=== PATIENT | male | born 1940 | race Caucasian/White ===

== ENCOUNTER 2020-06-28 07:42 | Outpatient (REF) | payer MEDICARE, SELFPAY ==
[2020-06-28 09:22] LABS: MANUAL DIFF FLAG NO
[2020-06-28 09:35] LABS: Basophils Absolute Auto 0.1 X10*3/uL (0.0-0.2); Basophils Percent Auto 0.9 % (0-2); Eosinophils Absolute Auto 0.2 X10*3/uL (0.0-0.4); Eosinophils Percent Auto 4.2 % (0-4); Hematocrit 45.5 % (42-52); Hemoglobin 15.1 g/dl (14.0-18.0); Imm Gran Abs Auto 0.02 X10*3/uL (0.00-0.03); Imm Gran Pct Auto 0.3 % (0.0-0.4); Lymphocytes Absolute Auto 1.6 X10*3/uL (1.2-4.9); Lymphocytes Percent Auto 27.3 % (20-40); Mean Corpuscular HGB Conc 33.2 g/dl (31.0-36.0); Mean Corpuscular Volume 90.5 fL (80-98); Mean Platelet Volume 9.6 fL (9.4-12.4); Monocytes Absolute Auto 0.6 X10*3/uL (0.1-1.2); Monocytes Percent Auto 9.9 % (2-11); Neutrophils Absolute Auto 3.3 X10*3/uL (2.0-8.3); Neutrophils Percent Auto 57.4 % (45-73); Platelet Count 157 X10*3/uL (160-400); Red Blood Count 5.03 X10*6/uL (4.60-5.80); Red Cell Distribution Width 13.5 % (11.0-16.0); White Blood Count 5.8 X10*3/uL (4.8-10.8)
[2020-06-28 10:24] LABS: Alanine Aminotransferase 21 U/L (0-40); Albumin Level 4.2 g/dL (3.5-5.0); Alkaline Phosphatase 61 U/L (39-117); Anion Gap 10 (12-20); Aspartate Amino Transferase 17 U/L (5-37); Bilirubin Direct 0.4 mg/dL (0.0-0.5); Blood Urea Nitrogen 17 mg/dL (9-16); Calcium 9.1 mg/dL (8.4-10.2); Carbon Dioxide 30 mmol/L (22-29); Chloride 104 mmol/L (96-108); Cholesterol 164 mg/dL; Estimated Glomerular Filt Rate 59; Glucose Fasting 91 mg/dL (60-99); HDL Cholesterol 44 mg/dL; LDL Cholesterol Calculated 95 mg/dl; Sodium 140 mmol/L (135-145); Triglycerides 128 mg/dL
== END 2020-06-28 07:43 | disposition home or self-care (01) ==
LOC: HO.LAB 07:42
DX: I10 Essential (primary) hypertension (principal); E78.5 Hyperlipidemia, unspecified
CPT/HCPCS: 36415; 80053; 80061; 80076; 85025

== ENCOUNTER 2021-05-04 08:50 | Outpatient (REF) | payer MEDICARE, SELFPAY ==
[2021-05-04 10:25] LABS: MANUAL DIFF FLAG NO
[2021-05-04 10:28] LABS: Basophils Percent Auto 0.7 % (0-2); Eosinophils Absolute Auto 0.2 X10*3/uL (0.0-0.4); Eosinophils Percent Auto 2.7 % (0-4); Hemoglobin 15.5 g/dl (14.0-18.0); Imm Gran Abs Auto 0.02 X10*3/uL (0.00-0.03); Imm Gran Pct Auto 0.4 % (0.0-0.4); Lymphocytes Absolute Auto 1.4 X10*3/uL (1.2-4.9); Lymphocytes Percent Auto 25.9 % (20-40); Mean Corpuscular HGB Conc 35.2 g/dl (31.0-36.0); Mean Corpuscular Hemoglobin 30.6 pg (27.0-33.0); Mean Corpuscular Volume 86.8 fL (80-98); Mean Platelet Volume 9.9 fL (9.4-12.4); Monocytes Absolute Auto 0.5 X10*3/uL (0.1-1.2); Monocytes Percent Auto 9.8 % (2-11); Neutrophils Absolute Auto 3.4 X10*3/uL (2.0-8.3); Neutrophils Percent Auto 60.5 % (45-73); Platelet Count 165 X10*3/uL (160-400); Red Blood Count 5.07 X10*6/uL (4.60-5.80); Red Cell Distribution Width 13.4 % (11.0-16.0); White Blood Count 5.5 X10*3/uL (4.8-10.8)
[2021-05-04 11:33] LABS: Alanine Aminotransferase 22 U/L (0-40); Albumin Level 4.3 g/dL (3.5-5.0); Alkaline Phosphatase 66 U/L (39-117); Anion Gap 13 (12-20); Aspartate Amino Transferase 22 U/L (5-37); Bilirubin Total 1.6 mg/dL (0.0-1.0); Blood Urea Nitrogen 23 mg/dL (9-16); Calcium 9.8 mg/dL (8.4-10.2); Carbon Dioxide 24 mmol/L (22-29); Chloride 105 mmol/L (96-108); Cholesterol 192 mg/dL; Estimated Glomerular Filt Rate 50; Glucose Fasting 105 mg/dL (60-99); HDL Cholesterol 44 mg/dL; LDL Cholesterol Calculated 122 mg/dl; Potassium 4.2 mmol/L (3.3-5.1); Sodium 138 mmol/L (135-145); Total Protein 7.4 g/dL (6.5-8.0); Triglycerides 130 mg/dL
[2021-05-04 11:54] LABS: Thyroid Stimulating Hormone 1.55 uIU/mL (0.32-4.0)
== END 2021-05-04 08:51 | disposition home or self-care (01) ==
LOC: HO.WFDLDS 08:50
PROVIDERS: PCP Internal Medicine; Visit Provider Internal Medicine
DX: Z00.00 Encounter for general adult medical examination without abnormal findings (principal); E03.9 Hypothyroidism, unspecified; E11.9 Type 2 diabetes mellitus without complications
CPT/HCPCS: 36415; 80053; 80061; 84443; 85025

== ENCOUNTER 2021-09-20 10:23 | Outpatient (REF) | payer MEDICARE, SELFPAY ==
[2021-09-20 13:38] LABS: Binax Internal Control QC Valid; Binax Now Covid-19 Ag Negative (Negative)
== END 2021-09-20 10:24 | disposition home or self-care (01) ==
LOC: HO.LAB 10:23
PROVIDERS: Visit Provider Internal Medicine
DX: Z20.822 Contact with and (suspected) exposure to COVID-19 (principal)
CPT/HCPCS: C9803

== ENCOUNTER 2021-12-14 07:39 | Outpatient (REF) | payer MEDICARE, SELFPAY ==
--- NOTE | ~2021-12-14 | US_ITS ---
EXAMINATION: US ABDOMEN COMPLETE CLINICAL INFORMATION: Unspecified abdominal pain. COMPARISON: CT abdomen and pelvis 10/23/2014. TECHNIQUE: Real-time imaging of the abdominal viscera. FINDINGS: PANCREAS: The visualized portion of the pancreas head and body are normal, portion of the pancreatic body and tail, not visualized are obscured by bowel gas. ABDOMINAL AORTA: The proximal, mid, and distal segments are normal in caliber. INFERIOR VENA CAVA: Visualized portions are normal. LIVER: The liver is normal in size. The liver contour is normal. Increased echogenicity of the liver parenchyma, this can be seen in the setting of hepatic steatosis or liver parenchymal disease. No focal hepatic lesion. There is no intrahepatic biliary duct dilatation seen. GALLBLADDER: Surgically absent. COMMON BILE DUCT: Normal in caliber measuring 0.5 cm in diameter. RIGHT KIDNEY: Simple cyst middle pole right kidney 2.9 x 2.4 x 2.8 cm. No hydronephrosis or renal calculi. The kidney measures 10.2 cm in maximum dimension. LEFT KIDNEY: Normal. No hydronephrosis. No renal calculi or focal parenchymal lesions. The kidney measures 10.4 cm in maximum dimension. SPLEEN: Normal. The spleen measures 11.8 cm in maximum dimension. FREE FLUID: None. US/US abdomen complete IMPRESSION: *No ultrasound explanation for patient's pain symptoms, gallbladder has been removed. *Simple cyst right kidney 2.9 cm *Increased echogenicity of the liver parenchyma, this can be seen in the setting of hepatic steatosis or liver parenchymal disease.
== END 2021-12-14 07:40 | disposition home or self-care (01) ==
LOC: HO.US 07:39
PROVIDERS: Visit Provider Internal Medicine
DX: R10.9 Unspecified abdominal pain (principal)
CPT/HCPCS: 76700

== ENCOUNTER 2022-01-12 12:18 | Outpatient (REF) | payer MEDICARE, SELFPAY ==
[2022-01-12 13:28] LABS: MANUAL DIFF FLAG NO
[2022-01-12 14:11] LABS: Basophils Absolute Auto 0.1 X10*3/uL (0.0-0.2); Basophils Percent Auto 0.8 % (0-2); Eosinophils Absolute Auto 0.2 X10*3/uL (0.0-0.4); Eosinophils Percent Auto 2.8 % (0-4); Hematocrit 43.8 % (42.0-52.0); Hemoglobin 15.2 g/dl (14.0-18.0); Imm Gran Abs Auto 0.02 X10*3/uL (0.00-0.03); Imm Gran Pct Auto 0.3 % (0.0-0.4); Lymphocytes Absolute Auto 1.3 X10*3/uL (1.2-4.9); Lymphocytes Percent Auto 21.6 % (20-40); Mean Corpuscular HGB Conc 34.7 g/dl (31.0-36.0); Mean Corpuscular Hemoglobin 30.6 pg (27.0-33.0); Mean Corpuscular Volume 88.3 fL (80.0-98.0); Mean Platelet Volume 9.6 fL (9.4-12.4); Monocytes Absolute Auto 0.7 X10*3/uL (0.1-1.2); Monocytes Percent Auto 11.9 % (2-11); Neutrophils Absolute Auto 3.9 x10*3/uL (2.0-8.3); Neutrophils Percent Auto 62.6 % (45-73); Platelet Count 167 X10*3/uL (160-400); Red Blood Count 4.96 X10*6/uL (4.60-5.80); Red Cell Distribution Width 13.7 % (11.0-16.0); White Blood Count 6.2 X10*3/uL (4.8-10.8)
[2022-01-12 14:34] LABS: Alanine Aminotransferase 19 U/L (0-40); Albumin Level 4.2 g/dL (3.5-5.0); Alkaline Phosphatase 58 U/L (39-117); Anion Gap 13 (12-20); Aspartate Amino Transferase 18 U/L (5-37); Blood Urea Nitrogen 19 mg/dL (9-16); Calcium 9.9 mg/dL (8.4-10.2); Carbon Dioxide 26 mmol/L (22-29); Chloride 105 mmol/L (96-108); Estimated Glomerular Filt Rate 48; Glucose Random 95 mg/dL (60-115); Potassium 4.5 mmol/L (3.3-5.1); Sodium 139 mmol/L (135-145); Total Protein 7.6 g/dL (6.5-8.0)
[2022-01-12 14:54] LABS: TSH reflex Free T4 1.48 uIU/mL (0.32-4.0)
== END 2022-01-12 12:19 | disposition home or self-care (01) ==
LOC: HO.LAB 12:18
PROVIDERS: PCP Internal Medicine; Referring Provider Internal Medicine; Visit Provider Nurse Practitioner
DX: R10.9 Unspecified abdominal pain (principal); K59.04 Chronic idiopathic constipation; Z80.0 Family history of malignant neoplasm of digestive organs
CPT/HCPCS: 36415; 80053; 84443; 85025; 99202

== ENCOUNTER → 2022-02-16 07:12 | Outpatient (BNVA) | payer MEDICARE, SELFPAY | PROVIDERS: PCP Internal Medicine; Visit Provider Nurse Practitioner | DX: K59.04 Chronic idiopathic constipation (principal); Z80.0 Family history of malignant neoplasm of digestive organs | CPT/HCPCS: 99212 ==

== ENCOUNTER 2022-02-28 08:42 | Day surgery (SDC) | payer MEDICARE, SELFPAY ==
[2022-02-27 08:18] VITALS: BMI 25.0
--- NOTE | 2022-02-27 10:44 | P.CONAN_ITS ---
HPI - Anesthesia Eval Consult details Narrative: 81yo M for Colonoscopy [facility] Active Problems Active Problems: All Active Problems (Updated 02/27/22 @ 08:23 by Allegra Diaz RN) Coronary artery disease (Acute) Hyperlipidemia (Acute) Cough (Acute) Physical exam (Acute) Hypertension (Acute) Contact dermatitis (Acute) Abdominal pain (Acute) Chronic idiopathic constipation (Acute) Family history of colon cancer (Acute) Past Medical History Medical History (Updated 02/27/22 @ 08:23 by Allegra Diaz RN) Renal cyst, right Family History Family History Father No problems noted. Mother No problems noted. Surgical History Surgical History (Updated 01/12/22 @ 12:26 by URMILA Vernon) History of cholecystectomy History of colonoscopy History of left inguinal hernia History of left knee replacement History of rectal fissure History of right inguinal hernia History of shoulder surgery Social History Social History Housing: House Are you a primary caregiver assisted living to a significant other at home: No Do you presently have visiting nurse or other home services: No Alcohol intake: current Alcohol intake frequency: holidays/special occasions only Patient Tobacco Use Status: Former Tobacco user Quit Date: Tobacco use type: Cigarette e-Cigarette/Vaping Use: Never Used Second Hand Smoke Exposure: No Use of substances other than those prescribed or required for medical reasons: No Are you DNR?: No Advance Directives: No (will bring DOS) Advance Directives Information Provided: No Advance Directives on File: No Recently lost weight without trying: Yes How much weight loss: 14-23 pounds Eating poorly because of decreased appetite: No Nutrition screen score: 4 Nutrition Risks: Surgical patient >75years Poor oral hygiene: No (full dentures) service: No Current occupational status: retired Current occupational exposures/hazards: No Cognitive needs: No Hearing needs: No Vision needs: Yes Meds Allergies Allergy/AdvReac Type Severity Reaction Status Date / Time No Known Allergies Allergy Verified 02/16/22 07:28 [No Known Allergies*] Home Medications Medication Instructions Recorded Confirmed Last Taken Type atorvastatin 40 mg tablet 40 mg PO BEDTIME 02/27/22 02/27/22 Unknown History Exam Exam Date and Time: February 27, 2022 1044 Height,Weight and Vital Signs: Height 5 ft 8 in Weight 74.843 kg Pertinent Lab Results Pertinent Lab Results: Laboratory Tests 01/12/22 01/12/22 13:25 13:25 WBC 6.2 Hgb 15.2 Hct 43.8 Plt Count 167 Sodium 139 Potassium 4.5 Chloride 105 Carbon Dioxide 26 BUN 19 H Creatinine 1.41 H Assessment and Plan Assessment Anesthesia Assessment: Chart Reviewed
--- NOTE | 2022-02-28 09:08 | P.BOP_ITS ---
Brief Operative Note Date of Service: 02/28/22 Pre-op diagnosis: Colon cancer screening, chronic constipation, left lower quadrant pain Pt reports he had a colonoscopy several yrs ago which revealed a polyp and polyp was not removed Post-op diagnosis: other (Colon polyps, diverticulosis, hemorrhoids) Procedure: COLONOSCOPY TILL CECUM WITH BIOPSIES, SNARE POLYPECTOMY AND SUBMUCOSAL INJECTION Consent: Indications for the procedure and potential complications of bleeding, perforation, reaction to medications and missed diagnosis were discussed with the patient and informed consent was obtained. Instrument: Olympus PCF H 190 L variable stiffness pediatric colonoscope Monitoring: Vital signs and clinical assessment, intermittent blood pressure monitoring, continuous EKG monitoring, Pulse oximetry and Carbon Dioxide monitoring were done throughout the procedure. Colon withdrawl time was 18 minutes. Procedure: The patient was placed in the left lateral decubitis position and pre-procedure medications were administered. After a digital rectal examination of the ano-rectum, the video colonoscope was inserted into the rectum and advanced through the colon to the cecum. The colonoscope was slowly withdrawn in a retrograde panoramic fashion and the colon mucosa was carefully examined including a retroflexed view of the rectum. Findings and interventions are described below. Procedure Difficulty: Without difficulty - colon was long and tortuous and there was some loop formation Findings: Terminal Ileum: Not evaluated Cecum: Normal Ascending Colon: Two 5-7 mm sessile polyps removed with a cold snare Transverse Colon: A 2 x 2.5 cms flat polyp at 70 cms. Polyp was raised with 5 cc of Orise solution (submucosal injection) and removed with a hot snare. Descending Colon: A 6-7 mm flat polyp removed with a cold bx Sigmoid Colon: A 9-10 mm sessile polyp removed with a hot snare. Moderate diverticulosis Rectum: Multiple 2-4 mm diminutive appearing polyps - two removed with a cold bx. Ano-rectum: Moderate internal hemorrhoids Colon preparation: Good Impression and Post Procedure Diagnosis: Colonoscopy Findings: Seven small to medium sized polyps removed Moderate diverticulosis seen in the sigmoid colon Moderate hemorrhoids on retroflexed exam. Plan: Await pathology results Patient has an appointment on 03/29/22 in the GI Clinic with Connie Guevara NP. Repeat Colonoscopy interval based on path results - in 3 years if polyps are adenomatous and 10 years if polyps are hyperplastic. Above findings were reviewed with the patient and colon polyps and diverticulosis handouts were given in the discharge area Surgeon: Tessa Mejia MD Anesthesia: MAC (Dr Vickers) Was an Insurance Processing Clerk used for this Procedure?: Yes Insurance Processing Clerk: Kelsie Owusu Estimated blood loss (mL): 0 Pathology: other ( A. transverse colon polyp with Orise B. ascending colon polyps (2) C. descending colon polyp d- sigmoid polyp e- rectal po lyp) Condition: stable Disposition: PACU
--- NOTE | 2022-02-28 09:08 | MHC.SHP ---
Pre-Procedural Eval Section A Date of Service: 02/28/22 The patient is an INPATIENT: No Changes since office visit: Yes Patient answered all questions; No Cold of Flu in the past 2 weeks, No New Medical Problems and No Changes in Medication The History & Physical has been completed within 30 days and I have reviewed it.: Yes Section B Chief Complaint: Chronic idiopathic constipation,hx malignant neopl Allergies: Allergies Allergy/AdvReac Type Severity Reaction Status Date / Time No Known Allergies Allergy Verified 02/16/22 07:28 [No Known Allergies*] Plan I have reviewed the history and physical and performed a pertinent physical examination on my patient. No changes have occurred unless specified.
[2022-02-28 09:19] VITALS: BP 181/95; PULSE 71; RESP 17; TEMP 37.3; O2SAT 97
[2022-02-28] MEDS: Lactated Ringers 1,000 ML 100 ML IVCONT (09:27)
--- NOTE | 2022-02-28 10:22 | P.CONAN_ITS ---
[facility] Active Problems Active Problems: All Active Problems (Updated 02/28/22 @ 09:11 by Denise Alas RN) Coronary artery disease (Acute) Hyperlipidemia (Acute) Cough (Acute) Physical exam (Acute) Hypertension (Acute) Contact dermatitis (Acute) Abdominal pain (Acute) Chronic idiopathic constipation (Acute) Family history of colon cancer (Acute) Past Medical History Medical History HTN (hypertension) Renal cyst, right Family History Family History Father No problems noted. Mother No problems noted. Family history of problems with anesthesia: No Surgical History Surgical History History of cholecystectomy History of colonoscopy History of left inguinal hernia History of left knee replacement History of rectal fissure History of right inguinal hernia History of shoulder surgery History of Problems with Anesthesia: No Social History Social History Housing: House Are you a primary hemodialysis patient care specialist to a significant other at home: No Do you presently have visiting nurse or other home services: No Alcohol intake: current Alcohol intake frequency: holidays/special occasions only Patient Tobacco Use Status: Former Tobacco user Quit Date: Tobacco use type: Cigarette e-Cigarette/Vaping Use: Never Used Second Hand Smoke Exposure: No Use of substances other than those prescribed or required for medical reasons: No Are you DNR?: No Advance Directives: Yes Advance Directives Information Provided: Yes Advance Directives on File: No Recently lost weight without trying: Yes How much weight loss: 14-23 pounds Eating poorly because of decreased appetite: No Nutrition screen score: 4 Nutrition Risks: Surgical patient >75years Poor oral hygiene: No (full dentures) service: No Current occupational status: retired Current occupational exposures/hazards: No Cognitive needs: No Hearing needs: No Vision needs: Yes Meds Allergies Allergy/AdvReac Type Severity Reaction Status Date / Time No Known Allergies Allergy Verified 02/16/22 07:28 [No Known Allergies*] Active Medications: Current Medications Lactated Ringer's (Lr) 1,000 mls @ 100 mls/hr IVCONT .Q10H CHRISTINA Last Admin: 02/28/22 09:27 Dose: 100 mls/hr Ondansetron HCl (Ondansetron Hcl 4 Mg/2 Ml Vial) 4 mg IVPUSH ONCE PRN PRN Reason: Nausea and Vomiting Home Medications Medication Instructions Recorded Confirmed Last Taken Type atorvastatin 40 mg tablet 40 mg PO BEDTIME 02/27/22 02/27/22 Unknown History Exam Exam Date and Time: February 28, 2022 1022 Height,Weight and Vital Signs: Height 5 ft 8 in Weight 74.843 kg Last Vital Signs Temp 99.1 F 02/28/22 09:19 Pulse 71 02/28/22 09:19 Resp 17 02/28/22 09:19 BP 181/95 H 02/28/22 09:19 Pulse Ox 97 02/28/22 09:19 O2 Del Method 02/28/22 09:19 Airway Mallampati Class: II TM Dist: >3cm Denture: Upper and Lower Heart: rrr Lungs: clear Assessment and Plan Final Anesthetic Review Family History of Problems with Anesthesia: No History of Problems with Anesthesia: No NPO: Yes ASA Class: III Final Preanesthetic Review: No Changes in Pt Med Stat, Meds/Allgs Chart Reviewed, Consent Obtained/Reviewed and Anes Risks/Benef Reviewed Patient Risk: Intermediate Procedure Risk: Low Anesthetic Plan Anesthetic Plan: MAC:
--- NOTE | 2022-02-28 11:15 | W.PM.OPN ---
Operative Note Operative Note Date of Service: 02/28/22 Narrative: Pre-op diagnosis: Colon cancer screening, chronic constipation, left lower quadrant pain Pt reports he had a colonoscopy several yrs ago which revealed a polyp and polyp was not removed Post-op diagnosis:?other (Colon polyps, diverticulosis, hemorrhoids) Procedure: COLONOSCOPY TILL CECUM WITH BIOPSIES, SNARE POLYPECTOMY AND SUBMUCOSAL INJECTION Consent: Indications for the procedure and potential complications of bleeding, perforation, reaction to medications and missed diagnosis were discussed with the patient and informed consent was obtained. Instrument: Olympus PCF H 190 L variable stiffness pediatric colonoscope Monitoring: Vital signs and clinical assessment, intermittent blood pressure monitoring, continuous EKG monitoring, Pulse oximetry and Carbon Dioxide monitoring were done throughout the procedure. Colon withdrawl time was 18 minutes. Procedure: The patient was placed in the left lateral decubitis position and pre-procedure medications were administered. After a digital rectal examination of the ano-rectum, the video colonoscope was inserted into the rectum and advanced through the colon to the cecum. The colonoscope was slowly withdrawn in a retrograde panoramic fashion and the colon mucosa was carefully examined including a retroflexed view of the rectum. Findings and interventions are described below. Procedure Difficulty: Without difficulty - colon was long and tortuous and there was some loop formation Findings: Terminal Ileum: Not evaluated Cecum:? Normal Ascending Colon:? Two 5-7 mm sessile polyps removed with a cold snare Transverse Colon:? A 2 x 2.5 cms flat polyp at 70 cms. Polyp was raised with 5 cc of Orise solution (submucosal injection) and removed with a hot snare.? Descending Colon:? A 6-7 mm flat polyp removed with a cold bx Sigmoid Colon:? A 9-10 mm sessile polyp removed with a hot snare. Moderate diverticulosis Rectum:? Multiple 2-4 mm diminutive appearing polyps - two removed with a cold bx. Ano-rectum:? Moderate internal hemorrhoids Colon preparation:? Good? Impression and Post Procedure Diagnosis: Colonoscopy Findings: ?Seven small to medium sized polyps removed Moderate diverticulosis seen in the sigmoid colon Moderate hemorrhoids on retroflexed exam. Plan: Await pathology results Patient has an appointment on 03/29/22 in the GI Clinic with? Connie Guevara NP. Pt notes significant improvement in abdominal pain and bloating since he started taking medications for constipation. Repeat Colonoscopy interval based on path results - in 3 years if polyps are adenomatous and 10 years if polyps are hyperplastic (adult colonoscope for future colonoscopies). Above findings were reviewed with the patient and colon polyps and diverticulosis handouts were given in the discharge area Surgeon: Tessa Mejia MD Anesthesia:?MAC (Dr Vickers) Was an [employer] Missile Crewmember used for this Procedure?:?Yes [employer] Crewmember:?Kelsie Owusu Estimated blood loss (mL):?0 Pathology:?other ( A. transverse colon polyp with Orise? B. ascending colon polyps (2)? C. descending colon polyp? d- sigmoid polyp? e- rectal polyp) Condition:?stable Disposition:?PACU
[2022-02-28 11:17] VITALS: BP 106/71; PULSE 58; RESP 17; TEMP 36.4; O2SAT 94
[2022-02-28 11:32] VITALS: BP 140/84; PULSE 60; RESP 18; TEMP 36.4; O2SAT 96
== END 2022-02-28 12:00 | disposition home or self-care (01) ==
PROVIDERS: PCP Internal Medicine; Visit Provider Internal Medicine Gastroenterology
PROC: 0DJD8ZZ Inspection of Lower Intestinal Tract, Via Natural or Artificial Opening Endoscopic (ICD-10-PCS; CPT 45378; principal; 2022-02-28 10:50)
DX: Z12.11 Encounter for screening for malignant neoplasm of colon (principal); Z80.0 Family history of malignant neoplasm of digestive organs; D12.2 Benign neoplasm of ascending colon; D12.3 Benign neoplasm of transverse colon; K63.5 Polyp of colon; K62.1 Rectal polyp; K57.30 Diverticulosis of large intestine without perforation or abscess without bleeding; K64.8 Other hemorrhoids; K59.04 Chronic idiopathic constipation; I25.10 Atherosclerotic heart disease of native coronary artery without angina pectoris; I10 Essential (primary) hypertension; E78.5 Hyperlipidemia, unspecified; Z79.82 Long term (current) use of aspirin; Z79.899 Other long term (current) drug therapy; Z87.891 Personal history of nicotine dependence
CPT/HCPCS: 45385; 45380; 45381; 88305

== ENCOUNTER → 2022-03-29 09:46 | Outpatient (BNVA) | payer MEDICARE, SELFPAY | PROVIDERS: PCP Internal Medicine; Visit Provider Nurse Practitioner | DX: K63.5 Polyp of colon (principal); D12.2 Benign neoplasm of ascending colon; D12.3 Benign neoplasm of transverse colon; K62.1 Rectal polyp; K57.30 Diverticulosis of large intestine without perforation or abscess without bleeding; K64.8 Other hemorrhoids; K59.04 Chronic idiopathic constipation; R01.1 Cardiac murmur, unspecified; I25.10 Atherosclerotic heart disease of native coronary artery without angina pectoris; Z98.890 Other specified postprocedural states | CPT/HCPCS: 99212 ==

== ENCOUNTER → 2022-04-07 09:20 | Outpatient (REF) | payer MEDICARE, SELFPAY ==
--- NOTE | 2022-04-07 09:31 | ECG_ITS ---
Test Reason : screening Blood Pressure : / mmHG Vent. Rate : 054 BPM Atrial Rate : 054 BPM P-R Int : 176 ms QRS Dur : 102 ms QT Int : 426 ms P-R-T Axes : 064 -17 076 degrees QTc Int : 403 ms Sinus bradycardia Otherwise normal ECG When compared with ECG of 15-MAR-2015 13:48, No significant change was found Referred By: Cade Perez Electronically Signed By:RANDA BRANCH
== END ==
LOC: HO.CARD 09:20
PROVIDERS: PCP Internal Medicine; Visit Provider Internal Medicine
DX: R00.1 Bradycardia, unspecified (principal)
CPT/HCPCS: 93005

== ENCOUNTER 2022-05-19 09:32 | Outpatient (REF) | payer MEDICARE, SELFPAY ==
[2022-05-19 11:32] LABS: MANUAL DIFF FLAG NO
[2022-05-19 11:42] LABS: Basophils Absolute Auto 0.1 X10*3/uL (0.0-0.2); Basophils Percent Auto 0.9 % (0-2); Eosinophils Absolute Auto 0.2 X10*3/uL (0.0-0.4); Eosinophils Percent Auto 3.5 % (0-4); Hematocrit 47.2 % (42.0-52.0); Imm Gran Abs Auto 0.01 X10*3/uL (0.00-0.03); Imm Gran Pct Auto 0.2 % (0.0-0.4); Lymphocytes Absolute Auto 1.7 X10*3/uL (1.2-4.9); Lymphocytes Percent Auto 29.2 % (20-40); Mean Corpuscular HGB Conc 33.9 g/dl (31.0-36.0); Mean Corpuscular Hemoglobin 29.7 pg (27.0-33.0); Mean Corpuscular Volume 87.6 fL (80.0-98.0); Mean Platelet Volume 10.1 fL (9.4-12.4); Monocytes Absolute Auto 0.5 X10*3/uL (0.1-1.2); Monocytes Percent Auto 9.2 % (2-11); Neutrophils Absolute Auto 3.2 x10*3/uL (2.0-8.3); Platelet Count 174 X10*3/uL (160-400); Red Blood Count 5.39 X10*6/uL (4.60-5.80); Red Cell Distribution Width 13.5 % (11.0-16.0); White Blood Count 5.7 X10*3/uL (4.8-10.8)
[2022-05-19 12:33] LABS: Alanine Aminotransferase 22 U/L (0-40); Albumin Level 4.3 g/dL (3.5-5.0); Alkaline Phosphatase 69 U/L (39-117); Anion Gap 16 (12-20); Aspartate Amino Transferase 19 U/L (5-37); Bilirubin Total 1.4 mg/dL (0.0-1.0); Blood Urea Nitrogen 18 mg/dL (9-16); Calcium 9.8 mg/dL (8.4-10.2); Carbon Dioxide 25 mmol/L (22-29); Chloride 103 mmol/L (96-108); Cholesterol 224 mg/dL; Estimated Glomerular Filt Rate 52; Glucose Fasting 102 mg/dL (60-99); HDL Cholesterol 52 mg/dL; LDL Cholesterol Calculated 146 mg/dl; Potassium 4.2 mmol/L (3.3-5.1); Sodium 140 mmol/L (135-145); Total Protein 7.7 g/dL (6.5-8.0); Triglycerides 134 mg/dL
[2022-05-19 12:35] LABS: Thyroid Stimulating Hormone 1.34 uIU/mL (0.32-4.0)
== END 2022-05-19 09:33 | disposition home or self-care (01) ==
LOC: HO.WFDLDS 09:32
PROVIDERS: Visit Provider Internal Medicine
DX: Z00.00 Encounter for general adult medical examination without abnormal findings (principal); Z13.0 Encounter for screening for diseases of the blood and blood-forming organs and certain disorders involving the immune mechanism
CPT/HCPCS: 36415; 80053; 80061; 84443; 85025

== ENCOUNTER → 2022-06-13 14:28 | Outpatient (REF) | payer MEDICARE, SELFPAY ==
--- NOTE | 2022-06-13 14:30 | CA_ITS ---
Transthoracic Echocardiogram Patient (Last, First, Middle): Devon Auguste E Gender: Male Date of : 1940 Age: 81 Procedure Date: 06/13/2022 Procedure Type: Transthoracic Echocardiogram Location: OP Height: 172.72 cm Weight: 74.84 kg BSA: 1.88 m2 Heart Rate: 68 bpm BP: 135 / 72 mmHg Jig Hand: SB Referring MD: Cade Perez MD Cotton Chopper: Wayne Romano MD Symptoms: R01.1 - Cardiac murmur, unspecified Study Quality: Adequate ECG Rhythm: Sinus Conclusions: - 1. Normal LV systolic function with impaired relaxation filling pattern 2. Mild aortic stenosis 3. Normal RV systolic pressure 4. No pericardial effusion 5. Mildly dilated ascending aorta at 4.1 cm Findings Left Ventricle Normal left ventricular size, thickness, and systolic function. The visually estimated ejection fraction is between 60-65%. Spectral Doppler is indicative of an impaired relaxation filling pattern. E/E prime ratio is between 8 and 15 consistent with indeterminate filling pressures. There is mild septal asymmetric hypertrophy. Right Ventricle Normal right ventricular cavity size and systolic function. Atria The left atrium is normal in size. Interatrial shunt cannot be excluded. The right atrium is normal in size. Aortic Valve There is mild calcification of the aortic valve. There is mild thickening of the aortic valve. There is mild aortic valve stenosis. The mean gradient is 11 mmHg. There is no aortic valve regurgitation. Mitral Valve There is mild anterior and posterior mitral leaflet thickening. There is trace mitral valve regurgitation. There is no mitral valve stenosis. Pulmonic Valve The pulmonic valve was not well visualized. Tricuspid Valve Likely normal tricuspid valve structure and function. There is mild tricuspid valve regurgitation. The right ventricular systolic pressure is normal. The right ventricular systolic pressure is 36 mmHg. Normal right atrial pressure. There is no evidence of pulmonary hypertension. Great Vessels The pulmonary artery was not well visualized. There is mild dilatation of the ascending aorta measuring 4.10 cm. Venous The inferior vena cava is normal in size and collapses greater than 50% with inspiration. Pericardium/Pleural There is no evidence of pericardial effusion. Prior Study Comparison no previous study in the last 5 years for comparison Measurements 2D Linear Measurements IVSd: 1.38 0.6-0.9/0.6-1.0 cm LVIDd: 4.05 3.9-5.3/4.2-5.9 cm LVIDd Index: 2.15 2.4-3.2/2.2-3.1 cm/m2 LVIDs: 2.86 2.0-3.6 cm LVPWd: 0.88 0.7-1.1 cm LA Diam: 3.50 2.7-3.8/3.0-4.0 cm LAIDs Index: 1.86 1.5-2.3 cm/m2 LV Mass: 192.08 67-162/88-224 g LV Mass Index: 102.17 43-95/49-115 g/m2 LVOT Diam: 2.30 3.0+(-)1.3 cm 2D Systolic Function EF 4C: 57.90 >55% EF 2C: 62.80 >55% EF BiP: 61.80 >55% Mitral Valve MV Pk E: 0.42 MV PK A: 0.77 MV Decel Time: 295.00 E/A: 0.50 E'Lateral: 8.05 E'Medial: 4.03 E/E' Med: 10.30 E/E' Lat: 5.20 PHT: 86.00 MVA PHT: 2.56 Decel [place]: 1.41 Aortic Valve AoV Pk Raphael: 2.34 AoV Mn Raphael: 1.54 AoV VTI: 0.45 AoV Pk Grad: 22.00 Aov Mn Grad: 11.00 REY Cont.VTI: 2.39 LVOT LVOT Pk Raphael: 1.32 LVOT Mn Raphael: 0.82 LVOT VTI: 0.26 LVOT Pk Grad: 7.00 LVOT Mn Grad: 3.00 LVOT Diam: 2.30 LVOT Area: 4.15 Diastolic Function MV Pk E: 0.42 MV Pk A: 0.77 E/A: 0.50 E'Medial: 4.03 E/E' Med: 10.30 E' Laterial: 8.05 E/E' Lat: 5.20 Right Ventricle TAPSE (mm): 21.70 TVS' Raphael: 8.27 Tricuspid Valve TR Pk Raphael: 2.31 TR Pk Grad: 21.00 RA Press: 15.00 RVSP: 36.00 Great Vessels Aorta Sinus of Valsalva: 4.20 2.0-3.5 cm Ao Asc: 4.10 2.1-3.4 cm Pulmonary Valve PV Pk Raphael: 1.51 Peak PV Grad: 9.00 Updated in Other Vendor System with Status of Final Wayne Romano MD electronically signed on 06/14/2022 5:12:11 PM with status of Final
== END ==
LOC: HO.CARD 14:28
PROVIDERS: Visit Provider Internal Medicine
DX: R01.1 Cardiac murmur, unspecified (principal)
CPT/HCPCS: 93306

== ENCOUNTER → 2022-08-10 08:41 | Outpatient (BNVA) | payer MEDICARE, SELFPAY | PROVIDERS: PCP Internal Medicine; Referring Provider Internal Medicine; Visit Provider Internal Medicine Cardiovascular Disease | DX: I25.10 Atherosclerotic heart disease of native coronary artery without angina pectoris (principal); I35.0 Nonrheumatic aortic (valve) stenosis; R06.02 Shortness of breath | CPT/HCPCS: 99202 ==

== ENCOUNTER 2022-11-16 09:31 | Outpatient (REF) | payer MEDICARE, SELFPAY ==
[2022-11-16 12:22] LABS: Cholesterol 206 mg/dL; HDL Cholesterol 48 mg/dL; LDL Cholesterol Calculated 133 mg/dl; Triglycerides 128 mg/dL
== END 2022-11-16 09:32 | disposition home or self-care (01) ==
LOC: HO.WFDLDS 09:31
PROVIDERS: Visit Provider Internal Medicine Cardiovascular Disease
DX: I25.10 Atherosclerotic heart disease of native coronary artery without angina pectoris (principal)
CPT/HCPCS: 36415; 80061

== ENCOUNTER 2023-04-09 10:34 | Inpatient (IN) | payer MEDICARE, SELFPAY ==
[2023-04-09] VITALS (8 sets, daily range): BP systolic 125–176; BP diastolic 71–98; PULSE 53–64; RESP 16–24; TEMP 36.1–36.9; O2SAT 94–98; BMI 29.0
--- NOTE | ~2023-04-09 | MR_ITS ---
EXAMINATION: MR BRAIN WITHOUT CONTRAST CLINICAL INFORMATION: TIA COMPARISON: Same day CTA head and neck TECHNIQUE: Multiplanar multisequence MR imaging of the brain was obtained without intravenous contrast. FINDINGS: Motion degraded examination Focus of reduced diffusion in the right parietal deep white matter and small region of cortical reduced diffusion at the right parieto-occipital junction, compatible with acute infarct. There is also questionable cortical reduced diffusion involving the right frontal lobe including the precentral gyrus near the vertex (series 4 image 24 and 26). Focus of susceptibility artifact in the right parietal periventricular white matter likely reflect sequela prior microhemorrhage. No other abnormal parenchymal susceptibility artifact. No extra-axial collection or mass effect/herniation. Scattered periventricular and deep white matter T2 FLAIR hyperintensities consistent with mild underlying microangiopathy. Chronic encephalomalacia in the left frontal lobe. Chronic right basal ganglia and right cerebellar lacunar infarcts. No hydrocephalus. Mild generalized cerebral volume loss with commensurate sulcal and ventricular prominence. The major flow voids at the skull base are preserved. The midline structures are normal. The cerebellar tonsils are normally positioned. The craniocervical junction is normal. Marrow signal is within normal limits. The visualized soft tissues are without significant abnormality. No signal abnormality within the paranasal sinuses or within the mastoid air cells. MR/MR head/brain wo con IMPRESSION: 1. Small acute infarcts involving the right parieto-occipital junction and right parietal white matter. Equivocal cortical reduced diffusion in the right frontal lobe including the precentral gyrus near the vertex which may represent additional acute infarct. 2. Mild generalized volume loss and chronic microangiopathy, chronic right basal ganglia and right cerebellar lacunar infarcts, and chronic left frontal lobe infarcts.
--- NOTE | ~2023-04-09 | XR_ITS ---
EXAMINATION: XR CHEST CLINICAL INFORMATION: Left-sided weakness COMPARISON: None available. TECHNIQUE: AP upright portable view of the chest was obtained. 11:06 AM. FINDINGS: No airspace consolidation or vascular congestion seen. The pleural surfaces appear to be clear. Minimal linear atelectasis noted near the left costophrenic angle. XR/XR chest 1V IMPRESSION: Minimal linear atelectasis near the left costophrenic angle. No dominant consolidations or vascular congestion.
--- NOTE | ~2023-04-09 | CT_ITS ---
EXAMINATION: CT HEAD WITHOUT CONTRAST (STROKE PROTOCOL) CLINICAL INFORMATION: Stroke protocol. Acute left arm weakness COMPARISON: January 2011. TECHNIQUE: Contiguous axial imaging was performed from the skull base to vertex without intravenous administration of contrast. This CT examination was performed using dose optimization techniques as appropriate, variously including the following: *Automated exposure control *Adjustment of mA and/or kV according to patient size (this includes techniques or standardized protocols for targeted exams where dose is matched to indication/reason for exam; i.e. extremities or head) *Use of iterative reconstruction technique DLP: 773 mGy-cm FINDINGS: No evidence for hemorrhage or mass effect. Cisterns unremarkable. Pillai/white matter differentiation is maintained. No appreciable extra-axial collections. Atrophy noted. There are hypodense changes of subcortical and periventricular white matter consistent with chronic small vessel ischemic disease. There are old small right basal ganglia infarcts. Mastoids well aerated. No calvarial disruption. The skull base is within normal limits. CT/CT head for stroke IMPRESSION: No new hemorrhage or mass effect. Atrophy with change of chronic small vessel ischemic disease. 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
--- NOTE | ~2023-04-09 | CT_ITS ---
EXAMINATION: CT ANGIOGRAM NECK CT ANGIOGRAM HEAD CLINICAL INFORMATION: Left upper slightly weakness. COMPARISON: CT head 04/09/2023. TECHNIQUE: Handbag Stitcher images were obtained. A CT angiogram of the head and neck was performed in the arterial phase after the intravenous administration of 70 mL Omnipaque 350. Delayed postcontrast images of the head were also obtained. 3D images were processed on an independent workstation under concurrent supervision. Arterial stenoses are measured in accordance with NASCET criteria or similar method if applicable. This CT examination was performed using dose optimization techniques as appropriate, including one or more of the following: Automated exposure control, iterative reconstruction, and adjustment of technique factors (mA and/or kVp) according to patient size (this includes techniques or standardized protocols for targeted exams where dose is matched to indication/reason for exam). Fleischner Society criteria for the followup of incidental pulmonary nodules was implemented if appropriate. Total exam dose-length product 1542 mGy-cm FINDINGS: Head: Delayed postcontrast images reveal no abnormal intracranial mass or enhancement. No intracranial mass effect or midline shift. Lateral and third ventricles are normal. No hydrocephalus. There are a few small chronic cortical infarcts over the left cerebral convexity. Scattered chronic small vessel ischemic changes are also visualized within the periventricular white matter, basal ganglia, and carmelo. Grossly no evidence of acute territorial infarct. The calvarium and skull base are intact. There are bilateral mastoid effusions. Mild paranasal sinus disease primarily affecting the left maxillary sinus and ethmoid air cells. There chronic changes of an old healed left orbital blowout fracture. CT angiogram neck: Scattered atheromatous calcification involves the aortic arch apex. Origins of the major aortic branches are widely patent. Common carotid arteries are normal. Partially calcified predominantly lipid-laden atheromatous plaque causes 50% stenosis at the origins of the right and left internal carotid arteries. Cervical vertebral arteries are widely patent. CT angiogram head: Intracranial internal carotid arteries are normal. The intradural vertebral artery segments and basilar artery are normal. Anterior, middle, and posterior cerebral artery complexes are normal. No intracranial large vessel occlusion. No identifiable aneurysm or high flow vascular lesion. Other: Soft tissues of the neck including the thyroid gland are normal. Grossly no pathologically enlarged cervical lymph nodes. There is pleural-parenchymal scarring at the apices of both lungs. No acute osseous finding. Specifically no worrisome lytic or blastic osseous lesion. 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 CT/CT angio head neck stroke IMPRESSION: Partially calcified predominantly lipid-laden atheromatous plaque causes 50% stenosis at the origins of the right and left internal carotid arteries. Otherwise no stenosis of the cervical carotid or vertebral arteries. No intracranial large vessel occlusion. There are a few small chronic cortical infarcts over the left cerebral convexity and scattered chronic small vessel ischemic changes within the periventricular white matter, basal ganglia, and carmelo. Grossly no evidence of acute territorial infarct or hemorrhage. No abnormal intracranial mass or enhancement. 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 If there are clinical symptoms of compressive myelopathy then a dedicated cervical spine MRI can be obtained for better anatomic characterization of the cord and canal. This critical result was discussed with Dr. Ferrer at 11:13 AM on 04/09/2023 and it was ascertained that the content and urgency of the report was understood at the time of direct communication.
--- NOTE | 2023-04-09 07:00 | CA_ITS ---
Transthoracic Echocardiogram Patient (Last, First, Middle): Devon Auguste E Gender: Male Date of : 1940 Age: 82 Procedure Date: 04/09/2023 Procedure Type: Transthoracic Echocardiogram Location: ER Height: 172.72 cm Weight: 86.18 kg BSA: 2.00 m2 Heart Rate: 55 bpm BP: 163 / 85 mmHg Director Microbiology: SB Referring MD: Sravanthi ENGLISH Symptoms: tia Study Quality: Fair but adequate ECG Rhythm: Bradycardia Conclusions: - The left ventricular systolic function is normal. The calculated ejection fraction is 61% by biplane method. - Possible distal septal hypokinesis. - There is moderate calcification of the aortic valve. No significant aortic stenosis. - There is mild dilatation of the ascending aorta measuring 4.00 cm. Findings Left Ventricle Normal left ventricular cavity size. The left ventricular systolic function is normal. The calculated ejection fraction is 61% by biplane method. E/E prime ratio is <8, consistent with normal filling pressures. Evidence suggests grade I (mild) diastolic dysfunction. There is moderate septal asymmetric hypertrophy. Possible distal septal hypokinesis. Right Ventricle Normal right ventricular cavity size. There is mildly decreased right ventricular systolic function. Atria Both atria are normal in size. Aortic Valve There is moderate calcification of the aortic valve. There is trace (trivial) aortic valve regurgitation. No significant aortic stenosis. Mitral Valve The mitral valve appears normal. There is no mitral valve regurgitation. There is no mitral valve stenosis. Pulmonic Valve The pulmonic valve is likely normal. Tricuspid Valve Normal tricuspid valve structure. There is trace tricuspid valve regurgitation. There is no evidence of pulmonary hypertension. Great Vessels There is mild dilatation of the ascending aorta measuring 4.00 cm. Venous The inferior vena cava is normal in size and collapses greater than 50% with inspiration. Pericardium/Pleural There is no evidence of pericardial effusion. Prior Study Comparison Changes noted compared to prior study dated: 06/13/2022. see comment on wall motion. Measurements 2D Linear Measurements IVSd: 1.47 0.6-0.9/0.6-1.0 cm LVIDd: 4.62 3.9-5.3/4.2-5.9 cm LVIDd Index: 2.31 2.4-3.2/2.2-3.1 cm/m2 LVIDs: 2.61 2.0-3.6 cm LVPWd: 0.91 0.7-1.1 cm LA Diam: 3.50 2.7-3.8/3.0-4.0 cm LAIDs Index: 1.75 1.5-2.3 cm/m2 LV Mass: 254.16 67-162/88-224 g LV Mass Index: 127.08 43-95/49-115 g/m2 LVOT Diam: 2.10 3.0+(-)1.3 cm 2D Systolic Function EF 4C: 61.10 >55% EF 2C: 59.70 >55% EF BiP: 61.40 >55% Mitral Valve MV Pk E: 0.39 MV PK A: 0.87 MV Decel Time: 298.00 E/A: 0.50 E'Lateral: 6.92 E'Medial: 3.45 E/E' Med: 11.40 E/E' Lat: 5.70 PHT: 87.00 MVA PHT: 2.53 Decel [place]: 1.32 Aortic Valve AoV Pk Raphael: 1.96 AoV Mn Raphael: 1.32 AoV VTI: 0.39 AoV Pk Grad: 15.00 Aov Mn Grad: 8.00 REY Cont.VTI: 1.98 LVOT LVOT Pk Raphael: 1.02 LVOT Mn Raphael: 0.77 LVOT VTI: 0.22 LVOT Pk Grad: 4.00 LVOT Mn Grad: 3.00 LVOT Diam: 2.10 LVOT Area: 3.46 Diastolic Function MV Pk E: 0.39 MV Pk A: 0.87 E/A: 0.50 E'Medial: 3.45 E/E' Med: 11.40 E' Laterial: 6.92 E/E' Lat: 5.70 Right Ventricle TAPSE (mm): 13.10 TVS' Raphael: 8.59 Tricuspid Valve TR Pk Raphael: 2.29 TR Pk Grad: 21.00 RA Press: 3.00 RVSP: 24.00 Great Vessels Aorta Sinus of Valsalva: 4.10 2.0-3.5 cm Ao Asc: 4.00 2.1-3.4 cm Pulmonary Valve PV Pk Raphael: 1.27 Peak PV Grad: 6.00 Updated in Other Vendor System with Status of Final Julian Jovel MD electronically signed on 04/09/2023 3:38:38 PM with status of Final
--- NOTE | 2023-04-09 10:42 | ECG_ITS ---
Test Reason : STROKE ALERT Blood Pressure : / mmHG Vent. Rate : 060 BPM Atrial Rate : 060 BPM P-R Int : 178 ms QRS Dur : 106 ms QT Int : 412 ms P-R-T Axes : 061 -20 071 degrees QTc Int : 412 ms Normal sinus rhythm Normal ECG When compared with ECG of 07-APR-2022 09:30, No significant change was found Referred By: Willian Ferrer Electronically Signed By:RANDA BRANCH
[2023-04-09 10:48] LABS: Prothrombin Time Whole Bld POC 11.8 sec (11.1-13.5)
[2023-04-09 10:49] LABS: Glucose, Whole Blood 111 mg/dL (60-115)
[2023-04-09] MEDS: iohexoL 350 MG/ML 100 ML INFUS..BTL IV (10:58)
[2023-04-09 10:59] LABS: MANUAL DIFF FLAG NO
[2023-04-09 11:01] LABS: Basophils Percent Auto 0.4 % (0-2); Eosinophils Absolute Auto 0.1 X10*3/uL (0.0-0.4); Eosinophils Percent Auto 1.6 % (0-4); Hematocrit 46.7 % (42.0-52.0); Hemoglobin 16.5 g/dl (14.0-18.0); Imm Gran Abs Auto 0.02 X10*3/uL (0.00-0.03); Imm Gran Pct Auto 0.3 % (0.0-0.4); Lymphocytes Absolute Auto 1.5 X10*3/uL (1.2-4.9); Lymphocytes Percent Auto 20.3 % (20-40); Mean Corpuscular HGB Conc 35.3 g/dl (31.0-36.0); Mean Corpuscular Hemoglobin 30.7 pg (27.0-33.0); Mean Corpuscular Volume 86.8 fL (80.0-98.0); Mean Platelet Volume 9.7 fL (9.4-12.4); Monocytes Absolute Auto 0.7 X10*3/uL (0.1-1.2); Monocytes Percent Auto 9.5 % (2-11); Neutrophils Percent Auto 67.9 % (45-73); Platelet Count 153 X10*3/uL (160-400); Red Blood Count 5.38 X10*6/uL (4.60-5.80); Red Cell Distribution Width 13.1 % (11.0-16.0); White Blood Count 7.4 X10*3/uL (4.8-10.8)
[2023-04-09 11:06] LABS: INTERNATIONAL NORM RATIO 0.9 (0.9-1.1); Prothrombin Time 10.8 SEC (11.1-13.3)
[2023-04-09 11:09] LABS: Partial Thromboplastin Time 29.1 SEC (26.0-36.4)
[2023-04-09 11:26] LABS: Anion Gap 15 (12-20); Blood Urea Nitrogen 14 mg/dL (9-16); Calcium 10.2 mg/dL (8.4-10.2); Carbon Dioxide 21 mmol/L (22-29); Chloride 106 mmol/L (96-108); Creatinine Clr Calc Pharmacy 47.4; Estimated Glomerular Filt Rate 56; Glucose Random 109 mg/dL (60-115); Potassium 4.3 mmol/L (3.3-5.1); Sodium 138 mmol/L (135-145)
--- NOTE | 2023-04-09 11:31 | ED_ITS ---
HPI - Neuro Symptoms/Deficit General Chief Complaint: Stroke Stated Complaint: not himself Time Seen by Provider: 04/09/23 10:41 Source: patient Limitations: no limitations History of Present Illness HPI Narrative: 82-year-old male with history of hypertension, hypercholesterolemia presents with left hand weakness and inability to use his hand. also suggested that he appeared to be confused, anxious having a panic attack. Upon arrival, patient's predominant complaint is that his left hand was nonfunctioning. He is right-handed typically. He noted that he could not hold anything. Symptoms are to be considered severe. There is no clear relieving or exacerbating features. They occurred 90 minutes prior to arrival. He denies any headache, nausea, vomiting, chest pain, shortness of breath. Patient denies a history of such symptoms before. He is on a low-dose aspirin every day and statin medications. Symptoms have been constant and not improving. Related Data Previous Rx's Medication Instructions Recorded aspirin 81 mg tablet,delayed 81 mg PO DAILY #90 tabs 11/21/21 release (Adult Low Dose Aspirin) atorvastatin 80 mg tablet 80 mg PO DAILY #90 tabs 08/10/22 lisinopril 20 mg tablet 20 mg PO BID #180 tabs 12/08/22 Allergies Allergy/AdvReac Type Severity Reaction Status Date / Time No Known Allergies Allergy Verified 11/28/22 10:51 [No Known Allergies*] Review of Systems Review of Systems: CONSTITUTIONAL: Denies weight loss, fever and chills. HEENT: Denies changes in vision and hearing. RESPIRATORY: Denies SOB and cough. CV: Denies palpitations no CP. GI: Denies abdominal pain, nausea, vomiting and diarrhea. : Denies dysuria and urinary frequency. MSK: Denies myalgia and joint pain. SKIN: Denies rash and pruritus. NEUROLOGICAL: Denies headache and syncope. PSYCHIATRIC: Denies recent changes in mood. Denies anxiety and depression. All other ROS are negative unless in HPI PMFSH Past Medical History Medical History Coronary artery disease HTN (hypertension) Hyperlipidemia Renal cyst, right Surgical History History of cholecystectomy History of colonoscopy History of left inguinal hernia History of left knee replacement History of rectal fissure History of right inguinal hernia History of shoulder surgery Family History Family History Father No problems noted. Mother No problems noted. Social History Social History Housing: House Are you a primary senior caregiver to a significant other at home: No Do you presently have visiting nurse or other home services: No Alcohol intake: current Alcohol intake frequency: holidays/special occasions only Patient Tobacco Use Status: Former Tobacco user Quit Date: Tobacco use type: Cigarette e-Cigarette/Vaping Use: Never Used Second Hand Smoke Exposure: No Advance Directives: No Advance Directives Information Provided: Yes service: No Current occupational status: retired Current occupational exposures/hazards: No Cognitive needs: No Hearing needs: No Vision needs: Yes Physical Exam Vital Signs: Vital Signs: Last Vital Signs Temp 98.5 F 04/09/23 10:42 Pulse 64 04/09/23 10:42 Resp 18 04/09/23 10:42 BP 165/74 H 04/09/23 10:42 Pulse Ox 98 04/09/23 10:42 O2 Del Method Room Air 04/09/23 10:42 BMI result Body Mass Index 29.0 GEN: Well developed, no acute distress, alert, oriented HEENT: Normocephalic, atraumatic, normal external ears, nose appears normal, no oropharyngeal edema or exudates Eyes: Normal to appearance Neck: Supple, no lymphadenopathy Respiratory: Talks in complete sentences, no respiratory distress, clear to auscultation bilaterally Cardiovascular: Regular rate and rhythm, no murmurs rubs or gallops Abdomen: Soft, nontender, nondistended, no guarding, no rebound Back: No CVA tenderness Extremities: No clubbing cyanosis or edema Neurologic: No focal neurologic deficits, cranial nerves 2-12 intact, strength is 5/5 bilaterally, left pronator drift, incoordination of left hand Skin: No rash Course Reevaluation(s) Reevaluation #1: Dry CT negative for acute intracranial process Time: 11:00 Reevaluation #2: CT angiogram, no evidence of large vessel occlusion. Time: 11:15 Reevaluation #3: Patient has a low NIH Stroke Scale, he has a non disabling deficits. At this point, he is not a candidate for tPA. This was discussed with patient and . Patient had a low-dose aspirin earlier today. Will give 3 additional doses. Patient has been instructed he will require hospitalization, cardiac monitoring and possibly an MRI Time: 11:35 Medications Administered Discontinued Medications Generic Name Dose Route Start Last Admin Trade Name Joseline PRN Reason Stop Dose Admin Iohexol 100 ml 04/09/23 10:58 04/09/23 10:58 Iohexol 350 Mg/Ml 100 Ml Infus..Btl IV 04/09/23 10:59 70 ml ONCE ONE Administration Medical Decision Making Medical Decision Making [facility] Narrative: 82-year-old male presents with acute left arm weakness. Differential diagnosis includes TIA, CVA, neuropathy, musculoskeletal injury. Plan will be to obtain a CTA, CT of the head and neck. This will be a stroke alert. Has been activated. Will obtain routine laboratory analysis. Patient will almost certainly need to be admitted for his symptoms. He has a low NIH stroke scale. Do not believe he would warrant tPA based on a non disabling condition and LEs potentially has a large vessel occlusion which I do not suspect at this time. Will perform additional lab testing, EKG to rule out cardiac dysrhythmia as a possible underlying condition. Differential Diagnosis Differential Diagnoses: The differential diagnosis associated with the presentation includes (See above) Admission/Observation Consideration of admission/observation: Escalation of care including admission/observation considered Consult Healthcare Provider Management of the patient was discussed with: Hospitalist Lab Data [facility] Lab Attestation statement: I reviewed the patient's lab results. 04/09/23 10:55 04/09/23 10:55 Labs: Lab Results 04/09/23 04/09/23 04/09/23 Range/Units 10:42 10:43 10:55 WBC (4.8-10.8) X10*3/uL RBC (4.60-5.80) X10*6/uL Hgb (14.0-18.0) g/dl Hct (42.0-52.0) % MCV (80.0-98.0) fL MCH (27.0-33.0) pg MCHC (31.0-36.0) g/dl RDW (11.0-16.0) % Plt Count (160-400) X10*3/uL MPV (9.4-12.4) fL Immature Gran % (Auto) (0.0-0.4) % Neut % (Auto) (45-73) % Lymph % (Auto) (20-40) % Calvert % (Auto) (2-11) % Eos % (Auto) (0-4) % Baso % (Auto) (0-2) % Lymph # (Auto) (1.2-4.9) X10*3/uL Calvert # (Auto) (0.1-1.2) X10*3/uL Eos # (Auto) (0.0-0.4) X10*3/uL Baso # (Auto) (0.0-0.2) X10*3/uL Abs Immat Gran (auto) (0.00-0.03) X10*3/uL Absolute Neuts (auto) (2.0-8.3) x10*3/uL Absolute Nucleated RBC (0.0-0.012) X10*3/uL Nucleated RBC % (auto) (0.0-0.2) /100WBC PT (11.1-13.3) SEC Whole Blood PT 11.8 (11.1-13.5) sec INR (0.9-1.1) Whole Blood INR 1.0 (0.9-1.1) APTT (26.0-36.4) SEC Sodium 138 (135-145) mmol/L Potassium 4.3 (3.3-5.1) mmol/L Chloride 106 (96-108) mmol/L Carbon Dioxide 21 L (22-29) mmol/L Anion Gap 15 (12-20) BUN 14 (9-16) mg/dL Creatinine 1.24 (0.5-1.4) mg/dL Estim Creat Clear Calc 47.4 Estimated GFR 56 POC Glucose 111 (60-115) mg/dL Random Glucose 109 (60-115) mg/dL Calcium 10.2 (8.4-10.2) mg/dL Total Creatine Kinase 91 (38-174) U/L 04/09/23 04/09/23 04/09/23 Range/Units 10:55 10:55 10:55 WBC 7.4 (4.8-10.8) X10*3/uL RBC 5.38 (4.60-5.80) X10*6/uL Hgb 16.5 (14.0-18.0) g/dl Hct 46.7 (42.0-52.0) % MCV 86.8 (80.0-98.0) fL MCH 30.7 (27.0-33.0) pg MCHC 35.3 (31.0-36.0) g/dl RDW 13.1 (11.0-16.0) % Plt Count 153 L (160-400) X10*3/uL MPV 9.7 (9.4-12.4) fL Immature Gran % (Auto) 0.3 (0.0-0.4) % Neut % (Auto) 67.9 (45-73) % Lymph % (Auto) 20.3 (20-40) % Calvert % (Auto) 9.5 (2-11) % Eos % (Auto) 1.6 (0-4) % Baso % (Auto) 0.4 (0-2) % Lymph # (Auto) 1.5 (1.2-4.9) X10*3/uL Calvert # (Auto) 0.7 (0.1-1.2) X10*3/uL Eos # (Auto) 0.1 (0.0-0.4) X10*3/uL Baso # (Auto) 0.0 (0.0-0.2) X10*3/uL Abs Immat Gran (auto) 0.02 (0.00-0.03) X10*3/uL Absolute Neuts (auto) 5.0 (2.0-8.3) x10*3/uL Absolute Nucleated RBC 0.000 (0.0-0.012) X10*3/uL Nucleated RBC % (auto) 0.0 (0.0-0.2) /100WBC PT 10.8 L (11.1-13.3) SEC Whole Blood PT (11.1-13.5) sec INR 0.9 (0.9-1.1) Whole Blood INR (0.9-1.1) APTT 29.1 (26.0-36.4) SEC Sodium (135-145) mmol/L Potassium (3.3-5.1) mmol/L Chloride (96-108) mmol/L Carbon Dioxide (22-29) mmol/L Anion Gap (12-20) BUN (9-16) mg/dL Creatinine (0.5-1.4) mg/dL Estim Creat Clear Calc Estimated GFR POC Glucose (60-115) mg/dL Random Glucose Cancelled (60-115) mg/dL Calcium (8.4-10.2) mg/dL Total Creatine Kinase (38-174) U/L Independent Interpretation I performed an independent interpretation of an: EKG (Normal sinus rhythm heart rate 60, no acute ST elevation depressions, nonspecific T-wave changes.), Plain X-Ray (Chest: NAD) and CT Scan (CT head, no acute mass effect or bleeding.) Radiology Impression Discussion of test interpretation with radiology: I have reviewed the radiologist's reading. Radiologist Impression: CT/CT angio head? neck stroke IMPRESSION: Partially calcified predominantly lipid-laden atheromatous plaque causes 50% stenosis at the origins of the right and left internal carotid arteries. Otherwise no stenosis of the cervical carotid or vertebral arteries. No intracranial large vessel occlusion. There are a few small chronic cortical infarcts over the left cerebral convexity and scattered chronic small vessel ischemic changes within the periventricular white matter, basal ganglia, and carmelo. Grossly no evidence of acute territorial infarct or hemorrhage. No abnormal intracranial mass or enhancement. 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 If there are clinical symptoms of compressive myelopathy then a dedicated cervical spine MRI can be obtained for better anatomic characterization of the cord and canal. ? This critical result was discussed with Dr. Ferrer at 11:13 AM on 04/09/2023 and it was ascertained that the content and urgency of the report was understood at the time of direct communication. ? Dictated By: Tristin Jacobs MD Signed By: <Electronically signed by Tristin Jacobs MD in [place]> 04/09/[address]/CT head for stroke IMPRESSION: No new hemorrhage or mass effect. ? Atrophy with change of chronic small vessel ischemic disease. ? 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 Dictated By: Gurdeep Bowers Signed By: <Electronically signed by Gurdeep? Elissa in [place]> 04/09/23 1056 Independent Historian Clinical information obtained from an independent historian. History obtained from or confirmed by: Spouse Tests considered The following testing was considered but not selected: MRI Prescription Management I considered prescription management with: Other (aspirin) Chronic Conditions Patient?s care impacted by: Hypertension NIH Stroke Scale Internal: Initial- Upon Arrival Time: 11:35 Level of Consciousness: Alert Level of Consciousness Questions: Answers both questions correctly Level of Consciousness Commands: Performs both tasks correctly Best Gaze: Normal Visual: No visual loss Facial Palsy: Normal Motor Arm (Right): No drift Motor Arm (Left): Drift Motor Leg (Right): No drift Motor Leg (Left): No drift Limb Ataxia: Present in one limb Sensory: Normal Best Language: No aphasia Dysarthia: Normal Extinction and Inattention: No abnormality Score: 2 Critical Care Time Critical Care Time Total Critical Care Time: 50 Attestation: 50 min of CC time - bed side care, discussion with family, consultation with stroke team, documentation, review and interpretation of medical data. Management all outside of medical procedures. Discharge Plan Discharge Clinical Impression: Acute focal neurological deficit Patient Disposition: Admitted As Inpatient Prescriptions: No Action aspirin [Adult Low Dose Aspirin] 81 mg tablet,delayed release (DR/EC) 81 mg PO DAILY Qty: 90 8RF lisinopril 20 mg tablet 20 mg PO BID Qty: 180 8RF atorvastatin 80 mg tablet 80 mg PO DAILY Qty: 90 3RF
[2023-04-09 11:36] LABS: Stroke Lab Use COMPLETE
[2023-04-09 11:38] LABS: Thyroid Stimulating Hormone 1.86 uIU/mL (0.32-4.0)
[2023-04-09] MEDS: Aspirin 81 MG TAB.CHEW 243 MG PO (12:00)
--- NOTE | 2023-04-09 12:09 | PHA.MEDREC ---
Pharmacy Consult ? Medication Reconciliation Pharmacy has completed the medication reconciliation. spoke with patient and confirmed medications
--- NOTE | 2023-04-09 12:11 | MHC.STROKE ---
Addendum entered by Laura Sarah RN 04/10/23 11:10: I MET WITH THE PATIENT AND HIS AND REINFORCED THE STROKE EDUCATION. WE REVIEWED HIS LABS AND MRI RESULTS WELL MEDICATIONS. THEY UNDERSTAND THE DIAGNOSIS, THE PLAN OF CARE AFTER THE HOSPITAL, WHY THE NEW MEDICATIONS ARE PRESCRIBED, THEY WILL FOLLOW UP WITH DR. MONTANO PCP, AND HAVE BEEN ADVISED TO CALL 911 IF ANY STROKE SYMPTOMS REOCCUR. REVIEWED THE SIGNS AND SYMPTOMS OF STROKE/TIA. I ANSWERED ALL OF THEIR QUESTIONS. HE WAS SEEN BY REHAB AND CASE MANAGEMENT. SEE THEIR NOTES. Original Note: 04/09/23 1034 WALK-IN C/O LEFT ARM HEAVINESS THAT STARTED AT 08:00, HE WAS FINE YESTERDAY, HE DID EAT BREAKFAST. NIHSS = 2 STROKE PROTOCOL ACTIVATED, CTH NEGATIVE FOR BLEED, CTA H/N NO LVO, EXCLUDED FROM TPA BASED ON LOW NIHSS = 2 AND NON-DISABLING SYMPTOMS, PATIENT IS RIGHT HANDED. HE PASSED SWALLOW SCREEN PRIOR TO PO, ASPIRIN GIVEN. I REVIEWED THE CASE WITH DR. REEVES. STROKE EDUCATION INITIATED WITH HE AND HIS PRIYANK AND ANSWERED ALL THEIR QUESTIONS. I REVIEWED HIS INDIVIDUAL RISK FACTORS, HLD, HTN, CAD, OBESITY, PRIOR OLD RIGHT BASAL GANGLIA STROKE NOTED ON CT. HIS PCP WAS DR SMITH AND IS NOW DR MONTANO. I EXPLAINED THE PLAN OF CARE TO THE PATIENT. I WILL CONTINUE TO FOLLOW.
--- NOTE | 2023-04-09 12:33 | PC.NURSE ---
amb to BR with steady gait no assist
--- NOTE | 2023-04-09 12:48 | PM.NEUROCN ---
History of Present Illness Data of Consult Service Date: 04/09/23 Primary Care Provider: Cade Perez MD [facility] Reason for consult: Stroke 82 years old man with hypertension woke up this morning without any problem but at about 08:00 suddenly noticed that his left hand and arm were ? weight?. When he tried to bring his arm to his face he had difficulty doing that. There was no pain numbness or tingling. There was no associated headache or confusion. There was no neck pain. When I saw him in emergency room his hand was almost back to normal. He was initially evaluated for possible stroke but not treated with tPA because of minor nature of symptoms. Review of Systems Review of Systems: No cardiac symptoms chest pain or palpitation. No trauma or neck pain PMFSH Past Medical History Medical History Coronary artery disease HTN (hypertension) Hyperlipidemia Renal cyst, right Family History Family History Father No problems noted. Mother No problems noted. Surgical History Surgical History History of cholecystectomy History of colonoscopy History of left inguinal hernia History of left knee replacement History of rectal fissure History of right inguinal hernia History of shoulder surgery Social History Social History Housing: House Are you a primary primary care physician to a significant other at home: No Do you presently have visiting nurse or other home services: No Alcohol intake: current Alcohol intake frequency: holidays/special occasions only Patient Tobacco Use Status: Former Tobacco user Quit Date: Tobacco use type: Cigarette Smoked in Last 30 Days: No e-Cigarette/Vaping Use: Never Used Second Hand Smoke Exposure: No Advance Directives: No Advance Directives Information Provided: Yes service: No Current occupational status: retired Current occupational exposures/hazards: No Cognitive needs: No Hearing needs: No Vision needs: Yes Meds Allergies Allergy/AdvReac Type Severity Reaction Status Date / Time No Known Allergies Allergy Verified 11/28/22 10:51 [No Known Allergies*] Active Medications: Current Medications Pharmacy Consult (Consult Rx Perform Med Rec) 1 each MISCELLANE ONCE PRN PRN Reason: Consult order Home Medications Medication Instructions Recorded Confirmed Last Taken Type coenzyme Q10 100 mg capsule (Co 100 mg PO DAILY 04/09/23 04/09/23 Unknown History Q-10) Physical Exam Vital Signs: Vital Signs: Last Vital Signs Temp 98.5 F 04/09/23 10:42 Pulse 56 04/09/23 12:30 Resp 20 04/09/23 12:30 BP 169/88 H 04/09/23 12:30 Pulse Ox 95 04/09/23 12:30 O2 Del Method Room Air 04/09/23 12:30 BMI result Body Mass Index 29.0 Neuro: Other: He is alert and awake with normal spontaneity of speech fluency comprehension and anxious affect. Face is symmetrical. Visual aggarwal are full. There is no pronator drift. Hand strength is normal. Deep tendon reflexes are trace to absent with flexor plantars. There is no visual or sensory extinction. Results Labs 04/09/23 10:55 04/09/23 10:55 Labs: Short CBC 04/09/23 Range/Units 10:55 WBC 7.4 (4.8-10.8) X10*3/uL Hgb 16.5 (14.0-18.0) g/dl Hct 46.7 (42.0-52.0) % Plt Count 153 L (160-400) X10*3/uL BMP 04/09/23 10:55 Sodium 138 Potassium 4.3 Chloride 106 Carbon Dioxide 21 L BUN 14 Creatinine 1.24 Calcium 10.2 Cardiac Enzymes 04/09/23 Range/Units 10:55 Total Creatine Kinase 91 (38-174) U/L Noncontrast head CT did not reveal any significant abnormality. CTA of brain and neck revealed moderately severe bilateral internal carotid artery atherosclerotic changes but no severe stenosis. Assessment and Plan (1) Acute focal neurological deficit: Status: Acute 82 years old man with hypertension who probably had a small right hemispheric infarct resulting in left hand and arm weakness. He was already better. Carotid disease noted on CTA was moderate. At this time my recommendation is aspirin 81 mg daily and adding clopidogrel 75 mg with statin and blood pressure control. And noncontrast MRI of brain is recommended. Time Spent With Patient Time: Total time managing care of this patient today ____ minutes. Procedures Date of Service Date of Service: 04/09/23
--- NOTE | 2023-04-09 12:52 | P.HPHOSP_ITS ---
History of Present Illness Date of Service: 04/09/23 Attending physician on admission: Sophia Hammond Chief Complaint: LUE weakness 82-year-old male with history of coronary artery disease, hyperlipidemia, hypertension, aortic stenosis who is a former smoker presented to the ED earlier today for evaluation of left upper extremity weakness that started around 08:00 this morning. He reports sudden onset lightheadedness and significant weakness in the left arm. He was unable to lift the arm independently and could not grasp. He denies any associated paresthesias. No other weakness noted in the extremities. No slurred speech, dysphagia, aphasia. No known history of stroke/TIA. On arrival, patient mildly hypertensive to 165/74 vitals otherwise WNL. No leukocytosis, anemia. Renal function baseline, electrolytes normal. TSH normal. Chest x-ray showing minimal linear atelectasis near the left costophrenic angle. Head CT negative for any acute hemorrhage or mass effect which shows atrophy with changes of chronic small vessel disease and old small right basal ganglia infarcts. CTA head/neck showing predominantly lipid-laden atheromatous plaque causing 50% stenosis at the origins of the right and left internal carotid artery but no other significant stenosis or LV 0. Again noted are small chronic cortical infarcts including in the left cerebral convexity and scattered small vessel disease. Multi lateral degenerative spondylosis of the cervical spine with at least moderate canal stenosis also noted at multiple levels. In the ED, given 243 mg aspirin and also took 81 mg at home. Review of Systems Review of Systems: General: No fevers, malaise, unintentional weight loss HEENT: No blurred vision, diplopia. No sore throat, nasal congestion, rhinorrhea, sinus pain, ear pain Cardiovascular: No chest pain, palpitations, or leg edema Respiratory: No shortness of breath, wheezing, cough GI: No abdominal pain, nausea, vomiting, diarrhea, constipation, melena, hematochezia : No dysuria, hematuria, increased urinary frequency, decreased urinary output MSK: No myalgia, back pain Neuro: No headaches, paresthesias. +LUE weakness Skin: No rashes or lesions [facility] Medical History Aortic stenosis Coronary artery disease HTN (hypertension) Hyperlipidemia Renal cyst, right Family History Father No problems noted. Mother No problems noted. Surgical History History of cholecystectomy History of colonoscopy History of left inguinal hernia History of left knee replacement History of rectal fissure History of right inguinal hernia History of shoulder surgery Social History Housing: House Are you a primary plant health care technician to a significant other at home: No Do you presently have visiting nurse or other home services: No Alcohol intake: current Alcohol intake frequency: holidays/special occasions only Patient Tobacco Use Status: Former Tobacco user Quit Date: Tobacco use type: Cigarette Smoked in Last 30 Days: No e-Cigarette/Vaping Use: Never Used Second Hand Smoke Exposure: No Advance Directives: No Advance Directives Information Provided: Yes service: No Current occupational status: retired Current occupational exposures/hazards: No Cognitive needs: No Hearing needs: No Vision needs: Yes Meds Allergies Allergy/AdvReac Type Severity Reaction Status Date / Time No Known Allergies Allergy Verified 11/28/22 10:51 [No Known Allergies*] Active Medications: Current Medications Acetaminophen (Acetaminophen 325 Mg Tablet) 650 mg PO Q6H PRN PRN Reason: Pain, Mild (Pain Scale 1-3) Aspirin (Aspirin Enteric Coated 81 Mg Tablet.Dr) 81 mg PO DAILY CHRISTINA Docusate Sodium (Docusate Sodium 100 Mg Capsule) 100 mg PO DAILY PRN PRN Reason: Constipation Enoxaparin Sodium (Enoxaparin Sodium 40 Mg/0.4 Ml Syringe) 40 mg SUBCUT Q24H CHRISTINA Ondansetron HCl (Ondansetron Hcl 4 Mg/2 Ml Vial) 4 mg IVPUSH Q8H PRN PRN Reason: Nausea and Vomiting Pharmacy Consult (Consult Rx Perform Med Rec) 1 each MISCELLANE ONCE PRN PRN Reason: Consult order Sodium Chloride (0.9 % Sodium Chloride Flush 3 Ml Syringe) 3 ml IVFLUSH QSHIFT [facility] Home Medications Medication Instructions Recorded Confirmed Last Taken Type coenzyme Q10 100 mg capsule (Co 100 mg PO DAILY 04/09/23 04/09/23 Unknown History Q-10) Physical Exam Vital Signs and Narrative: Vital Signs: Last Vital Signs Temp 98.5 F 04/09/23 10:42 Pulse 56 04/09/23 12:30 Resp 20 04/09/23 12:30 BP 169/88 H 04/09/23 12:30 Pulse Ox 95 04/09/23 12:30 O2 Del Method Room Air 04/09/23 12:30 BMI result Body Mass Index 29.0 Constitutional - Awake and Alert, No apparent distress Eyes - PERRLA, EOMI Cardiovascular - S1S2, RRR, No edema Respiratory - Normal lung expansion, Normal respiratory effort, No respiratory distress, CTA bilaterally Gastrointestinal - NT / ND; +BS; No rebound or guarding Extremities - no calf tenderness bilaterally, no swelling Skin - Warm/Dry Neurological - Alert & oriented x3, CN II-XII in tact, 5/5 strength BUE and BLE. Minimal left sided pronator drift Psychological - Appropriate affect Results Labs 04/09/23 10:55 04/09/23 10:55 Labs: Laboratory Results - last 24 hr 04/09/23 04/09/23 04/09/23 10:42 10:43 10:55 MCV MCH MCHC RDW Plt Count MPV Immature Gran % (Auto) Neut % (Auto) Lymph % (Auto) [place] % (Auto) Eos % (Auto) Baso % (Auto) Lymph # (Auto) [place] # (Auto) Eos # (Auto) Baso # (Auto) Abs Immat Gran (auto) Absolute Neuts (auto) Absolute Nucleated RBC Nucleated RBC % (auto) PT Whole Blood PT 11.8 INR Whole Blood INR 1.0 APTT Anion Gap 15 Estim Creat Clear Calc 47.4 Estimated GFR 56 POC Glucose 111 Random Glucose 109 Calcium 10.2 Total Creatine Kinase 91 TSH 1.86 04/09/23 04/09/23 04/09/23 10:55 10:55 10:55 MCV 86.8 MCH 30.7 MCHC 35.3 RDW 13.1 Plt Count 153 L MPV 9.7 Immature Gran % (Auto) 0.3 Neut % (Auto) 67.9 Lymph % (Auto) 20.3 [place] % (Auto) 9.5 Eos % (Auto) 1.6 Baso % (Auto) 0.4 Lymph # (Auto) 1.5 [place] # (Auto) 0.7 Eos # (Auto) 0.1 Baso # (Auto) 0.0 Abs Immat Gran (auto) 0.02 Absolute Neuts (auto) 5.0 Absolute Nucleated RBC 0.000 Nucleated RBC % (auto) 0.0 PT 10.8 L Whole Blood PT INR 0.9 Whole Blood INR APTT 29.1 Anion Gap Estim Creat Clear Calc Estimated GFR POC Glucose Random Glucose Cancelled Calcium Total Creatine Kinase TSH Imaging Radiologist's Impressions: Impressions Head CT 04/09/23 10:50 IMPRESSION: No new hemorrhage or mass effect. Atrophy with change of chronic small vessel ischemic disease. 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 Head/Neck CTA 04/09/23 10:56 IMPRESSION: Partially calcified predominantly lipid-laden atheromatous plaque causes 50% stenosis at the origins of the right and left internal carotid arteries. Otherwise no stenosis of the cervical carotid or vertebral arteries. No intracranial large vessel occlusion. There are a few small chronic cortical infarcts over the left cerebral convexity and scattered chronic small vessel ischemic changes within the periventricular white matter, basal ganglia, and carmelo. Grossly no evidence of acute territorial infarct or hemorrhage. No abnormal intracranial mass or enhancement. 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 If there are clinical symptoms of compressive myelopathy then a dedicated cervical spine MRI can be obtained for better anatomic characterization of the cord and canal. This critical result was discussed with Dr. Ferrer at 11:13 AM on 04/09/2023 and it was ascertained that the content and urgency of the report was understood at the time of direct communication. Chest X-Ray 04/09/23 11:08 IMPRESSION: Minimal linear atelectasis near the left costophrenic angle. No dominant consolidations or vascular congestion. Assessment and Plan (1) Transient ischemic attack, acute: Status: Acute Plan 82-year-old male with history of coronary artery disease, hyperlipidemia, hypertension, aortic stenosis who is a former smoker to be observed for TIA. #Acute TIA -CT/CTA head negative for acute intracranial abnormality or significant jamari nosis/LVO -GIven total 324mg asa today. Continue 81mg asa daily. Add plavix per neurology -MRI brain ordered -Lipid panel added. Continue atorvastatin 80mg daily, consider crestor if needed -Echo ordered - Passed bedside swallow evaluation - PT/OT evaluation - monitor on telemetry # hypertension - hold antihypertensives in the setting of acute TIA, resume as appropriate # hyperlipidemia - lipid panel pending. Continue statin DVT prophylaxis-Lovenox full code Time Spent With Patient Time: Total time managing care of this patient today ____ minutes. Quality Stroke Does the patient have a stroke diagnosis?: Yes Reason for No Anti-thrombotic by Day Two: Drug treatment not indicated VTE Prior VTE?: No VTE Risk Level:: Medical - moderate - high VTE Device Contraindication: Treatment Not Indicated VTE Drug Contraindication: N/A - Med Ordered
[2023-04-09 14:52] LABS: Cholesterol 225 mg/dL; HDL Cholesterol 47 mg/dL; LDL Cholesterol Calculated 148 mg/dl; Triglycerides 154 mg/dL
[2023-04-09] MEDS: Enoxaparin Sodium 40 MG/0.4 ML SYRINGE SUBCUT (14:57)
--- NOTE | 2023-04-09 15:10 | PC.NURSE ---
MRI SCREENING FORM FAXED
--- NOTE | 2023-04-09 15:22 | PC.NURSE ---
Spoke with Sravanthi Cochran PT doesn't need to be monitored for MRI
[2023-04-09] MEDS: 0.9 % Sodium Chloride Flush 3 ML SYRINGE IVFLUSH (16:03)
[2023-04-09] MEDS: Atorvastatin Calcium 80 MG TABLET PO (22:04)
[2023-04-10 03:33] VITALS: BP 122/67; PULSE 58; RESP 16; TEMP 36.1; O2SAT 94
[2023-04-10 06:57] LABS: MANUAL DIFF FLAG NO
[2023-04-10 07:05] LABS: Basophils Percent Auto 0.6 % (0-2); Eosinophils Absolute Auto 0.2 X10*3/uL (0.0-0.4); Eosinophils Percent Auto 2.4 % (0-4); Hematocrit 44.7 % (42.0-52.0); Hemoglobin 15.2 g/dl (14.0-18.0); Imm Gran Abs Auto 0.02 X10*3/uL (0.00-0.03); Imm Gran Pct Auto 0.3 % (0.0-0.4); Lymphocytes Absolute Auto 1.3 X10*3/uL (1.2-4.9); Lymphocytes Percent Auto 20.3 % (20-40); Mean Corpuscular Hemoglobin 30.3 pg (27.0-33.0); Mean Platelet Volume 9.6 fL (9.4-12.4); Monocytes Absolute Auto 0.7 X10*3/uL (0.1-1.2); Monocytes Percent Auto 10.5 % (2-11); Neutrophils Absolute Auto 4.1 x10*3/uL (2.0-8.3); Neutrophils Percent Auto 65.9 % (45-73); Platelet Count 146 X10*3/uL (160-400); Red Blood Count 5.02 X10*6/uL (4.60-5.80); Red Cell Distribution Width 13.4 % (11.0-16.0); White Blood Count 6.2 X10*3/uL (4.8-10.8)
[2023-04-10 07:17] VITALS: BP 135/70; PULSE 51; RESP 18; TEMP 36.2; O2SAT 92
[2023-04-10 07:24] LABS: Anion Gap 17 (12-20); Blood Urea Nitrogen 16 mg/dL (9-16); Calcium 9.8 mg/dL (8.4-10.2); Carbon Dioxide 19 mmol/L (22-29); Chloride 105 mmol/L (96-108); Estimated Glomerular Filt Rate > 60; Glucose Random 94 mg/dL (60-115); Potassium 4.1 mmol/L (3.3-5.1); Sodium 137 mmol/L (135-145)
[2023-04-10] MEDS: ondansetron HCL 4 MG/2 ML VIAL IVPUSH (07:40)
[2023-04-10] MEDS: 0.9 % Sodium Chloride Flush 3 ML SYRINGE IVFLUSH (07:40)
[2023-04-10 08:25] VITALS: PULSE 74
[2023-04-10] MEDS: Clopidogrel Bisulfate 75 MG TABLET PO (08:25)
[2023-04-10] MEDS: Aspirin Enteric Coated 81 MG TABLET.DR PO (08:25)
--- NOTE | 2023-04-10 08:30 | MHC.CM.PN ---
CM met with Patient at bedside and addressed both SEGURA & IMM with Patient(INPATIENT NOW), providing Patient with the original and placing copies on the chart. Patient lives in a house with his /HCP and he required no services nor DME [employer]. Home/self care is the goal and CM has initiated and will follow for dc planning. Patient is Kasia rolle'arminda and his PCP is Dr. Cade Perez.
[2023-04-10 11:22] VITALS: BP 160/80; PULSE 59; RESP 18; TEMP 36.2; O2SAT 94
--- NOTE | 2023-04-10 11:44 | P.DS_ITS ---
DS: Providers Provider Date of Service: 04/10/23 Date of admission: 04/09/23 14:30 Date of discharge: 04/10/23 Primary care physician: Cade Perez MD Admitting clinician: Sravanthi Cochran Attending physician on admission: Sophia Hammond Consults: 04/09/23 12:47 Consult to Neurology Routine Consulting Provider: Lupillo Vargas Reason for consultation: tia Attending physician on discharge: [place] Discharging clinician: Sravanthi Cochran DS: Diagnosis Discharge Diagnosis (1) Transient ischemic attack, acute: Status: Inactive DS: Summary Hospital Course Hospital Course: HPI on admission on 04/09 by this author: 82-year-old male with history of coronary artery disease, hyperlipidemia, hypertension, aortic stenosis who is a former smoker presented to the ED earlier today for evaluation of left upper extremity weakness that started around 08:00 this morning.? He reports sudden onset lightheadedness and significant weakness in the left arm.? He was unable to lift the arm independently and could not grasp.? He denies any associated paresthesias.? No other weakness noted in the extremities.? No slurred speech, dysphagia, aphasia.? No known history of stroke/TIA. On arrival, patient mildly hypertensive to 165/74 vitals otherwise WNL. No leukocytosis, anemia. Renal function baseline, electrolytes normal. TSH normal. ? Chest x-ray showing minimal linear atelectasis near the left costophrenic angle.? Head CT negative for any acute hemorrhage or mass effect which shows atrophy with changes of chronic small vessel disease and old small right basal ganglia infarcts.? CTA head/neck showing predominantly lipid-laden atheromatous plaque causing 50% stenosis at the origins of the right and left internal carotid artery but no other significant stenosis or LV 0.? Again noted are small chronic cortical infarcts including in the left cerebral convexity and scattered small vessel disease.? 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 In the ED, given 243 mg aspirin and also took 81 mg at home. Hospital course: Pt admitted for further evaluation and management of acute CVA. Swallow evaluation was passed. On arrival, pt has marked weakness in the LUE which has nearly fully resolved on admission with basely noticable left sided pronator drift, strength otherwise 5/5 BUE, BLE. He was evaluated by neurology recommending MRI brain. MRI showed small acute infarcts in the right parieto- occipital area of the brain in addition to old infarcts as above and chronic white matter disease. He was given asa as above and lipid panel was checked showing LDL 146, total cholesterol 225 despite 80mg atoravastatin. There was also 50% carotid stenosis noted on CTA head/neck but no LVO requiring surgical intervention. Neurology recommended plavix in addition to the asa he had been taking. Was evaluated by PT and OT who did not recommend further skilled rehab given full resolution of deficits and functionality of patient. Echo shows normal LV systolic function with EF 61%, no thrombus, arrhythmia, or other significant structural abnormality. The patient will be discharged home without services on asa 81mg, plavix 75mg, and atorvastatin will be dc'd in favor of crestor 40mg daily. Follow up with pcp soon. Status at Discharge Functional status at discharge: independent ambulation Overall status at discharge: patient is back to baseline Time Spent with Patient Time attestation: Total time managing care of this patient today ____ minutes. Discharge coordination time: Greater than 30 minutes Quality: Safe Use of Opioids Does Pt have an Active Cancer Diagnosis on the Problem List?: No Quality: Stroke Does the patient have a stroke diagnosis?: No Physical Exam Vital Signs: Vital Signs: Last Vital Signs Temp 97.2 F 04/10/23 11:22 Pulse 59 04/10/23 11:22 Resp 18 04/10/23 11:22 BP 160/80 H 04/10/23 11:22 Pulse Ox 94 04/10/23 11:22 O2 Del Method Room Air 04/10/23 11:22 BMI result Body Mass Index 29.0 Constitutional - Awake and Alert, No apparent distress Eyes - PERRLA, EOMI Cardiovascular - S1S2, RRR, No edema Respiratory - Normal lung expansion, Normal respiratory effort, No respiratory distress, CTA bilaterally Extremities - no calf tenderness bilaterally, no swelling Musculoskeletal - Normal inspection, normal ROM Skin - Warm/Dry Neurological - Alert & oriented x3, CN II-XII in tact, 5/5 strength BUE and BLE Psychological - Appropriate affect DS: Data Data Completed and Pending Labs on day of discharge: Laboratory Results - last 24 hr 04/09/23 04/10/23 04/10/23 10:55 06:37 06:37 WBC 6.2 RBC 5.02 Hgb 15.2 Hct 44.7 MCV 89.0 MCH 30.3 MCHC 34.0 RDW 13.4 Plt Count 146 L MPV 9.6 Immature Gran % (Auto) 0.3 Neut % (Auto) 65.9 Lymph % (Auto) 20.3 [place] % (Auto) 10.5 Eos % (Auto) 2.4 Baso % (Auto) 0.6 Lymph # (Auto) 1.3 [place] # (Auto) 0.7 Eos # (Auto) 0.2 Baso # (Auto) 0.0 Abs Immat Gran (auto) 0.02 Absolute Neuts (auto) 4.1 Absolute Nucleated RBC 0.000 Nucleated RBC % (auto) 0.0 Sodium 137 Potassium 4.1 Chloride 105 Carbon Dioxide 19 L Anion Gap 17 BUN 16 Creatinine 1.09 Estim Creat Clear Calc 54.0 Estimated GFR > 60 Random Glucose 94 Calcium 9.8 Triglycerides 154 Cholesterol 225 LDL Cholesterol, Calc 148 HDL Cholesterol 47 Discharge Plan Discharge Anticipated Discharge Date/Time: 04/10/23 11:36 Patient Disposition: Home, Self-Care Discharge Diagnosis: CVA Referrals: Cade Perez MD [Primary Care Provider] - 1 Week Discharge Medications: New rosuvastatin [Crestor] 40 mg tablet 40 mg PO DAILY Qty: 90 0RF clopidogrel [Plavix] 75 mg tablet 75 mg PO DAILY Qty: 90 0RF Continued aspirin [Adult Low Dose Aspirin] 81 mg tablet,delayed release (DR/EC) 81 mg PO DAILY Qty: 90 8RF lisinopril 20 mg tablet 20 mg PO BID Qty: 180 8RF coenzyme Q10 [Co Q-10] 100 mg Capsule 100 mg PO DAILY Discontinued atorvastatin 80 mg tablet 80 mg PO DAILY 90 Days Qty: 90 2RF Discharge Orders: Discharge Order (Routine); Ordered 04/10/23 Ordered By: Sravanthi Cochran Diet: Advance to usual diet Activity on Discharge: As tolerated Stand Alone Forms: Patient Portal Discharge page Care Plan Goals: prevent recurrence of cva Manage cholesterol levels and peripheral arterial disease Health Concerns: Acute CVA High cholesterol Carotid stenossi Plan of Treatment: You were admitted for further management of an acute stroke affecting your non dominant left upper extremity. Symptoms were full resolved by the time of admission. You were treated wt aspirin and atorvastatin and evaluated by PT and OT and were not recommended for any further need for skilled services. You had brain MRI which showed a small stroke in the right side of the brain. Despite taking maximum dose atorvastatin 80mg, your cholesterol levels remained elevated with LDL 146, goal <70. I am changing your cholesterol medication to rosuvastatin 40mg daily. You were also seen by neurology recommending continuing your aspirin daily but also adding plavix to help with the carotid artery disease. No surgical intervention is indicated at this time. Please follow up with your pcp soon. Assessment: as above
--- NOTE | 2023-04-10 11:57 | MHC.CM.PN ---
Patient has been medically cleared for dc to home today, self care.
== END 2023-04-10 13:08 | disposition home or self-care (01) | DRG 66 ==
LOC: HO.ED 11:41 → HO.EDOVER 13:04 → HO.IMC 13:42
PROVIDERS: Admitting Provider Physician Assistant; Emergency Provider Emergency Medicine; PCP Internal Medicine; Visit Provider Physician Assistant
DX: I63.9 Cerebral infarction, unspecified (principal); I25.10 Atherosclerotic heart disease of native coronary artery without angina pectoris; E78.5 Hyperlipidemia, unspecified; R29.702 NIHSS score 2; G83.24 Monoplegia of upper limb affecting left nondominant side; Z87.891 Personal history of nicotine dependence; Z79.82 Long term (current) use of aspirin; Z79.899 Other long term (current) drug therapy
CPT/HCPCS: 36415; 70450; 70496; 70498; 70551; 71045; 80048; 80061; 82550; 82947; 84443; 85025; 85610; 85730; 93005; 93306; 97161; 97165; 99222; 99285; J1650; J2405; Q9967

== ENCOUNTER → 2023-04-09 10:42 | Outpatient (BNV) | payer MEDICARE, SELFPAY | PROVIDERS: Admitting Provider Physician Assistant; Emergency Provider Emergency Medicine; PCP Internal Medicine; Visit Provider Internal Medicine | DX: I35.8 Other nonrheumatic aortic valve disorders (principal); I63.9 Cerebral infarction, unspecified | CPT/HCPCS: 93010; 93306 ==

== ENCOUNTER → 2023-04-09 14:30 | Outpatient (BNV) | payer MEDICARE, SELFPAY | PROVIDERS: Admitting Provider Physician Assistant; Emergency Provider Emergency Medicine; PCP Internal Medicine; Visit Provider Physician Assistant | DX: G45.9 Transient cerebral ischemic attack, unspecified (principal) | CPT/HCPCS: 99223; 99239 ==

== ENCOUNTER 2023-04-17 10:32 | Outpatient (AMB) | payer MEDICARE, SELFPAY ==
[2023-04-17 10:38] VITALS: BP 142/70; PULSE 67; O2SAT 96; BMI 28.3
--- NOTE | 2023-04-17 10:38 | MHC.PC.OV ---
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: No Allergies No Known Allergies [No Known Allergies*] Allergy (Verified 04/17/23 10:38) Medication List - Last Reconciled 04/17/23 by Cade Perez MD aspirin (Adult Low Dose Aspirin) 81 mg PO DAILY clopidogrel (Plavix) 75 mg PO DAILY coenzyme Q10 (Co Q-10) 100 mg PO DAILY lisinopril 20 mg PO BID rosuvastatin (Crestor) 40 mg PO DAILY Tobacco use date assessed: 04/17/23 Fall risk assessment: No Falls in past year Last assessed Fall Risk: 04/17/23 Dental Screening Dental Screen Date: 04/17/23 Did you have a dental visit in the last 12 months?: Yes Did you have a dental problem in the last 6 months where you did not have access to dental care?: No [place] [facility] [place] H[place] Details had a right parietal cva with left robina weakness [facility] Medical History (Updated 04/10/23 @ 11:36 by TAMEKA Hernandez) Aortic stenosis Coronary artery disease HTN (hypertension) Hyperlipidemia Renal cyst, right Surgical History History of cholecystectomy History of colonoscopy History of left inguinal hernia History of left knee replacement History of rectal fissure History of right inguinal hernia History of shoulder surgery Family History Father No problems noted. Mother No problems noted. Social History Household Members: Spouse Housing: House Are you a primary career development specialist to a significant other at home: No Do you presently have visiting nurse or other home services: No Alcohol intake: current Alcohol intake frequency: holidays/special occasions only Patient Tobacco Use Status: Former Tobacco user Quit Date: Tobacco use type: Cigarette e-Cigarette/Vaping Use: Never Used Second Hand Smoke Exposure: No service: No Current occupational status: retired Current occupational exposures/hazards: No Cognitive needs: No Hearing needs: No Vision needs: Yes Questionnaire PHQ-9 Over the last 2 weeks, how often have you been bothered by any of the following problems? Depression Screening Interpretation: Negative Source: Developed by Drs. Tristin Osborne, Ina Dorsey, Tito José and colleagues, with an educational gordon from [employer] Thrive Questionnaire Date Thrive assessed: 04/10/23 Currently or been in a relationship where the following occur: no concerns reported AUDIT C Alcohol Use Questionnaire (AUDIT-C) 1. How often do you have a drink containing alcohol?: Monthly or less 2. How many drinks containing alcohol do you have on a typical day when you are drinking?: 1 or 2 3. How often do you have six or more drinks on one occasion?: Never Total Score: 1 Score Reviewed/Action Taken: Yes CRISELDA-7 AMB Questionnaire CRISELDA-7 Date CRISELDA - 7 assessed: 11/28/22 Source: Developed by Drs. Tristin Osborne, Ina Dorsey, Tito José and colleagues, with an educational gordon from [employer] Review of Systems Const Denies chills, Denies headache(s) and Denies weight loss ENT Denies headache(s) Card Denies chest pain, Denies syncope, Denies irregular heart rhythm and Denies dyspnea Resp Denies chest congestion, Denies cough and Denies dyspnea GI Denies abdominal pain, Denies change in stool character, Denies nausea and Denies vomiting Musc Denies deformity and Denies joint swelling Neuro Denies syncope and Denies headache(s) Physical exam (Primary Care) Vital Signs: Last Vital Signs Pulse 67 04/17/23 10:38 BP 142/70 H 04/17/23 10:38 Pulse Ox 96 04/17/23 10:38 Oxygen Delivery Method Room Air 04/17/23 10:38 BMI result Body Mass Index 28.3 Tobacco/Smoking Status: Tobacco use Status Tobacco use date assessed 04/17/23 04/17/23 10:39 Patient Tobacco Use Status Former Tobacco user 04/17/23 10:39 Tobacco use type Cigarette 04/17/23 10:39 e-Cigarette/Vaping Use Never Used 04/17/23 10:39 Depression Screening Interpretation: Negative Thrive Assessment: Date of Thrive Assessment Date Thrive assessed 04/10/23 04/17/23 10:39 Currently or been in a relationship where the following occur: no concerns reported Const General: cooperative, comfortable and no acute distress Resp Effort & Inspection: normal respiratory effort Auscultation: clear to auscultation bilaterally Percussion: percussion normal Cardio Jugular venous distension: no JVD Rate: regular rate Rhythm: regular rhythm GI Inspection: Yes normal to inspection Assessment and Plan Assessment & Plan (1) CVA (cerebral vascular accident): Code(s): I63.9 - Cerebral infarction, unspecified Plan: has difficulty with left hand; ref neuro and ot Orders: Orders OT Evaluation and Treatment Today I63.9 - Cerebral infarction, unspecified Referrals Neurology Referral I63.9 - Cerebral infarction, unspecified Coding Level of Care Code Est Pt Level 3 (90040) Diagnoses CVA (cerebral vascular accident) I63.9
== END 2023-04-17 11:01 | disposition home or self-care (01) ==
PROVIDERS: PCP Internal Medicine; Visit Provider Internal Medicine
DX: I63.9 Cerebral infarction, unspecified (principal)
CPT/HCPCS: 99213

== ENCOUNTER 2023-04-24 13:09 | Outpatient (RCR) | payer MEDICARE, SELFPAY ==
--- NOTE | 2023-04-24 16:30 | MHC.OT.EP ---
[address] [phone] Occupational Therapy Plan of Care Patient Name: Devon Auguste Sr Date of Evaluation: 04/24/23 Diagnosis: Cerebral infarct w/ left hand weakness Pain Location: None reported Pain Score: Pain Scale Used: Aggravating Factors: None reported Alleviating Factors: Assessment: Mr. Auguste was seen for OT eval this date. Pt. presented to ER last week with right parietal CVA resulting in L UE weakness. Head CT (-) for acute bleed or mass. Pt did remarkably well and was discharged home without services. He was initially experiencing L hand weakness and decreased fine motor control. He and his report that symptoms have been improving this past week. Bilateral UE range and strength are WNL's, coordination is equal bilaterally, and gross grasp strength is 75# on the R and 70# on the left. Educated pt. on general safety and home exercises. At this time, it is believed that Mr. Auguste has returned to baseline and is in agreement with not needing OT services. Frequency and Duration: The patient will be seen OT eval only Short Term Goals: NA Social Science Analyst Goals: NA Treatment Plan: Home Exercise Program Pt seen for OT eval only. Does not require skilled OT services at this time. Electronically Signed By: Cassie Abad MS OTR/L Please Sign and return to therapist. Thank you once again for your referral.
== END 2023-05-17 09:12 | disposition home or self-care (01) ==
LOC: HO.OT 13:09
PROVIDERS: PCP Internal Medicine; Visit Provider Internal Medicine
DX: I63.9 Cerebral infarction, unspecified (principal)
CPT/HCPCS: 97110; 97165

== ENCOUNTER 2023-05-01 10:08 | Outpatient (AMB) | payer MEDICARE, SELFPAY ==
[2023-05-01 10:27] VITALS: BP 140/68; PULSE 47; TEMP 36.2; O2SAT 96; BMI 28.5
--- NOTE | 2023-05-01 10:27 | MHC.OFFWIV ---
Intake Vital Signs 05/01/23 10:27 Height 5 ft 8 in Weight 187 lb 6 oz BMI 28.5 BP 140/68 H Blood Pressure Location Lt brachial Position Sitting Pulse 47 L Pulse Source Pulse Oximeter Temp 97.2 F Temp Source Temporal Artery Scan Pulse Oximetry (%) 96 Oxygen Delivery Method Room Air Intake Visit Reasons: EP LT Big Toe Black/blue Intake Note: Pt is here c/o left big toe discomfort. Pt states his left big toes is blue and black for the last four weeks. Patient Tobacco Use Status: Former Tobacco user Quit Date: Allergies No Known Allergies [No Known Allergies*] Allergy (Verified 05/01/23 11:05) Medication List - Last Reconciled 05/01/23 by Dimas Landa MD aspirin (Adult Low Dose Aspirin) 81 mg PO DAILY clopidogrel (Plavix) 75 mg PO DAILY coenzyme Q10 (Co Q-10) 100 mg PO DAILY lisinopril 20 mg PO BID rosuvastatin (Crestor) 40 mg PO DAILY Do you need a note to return to daycare/school/sports/work: No HPI EP LT Big Toe Black/blue HPI Details 82-year-old male presents to the office for a sick visit. Patient is complaining of minimal discomfort on the left great toe. He was wearing ill-fitting shoes and developed a bluish discoloration under the nail of the great toe. [facility] Medical History (Updated 05/01/23 @ 11:07 by Dimas Landa MD) Aortic stenosis Coronary artery disease HTN (hypertension) Hyperlipidemia Renal cyst, right Surgical History History of cholecystectomy History of colonoscopy History of left inguinal hernia History of left knee replacement History of rectal fissure History of right inguinal hernia History of shoulder surgery Family History Father No problems noted. Mother No problems noted. Social History Household Members: Spouse Housing: House Are you a primary primary health care nurse to a significant other at home: No Do you presently have visiting nurse or other home services: No Alcohol intake: current Alcohol intake frequency: holidays/special occasions only Patient Tobacco Use Status: Former Tobacco user Quit Date: Tobacco use type: Cigarette e-Cigarette/Vaping Use: Never Used Second Hand Smoke Exposure: No service: No Current occupational status: retired Current occupational exposures/hazards: No Cognitive needs: No Hearing needs: No Vision needs: Yes Physical Exam Vital Signs: Last Vital Signs Temp 97.2 F 05/01/23 10:27 Pulse 47 L 05/01/23 10:27 BP 140/68 H 05/01/23 10:27 Pulse Ox 96 05/01/23 10:27 Oxygen Delivery Method Room Air 05/01/23 10:27 BMI result Body Mass Index 28.5 Extrem Other: Left foot: Great toe: Bluish discoloration under the nail. Nontender. Assessment & Plan Assessment & Plan (1) Subungual hematoma of great toe of left foot: Code(s): S90.212A - Contusion of left great toe with damage to nail, initial encounter Plan: As the nail is not very painful, reassurance and no medication needed. Patient was informed that the hematoma will slowly resolved. Coding Level of Care Code Est Pt Level 3 (35176) Diagnoses Subungual hematoma of great toe of left foot S90.212A
== END 2023-05-01 11:36 | disposition home or self-care (01) ==
PROVIDERS: PCP Internal Medicine; Visit Provider Internal Medicine
DX: S90.212A Contusion of left great toe with damage to nail, initial encounter (principal)
CPT/HCPCS: 99213

== ENCOUNTER 2023-05-16 08:36 | Outpatient (REF) | payer SELFPAY ==
[2023-05-16 11:17] LABS: MANUAL DIFF FLAG NO
[2023-05-16 11:44] LABS: Basophils Absolute Auto 0.1 X10*3/uL (0.0-0.2); Basophils Percent Auto 1.2 % (0-2); Eosinophils Absolute Auto 0.2 X10*3/uL (0.0-0.4); Eosinophils Percent Auto 4.4 % (0-4); Hematocrit 42.4 % (42.0-52.0); Hemoglobin 14.8 g/dl (14.0-18.0); Imm Gran Abs Auto 0.01 X10*3/uL (0.00-0.03); Imm Gran Pct Auto 0.2 % (0.0-0.4); Lymphocytes Absolute Auto 1.3 X10*3/uL (1.2-4.9); Lymphocytes Percent Auto 24.3 % (20-40); Mean Corpuscular HGB Conc 34.9 g/dl (31.0-36.0); Mean Corpuscular Volume 88.7 fL (80.0-98.0); Mean Platelet Volume 10.2 fL (9.4-12.4); Monocytes Absolute Auto 0.5 X10*3/uL (0.1-1.2); Neutrophils Absolute Auto 3.1 x10*3/uL (2.0-8.3); Neutrophils Percent Auto 59.9 % (45-73); Platelet Count 146 X10*3/uL (160-400); Red Blood Count 4.78 X10*6/uL (4.60-5.80); Red Cell Distribution Width 14.2 % (11.0-16.0); White Blood Count 5.2 X10*3/uL (4.8-10.8)
[2023-05-16 13:00] LABS: Alanine Aminotransferase 23 U/L (0-40); Albumin Level 4.1 g/dL (3.5-5.0); Alkaline Phosphatase 53 U/L (39-117); Anion Gap 12 (12-20); Aspartate Amino Transferase 22 U/L (5-37); Bilirubin Total 1.1 mg/dL (0.0-1.0); Blood Urea Nitrogen 20 mg/dL (9-16); Carbon Dioxide 25 mmol/L (22-29); Chloride 107 mmol/L (96-108); Cholesterol 153 mg/dL (<200); Estimated Glomerular Filt Rate 50; Glucose Fasting 97 mg/dL (60-99); HDL Cholesterol 48 mg/dL (>40); LDL Cholesterol Calculated 80 mg/dL (<100); Potassium 4.1 mmol/L (3.3-5.1); Sodium 140 mmol/L (135-145); Thyroid Stimulating Hormone 1.46 uIU/mL (0.32-4.0); Total Protein 7.3 g/dL (6.5-8.0); Triglycerides 128 mg/dL (<150)
== END 2023-05-16 08:37 | disposition home or self-care (01) ==
LOC: HO.WFDLDS 08:36
PROVIDERS: Visit Provider Internal Medicine
DX: E78.5 Hyperlipidemia, unspecified (principal); D64.9 Anemia, unspecified; E03.9 Hypothyroidism, unspecified; N28.9 Disorder of kidney and ureter, unspecified
CPT/HCPCS: 36415; 80053; 80061; 84443; 85025

== ENCOUNTER 2023-05-21 09:11 | Outpatient (AMB) | payer MEDICARE, SELFPAY ==
[2023-05-21 09:18] VITALS: BP 128/60; PULSE 55; O2SAT 96; BMI 28.4
--- NOTE | 2023-05-21 09:18 | A.OFFPC_ITS ---
Vital Signs 05/21/23 09:18 Height 5 ft 8 in Weight 186 lb 8 oz BMI 28.4 BP 128/60 Blood Pressure Location Lt brachial Position Sitting Pulse 55 Pulse Source Pulse Oximeter Pulse Oximetry (%) 96 Oxygen Delivery Method Room Air Intake Visit Reasons: 6 month f/u Allergies No Known Allergies [No Known Allergies*] Allergy (Verified 05/21/23 09:18) Medication List - Last Reconciled 05/21/23 by Cade Perez MD aspirin (Adult Low Dose Aspirin) 81 mg PO DAILY clopidogrel (Plavix) 75 mg PO DAILY coenzyme Q10 (Co Q-10) 100 mg PO DAILY lisinopril 20 mg PO BID rosuvastatin (Crestor) 40 mg PO DAILY Tobacco use date assessed: 04/17/23 Fall risk assessment: No Falls in past year Last assessed Fall Risk: 05/21/23 Dental Screening Dental Screen Date: 05/21/23 Did you have a dental visit in the last 12 months?: No Did you have a dental problem in the last 6 months where you did not have access to dental care?: No Was dental information given to patient?: Patient has dentist HPI 6 month f/u HPI Details HTN hyperlip and cva; has some slight reidual balance issues but [facility] History Aortic stenosis HTN (hypertension) Renal cyst, right Hyperlipidemia Coronary artery disease Surgical History History of colonoscopy History of left knee replacement History of cholecystectomy History of rectal fissure History of right inguinal hernia History of left inguinal hernia History of shoulder surgery Family History Father No problems noted. Mother No problems noted. Social History Household Members: Spouse Housing: House Are you a primary disabilities caregiver to a significant other at home: No Do you presently have visiting nurse or other home services: No Alcohol intake: current Alcohol intake frequency: holidays/special occasions only Patient Tobacco Use Status: Former Tobacco user Quit Date: Tobacco use type: Cigarette e-Cigarette/Vaping Use: Never Used Second Hand Smoke Exposure: No service: No Current occupational status: retired Current occupational exposures/hazards: No Cognitive needs: No Hearing needs: No Vision needs: Yes Questionnaire PHQ-9 Over the last 2 weeks, how often have you been bothered by any of the following problems? 1. Little interest or pleasure in doing things: not at all 2. Feeling down, depressed, or hopeless: not at all 3. Trouble falling or staying asleep, or sleeping too much: not at all 4. Feeling tired or having little energy: not at all 5. Poor appetite or overeating: not at all 6. Feeling bad about yourself - or that you are a failure or have let yourself or your family down: not at all 7. Trouble concentrating on things, such as reading the newspaper or watching television: not at all 8. Moving or speaking so slowly that other people could have noticed. Or the opposite - being so fidgety or restless that you have been moving around a lot more than usual: not at all 9. Thoughts that you would be better off or of hurting yourself in some way: not at all Total score: 0 Depression Screening Interpretation: Negative Source: Developed by Drs. Tristin Osborne, Tito Brice and colleagues, with an educational gordon from [employer]. Thrive Questionnaire Date Thrive assessed: 04/10/23 AUDIT C Alcohol Use Questionnaire (AUDIT-C) 1. How often do you have a drink containing alcohol?: Monthly or less 2. How many drinks containing alcohol do you have on a typical day when you are drinking?: 1 or 2 3. How often do you have six or more drinks on one occasion?: Never Total Score: 1 Score Reviewed/Action Taken: Yes CRISELDA-7 AMB Questionnaire CRISELDA-7 Date CRISELDA - 7 assessed: 11/28/22 Source: Developed by Drs. Tristin Osborne, Tito Brice and colleagues, with an educational gordon from [employer]. Review of Systems Const Denies chills, Denies headache(s) and Denies weight loss ENT Denies headache(s) Card Denies chest pain, Denies syncope, Denies irregular heart rhythm and Denies dyspnea Resp Denies chest congestion, Denies cough and Denies dyspnea GI Denies abdominal pain, Denies change in stool character, Denies nausea and Denies vomiting Musc Denies deformity and Denies joint swelling Neuro Denies syncope and Denies headache(s) Physical exam (Primary Care) Vital Signs: Last Vital Signs Pulse 55 05/21/23 09:18 BP 128/60 05/21/23 09:18 Pulse Ox 96 05/21/23 09:18 Oxygen Delivery Method Room Air 05/21/23 09:18 BMI result Body Mass Index 28.4 Tobacco/Smoking Status: Tobacco use Status Tobacco use date assessed 04/17/23 05/21/23 09:19 Patient Tobacco Use Status Former Tobacco user 05/21/23 09:19 Tobacco use type Cigarette 05/21/23 09:19 e-Cigarette/Vaping Use Never Used 05/21/23 09:19 PHQ-9: PHQ-9 Score PHQ-9: Total score 0 05/21/23 09:21 Depression Screening Interpretation: Negative Thrive Assessment: Date of Thrive Assessment Date Thrive assessed 04/10/23 05/21/23 09:19 Const General: cooperative, comfortable, no acute distress and alert Neck Neck: Yes no lymphadenopathy Thyroid: Thyroid normal Resp Effort & Inspection: normal respiratory effort Auscultation: clear to auscultation bilaterally Percussion: percussion normal Cardio Jugular venous distension: no JVD Palpation: normal PMI Rate: regular rate Rhythm: regular rhythm Heart sounds: S1 normal heart sound present and S2 normal heart sound present GI Inspection: Yes normal to inspection Palpation (GI): No hepatosplenomegaly present Skin General skin exam: no rashes or lesions noted Extrem General: Yes no clubbing, cyanosis or edema Assessment and Plan Assessment & Plan (1) CVA (cerebral vascular accident): Code(s): I63.9 - Cerebral infarction, unspecified Plan: stable; f/u with neuro (2) Hyperlipidemia: Code(s): E78.5 - Hyperlipidemia, unspecified Plan: stable; same rx (3) Hypertension: Code(s): I10 - Essential (primary) hypertension Plan: stable; same rx Orders: Orders Lipid Panel Today E78.5 - Hyperlipidemia, unspecified [facility] [place]. Panel Fast Today N28.9 - Disorder of kidney and ureter, unspecified Complete Blood Count Auto Diff Today D64.9 - Anemia, unspecified Coding Level of Care Code Est Pt Level 4 (57742) Diagnoses CVA (cerebral vascular accident) I63.9 Hyperlipidemia E78.5 Hypertension I10
== END 2023-05-21 09:49 | disposition home or self-care (01) ==
PROVIDERS: Visit Provider Internal Medicine
DX: I69.354 Hemiplegia and hemiparesis following cerebral infarction affecting left non-dominant side (principal); E78.5 Hyperlipidemia, unspecified; I10 Essential (primary) hypertension
CPT/HCPCS: 99214

== ENCOUNTER → 2023-05-29 12:22 | Outpatient (REF) | payer MEDICARE, SELFPAY ==
--- NOTE | 2023-05-29 12:27 | HM_ITS ---
Conclusion: 1. Patient was monitored for total period of 1 day and 23 hours 2. Baseline was normal sinus rhythm with average heart of 46 beats per minute very frequent sinus bradycardia, 95% of time heart rate below 60 beats per minute 3. Multiple pauses noted with longest pause of 2.82 seconds happening during sleep hours with heart rate as low as 25 beats per minute with marked sinus bradycardia also happening during sleep hours 4. Occasional PACs and PVCs noted 5. Patient marked the counter 1 time without any associated symptoms reported in the diary correlating with sinus bradycardia MTDD
== END ==
LOC: HO.CARD 12:22
PROVIDERS: PCP Internal Medicine; Visit Provider Psychiatry & Neurology Neurology
DX: I48.91 Unspecified atrial fibrillation (principal); I63.9 Cerebral infarction, unspecified
CPT/HCPCS: 93225

== ENCOUNTER → 2023-05-29 12:27 | Outpatient (BNV) | payer MEDICARE, SELFPAY | PROVIDERS: PCP Internal Medicine; Visit Provider Internal Medicine Cardiovascular Disease | DX: R00.1 Bradycardia, unspecified (principal) | CPT/HCPCS: 93227 ==

== ENCOUNTER 2023-06-14 08:51 | Outpatient (AMB) | payer MEDICARE, SELFPAY ==
[2023-06-14 08:59] VITALS: BP 130/72; PULSE 46; BMI 28.1
--- NOTE | 2023-06-14 08:59 | MHC.OFFVIS ---
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 Today he reports that he has been doing only light activities since coming out of the hospital post CVA, April 2023. He has no significant residual affects from the CVA. He initially had left arm weakness which has resolved. He is reporting increasing weakness and fatigue. He has some shortness of breath with walking distances which he feels is new. He has no presyncope, syncope, falls. No PND, orthopnea or edema. No chest discomfort at rest or with activity. Taking meds as directed. is present. [facility] Medical History Aortic stenosis HTN (hypertension) Renal cyst, right Hyperlipidemia Coronary artery disease Surgical History History of colonoscopy History of left knee replacement History of cholecystectomy History of rectal fissure History of right inguinal hernia History of left inguinal hernia History of shoulder surgery Family History Father No problems noted. Mother No problems noted. Social History Household Members: Spouse Housing: House Are you a primary aged or disabled care worker to a significant other at home: No Do you presently have visiting nurse or other home services: No Alcohol intake: current Alcohol intake frequency: holidays/special occasions only Patient Tobacco Use Status: Former Tobacco user Quit Date: Tobacco use type: Cigarette e-Cigarette/Vaping Use: Never Used Second Hand Smoke Exposure: No service: No Current occupational status: retired Current occupational exposures/hazards: No Cognitive needs: No Hearing needs: No Vision needs: Yes Review of Systems Const All systems reviewed & are unremarkable except as noted in HPI and below Reports fatigue and Reports weakness ENT Reports dizziness Card Denies chest pain, Denies chest pain at rest, Denies chest pain with activity, Denies rapid heart rate, Denies pedal edema, Denies edema, Denies leg edema, Denies lightheadedness, Denies palpitations, Denies dyspnea, Reports dyspnea on exertion and Denies orthopnea Resp Denies cough, Denies dyspnea and Reports dyspnea on exertion GI Denies hematochezia and Denies change in stool character Musc Denies abnormal gait, Denies limited range of motion, Denies muscle cramps, Denies muscle weakness, Denies numbness, Denies radiating pain into limb, Denies stiffness and Denies tingling Neuro Denies abnormal gait, Reports dizziness, Denies numbness, Denies tingling and Reports weakness Endo Reports fatigue and Denies palpitations Physical Exam Vital Signs: Last Vital Signs Pulse 46 L 06/14/23 08:59 BP 130/72 06/14/23 08:59 BMI result Body Mass Index 28.1 Const General: cooperative, healthy appearing, comfortable and no acute distress Orientation/consciousness: patient oriented x3 Neck Neck: Yes normal visual inspection and Yes no JVD Resp Effort & Inspection: normal respiratory effort Auscultation: clear to auscultation bilaterally, no crackles, no rales, no rhonchi and no wheezes Cardio Jugular venous distension: no JVD Rate: bradycardic Rhythm: regular rhythm Heart sounds: S1 normal heart sound present, S2 normal heart sound present, no murmurs and no rubs Neuro General: patient oriented x3 Extrem General: Yes normal to inspection Psych Appearance: grossly normal Mental Status: mental status grossly normal Speech and movement: Normal speech and movement present Office Procedures EKG Details: Today, read by me, sinus bradycardia with PAC versus sinus arrhythmia, rate 46, QTC 383 milliseconds [id number], Complete Assessment & Plan Assessment & Plan (1) Symptomatic bradycardia: Code(s): R00.1 - Bradycardia, unspecified Plan: Recent reports of weakness, fatigue, shortness of breath with activity. 04/09/2023 showed normal sinus rhythm, no acute ST or T-wave abnormalities, rate 60. For his symptoms a Holter monitor was done 05/29/2023 for 2 days showing sinus bradycardia, average heart rate 46, 95% of the time heart rate less than 60, longest pause 2.82 seconds during sleep, pulse rate down to 25 during sleep acute occasional PACs and PVCs. EKG done in the office today showing sinus bradycardia, PACs versus sinus arrhythmia, rate 46. He is not able to do a treadmill test to assess chronotropic competence. He says he is afraid of treadmills and would not be able to do it. Will discuss plan of care, possible pacemaker with his integration lead. Reviewed this with patient and he states understanding. Plan to call him with plan of care. Avoid all rate slowing medications. (2) Aortic stenosis: Code(s): I35.0 - Nonrheumatic aortic (valve) stenosis Qualifiers: Cardiac valve disease etiology: nonrheumatic Qualified Code(s): I35.0 - Nonrheumatic aortic (valve) stenosis Plan: Systolic murmur noted on exam. Echocardiogram done 06/13/2022 showing EF 60-65%, mild aortic valve stenosis, mildly dilated ascending aorta 4.1 cm. Repeat echo done 04/09/2023 shows EF 61%, possible distal septal hypokinesis, moderate calcification of the aortic valve, no significant aortic stenosis, mild dilation of the ascending aorta 4 cm. Will continue to follow with periodically echoes. Nuclear stress test is pending due to the finding of wall motion abnormality. (3) SOB (shortness of breath) on exertion: Code(s): R06.02 - Shortness of breath Plan: As above. No clinical signs of heart failure on examination. No ischemia on his EKG. Nuclear stress test pending (4) Hypertension: Code(s): I10 - Essential (primary) hypertension Qualifiers: Hypertension type: primary hypertension Qualified Code(s): I10 - Essential (primary) hypertension Plan: Normal range at present. No med changes made (5) CVA (cerebral vascular accident): Code(s): I63.9 - Cerebral infarction, unspecified Qualifiers: CVA mechanism: unspecified Qualified Code(s): I63.9 - Cerebral infarction, unspecified Plan: Recent CVA with left-sided weakness, primarily left arm. A CTA of the brain and neck revealed moderate bilateral ICA stenosis. He was evaluated by Neurology. The recommendation was for aspirin and Plavix which he is on. No bleeding issues reported. Continue Crestor 40 mg daily with ideal LDL goal less than 70. Will refer to vascular to assist with monitoring and treatment of carotid stenosis. Orders: Referrals Vascular Surgery Referral I63.9 - Cerebral infarction, unspecified, I65.29 - Occlusion and stenosis of unspecified carotid artery Coding Level of Care Code Est Pt Level 4 (76359) Diagnoses Symptomatic bradycardia R00.1 Nonrheumatic aortic valve stenosis I35.0 Cardiac valve disease etiology: nonrheumatic SOB (shortness of breath) on exertion R06.02 Primary hypertension I10 Hypertension type: primary hypertension Cerebrovascular accident (CVA), unspecified mechanism I63.9 CVA mechanism: unspecified CPT Codes EKG - CPT: [id number], Complete ([id number]) Time Spent (min) 28
== END 2023-06-14 09:44 | disposition home or self-care (01) ==
PROVIDERS: PCP Internal Medicine; Visit Provider Nurse Practitioner Family
DX: R00.1 Bradycardia, unspecified (principal); I35.0 Nonrheumatic aortic (valve) stenosis; R06.02 Shortness of breath; I10 Essential (primary) hypertension; I63.9 Cerebral infarction, unspecified
CPT/HCPCS: 93010; 99214

== ENCOUNTER → 2023-06-14 08:51 | Outpatient (BNVA) | payer MEDICARE, SELFPAY | PROVIDERS: PCP Internal Medicine; Visit Provider Nurse Practitioner Family | DX: I49.1 Atrial premature depolarization (principal); I35.0 Nonrheumatic aortic (valve) stenosis; R06.02 Shortness of breath; I63.9 Cerebral infarction, unspecified; I49.5 Sick sinus syndrome; I25.10 Atherosclerotic heart disease of native coronary artery without angina pectoris; I10 Essential (primary) hypertension | CPT/HCPCS: 93005; 99212 ==

== ENCOUNTER 2023-07-03 09:28 | Outpatient (REF) | payer MEDICARE, SELFPAY ==
[2023-07-03 11:13] LABS: MANUAL DIFF FLAG NO
[2023-07-03 11:33] LABS: Basophils Absolute Auto 0.1 X10*3/uL (0.0-0.2); Basophils Percent Auto 0.9 % (0-2); Eosinophils Absolute Auto 0.2 X10*3/uL (0.0-0.4); Eosinophils Percent Auto 3.9 % (0-4); Hematocrit 44.5 % (42.0-52.0); Hemoglobin 15.2 g/dl (14.0-18.0); Imm Gran Abs Auto 0.02 X10*3/uL (0.00-0.03); Imm Gran Pct Auto 0.3 % (0.0-0.4); Lymphocytes Absolute Auto 1.5 X10*3/uL (1.2-4.9); Lymphocytes Percent Auto 25.1 % (20-40); Mean Corpuscular HGB Conc 34.2 g/dl (31.0-36.0); Mean Corpuscular Hemoglobin 30.5 pg (27.0-33.0); Mean Corpuscular Volume 89.4 fL (80.0-98.0); Mean Platelet Volume 10.3 fL (9.4-12.4); Monocytes Absolute Auto 0.5 X10*3/uL (0.1-1.2); Monocytes Percent Auto 9.2 % (2-11); Neutrophils Absolute Auto 3.6 x10*3/uL (2.0-8.3); Neutrophils Percent Auto 60.6 % (45-73); Platelet Count 142 X10*3/uL (160-400); Red Blood Count 4.98 X10*6/uL (4.60-5.80); White Blood Count 5.9 X10*3/uL (4.8-10.8)
[2023-07-03 11:48] LABS: Alanine Aminotransferase 25 U/L (0-40); Albumin Level 4.3 g/dL (3.5-5.0); Alkaline Phosphatase 52 U/L (39-117); Anion Gap 13 (12-20); Aspartate Amino Transferase 21 U/L (5-37); Blood Urea Nitrogen 21 mg/dL (9-16); Calcium 10.3 mg/dL (8.4-10.2); Carbon Dioxide 24 mmol/L (22-29); Chloride 107 mmol/L (96-108); Cholesterol 154 mg/dL (<200); Estimated Glomerular Filt Rate 51; Glucose Fasting 98 mg/dL (60-99); HDL Cholesterol 47 mg/dL (>40); LDL Cholesterol Calculated 84 mg/dL (<100); Potassium 4.2 mmol/L (3.3-5.1); Sodium 140 mmol/L (135-145); Total Protein 7.8 g/dL (6.5-8.0); Triglycerides 117 mg/dL (<150)
== END 2023-07-03 09:29 | disposition home or self-care (01) ==
LOC: HO.WFDLDS 09:28
PROVIDERS: Visit Provider Internal Medicine
DX: D64.9 Anemia, unspecified (principal); N28.9 Disorder of kidney and ureter, unspecified; E78.5 Hyperlipidemia, unspecified
CPT/HCPCS: 36415; 80053; 80061; 85025

== ENCOUNTER 2023-11-19 08:08 | Outpatient (AMB) | payer MEDICARE, SELFPAY ==
[2023-11-19 08:36] VITALS: BP 130/78; PULSE 76; O2SAT 98; BMI 29.2
--- NOTE | 2023-11-19 08:36 | A.OFFPC_ITS ---
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: Present Accompanied by: Spouse Allergies No Known Allergies [No Known Allergies*] Allergy (Verified 11/19/23 08:36) Medication List - Last Reconciled 11/19/23 by Cade Perez MD aspirin (Adult Low Dose Aspirin) 81 mg PO DAILY clopidogrel (Plavix) 75 mg PO DAILY coenzyme Q10 (Co Q-10) 100 mg PO DAILY lisinopril 20 mg PO BID rosuvastatin (Crestor) 40 mg PO DAILY Tobacco use date assessed: 11/19/23 Fall risk assessment: No Falls in past year Last assessed Fall Risk: 11/19/23 Dental Screening Dental Screen Date: 11/19/23 Did you have a dental visit in the last 12 months?: No Did you have a dental problem in the last 6 months where you did not have access to dental care?: No Was dental information given to patient?: Patient has dentist HPI 6mth f/u HPI Details HTN and hyperlip; sees cardiology for SSS and PFSH Medical History Aortic stenosis HTN (hypertension) Renal cyst, right Hyperlipidemia Coronary artery disease Surgical History History of colonoscopy History of left knee replacement History of cholecystectomy History of rectal fissure History of right inguinal hernia History of left inguinal hernia History of shoulder surgery Family History Father No problems noted. Mother No problems noted. Social History Household Members: Spouse Housing: House Are you a primary palliative care nurse to a significant other at home: No Do you presently have visiting nurse or other home services: No Alcohol intake: current Alcohol intake frequency: holidays/special occasions only Patient Tobacco Use Status: Former Tobacco user Quit Date: Tobacco use type: Cigarette e-Cigarette/Vaping Use: Never Used Second Hand Smoke Exposure: No service: No Current occupational status: retired Current occupational exposures/hazards: No Cognitive needs: No Hearing needs: No Vision needs: Yes Questionnaire PHQ-9 Over the last 2 weeks, how often have you been bothered by any of the following problems? 1. Little interest or pleasure in doing things: not at all 2. Feeling down, depressed, or hopeless: not at all 3. Trouble falling or staying asleep, or sleeping too much: not at all 4. Feeling tired or having little energy: not at all 5. Poor appetite or overeating: not at all 6. Feeling bad about yourself - or that you are a failure or have let yourself or your family down: not at all 7. Trouble concentrating on things, such as reading the newspaper or watching television: not at all 8. Moving or speaking so slowly that other people could have noticed. Or the opposite - being so fidgety or restless that you have been moving around a lot more than usual: not at all 9. Thoughts that you would be better off or of hurting yourself in some way: not at all Total score: 0 Depression Screening Interpretation: Negative Depression Screening Done: Yes Source: Developed by Drs. Tristin Osborne, Ina Dorsey, Tito José and colleagues, with an educational gordon from [employer]. Thrive Questionnaire Date Thrive assessed: 11/19/23 I am a: Patient What is your living situation today?: I have a steady place to live Within the past 12 months, did the food you bought not last and you didn't have the money to get more?: Never true Within the past 12 months, did you worry whether your food would run out before you got money to buy more?: Never true Do you have trouble paying for medicines?: No Do you have trouble getting transportation to medical appointments?: No Do you have trouble paying your heating and electricity bill?: No Do you have trouble taking care of your child, family member or friend?: No Do you have trouble with day-to-day activities such as bathing, preparing meals, shopping, managing finances, etc.?: No Are you currently unemployed and looking for a job?: No Are you interested in more education?: No Please select the resources that you would like help with: None THRIVE Score: 0 AUDIT C Alcohol Use Questionnaire (AUDIT-C) 1. How often do you have a drink containing alcohol?: Monthly or less 2. How many drinks containing alcohol do you have on a typical day when you are drinking?: 1 or 2 3. How often do you have six or more drinks on one occasion?: Never Total Score: 1 Score Reviewed/Action Taken: Yes CRISELDA-7 AMB Questionnaire CRISELDA-7 Date CRISELDA - 7 assessed: 11/19/23 Feeling nervous, anxious, or on edge: 0 = Not at all Not being able to stop or control worryin = Not at all Worrying too much about different things: 0 = Not at all Trouble relaxin = Not at all Being so restless that it is hard to sit still: 0 = Not at all Becoming easily annoyed or irritable: 0 = Not at all Feeling afraid as if something awful might happen: 0 = Not at all Total CRISELDA-7 score (0-4 normal; 5-9 mild; 10-14 moderate; 15-21 severe): 0 Source: Developed by Drs. Tristin Osborne, Ina Dorsey, Tito José and colleagues, with an educational gordon from [employer]. Review of Systems Const Denies chills, Denies headache(s) and Denies weight loss ENT Denies headache(s) Card Denies chest pain, Denies syncope, Denies irregular heart rhythm and Denies dyspnea Resp Denies chest congestion, Denies cough and Denies dyspnea GI Denies abdominal pain, Denies change in stool character, Denies nausea and Denies vomiting Musc Denies deformity and Denies joint swelling Neuro Denies syncope and Denies headache(s) Physical exam (Primary Care) Vital Signs: Last Vital Signs Pulse 76 11/19/23 08:36 BP 130/78 11/19/23 08:36 Pulse Ox 98 11/19/23 08:36 Oxygen Delivery Method Room Air 11/19/23 08:36 BMI result Body Mass Index 29.2 Tobacco/Smoking Status: Tobacco use Status Tobacco use date assessed 11/19/23 11/19/23 08:37 Patient Tobacco Use Status Former Tobacco user 11/19/23 08:37 Tobacco use type Cigarette 11/19/23 08:37 e-Cigarette/Vaping Use Never Used 11/19/23 08:37 PHQ-9: PHQ-9 Score PHQ-9: Total score 0 11/19/23 08:54 Depression Screening Interpretation: Negative Thrive Assessment: Date of Thrive Assessment Date Thrive assessed 11/19/23 11/19/23 08:38 Const General: cooperative, comfortable, no acute distress and alert Neck Neck: Yes no lymphadenopathy Thyroid: Thyroid normal Resp Effort & Inspection: normal respiratory effort Auscultation: clear to auscultation bilaterally Percussion: percussion normal Cardio Jugular venous distension: no JVD Palpation: normal PMI Rate: regular rate Rhythm: regular rhythm Heart sounds: S1 normal heart sound present and S2 normal heart sound present GI Inspection: Yes normal to inspection Palpation (GI): No hepatosplenomegaly present Skin General skin exam: no rashes or lesions noted Extrem General: Yes no clubbing, cyanosis or edema Assessment and Plan Assessment & Plan (1) Aortic stenosis: Code(s): I35.0 - Nonrheumatic aortic (valve) stenosis Qualifiers: Cardiac valve disease etiology: nonrheumatic Qualified Code(s): I35.0 - Nonrheumatic aortic (valve) stenosis Plan: per cardiology (2) Hyperlipidemia: Code(s): E78.5 - Hyperlipidemia, unspecified Plan: stable; same rx (3) Hypertension: Code(s): I10 - Essential (primary) hypertension Qualifiers: Hypertension type: primary hypertension Qualified Code(s): I10 - Essential (primary) hypertension Plan: stable; same rx (4) Sinus node dysfunction: Code(s): I49.5 - Sick sinus syndrome Plan: per cardiology Orders: Orders Comprehensive [place]. Panel Fast Today N28.9 - Disorder of kidney and ureter, unspecified Complete Blood Count Auto Diff Today D64.9 - Anemia, unspecified Lipid Panel Today E78.5 - Hyperlipidemia, unspecified Coding Level of Care Code Est Pt Level 4 (57396) Diagnoses Nonrheumatic aortic valve stenosis I35.0 Cardiac valve disease etiology: nonrheumatic Hyperlipidemia E78.5 Primary hypertension I10 Hypertension type: primary hypertension Sinus node dysfunction I49.5
== END 2023-11-19 09:06 | disposition home or self-care (01) ==
PROVIDERS: PCP Internal Medicine; Visit Provider Internal Medicine
DX: I35.0 Nonrheumatic aortic (valve) stenosis (principal); E78.5 Hyperlipidemia, unspecified; I10 Essential (primary) hypertension; I49.5 Sick sinus syndrome
CPT/HCPCS: 99214

== ENCOUNTER 2023-11-25 15:14 | Inpatient (IN) | payer MEDICARE, SELFPAY ==
--- NOTE | ~2023-11-25 | CT_ITS ---
EXAMINATION: CT CHEST, ABDOMEN AND PELVIS WITHOUT CONTRAST CLINICAL INFORMATION: Shortness of breath, question pericardial effusion, lower abdominal pain COMPARISON: CT abdomen/pelvis 10/23/2014 TECHNIQUE: Multidetector volumetric imaging was performed from the thoracic inlet through the pubic symphysis. Sagittal and coronal reformatted images were obtained on the technologist's workstation. Axial MIP volume rendering provided. This CT examination was performed using dose optimization techniques as appropriate, variously including the following: *Automated exposure control *Adjustment of mA and/or kV according to patient size (this includes techniques or standardized protocols for targeted exams where dose is matched to indication/reason for exam; i.e. extremities or head) *Use of iterative reconstruction technique DLP: 285 mGy-cm FINDINGS: CHEST: Lungs: Mild upper lobe predominant emphysema. No regions of consolidation bilaterally. There is a 3 mm right upper lobe nodule on image [id number]/572. A couple tiny juxtafissural nodules in the right lung are most suggestive of lymph nodes. Mediastinum: The visualized thyroid gland is unremarkable. Small hiatal hernia. There are subcentimeter mediastinal lymph nodes within the range of normal variation. Cardiac size is within normal limits. Small pericardial effusion is present. Prominent ascending aorta measures approximately 3.9 cm in diameter. Coronary Artery Calcification: Present Pleura: No pneumothorax or pleural effusion. Chest Wall/Axilla: No axillary lymphadenopathy is present. Left-sided pacemaker lead tips extend to the right atrium and right ventricle. ABDOMEN/PELVIS: Liver, Gallbladder, Biliary Tree: The liver is normal in size, shape, and attenuation. No focal hepatic lesion or biliary ductal dilatation is identified on this noncontrast exam. Patient is status post cholecystectomy. Pancreas: Moderate fatty atrophy. Spleen: Unremarkable. Adrenal Glands: Unremarkable. Kidneys and Ureters: No hydronephrosis or obstructing calculus bilaterally. There is a 3 mm calcification in the right lower pole. Bilateral renal collecting systems appear duplicated. Exophytic right renal cyst noted laterally; no follow-up recommended. Bladder: Partially distended, with a mildly thick-walled appearance. Gastrointestinal Tract: No evidence of bowel obstruction or significant wall thickening. There is mild colonic diverticulosis without diverticulitis. The appendix is fluid-filled and dilated to approximately 13 mm, and there is surrounding stranding which is most suspicious for sequelae of acute appendicitis. No pericolonic abscess or free air is seen. Abdominal Wall: Bilateral fat-containing inguinal hernias. Lymphovascular Structures: Lymph nodes: Normal. Vascular: There is atherosclerotic calcification along the aorta and iliac arteries. Pelvic Viscera: Prostate gland appears mildly prominent. OSSEOUS STRUCTURES: Degenerative changes are noted in the spine. CT/CT abdomen pelvis wo IV con IMPRESSION: 1. Dilated, fluid-filled appendix with surrounding stranding, most suspicious for acute appendicitis. 2. Small pericardial effusion. 3. Prominent ascending aorta measuring approximately 3.9 cm in diameter. 4. Right upper lobe 3 mm lung nodule, nonspecific. According to the UPDATED 2017 Fleischner Society recommendations, the advised follow-up imaging for solid nodules < 6 mm is: LOW RISK PATIENT: No routine follow-up. HIGH RISK PATIENT: Optional CT at 12 months.
--- NOTE | ~2023-11-25 | XR_ITS ---
EXAMINATION: XR ABDOMEN KUB CLINICAL INDICATION: No bowel movements x2-3 days. COMPARISON: None available. TECHNIQUE: AP view of the abdomen. FINDINGS: There is scattered stool and gas seen in colon without distention. The small bowel loops are normal caliber. There is no organomegaly. Appendix is not seen. The gallbladder has been surgically removed. There are scattered phleboliths in the pelvis. XR/XR KUB IMPRESSION: 1. Mild constipation. No acute process seen. 2. The gallbladder has been surgically removed.
[2023-11-25 15:50] VITALS: BP 126/65; PULSE 78; RESP 18; TEMP 37.2; O2SAT 95; BMI 26.1
--- NOTE | 2023-11-25 15:50 | ED.GENADULT ---
HPI - General Adult General Chief complaint: Abdominal Pain Stated complaint: unable to void, constipation cant sleep Time Seen by Provider: 11/25/23 19:34 Source: patient and family Mode of arrival: ambulatory Limitations: no limitations History of Present Illness HPI narrative: Patient 83 years old with history of nonrheumatic aortic valve mild stenosis, coronary artery disease on Plavix and aspirin, hypertension hyperlipidemia comes here for bloatedness lower abdominal pain for last 2 weeks got worse in last 2 days took Zithromax for sinus infection last week patient does not feel hungry in eat much in last 24 hours Related Data Previous Rx's Medication Instructions Recorded aspirin 81 mg tablet,delayed 81 mg PO DAILY #90 tabs 11/21/21 release (Adult Low Dose Aspirin) lisinopril 20 mg tablet 20 mg PO BID #180 tabs 12/08/22 clopidogrel 75 mg tablet (Plavix) 75 mg PO DAILY #90 tabs 11/19/23 coenzyme Q10 100 mg capsule (Co 100 mg PO DAILY #90 caps 11/19/23 Q-10) rosuvastatin 40 mg tablet (Crestor) 40 mg PO DAILY #90 tabs 11/19/23 azithromycin 250 mg tablet See Rx Instructions PO .COMPLEX #6 11/20/23 tabs Allergies Allergy/AdvReac Type Severity Reaction Status Date / Time No Known Allergies Allergy Verified 11/19/23 08:36 [No Known Allergies*] Review of Systems Review of Systems: Yes all other systems are reviewed and are negative [facility] Past Medical History Medical History Aortic stenosis HTN (hypertension) Renal cyst, right Hyperlipidemia Coronary artery disease Surgical History History of colonoscopy History of left knee replacement History of cholecystectomy History of rectal fissure History of right inguinal hernia History of left inguinal hernia History of shoulder surgery Family History Family History Father No problems noted. Mother No problems noted. Social History Social History Household Members: Spouse Housing: House Are you a primary aged or disabled carer to a significant other at home: No Do you presently have visiting nurse or other home services: No Alcohol intake: current Alcohol intake frequency: holidays/special occasions only Patient Tobacco Use Status: Former Tobacco user Quit Date: Tobacco use type: Cigarette e-Cigarette/Vaping Use: Never Used Second Hand Smoke Exposure: No Advance Directives: No Advance Directives Information Provided: No service: No Current occupational status: retired Current occupational exposures/hazards: No Cognitive needs: No Hearing needs: No Vision needs: Yes Physical Exam ED Vital Signs: Vital Signs - 24 hr 11/25/23 15:50 11/25/23 18:12 11/25/23 21:45 Temperature 98.9 F 98.1 F Pulse Rate 78 79 62 Respiratory Rate 18 14 16 Blood Pressure 126/65 109/69 117/59 L Pulse Oximetry 95 95 96 Oxygen Delivery Method Room Air Room Air Room Air BMI result Body Mass Index 26.1 Appearance: Alert. Oriented X3. No acute distress. Eyes: No pallor or icterus ENT: Pharynx normal. Oral Mucosa moist Neck: Normal inspection. Neck supple. CVS: Normal heart rate and rhythm. Pulses normal. Respiratory: No respiratory distress. Equal air entry bilateral, no wheezing/rales/rhonchi Abdomen: Soft , tenderness right lower abdomen with guarding Bowel sounds are present, no mass palpable, no CVA tenderness Skin: Skin warm and dry. Normal skin color. Normal skin turgor. Extremities: No lower extremity edema. No calf tenderness Neuro: Oriented X 3. No motor deficit. No sensory deficit.No cerebellar signs , cranial nerves II-XII intact Course Course Course Narrative: This is a rapid medical exam: Additional HPI, ROS, PE not included below will be deferred to primary provider. Patient is an 83-year-old male presenting to the emergency department with complaint of constipation. States he typically has 2-3 bowel movements per day, has not had any in 2 days. Not passing flatus. Recently finished azithromycin. Pain with sitting/bending forward. Plan: KUB Medications Administered Discontinued Medications Generic Name Dose Route Start Last Admin Trade Name Freq PRN Reason Stop Dose Admin Sodium Chloride 1,000 mls @ 999 mls/hr 11/25/23 19:58 11/25/23 21:19 Ns IV 11/25/23 20:58 Infused .Q1H1M ONE Infusion Piperacillin Sod/Tazobactam 50 mls @ 100 mls/hr 11/25/23 21:34 11/25/23 21:43 Sod 3.375 gm/ Sodium Chloride IV 11/25/23 22:03 100 mls/hr ONCE ONE Administration Morphine Sulfate 4 mg 11/25/23 19:58 11/25/23 20:15 Morphine Sulfate 4 Mg/Ml Cartridge IVPUSH 11/25/23 19:59 Not Given ONCE ONE Protocol Ondansetron HCl 4 mg 11/25/23 19:58 11/25/23 20:15 Ondansetron Hcl 4 Mg/2 Ml Vial IVPUSH 11/25/23 19:59 Not Given ONCE ONE Medical Decision Making Medical Decision Making [facility] Narrative: Patient with subacute lower abdominal discomfort with increased tenderness and guarding right lower abdomen CT scan showed acute appendicitis symptoms going on for last 2 weeks got worse in 2 days has leukocytosis. Started on Zosyn will call surgeon for admission [email or web address] for admission Differential Diagnosis Differential Diagnoses: The differential diagnosis associated with the presentation includes Acute appendicitis/diverticulitis/colon mass Admission/Observation Consideration of admission/observation: Escalation of care including admission/observation considered Lab Data [facility] Lab Attestation statement: I reviewed the patient's lab results. 11/25/23 20:14 11/25/23 20:14 Labs: Lab Results 11/25/23 Range/Units 20:14 WBC 15.2 H (4.8-10.8) X10*3/uL RBC 4.72 (4.60-5.80) X10*6/uL Hgb 14.3 (14.0-18.0) g/dl Hct 41.1 L (42.0-52.0) % MCV 87.1 (80.0-98.0) fL MCH 30.3 (27.0-33.0) pg MCHC 34.8 (31.0-36.0) g/dl RDW 14.1 (11.0-16.0) % Plt Count 137 L (160-400) X10*3/uL MPV 9.6 (9.4-12.4) fL Immature Gran % (Auto) 0.4 (0.0-0.4) % Neut % (Auto) 84.5 H (45-73) % Lymph % (Auto) 6.7 L (20-40) % [place] % (Auto) 8.2 (2-11) % Eos % (Auto) 0.0 (0-4) % Baso % (Auto) 0.2 (0-2) % Lymph # (Auto) 1.0 L (1.2-4.9) X10*3/uL [place] # (Auto) 1.2 (0.1-1.2) X10*3/uL Eos # (Auto) 0.0 (0.0-0.4) X10*3/uL Baso # (Auto) 0.0 (0.0-0.2) X10*3/uL Abs Immat Gran (auto) 0.06 H (0.00-0.03) X10*3/uL Absolute Neuts (auto) 12.8 H (2.0-8.3) x10*3/uL Absolute Nucleated RBC 0.000 (0.0-0.012) X10*3/uL Nucleated RBC % (auto) 0.0 (0.0-0.2) /100WBC Sodium 139 (135-145) mmol/L Potassium 4.5 (3.3-5.1) mmol/L Chloride 104 (96-108) mmol/L Carbon Dioxide 24 (22-29) mmol/L Anion Gap 16 (12-20) BUN 24 H (9-16) mg/dL Creatinine 1.96 H (0.5-1.4) mg/dL Estim Creat Clear Calc 26.6 Estimated GFR 33 Random Glucose 123 H (60-115) mg/dL Lactic Acid 1.1 (0.5-2.0) mmol/L Calcium 10.1 (8.4-10.2) mg/dL Total Bilirubin 1.3 H (0.0-1.0) mg/dL AST 23 (5-37) U/L ALT 18 (0-40) U/L Alkaline Phosphatase 53 (39-117) U/L Total Protein 7.9 (6.5-8.0) g/dL Albumin 4.0 (3.5-5.0) g/dL Lipase 95 H (8-78) U/L Independent Interpretation I performed an independent interpretation of an: EKG and CT Scan Interpretation: Normal sinus rhythm heart rate 76 beats per minute no acute ST T wave changes no acute ischemia Radiology Impression Discussion of test interpretation with radiology: I have reviewed the radiologist's reading. Radiologist Impression: CT/CT abdomen pelvis wo IV con IMPRESSION: 1. Dilated, fluid-filled appendix with surrounding stranding, most suspicious for acute appendicitis. 2. Small pericardial effusion. 3. Prominent ascending aorta measuring approximately 3.9 cm in diameter. 4. Right upper lobe 3 mm lung nodule, nonspecific. According to the Discharge Plan Discharge Clinical Impression: Acute appendicitis Patient Disposition: Admitted As Inpatient
[2023-11-25 18:12] VITALS: BP 109/69; PULSE 79; RESP 14; O2SAT 95
[2023-11-25] MEDS: 0.9 % Sodium Chloride 1,000 ML 999 ML IV (20:15)
[2023-11-25 20:21] LABS: MANUAL DIFF FLAG NO
[2023-11-25 20:24] LABS: Basophils Percent Auto 0.2 % (0-2); Hematocrit 41.1 % (42.0-52.0); Hemoglobin 14.3 g/dl (14.0-18.0); Imm Gran Abs Auto 0.06 X10*3/uL (0.00-0.03); Imm Gran Pct Auto 0.4 % (0.0-0.4); Lymphocytes Percent Auto 6.7 % (20-40); Mean Corpuscular HGB Conc 34.8 g/dl (31.0-36.0); Mean Corpuscular Hemoglobin 30.3 pg (27.0-33.0); Mean Corpuscular Volume 87.1 fL (80.0-98.0); Mean Platelet Volume 9.6 fL (9.4-12.4); Monocytes Absolute Auto 1.2 X10*3/uL (0.1-1.2); Monocytes Percent Auto 8.2 % (2-11); Neutrophils Absolute Auto 12.8 x10*3/uL (2.0-8.3); Neutrophils Percent Auto 84.5 % (45-73); Platelet Count 137 X10*3/uL (160-400); Red Blood Count 4.72 X10*6/uL (4.60-5.80); Red Cell Distribution Width 14.1 % (11.0-16.0); White Blood Count 15.2 X10*3/uL (4.8-10.8)
[2023-11-25 20:40] LABS: Lactic Acid 1.1 mmol/L (0.5-2.0)
[2023-11-25 20:47] LABS: Alanine Aminotransferase 18 U/L (0-40); Alkaline Phosphatase 53 U/L (39-117); Anion Gap 16 (12-20); Aspartate Amino Transferase 23 U/L (5-37); Bilirubin Total 1.3 mg/dL (0.0-1.0); Blood Urea Nitrogen 24 mg/dL (9-16); Calcium 10.1 mg/dL (8.4-10.2); Carbon Dioxide 24 mmol/L (22-29); Chloride 104 mmol/L (96-108); Creatinine Clr Calc Pharmacy 26.6; Estimated Glomerular Filt Rate 33; Glucose Random 123 mg/dL (60-115); Lipase 95 U/L (8-78); Potassium 4.5 mmol/L (3.3-5.1); Sodium 139 mmol/L (135-145); Total Protein 7.9 g/dL (6.5-8.0)
[2023-11-25] MEDS: Piperacillin Sodium/Tazobactam 3.375 GM in 0.9 % Sodium Chloride 50 ML IV (21:43)
[2023-11-25 21:45] VITALS: BP 117/59; PULSE 62; RESP 16; TEMP 36.7; O2SAT 96
--- NOTE | 2023-11-25 22:22 | ECG_ITS ---
Test Reason : ABD PAIN Blood Pressure : / mmHG Vent. Rate : 076 BPM Atrial Rate : 076 BPM P-R Int : 176 ms QRS Dur : 096 ms QT Int : 394 ms P-R-T Axes : 057 -22 074 degrees QTc Int : 443 ms Normal sinus rhythm Normal ECG When compared with ECG of 09-APR-2023 11:09, No significant change was found Referred By: Will Gonzalez Electronically Signed By:RANDA BRANCH
[2023-11-25 23:12] LABS: COVID-19 Test Negative (Negative); IDNOW Serial# 6674DD1D
[2023-11-25] MEDS: Dextrose 5 % and 0.9 % NaCl 1,000 ML 100 ML IVCONT (23:58)
[2023-11-26] VITALS (16 sets, daily range): BP systolic 110–173; BP diastolic 55–89; PULSE 56–81; RESP 16–20; TEMP 36.2–37.7; O2SAT 91–98; BMI 28.9
[2023-11-26] LABS: Appearance Urine Clear; Color Urine Yellow; Glucose Urine UA Negative (Negative); Leukocyte Esterase Urine Negative (Negative); Nitrite Urine Negative (Negative); PH 5.5 (5.0-9.0); UMIC TRIGGER UACC YES; Urine Blood Negative (Negative); Urine Ketones Trace mg/dL (Negative); Urine Protein 100 (2+) mg/dL (Neg-Trace)
[2023-11-26 00:16] LABS: Bacteria Urine None Seen (None Seen); Granular Casts Urine Present; RBC Urine 0-2 /HPF (0-2); Squamous Epithelial Cell Urine 0-2 /HPF (0-2); WBC Urine 0-5 /HPF (0-5)
[2023-11-26] MEDS: HYDROmorphone HCl 1 MG/ML SYRINGE 0.5 MG IVPUSH (04:36)
[2023-11-26] MEDS: 0.9 % Sodium Chloride Flush 3 ML SYRINGE IVFLUSH ×2 (04:36→16:27)
[2023-11-26] MEDS: Piperacillin Sodium/Tazobactam 2.25 GM in 0.9 % Sodium Chloride 50 ML IV (05:28)
--- NOTE | 2023-11-26 05:37 | PC.NURSE ---
Patient admitted to s3 at 03:50 from ED with acute appendicitis, waiting for lap appe later today with Dr. Otto. NPO as ordered. Arrived via wheelchair. Able to walk to the bed. Pt denies using assistive devices at home, is steady on his feet with a standby. Pt is A&Ox4, very pleasant and cooperative. LSTCA on RA. Breathing is even and unlabored without distress. Pt denies chest pain, sob, n/v. VSS. Pt c/o 7/10 pain in RLQ, improved to 4/10 with prn dilaudid with +effect reported by patient. Passing flatus. LBM reported by patient as 3/16; pt denies constipation or feeling bloated. On IV zosyn. SCDs in place. Bed alarm on and safety measures in place. Call stokes within reach and educated on use. Plan of care implemented.
--- NOTE | 2023-11-26 07:43 | P.HPGS_ITS ---
History of Present Illness History of Present Illness Date of Service: 11/26/23 <Kirsty Holguin PA-C - Last Filed: 11/26/23 09:10> 11/26/23 <Nathan Otto MD - Last Filed: 11/26/23 09:16> Chief complaint: Appendicitis <Kirsty Holguin PA-C - Last Filed: 11/26/23 09:10> Narrative: Devon Auguste Sr is a 83 year old male with PMH significant for hypertension, hyperlipidemia, CAD, pacemaker, mild aortic stenosis, CVA who presented with 2 weeks history of RLQ abd pain. He reports the pain became more severe 2 days ago. This was associated with anorexia. He denies nausea, vomiting, fevers, chills, diarrhea. He has been tolerating some PO but it has been decreased. Due to the severity and persistence of pain, he presented to the ED for evaluation. Work up included CBC, BMP, LFTs which were significant for leukocytosis of 15.8 and BUN/Cr 24/1.96. CT scan was performed which showed dilated, fluid-filled appendix with surrounding stranding. His last plavix dose was on Sunday. <Kirsty Holguin PA-C - Last Filed: 11/26/23 09:10> Review of Systems Constitutional: Constitutional: Denies chills and Denies fever(s) <LOLIS Sheikh Last Filed: 11/26/23 09:10> ENT: Denies dizziness <Kirsty Holguin PA-C - Last Filed: 11/26/23 09:10> Cardiovascular: Cardiovascular: Denies chest pain at rest and Denies dyspnea <Kirsty Holguin PA-C - Last Filed: 11/26/23 09:10> Respiratory: Respiratory: Denies dyspnea <LOLIS Sheikh Last Filed: 11/26/23 09:10> Gastrointestinal: Gastrointestinal: Reports as per HPI <LOLIS Sheikh Last Filed: 11/26/23 09:10> Integumentary/Breasts: Skin/Breast: Denies rash and Denies jaundice <Kirsty Holguin PA-C - Last Filed: 11/26/23 09:10> Neurologic: Denies dizziness <Kirsty Holguin PA-C - Last Filed: 11/26/23 09:10> [facility] Past Medical History Medical History: Medical History (Updated 11/25/23 @ 22:24 by Will Gonzalez MD) Aortic stenosis HTN (hypertension) Renal cyst, right Hyperlipidemia Coronary artery disease <Kirsty Holguin PA-C - Last Filed: 11/26/23 09:10> Family History Family History: Family History Father No problems noted. Mother No problems noted. <Kirsty Holguin PA-C - Last Filed: 11/26/23 09:10> Surgical History Surgical History: Surgical History (Updated 11/26/23 @ 08:56 by Kirsty Holguin PA-C) S/P cardiac pacemaker procedure History of colonoscopy History of left knee replacement History of cholecystectomy History of rectal fissure History of right inguinal hernia History of left inguinal hernia History of shoulder surgery <Kirsty Holguin PA-C - Last Filed: 11/26/23 09:10> Social History Social History: Social History Household Members: Spouse Housing: House Are you a primary client care representative to a significant other at home: No Do you presently have visiting nurse or other home services: No Alcohol intake: current Alcohol intake frequency: holidays/special occasions only Patient Tobacco Use Status: Former Tobacco user Quit Date: Tobacco use type: Cigarette Smoked in Last 30 Days: No e-Cigarette/Vaping Use: Never Used Second Hand Smoke Exposure: No Use of substances other than those prescribed or required for medical reasons: No Have you been hit, kicked, punched, or otherwise hurt by someone within the past year? If so, by whom?: No Do you feel safe in your current relationship?: Yes Is there a partner from a previous relationship who is making you feel unsafe now?: No Are you made to feel afraid or neglected: No Taoist Healthcare Practices: Episcopal Advance Directives: No Advance Directives Information Provided: No Do you have thoughts of harming others: None Do you have a plan to hurt others: No Plan Recently lost weight without trying: No Eating poorly because of decreased appetite: No Nutrition Risks: No Nutritional Risk Poor oral hygiene: No service: No Current occupational status: retired Current occupational exposures/hazards: No Cognitive needs: No Hearing needs: No Vision needs: Yes <Kirsty Holguin PA-C - Last Filed: 11/26/23 09:10> Meds Allergies/Adverse reactions: Allergies Allergy/AdvReac Type Severity Reaction Status Date / Time No Known Allergies Allergy Verified 11/19/23 08:36 [No Known Allergies*] <Kirsty Holguin PA-C - Last Filed: 11/26/23 09:10> Active Medications: Current Medications Acetaminophen (Acetaminophen 325 Mg Tablet) 650 mg PO Q6H PRN PRN Reason: Pain, Mild (Pain Scale 1-3) Al Hydroxide/Mg Hydroxide (Magnesium Hydrox/Alum Hydrox 30 Ml Oral.Susp) 30 ml PO Q4H PRN PRN Reason: Heartburn/Nausea Hydromorphone HCl (Hydromorphone Hcl 1 Mg/Ml Syringe) 0.5 mg IVPUSH Q4H PRN; Protocol PRN Reason: Pain, Severe (Pain Scale 7-10) Last Admin: 11/26/23 04:36 Dose: 0.5 mg Dextrose/Sodium Chloride (D5ns) 1,000 mls @ 100 mls/hr IVCONT .Q10H [facility] Last Admin: 11/25/23 23:58 Dose: 100 mls/hr Piperacillin Sod/Tazobactam (Sod 2.25 gm/ Sodium Chloride) 50 mls @ 100 mls/hr IV Q6H [facility] Last Infusion: 11/26/23 05:58 Dose: Infused Magnesium Hydroxide (Milk Of Magnesia 30 Ml Oral.Susp) 30 ml PO DAILY PRN PRN Reason: Constipation Ondansetron HCl (Ondansetron Hcl 4 Mg/2 Ml Vial) 4 mg IVPUSH Q8H PRN PRN Reason: Nausea and Vomiting Sodium Chloride (0.9 % Sodium Chloride Flush 3 Ml Syringe) 3 ml IVFLUSH QSHIFT [facility] Last Admin: 11/26/23 04:36 Dose: 3 ml <Kirsty Holguin PA-C - Last Filed: 11/26/23 09:10> Physical Exam Vital Signs: Vital Signs: Last Vital Signs Temp 98.2 F 11/26/23 07:10 Pulse 64 11/26/23 07:10 Resp 20 11/26/23 07:10 BP 110/55 L 11/26/23 07:10 Pulse Ox 94 11/26/23 07:10 O2 Del Method Room Air 11/26/23 07:10 BMI result Body Mass Index 28.9 <LOLIS Sheikh Last Filed: 11/26/23 09:10> Const: General: comfortable, no acute distress and alert <Kirsty Holguin PA-C - Last Filed: 11/26/23 09:10> Orientation/consciousness: patient oriented x3 <Kirsty Holguin PA-C Last Filed: 11/26/23 09:10> Resp: Effort & Inspection: normal respiratory effort <LOLIS Sheikh Last Filed: 11/26/23 09:10> GI: Other: protuberant abdomen <LOLIS Sheikh Last Filed: 11/26/23 09:10> Inspection: No distended and Yes scar (b/l inguinal hernia repair ) <Kirsty Holguin PA-C Last Filed: 11/26/23 09:10> Palpation (GI): Soft to palpation and Tenderness to palpation present (GI) (mild diffuse, marked RLQ with rebound and voluntary guarding ) Rovsing's sign positive <Kirsty Holguin PA-C Antonella Last Filed: 11/26/23 09:10> Skin: General skin exam: no rashes or lesions noted and no jaundice <Kirsty Holguin PA-C Last Filed: 11/26/23 09:10> Neuro: General: patient oriented x3 <LOLIS Sheikh Last Filed: 11/26/23 09:10> Results Results Labs: Short CBC 11/25/23 Range/Units 20:14 WBC 15.2 H (4.8-10.8) X10*3/uL Hgb 14.3 (14.0-18.0) g/dl Hct 41.1 L (42.0-52.0) % Plt Count 137 L (160-400) X10*3/uL BMP 11/25/23 20:14 Sodium 139 Potassium 4.5 Chloride 104 Carbon Dioxide 24 BUN 24 H Creatinine 1.96 H Calcium 10.1 Liver Function 11/25/23 Range/Units 20:14 Total Bilirubin 1.3 H (0.0-1.0) mg/dL AST 23 (5-37) U/L ALT 18 (0-40) U/L Alkaline Phosphatase 53 (39-117) U/L Albumin 4.0 (3.5-5.0) g/dL Urine 11/25/23 Range/Units 23:53 Urine Color Yellow Urine Appearance Clear Urine pH 5.5 (5.0-9.0) Ur Specific Reeves 1.020 (1.005-1.025) Urine Protein 100 (2+) H (Neg-Trace) mg/dL Urine Glucose (UA) Negative (Negative) mg/dL <Kirsty Holguin PA-C - Last Filed: 11/26/23 09:10> Abdomen CT scan report/results: report reviewed and image reviewed <LOLIS Sheikh Last Filed: 11/26/23 09:10> Assessment and Plan (1) Acute appendicitis: Status: Acute <Kirsty Holguin PA-C - Last Filed: 11/26/23 09:10> Risks, benefits, alternatives of laparoscopic possible open cholecystectomy reviewed with the patient and his who was also present and included but not limited to bleeding, infection, numbness, pain, scarring, bowel or bladder injury or leak and the patient wishes to proceed. All questions answered. Arrangements were made for this for today. <Nathan Otto MD - Last Filed: 11/26/23 09:16> 83 year old male H significant for hypertension, hyperlipidemia, CAD, pacemaker, mild aortic stenosis, CVA who presented with increasing RLQ abd pain for 2 days associated with anorexia with a leukocytosis and CT scan consistent with acute appendicitis. Patient is markedly tender with rebound and guarding on exam. He however clinically is appearing well. It was recommended to proceed with laparoscopic appendectomy possible open. Risks, benefits, alternatives of laparoscopic possible open appendectomy were reviewed with the patient and included but not limited to bleeding, infection, numbness, pain, scarring, bowel or bladder injury or leak and the patient wishes to proceed. Plan discussed with who was at bedside as well. Hospitalist consult has been obtained for medical management. Patient with KENDRA likely due to dehydration, cont gentle IVF. Cont NPO status, IV zosyn. <Kirsty Holguin PA-C - Last Filed: 11/26/23 09:10> Quality Stroke Does the patient have a stroke diagnosis?: No <Nathan Otto MD - Last Filed: 11/26/23 09:16> VTE Prior VTE?: No <Nathan Otto MD - Last Filed: 11/26/23 09:16> VTE Risk Level:: Surgical - low <Kirsty Holguin PA-C - Last Filed: 11/26/23 09:10> VTE Device Contraindication: N/A - Device Ordered <Kirsty Holguin PA-C - Last Filed: 11/26/23 09:10> VTE Drug Contraindication: N/A - Med Ordered <Kirsty Holguin PA-C - Last Filed: 11/26/23 09:10> Procedures Date of Service Date of Service: 11/26/23 <Kirsty Holguin PA-C - Last Filed: 11/26/23 09:10> 11/26/23 <Nathan Otto MD - Last Filed: 11/26/23 09:16>
[2023-11-26 08:16] LABS: MANUAL DIFF FLAG NO
[2023-11-26 08:29] LABS: Basophils Percent Auto 0.3 % (0-2); Eosinophils Percent Auto 0.2 % (0-4); Hematocrit 38.2 % (42.0-52.0); Hemoglobin 12.9 g/dl (14.0-18.0); Imm Gran Abs Auto 0.05 X10*3/uL (0.00-0.03); Imm Gran Pct Auto 0.5 % (0.0-0.4); Lymphocytes Absolute Auto 1.1 X10*3/uL (1.2-4.9); Lymphocytes Percent Auto 10.4 % (20-40); Mean Corpuscular HGB Conc 33.8 g/dl (31.0-36.0); Mean Corpuscular Hemoglobin 30.1 pg (27.0-33.0); Mean Corpuscular Volume 89.3 fL (80.0-98.0); Monocytes Absolute Auto 0.9 X10*3/uL (0.1-1.2); Monocytes Percent Auto 7.9 % (2-11); Neutrophils Absolute Auto 8.7 x10*3/uL (2.0-8.3); Neutrophils Percent Auto 80.7 % (45-73); Platelet Count 128 X10*3/uL (160-400); Red Blood Count 4.28 X10*6/uL (4.60-5.80); Red Cell Distribution Width 14.3 % (11.0-16.0); White Blood Count 10.8 X10*3/uL (4.8-10.8)
--- NOTE | 2023-11-26 09:18 | HO.PM.IMCN ---
History of Present Illness Data of Consult Service Date: 11/26/23 Requesting physician: Nathan Otto Primary Care Provider: Cade Perez MD [facility] Reason for consult: medical management 83-year-old male with history of mild aortic stenosis, coronary artery disease (remote history [place] 1997 with STEFANIE x1), hx CVA on DAPT (last taken yesterday morning), hld, htn admitted to general surgery for management of acute appendicitis. Patient seen at bedside with , Annette. The patient had presented to the ED following 2 weeks of right lower quadrant abdominal pain that had become more severe about 2 days ago with associated anorexia. No associated nausea, vomiting, diarrhea. No fevers or chills. Only tolerating some p.o.. In the ED, CT abdomen/pelvis showed dilated, fluid-filled appendix with surrounding stranding suspicious for acute appendicitis with small pericardial effusion. He has been afebrile vital signs stable. He denies any chest pain and is able to ambulate distances without any significant dyspnea. He does report some dyspnea after climbing 2 flights of stairs however. Most recent echocardiogram was 03/2023 were LV systolic function was noted to be normal with EF 61% and moderate calcification of the aortic valve but no significant stenosis. There is mildly decreased right ventricular systolic function and grade 1 diastolic dysfunction. EKG shows NSR, rate [address]/T-wave abnormality. The patient is currently reporting moderate right lower quadrant pain but does not appear to be in any acute distress. Review of Systems Review of Systems: General: No fevers, malaise, unintentional weight loss HEENT: No blurred vision, diplopia. No sore throat, nasal congestion, rhinorrhea, sinus pain, ear pain Cardiovascular: No chest pain, palpitations, or leg edema Respiratory: No shortness of breath, wheezing, cough GI: +RLQ pain, +anorexia. No nausea, vomiting, diarrhea, constipation, melena, hematochezia : No dysuria, hematuria, increased urinary frequency, decreased urinary output MSK: No myalgia, back pain Neuro: No headaches, weakness, paresthesias Skin: No rashes or lesions [facility] Medical History Aortic stenosis HTN (hypertension) Renal cyst, right Hyperlipidemia Coronary artery disease Family History Father No problems noted. Mother No problems noted. Surgical History S/P cardiac pacemaker procedure History of colonoscopy History of left knee replacement History of cholecystectomy History of rectal fissure History of right inguinal hernia History of left inguinal hernia History of shoulder surgery Social History Household Members: Spouse Housing: House Are you a primary palliative care nurse to a significant other at home: No Do you presently have visiting nurse or other home services: No Alcohol intake: current Alcohol intake frequency: does not drink Patient Tobacco Use Status: Former Tobacco user Quit Date: 35 years ago Tobacco use type: Cigarette Smoked in Last 30 Days: No e-Cigarette/Vaping Use: Never Used Second Hand Smoke Exposure: No Use of substances other than those prescribed or required for medical reasons: No Currently Displaying Signs/Symptoms of Drug Intoxication Withdrawal: No Have you been hit, kicked, punched, or otherwise hurt by someone within the past year? If so, by whom?: No Do you feel safe in your current relationship?: Yes Is there a partner from a previous relationship who is making you feel unsafe now?: No Are you made to feel afraid or neglected: No Church Healthcare Practices: Christianity Are you DNR?: No Advance Directives: No Advance Directives Information Provided: No Advance Directives on File: No Do you have thoughts of harming others: None Do you have a plan to hurt others: No Plan Recently lost weight without trying: No Eating poorly because of decreased appetite: No Nutrition Risks: No Nutritional Risk Poor oral hygiene: No service: No Current occupational status: retired Current occupational exposures/hazards: No Cognitive needs: No Hearing needs: No Vision needs: Yes Meds Allergies Allergy/AdvReac Type Severity Reaction Status Date / Time No Known Allergies Allergy Verified 11/19/23 08:36 [No Known Allergies*] Active Medications: Current Medications Acetaminophen (Acetaminophen 325 Mg Tablet) 650 mg PO Q6H PRN PRN Reason: Pain, Mild (Pain Scale 1-3) Al Hydroxide/Mg Hydroxide (Magnesium Hydrox/Alum Hydrox 30 Ml Oral.Susp) 30 ml PO Q4H PRN PRN Reason: Heartburn/Nausea Hydromorphone HCl (Hydromorphone Hcl 1 Mg/Ml Syringe) 0.5 mg IVPUSH Q4H PRN; Protocol PRN Reason: Pain, Severe (Pain Scale 7-10) Last Admin: 11/26/23 04:36 Dose: 0.5 mg Dextrose/Sodium Chloride (D5ns) 1,000 mls @ 100 mls/hr IVCONT .Q10H [facility] Last Admin: 11/25/23 23:58 Dose: 100 mls/hr Piperacillin Sod/Tazobactam (Sod 2.25 gm/ Sodium Chloride) 50 mls @ 100 mls/hr IV Q6H [facility] Last Infusion: 11/26/23 05:58 Dose: Infused Sodium Chloride (Ns) 100 mls @ 100 mls/hr IV ONCE ONE Stop: 11/26/23 10:07 Sodium Chloride (Ns) 100 mls @ 100 mls/hr IV ONCE ONE Stop: 11/26/23 10:07 Magnesium Hydroxide (Milk Of Magnesia 30 Ml Oral.Susp) 30 ml PO DAILY PRN PRN Reason: Constipation Ondansetron HCl (Ondansetron Hcl 4 Mg/2 Ml Vial) 4 mg IVPUSH Q8H PRN PRN Reason: Nausea and Vomiting Sodium Chloride (0.9 % Sodium Chloride Flush 3 Ml Syringe) 3 ml IVFLUSH QSHIFT [facility] Last Admin: 11/26/23 08:52 Dose: Not Given Physical Exam Vital Signs and Narrative: Vital Signs: Last Vital Signs Temp 98.2 F 11/26/23 07:10 Pulse 64 11/26/23 07:10 Resp 20 11/26/23 07:10 BP 110/55 L 11/26/23 07:10 Pulse Ox 94 11/26/23 07:10 O2 Del Method Room Air 11/26/23 07:10 BMI result Body Mass Index 28.9 Constitutional - Awake and Alert, No apparent distress Eyes - PERRLA, EOMI Cardiovascular - S1S2, RRR, No edema Respiratory - Normal lung expansion, Normal respiratory effort, No respiratory distress, CTA bilaterally Gastrointestinal - mild soft distension, RLQ ttp with rebound and voluntary guarding. +BS Extremities - no calf tenderness bilaterally, no swelling Skin - Warm/Dry Neurological - Alert & oriented x3 Psychological - Appropriate affect Results Labs 11/26/23 07:40 11/25/23 20:14 Labs: Laboratory Results - last 24 hr 11/25/23 11/25/23 11/25/23 20:14 22:34 23:53 MCV 87.1 MCH 30.3 MCHC 34.8 RDW 14.1 Plt Count 137 L MPV 9.6 Immature Gran % (Auto) 0.4 Neut % (Auto) 84.5 H Lymph % (Auto) 6.7 L [place] % (Auto) 8.2 Eos % (Auto) 0.0 Baso % (Auto) 0.2 Lymph # (Auto) 1.0 L [place] # (Auto) 1.2 Eos # (Auto) 0.0 Baso # (Auto) 0.0 Abs Immat Gran (auto) 0.06 H Absolute Neuts (auto) 12.8 H Absolute Nucleated RBC 0.000 Nucleated RBC % (auto) 0.0 Anion Gap 16 Estim Creat Clear Calc 26.6 Estimated GFR 33 Random Glucose 123 H Lactic Acid 1.1 Calcium 10.1 Total Bilirubin 1.3 H AST 23 ALT 18 Alkaline Phosphatase 53 Total Protein 7.9 Albumin 4.0 Lipase 95 H Urine Color Yellow Urine Appearance Clear Urine pH 5.5 Ur Specific [place] 1.020 Urine Protein 100 (2+) H Urine Glucose (UA) Negative Urine Ketones Trace Urine Blood Negative Urine Nitrite Negative Ur Leukocyte Esterase Negative Urine RBC 0-2 Urine WBC 0-5 Ur Squamous Epith Cells 0-2 Urine Bacteria None Seen Hyaline Casts 6-10 Granular Casts Present COVID-19 ([facility]) Negative COVID-19 Clin Com See Note 11/26/23 07:40 MCV 89.3 MCH 30.1 MCHC 33.8 RDW 14.3 Plt Count 128 L MPV 10.0 Immature Gran % (Auto) 0.5 H Neut % (Auto) 80.7 H Lymph % (Auto) 10.4 L [place] % (Auto) 7.9 Eos % (Auto) 0.2 Baso % (Auto) 0.3 Lymph # (Auto) 1.1 L [place] # (Auto) 0.9 Eos # (Auto) 0.0 Baso # (Auto) 0.0 Abs Immat Gran (auto) 0.05 H Absolute Neuts (auto) 8.7 H Absolute Nucleated RBC 0.000 Nucleated RBC % (auto) 0.0 Anion Gap Estim Creat Clear Calc Estimated GFR Random Glucose Lactic Acid Calcium Total Bilirubin AST ALT Alkaline Phosphatase Total Protein Albumin Lipase Urine Color Urine Appearance Urine pH Ur Specific [place] Urine Protein Urine Glucose (UA) Urine Ketones Urine Blood Urine Nitrite Ur Leukocyte Esterase Urine RBC Urine WBC Ur Squamous Epith Cells Urine Bacteria Hyaline Casts Granular Casts COVID-19 ([facility]) COVID-19 Clin Com Imaging Radiologist's Impressions: Impressions KUB X-Ray 11/25/23 16:09 IMPRESSION: 1. Mild constipation. No acute process seen. 2. The gallbladder has been surgically removed. Abdomen/Pelvis CT 11/25/23 21:17 IMPRESSION: 1. Dilated, fluid-filled appendix with surrounding stranding, most suspicious for acute appendicitis. 2. Small pericardial effusion. 3. Prominent ascending aorta measuring approximately 3.9 cm in diameter. 4. Right upper lobe 3 mm lung nodule, nonspecific. According to the UPDATED 2017 Fleischner Society recommendations, the advised follow-up imaging for solid nodules < 6 mm is: LOW RISK PATIENT: No routine follow-up. HIGH RISK PATIENT: Optional CT at [address] 11/25/23 21:17 IMPRESSION: 1. Dilated, fluid-filled appendix with surrounding stranding, most suspicious for acute appendicitis. 2. Small pericardial effusion. 3. Prominent ascending aorta measuring approximately 3.9 cm in diameter. 4. Right upper lobe 3 mm lung nodule, nonspecific. According to the UPDATED 2017 Fleischner Society recommendations, the advised follow-up imaging for solid nodules < 6 mm is: LOW RISK PATIENT: No routine follow-up. HIGH RISK PATIENT: Optional CT at 12 months. Assessment and Plan (1) Acute appendicitis: Status: Acute Plan 83-year-old male with history of mild aortic stenosis, coronary artery disease (remote history [place] 1997 with STEFANIE x1), hx CVA on DAPT (last taken yesterday morning), hld, htn admitted to general surgery for management of acute appendicitis with consult placed hospitalist service for medical management. # acute appendicitis -plan per General surgery -Class III risk on revised cardiac risk index, 10.1% 30 day mortality risk -PLT 128,000. On DAPT, last taken yesterday. Hold DAPT. Discussed with Dr. Alexander, transfuse 1 unit platelets #History CVA -hold DAPT at this time. Resume preoperative per general surgery #HTN -hold lisinopril at this time to prevent post-operative hypotension #HLD -can continue statin Thank you for this consult, will continue following along with you
--- NOTE | 2023-11-26 09:35 | MHC.CM.PN ---
pt lives with parents is independnt will not need services when dcd
--- NOTE | 2023-11-26 09:42 | PC.NURSE ---
report called to OCTAVIO Avendano
--- NOTE | 2023-11-26 10:55 | MHC.CM.PN ---
pt lives with is indep[endent had no previous servies dc plan home no services has a ride
--- NOTE | 2023-11-26 13:15 | P.CONAN_ITS ---
[facility] Active Problems Active Problems: All Active Problems (Updated 11/25/23 @ 22:24 by Will Gonzalez MD) Acute appendicitis (Acute) Sinus node dysfunction (Acute) Carotid stenosis (Acute) Symptomatic bradycardia (Acute) Subungual hematoma of great toe of left foot (Acute) CVA (cerebral vascular accident) (Acute) Aortic stenosis (Acute) Acute focal neurological deficit (Acute) SOB (shortness of breath) on exertion (Acute) Pre-op exam (Acute) Tubular adenoma of colon (Acute) Murmur, cardiac (Acute) Coronary artery disease (Acute) Hyperlipidemia (Acute) Cough (Acute) Physical exam (Acute) Hypertension (Acute) Contact dermatitis (Acute) Abdominal pain (Acute) Chronic idiopathic constipation (Acute) Family history of colon cancer (Acute) Past Medical History Medical History Aortic stenosis HTN (hypertension) Renal cyst, right Hyperlipidemia Coronary artery disease Family History Family History Father No problems noted. Mother No problems noted. Family history of problems with anesthesia: No Surgical History Surgical History S/P cardiac pacemaker procedure History of colonoscopy History of left knee replacement History of cholecystectomy History of rectal fissure History of right inguinal hernia History of left inguinal hernia History of shoulder surgery History of Problems with Anesthesia: No Social History Social History Household Members: Spouse Housing: House Are you a primary client care consultant to a significant other at home: No Do you presently have visiting nurse or other home services: No Alcohol intake: current Alcohol intake frequency: does not drink Patient Tobacco Use Status: Former Tobacco user Quit Date: 35 years ago Tobacco use type: Cigarette Smoked in Last 30 Days: No e-Cigarette/Vaping Use: Never Used Second Hand Smoke Exposure: No Use of substances other than those prescribed or required for medical reasons: No Currently Displaying Signs/Symptoms of Drug Intoxication Withdrawal: No Have you been hit, kicked, punched, or otherwise hurt by someone within the past year? If so, by whom?: No Do you feel safe in your current relationship?: Yes Is there a partner from a previous relationship who is making you feel unsafe now?: No Are you made to feel afraid or neglected: No [employer] Healthcare Practices: L[employer] Are you DNR?: No Advance Directives: No Advance Directives Information Provided: No Advance Directives on File: No Do you have thoughts of harming others: None Do you have a plan to hurt others: No Plan Recently lost weight without trying: No Eating poorly because of decreased appetite: No Nutrition Risks: No Nutritional Risk Poor oral hygiene: No service: No Current occupational status: retired Current occupational exposures/hazards: No Cognitive needs: No Hearing needs: No Vision needs: Yes Meds Allergies Allergy/AdvReac Type Severity Reaction Status Date / Time No Known Allergies Allergy Verified 11/19/23 08:36 [No Known Allergies*] Active Medications: Current Medications Acetaminophen (Acetaminophen 325 Mg Tablet) 650 mg PO Q6H PRN PRN Reason: Pain, Mild (Pain Scale 1-3) Al Hydroxide/Mg Hydroxide (Magnesium Hydrox/Alum Hydrox 30 Ml Oral.Susp) 30 ml PO Q4H PRN PRN Reason: Heartburn/Nausea Hydromorphone HCl (Hydromorphone Hcl 1 Mg/Ml Syringe) 0.5 mg IVPUSH Q4H PRN; Protocol PRN Reason: Pain, Severe (Pain Scale 7-10) Last Admin: 11/26/23 04:36 Dose: 0.5 mg Dextrose/Sodium Chloride (D5ns) 1,000 mls @ 100 mls/hr IVCONT .Q10H [facility] Last Admin: 11/25/23 23:58 Dose: 100 mls/hr Piperacillin Sod/Tazobactam (Sod 2.25 gm/ Sodium Chloride) 50 mls @ 100 mls/hr IV Q6H [facility] Last Infusion: 11/26/23 05:58 Dose: Infused Magnesium Hydroxide (Milk Of Magnesia 30 Ml Oral.Susp) 30 ml PO DAILY PRN PRN Reason: Constipation Ondansetron HCl (Ondansetron Hcl 4 Mg/2 Ml Vial) 4 mg IVPUSH Q8H PRN PRN Reason: Nausea and Vomiting Sodium Chloride (0.9 % Sodium Chloride Flush 3 Ml Syringe) 3 ml IVFLUSH QSHIFT [facility] Last Admin: 11/26/23 08:52 Dose: Not Given Exam Height,Weight and Vital Signs: Height 5 ft 8 in Weight 86.2 kg Last Vital Signs Temp 98.9 F 11/26/23 12:56 Pulse 72 11/26/23 12:56 Resp 16 11/26/23 12:56 BP 137/67 11/26/23 12:56 Pulse Ox 96 11/26/23 10:03 O2 Del Method Room Air 11/26/23 10:03 Pertinent Lab Results Pertinent Lab Results: Laboratory Tests 11/25/23 11/25/23 11/25/23 20:14 22:34 23:53 WBC 15.2 H RBC 4.72 Hgb 14.3 Hct 41.1 L MCV 87.1 MCH 30.3 MCHC 34.8 RDW 14.1 Plt Count 137 L MPV 9.6 Immature Gran % (Auto) 0.4 Neut % (Auto) 84.5 H Lymph % (Auto) 6.7 L [place] % (Auto) 8.2 Eos % (Auto) 0.0 Baso % (Auto) 0.2 Lymph # (Auto) 1.0 L [place] # (Auto) 1.2 Eos # (Auto) 0.0 Baso # (Auto) 0.0 Abs Immat Gran (auto) 0.06 H Absolute Neuts (auto) 12.8 H Absolute Nucleated RBC 0.000 Nucleated RBC % (auto) 0.0 Sodium 139 Potassium 4.5 Chloride 104 Carbon Dioxide 24 Anion Gap 16 BUN 24 H Creatinine 1.96 H Estim Creat Clear Calc 26.6 Estimated GFR 33 Random Glucose 123 H Lactic Acid 1.1 Calcium 10.1 Total Bilirubin 1.3 H AST 23 ALT 18 Alkaline Phosphatase 53 Total Protein 7.9 Albumin 4.0 Lipase 95 H Urine Color Yellow Urine Appearance Clear Urine pH 5.5 Ur Specific [place] 1.020 Urine Protein 100 (2+) H Urine Glucose (UA) Negative Urine Ketones Trace Urine Blood Negative Urine Nitrite Negative Ur Leukocyte Esterase Negative Urine RBC 0-2 Urine WBC 0-5 Ur Squamous Epith Cells 0-2 Urine Bacteria None Seen Hyaline Casts 6-10 Granular Casts Present COVID-19 ([facility]) Negative COVID-19 Clin Com See Note Blood Type Antibody Screen 11/26/23 11/26/23 07:40 09:36 WBC 10.8 RBC 4.28 L Hgb 12.9 L Hct 38.2 L MCV 89.3 MCH 30.1 MCHC 33.8 RDW 14.3 Plt Count 128 L MPV 10.0 Immature Gran % (Auto) 0.5 H Neut % (Auto) 80.7 H Lymph % (Auto) 10.4 L [place] % (Auto) 7.9 Eos % (Auto) 0.2 Baso % (Auto) 0.3 Lymph # (Auto) 1.1 L [place] # (Auto) 0.9 Eos # (Auto) 0.0 Baso # (Auto) 0.0 Abs Immat Gran (auto) 0.05 H Absolute Neuts (auto) 8.7 H Absolute Nucleated RBC 0.000 Nucleated RBC % (auto) 0.0 Sodium Potassium Chloride Carbon Dioxide Anion Gap BUN Creatinine Estim Creat Clear Calc Estimated GFR Random Glucose Lactic Acid Calcium Total Bilirubin AST ALT Alkaline Phosphatase Total Protein Albumin Lipase Urine Color Urine Appearance Urine pH Ur Specific [place] Urine Protein Urine Glucose (UA) Urine Ketones Urine Blood Urine Nitrite Ur Leukocyte Esterase Urine RBC Urine WBC Ur Squamous Epith Cells Urine Bacteria Hyaline Casts Granular Casts COVID-19 ([facility]) COVID-19 Clin Com Blood Type AB Negative Antibody Screen NEGATIVE Airway Mallampati Class: II TM Dist: >3cm Neck ROM: Full Denture: Upper and Lower Loose/Missing/Broken Teeth: No Heart: rrr Lungs: cta b/l Assessment and Plan Final Anesthetic Review Family History of Problems with Anesthesia: No History of Problems with Anesthesia: No NPO: Yes ASA Class: III and Emergency Final Preanesthetic Review: No Changes in Pt Med Stat, Meds/Allgs Chart Reviewed, Consent Obtained/Reviewed and Anes Risks/Benef Reviewed Procedure Risk: Intermediate Anesthetic Plan Anesthetic Plan: GA Disposition: Standard PACU
--- NOTE | 2023-11-26 15:03 | P.OP_ITS ---
Operative Note Operative Note Date of Service: 11/26/23 Narrative: Preoperative diagnosis: [] Acute appendicitis Postop diagnosis: [] The same Procedure [] laparoscopic appendectomy Surgeon: [] Fam Electrical Assembler: [] Chelsie Type of Anesthesia: [] General Indication for surgery: [] Edematous inflamed appendix. No gross evidence of perforation. Findings: [] Patient brought to the operating room, placed on operative table in supine position, after an adequate level of general anesthesia was induced, the patient's abdomen which was very corpulent was prepped and draped in usual sterile fashion. Using a supraumbilical curvilinear incision, Carroll technique was used to insufflate the abdominal cavity to 15 mm of CO2. Upper midline and right subcostal ports were placed under direct laparoscopic view, and the patient placed in Trendelenburg position, and tilted to the left. Appendix was identified and brought onto the field with grasper. It is mesentery was sequentially taken down with double firing of ligature device. Appendix was then transected at the cecal base using endoscopic JEROMY stapler. Specimen was placed in an Endo-Catch bag, and retrieved through the umbilical port. The abdominal cavity was copiously irrigated, and secured hemostasis. All ports were removed under direct laparoscopic view. Wounds were closed in the following manner; umbilical wound is fascia reapproximated using interrupted 0 Vicryl sutures. Skin wounds were closed using subcuticular 4-0 Vicryl sutures followed by Steri-Strips and sterile dressings. Wounds were infiltrated 0.5% Marcaine at completion. Sponge, needle, and instrument counts were reported correct. Patient tolerated the procedure well and emerged from anesthesia stable condition. EBL minimal
[2023-11-26] MEDS: Dextrose 5 % and 0.9 % NaCl 1,000 ML 100 ML IVCONT (16:27)
--- NOTE | 2023-11-26 20:04 | PHA.MEDREC ---
Pharmacy Consult ? Medication Reconciliation Pharmacy has completed the medication reconciliation. Confirmed medications with patient and through claim history.
[2023-11-27] MEDS: Dextrose 5 % and 0.9 % NaCl 1,000 ML 100 ML IVCONT (02:34)
[2023-11-27 03:26] VITALS: BP 144/70; PULSE 72; RESP 16; TEMP 36.4; O2SAT 97
[2023-11-27 07:40] VITALS: BP 160/86; PULSE 94; RESP 17; TEMP 36.2; O2SAT 95
[2023-11-27 08:07] LABS: Anion Gap 11 (12-20); Blood Urea Nitrogen 24 mg/dL (9-16); Carbon Dioxide 22 mmol/L (22-29); Chloride 110 mmol/L (96-108); Creatinine Clr Calc Pharmacy 41.2; Estimated Glomerular Filt Rate 48; Glucose Fasting 102 mg/dL (60-99); Potassium 4.3 mmol/L (3.3-5.1); Sodium 139 mmol/L (135-145)
[2023-11-27 08:18] LABS: Calcium 9.3 mg/dL (8.4-10.2)
--- NOTE | 2023-11-27 08:27 | P.PNGS_ITS ---
Subjective Subjective Date of Service: 11/27/23 <Kirsty Holguin PA-C - Last Filed: 11/27/23 08:30> 11/27/23 <Nathan Otto MD - Last Filed: 11/27/23 10:39> Interval history: Feels better this morning, mild soreness at incision sites. Tolerating solid diet. OOB to bathroom. Using incentive spirometer. Feels ready for discharge. <Kirsty Holguin PA-C - Last Filed: 11/27/23 08:30> Physical Exam 2 Vital Signs: Vital Signs: Last Vital Signs Temp 97.1 F 11/27/23 07:40 Pulse 94 11/27/23 07:40 Resp 17 11/27/23 07:40 BP 160/86 H 11/27/23 07:40 Pulse Ox 95 11/27/23 07:40 O2 Del Method Room Air 11/27/23 07:40 O2 Flow Rate 1 11/27/23 03:26 BMI result Body Mass Index 28.9 <LOLIS Sheikh Last Filed: 11/27/23 08:30> Const: General: comfortable, no acute distress and alert <LOLIS Sheikh Last Filed: 11/27/23 08:30> Orientation/consciousness: patient oriented x3 <LOLIS Sheikh Last Filed: 11/27/23 08:30> Resp: Effort & Inspection: normal respiratory effort <LOLIS Sheikh Last Filed: 11/27/23 08:30> GI: Other: protuberant abdomen <LOLIS Sheikh Last Filed: 11/27/23 08:30> Inspection: No distended and Yes incision (dressings c/d/i) <LOLIS Sheikh Last Filed: 11/27/23 08:30> Palpation (GI): Soft to palpation, Tenderness to palpation present (GI) (mild incisional), no guarding and not rigid <LOLIS Sheikh Last Filed: 11/27/23 08:30> Percussion: Yes normal to percussion <LOLIS Sheikh Last Filed: 11/27/23 08:30> Skin: General skin exam: no rashes or lesions noted <Kirsty Holguin PA-C - Last Filed: 11/27/23 08:30> Neuro: General: patient oriented x3 and moves all extremities <Kirsty Holguin PA-C - Last Filed: 11/27/23 08:30> Objective Data Active Medications Acetaminophen (Acetaminophen 325 Mg Tablet) 650 mg PO Q6H PRN PRN Reason: Pain, Mild (Pain Scale 1-3) Al Hydroxide/Mg Hydroxide (Magnesium Hydrox/Alum Hydrox 30 Ml Oral.Susp) 30 ml PO Q4H PRN PRN Reason: Heartburn/Nausea Hydromorphone HCl (Hydromorphone Hcl 1 Mg/Ml Syringe) 0.5 mg IVPUSH Q4H PRN; Protocol PRN Reason: Pain, Severe (Pain Scale 7-10) Last Admin: 11/26/23 04:36 Dose: 0.5 mg Documented By: ALEXEI Magnesium Hydroxide (Milk Of Magnesia 30 Ml Oral.Susp) 30 ml PO DAILY PRN PRN Reason: Constipation Ondansetron HCl (Ondansetron Hcl 4 Mg/2 Ml Vial) 4 mg IVPUSH Q8H PRN PRN Reason: Nausea and Vomiting Oxycodone HCl (Oxycodone Hcl Immed Release 5 Mg Tablet) 5 mg PO Q4H PRN PRN Reason: Pain, Moderate(Pain Scale 4-6) Sodium Chloride (0.9 % Sodium Chloride Flush 3 Ml Syringe) 3 [facility] Last Admin: 11/27/23 07:12 Dose: Not Given Documented By: AVA Non-Admin Reason: IV Running <Kirsty Holguin PA-C - Last Filed: 11/27/23 08:30> Labs CBC & Chem 7: 11/26/23 07:40 11/26/23 07:40 <LOLIS Sheikh Last Filed: 11/27/23 08:30> Labs: Laboratory Results - last 24 hr 11/26/23 11/26/23 07:40 09:36 MCV 89.3 MCH 30.1 MCHC 33.8 RDW 14.3 Plt Count 128 L MPV 10.0 Immature Gran % (Auto) 0.5 H Neut % (Auto) 80.7 H Lymph % (Auto) 10.4 L [place] % (Auto) 7.9 Eos % (Auto) 0.2 Baso % (Auto) 0.3 Lymph # (Auto) 1.1 L [place] # (Auto) 0.9 Eos # (Auto) 0.0 Baso # (Auto) 0.0 Abs Immat Gran (auto) 0.05 H Absolute Neuts (auto) 8.7 H Absolute Nucleated RBC 0.000 Nucleated RBC % (auto) 0.0 Anion Gap 11 L Estim Creat Clear Calc 41.2 Estimated GFR 48 Fasting Glucose 102 H Calcium 9.3 D Blood Type AB Negative Antibody Screen NEGATIVE <Kirsty Holguin PA-C - Last Filed: 11/27/23 08:30> Procedures Date of Service Date of Service: 11/27/23 <Kirsty Holguin PA-C - Last Filed: 11/27/23 08:30> 11/27/23 <Nathan Otto MD - Last Filed: 11/27/23 10:39> Progress Note: A&P Assessment and plan (1) Acute appendicitis: Status: Acute <Kirsty Holguin PA-C - Last Filed: 11/27/23 08:30> Assessment and Plan: POD #1 s/p lap appy, uncomplicated. Patient doing well post op with adequate pain control, tolerating solid diet. VSS. Abd exam benign with appropriate post op tenderness and c/d/i dressings. AM labs reviewed- KENRDA resolved. Dc fluids. Encouraged OOB and ambulation of halls. Will reassess later this morning for dc to home if medically stable. Resume plavix in 2 days. Patient comfortable with plan. <Kirsty Holguin PA-C - Last Filed: 11/27/23 08:30> Time Spent With Patient Time: Total time managing care of this patient today ____ minutes. <Kirsty Holguin PA-C - Last Filed: 11/27/23 08:30> Quality Stroke Does the patient have a stroke diagnosis?: No <LOLIS Sheikh Last Filed: 11/27/23 08:30> VTE Prior VTE?: No <Kirsty Holguin PA-C - Last Filed: 11/27/23 08:30> VTE Risk Level:: Surgical - low <Kirsty Holguin PA-C - Last Filed: 11/27/23 08:30> VTE Device Contraindication: N/A - Device Ordered <Kirsty Holguin PA-C - Last Filed: 11/27/23 08:30> VTE Drug Contraindication: N/A - Med Ordered <Kirsty Holguin PA-C - Last Filed: 11/27/23 08:30>
[2023-11-27] MEDS: lisinopriL 20 MG TABLET PO (09:46)
--- NOTE | 2023-11-27 10:14 | MHC.CM.PN ---
pt dcd home no servies
--- NOTE | 2023-11-27 12:06 | HO.POSTANES ---
Post Anesthesia Evaluation Post Anesthesia Evaluation Date of Service: 11/27/23 Vital Signs: Vital Signs Temp Pulse Resp BP Pulse Ox O2 Del Method O2 Flow Rate 11/27/23 07:40 97.1 F 94 17 160/86 H 95 Room Air 11/27/23 03:26 97.6 F 72 16 144/70 H 97 Nasal Cannula 1 Anesthesia: General Endotracheal-GETA Mental Status: Awake Pain Control: Satisfactory Nausea/Vomiting: None Hydration: Adequate Anesthesia-Related Issues: No Anes. Related Issues
[2023-11-27 13:12] LABS: Hematocrit 38.2 % (42.0-52.0); Hemoglobin 13.1 g/dl (14.0-18.0)
--- NOTE | 2023-11-27 13:32 | P.PNIM_ITS ---
Subjective Subjective Date of Service: 11/27/23 Interval History: kendra ,thrombocytopenia Review of Systems abd pain improving,has soreness at incision sites. no new c/o Physical Exam 2 Vital Signs: Vital Signs: Last Vital Signs Temp 97.1 F 11/27/23 07:40 Pulse 94 11/27/23 07:40 Resp 17 11/27/23 07:40 BP 160/86 H 11/27/23 07:40 Pulse Ox 95 11/27/23 07:40 O2 Del Method Room Air 11/27/23 07:40 O2 Flow Rate 1 11/27/23 03:26 BMI result Body Mass Index 28.9 Appearance: Alert.? Oriented X3. cvs: rrr, [id number] . res: clear to auscultation ,no rhonchii or wheezing abd: no rebound or guarding, bs present. incision area -has soarness ,no discharge ext pulses present , no cyanosis . neuro: axo3 , nonfocal. Objective Data Active Medications Acetaminophen (Acetaminophen 325 Mg Tablet) 650 mg PO Q6H PRN PRN Reason: Pain, Mild (Pain Scale 1-3) Al Hydroxide/Mg Hydroxide (Magnesium Hydrox/Alum Hydrox 30 Ml Oral.Susp) 30 ml PO Q4H PRN PRN Reason: Heartburn/Nausea Amlodipine Besylate (Amlodipine Besylate 2.5 Mg Tablet) 2.5 mg PO DAILY [facility]; Protocol Hydromorphone HCl (Hydromorphone Hcl 1 Mg/Ml Syringe) 0.5 mg IVPUSH Q4H PRN; Protocol PRN Reason: Pain, Severe (Pain Scale 7-10) Last Admin: 11/26/23 04:36 Dose: 0.5 mg Documented By: ALEXEI Magnesium Hydroxide (Milk Of Magnesia 30 Ml Oral.Susp) 30 ml PO DAILY PRN PRN Reason: Constipation Ondansetron HCl (Ondansetron Hcl 4 Mg/2 Ml Vial) 4 mg IVPUSH Q8H PRN PRN Reason: Nausea and Vomiting Oxycodone HCl (Oxycodone Hcl Immed Release 5 Mg Tablet) 5 mg PO Q4H PRN PRN Reason: Pain, Moderate(Pain Scale 4-6) Sodium Chloride (0.9 % Sodium Chloride Flush 3 Ml Syringe) 3 ml IVFLUSH [facility] Last Admin: 11/27/23 07:12 Dose: Not Given Documented By: AVA Non-Admin Reason: IV Running Labs 11/27/23 13:00 11/26/23 07:40 Labs: Laboratory Results - last 24 hr 11/26/23 11/26/23 07:40 09:36 Anion Gap 11 L Estim Creat Clear Calc 41.2 Estimated GFR 48 Fasting Glucose 102 H Calcium 9.3 D Blood Type AB Negative Antibody Screen NEGATIVE Assessment and Plan (1) Acute appendicitis: Status: Acute Assessment and Plan: 83-year-old male with history of mild aortic stenosis, coronary artery disease (remote history [place] 1997 with STEFANIE x1), hx CVA on DAPT (last taken yesterday morning), hld, htn admitted to general surgery for management of acute appendicitis with consult placed hospitalist service for medical management. acute appendicitis s/p lap appen day 1(11/25/23) PLT [id number] 2 platletes .h/h stable also 13.1/38.2. History CVA-hold DAPT at this time. Resume preoperative per general surgery kendra : Possible secondary to dehydration and also was NPO for surgery. KENDRA improving with hydration, hold lisinopril. Added amlodipine 2.5 mg daily. HTN-hold lisinoprilin setting kendra . HLD: continue statin. dvt porphylax:scd ,ambulation. Above management discussed with the patient and the primary team aware . (2) CVA (cerebral vascular accident): Status: Acute Quality Stroke Does the patient have a stroke diagnosis?: No VTE Prior VTE?: No VTE Risk Level:: Surgical - low VTE Device Contraindication: N/A - Device Ordered VTE Drug Contraindication: N/A - Med Ordered
[2023-11-27 13:52] LABS: Platelet Count 155 X10*3/uL (160-400)
[2023-11-27] MEDS: ondansetron HCL 4 MG/2 ML VIAL IVPUSH (15:41)
--- NOTE | 2023-11-29 13:19 | P.DS_ITS ---
DS: Providers Provider Date of Service: 11/27/23 Date of admission: 11/25/23 23:00 Date of discharge: 11/27/23 Primary care physician: Cade Perez MD Attending physician on admission: Nathan Otto Attending physician on discharge: Nathan Otto DS: Diagnosis Discharge Diagnosis (1) Acute appendicitis: Status: Acute (2) CVA (cerebral vascular accident): Status: Acute DS: Summary Hospital Course Hospital Course: HPI AT ADMISSION: Devon Auguste Sr is a 83 year old male with PMH significant for hypertension, hyperlipidemia, CAD, pacemaker, mild aortic stenosis, CVA who presented with 2 weeks history of RLQ abd pain. He reports the pain became more severe 2 days ago. This was associated with anorexia. He denies nausea, vomiting, fevers, chills, diarrhea. He has been tolerating some PO but it has been decreased. Due to the severity and persistence of pain, he presented to the ED for evaluation. Work up included CBC, BMP, LFTs which were significant for leukocytosis of 15.8 and BUN/Cr 24/1.96. CT scan was performed which showed dilated, fluid-filled appendix with surrounding stranding. His last plavix dose was on Sunday. HOSPITALIST CONSULT: He was admitted to the surgical service for further treatment of the acute appendicitis. It was recommended to proceed with laparoscopic appendectomy possible open. He agreed. He was added onto the OR schedule for that day. Hospitalist consult has been obtained for medical management. Patient with KENDRA likely due to dehydration, cont gentle IVF. Cont NPO status, IV zosyn. He was given 1U platelets prior to surgery. On 11/26/23, a laparoscopic appendectomy was performed by Dr. Otto without complication. The patient tolerated the procedure well. He had an uncomplicated recovery course. On POD#1, he felt well with good pain control. He was tolerating a solid diet. Vitals were stable. His abdomen was benign with clean incisions. He was ambulated in the halls. His KENDRA had improved and platelets were stable post op. He felt well upon reassessment later in the day and felt ready for discharge. He was discharged to home on 11/27/23 in stable condition. He is to follow up with Dr. Otto in 1 week. He was instructed to resume his plavix on 11/28/23. Due to his KENDRA, his lisinopril was held for 1 week and he was started on Norvasc 2.5mg PO daily until he can f/u with his PCP regarding further hypertension management. He is to have a repeat CBC/BMP in 1 week. Status at Discharge Functional status at discharge: independent ambulation Overall status at discharge: patient is progressing back to baseline Time Attestation Discharge Coordination Time (in mins): 35 Quality: Safe Use of Opioids Does Pt have an Active Cancer Diagnosis on the Problem List?: No Quality: Stroke Does the patient have a stroke diagnosis?: No Physical Exam Vital Signs: Vital Signs: Last Vital Signs Temp 97.1 F 11/27/23 07:40 Pulse 94 11/27/23 07:40 Resp 17 11/27/23 07:40 BP 160/86 H 11/27/23 07:40 Pulse Ox 95 11/27/23 07:40 O2 Del Method Room Air 11/27/23 07:40 O2 Flow Rate 1 11/27/23 03:26 BMI result Body Mass Index 28.9 Const: General: comfortable, no acute distress and alert Orientation/consciousness: patient oriented x3 Resp: Effort & Inspection: normal respiratory effort GI: Inspection: No distended and Yes incision (clean) Palpation (GI): Soft to palpation, Tenderness to palpation present (GI) (mild incisional), no guarding and not rigid Percussion: Yes normal to percussion Skin: General skin exam: no rashes or lesions noted and no jaundice Neuro: General: patient oriented x3 and moves all extremities DS: Data Data Completed and Pending Completed studies during hospitalization [Text1]: 11/26/23 14:33 Surgical [PTH] Routine Vermiform appendix, appendectomy: Acute appendicitis and periappendicitis Discharge Plan Discharge Anticipated Discharge Date/Time: 11/27/23 15:16 Patient Disposition: Home, Self-Care Discharge Diagnosis: s/p laparoscopic appendectomy Referrals: Cade Perez MD [Primary Care Provider] - 1 Week Nathan Otto MD [Physician] - 1 Week Discharge Medications: New docusate sodium [Colace] 100 mg capsule 100 mg PO BID PRN (Reason: constipation) Qty: 30 0RF oxycodone 5 mg tablet 5 mg PO Q4H PRN (Reason: pain (scale score 7-10)) Qty: 20 0RF Rx Instructions: Partial Fill upon patient request. amlodipine 2.5 mg tablet 2.5 mg PO DAILY Qty: 30 0RF ondansetron HCl 8 mg tablet 8 mg PO BEDTIME 3 Days Qty: 3 0RF Continued aspirin [Adult Low Dose Aspirin] 81 mg tablet,delayed release (DR/EC) 81 mg PO DAILY Qty: 90 8RF coenzyme Q10 [Co Q-10] 100 mg capsule 100 mg PO DAILY Qty: 90 3RF rosuvastatin [Crestor] 40 mg tablet 40 mg PO DAILY Qty: 90 0RF No Action lisinopril 20 mg tablet 20 mg PO BID Qty: 180 8RF clopidogrel [Plavix] 75 mg tablet 75 mg PO DAILY Qty: 90 0RF Discharge Orders: Discharge Order (Routine); Ordered 11/27/23 Ordered By: Kirsty Holguin Diet: Advance to usual diet Activity on Discharge: No heavy lifting Stand Alone Forms: Patient Portal Discharge page Other Ambulatory Orders: Basic Metabolic Panel Fasting (Routine) Timeframe: 1 Week Facility: [facility] - Location: Laboratory Ordered By: Kirsty Holguin Complete Blood Count Auto Diff (Routine) Timeframe: 1 Week Facility: [facility] - Location: Laboratory Ordered By: Kirsty Holguin Activity Restrictions/Additional Instructions: Apply an ice pack for short intervals (20 minutes on, followed by at least 20 minutes off) for the first 2 days. Do not apply heat. Do not use creams, lotions, or topical antibiotics. These can cause infection or allergic reaction. Ok to shower 48 hours after your surgery. Remove dressings in 2 days and replace as needed. You have steri strips (small white cloth strips) covering your incision- these will fall off ~1 week. Follow up in office with Dr. Otto in 1 week. ([phone]) No heavy lifting (>10lbs) or strenuous activity! Resume your plavix on 11/28/23. Please stop taking your lisinopril for now. Amlodipine 2.5mg PO daily has been prescribed instead. Please see your PCP regarding further hypertension management and resumption of lisinopril. Call Your Doctor If: -Your temperature exceeds 101.5? F -You experience excessive pain or swelling -You have an unexpected reaction to medication -You have excessive bleeding -You experience continued vomiting/nausea -Your incision begins to separate -Your incision shows signs of infection such as increased redness, swelling, excessive pain, drainage (light blood or clear fluid is normal) or heat Care Plan Goals: Return to baseline health and resume normal activities following recovery period. Health Concerns: hx of CVA on plavix, CAD, pacemaker in place, HTN acute appendicitis Plan of Treatment: s/p laparoscopic appendectomy f/u in office with Dr. Otto in 1 week follow up bmp outpatient in 1 week and lisinopril can be started if renal function allows. F/u with PCP upon discharge Resume plavix 11/28/23. Assessment: Doing well post op. Discharge Date/Time: 11/27/23 16:42
== END 2023-11-27 16:42 | disposition home or self-care (01) | DRG 398 ==
LOC: HO.ED 22:24 → HO.EDOVER 23:12 → HO.S3 11-26 02:16
PROVIDERS: Internal Medicine; Physician Assistant Surgical; Registered Nurse Emergency; Admitting Provider Surgery; Emergency Provider Internal Medicine; PCP Internal Medicine; Visit Provider Surgery
PROC: 0DTJ4ZZ Resection of Appendix, Percutaneous Endoscopic Approach (ICD-10-PCS; CPT 44970; principal; 2023-11-26 13:00)
DX: K35.80 Unspecified acute appendicitis (principal); N17.9 Acute kidney failure, unspecified; I10 Essential (primary) hypertension; E78.5 Hyperlipidemia, unspecified; I25.10 Atherosclerotic heart disease of native coronary artery without angina pectoris; I35.0 Nonrheumatic aortic (valve) stenosis; E86.0 Dehydration; Z20.822 Contact with and (suspected) exposure to COVID-19; Z95.0 Presence of cardiac pacemaker; Z86.73 Personal history of transient ischemic attack (TIA), and cerebral infarction without residual deficits; Z87.891 Personal history of nicotine dependence; Z79.02 Long term (current) use of antithrombotics/antiplatelets; Z79.82 Long term (current) use of aspirin; Z79.899 Other long term (current) drug therapy
CPT/HCPCS: 36415; 71250; 74018; 74176; 80048; 80053; 81001; 81003; 83605; 83690; 85014; 85018; 85025; 85049; 86850; 86900; 86901; 87635; 88304; 93005; 99285; J0131; J1170; J2405; J2543; J2795; J3010; P9073

== ENCOUNTER → 2023-11-25 22:22 | Outpatient (BNV) | payer MEDICARE, SELFPAY | PROVIDERS: Admitting Provider Surgery; Emergency Provider Internal Medicine; PCP Internal Medicine; Visit Provider Internal Medicine | DX: R10.9 Unspecified abdominal pain (principal) | CPT/HCPCS: 93010 ==

== ENCOUNTER → 2023-11-25 23:00 | Outpatient (BNV) | payer MEDICARE, SELFPAY | PROVIDERS: Admitting Provider Surgery; Emergency Provider Internal Medicine; PCP Internal Medicine; Visit Provider Physician Assistant | DX: K35.80 Unspecified acute appendicitis (principal); Z86.73 Personal history of transient ischemic attack (TIA), and cerebral infarction without residual deficits | CPT/HCPCS: 99222; 99232 ==

== ENCOUNTER → 2023-11-25 23:00 | Outpatient (BNV) | payer MEDICARE, SELFPAY | PROVIDERS: Admitting Provider Surgery; Emergency Provider Internal Medicine; PCP Internal Medicine; Visit Provider Surgery | DX: K35.80 Unspecified acute appendicitis (principal) | CPT/HCPCS: 44970; 99024; 99222 ==

== ENCOUNTER 2023-11-30 10:11 | Inpatient (IN) | payer MEDICARE, SELFPAY ==
[2023-11-30] VITALS (8 sets, daily range): BP systolic 128–170; BP diastolic 72–96; PULSE 67–90; RESP 16–22; TEMP 36.1–37.2; O2SAT 93–96; BMI 28.1
--- NOTE | ~2023-11-30 | XR_ITS ---
EXAMINATION: XR CHEST CLINICAL INFORMATION: SOB. COMPARISON: CT chest, abdomen pelvis without contrast 11/25/2023. TECHNIQUE: 2 views of the chest were obtained. FINDINGS: The lungs are hyperinflated but clear of acute process. Heart size and pulmonary vascularity is normal. There are dual pacer electrodes in right atrium and right ventricle. No gross bony abnormality seen. XR/XR chest 2V IMPRESSION: Hyperinflated lungs without acute process.
--- NOTE | ~2023-11-30 | XR_ITS ---
EXAMINATION: XR ABDOMEN KUB CLINICAL INDICATION: PSV of COMPARISON: None available. TECHNIQUE: AP view of the abdomen. FINDINGS: There is residual oral contrast seen throughout the colon. There is gaseous distention of small bowel loops up to 4.5 cm in the left midabdomen slightly more prominent than 11/02/2023 exam. There is no organomegaly. No radiopaque calculi. Mild degenerative disc changes L2-L3 and L1-L2 disc levels. XR/XR KUB IMPRESSION: There is gaseous distention of small bowel loops are slightly more prominent than 12/01/2023. Oral contrast in the colon is stable and unchanged.
--- NOTE | ~2023-11-30 | XR_ITS ---
EXAMINATION: XR ABDOMEN KUB CLINICAL INDICATION: Ileus versus partial small bowel obstruction COMPARISON: KUB 12/02/2023 and 12/01/2023, CT abdomen pelvis 11/30/2023 and 11/25/2023 TECHNIQUE: AP view of the abdomen. FINDINGS: Again seen are some air-filled loops of small bowel in the left abdomen fairly similar to minimally increased compared with the studies from the past 2 days. When comparison is made to the 11/29/2021 CT scan, there has definitely been improvement in appearances of small bowel loops at that time measured a maximum of 4.3 cm whereas on the current study maximum diameter is about 3.0 cm. The volume of oral contrast media that had been in the colon has also decreased. There is no pneumatosis. XR/XR KUB IMPRESSION: Improving small bowel distention since 11/30/2023.
--- NOTE | ~2023-11-30 | XR_ITS ---
EXAMINATION: XR ABDOMEN KUB CLINICAL INDICATION: Follow-up partial small bowel obstruction/ileus COMPARISON: CT abdomen from 11/30/2023 TECHNIQUE: AP view of the abdomen. FINDINGS: Contrast identified throughout the visualized colon. Multiple loops of dilated small bowel redemonstrated measuring up to 4.1 cm. Osseous structures are intact. Soft tissues are unremarkable. XR/XR KUB IMPRESSION: 1. Contrast identified throughout the visualized colon. 2. Multiple loops of dilated small bowel redemonstrated measuring up to 4.1 cm.
--- NOTE | ~2023-11-30 | CT_ITS ---
EXAMINATION: CT ABDOMEN AND PELVIS WITHOUT CONTRAST CLINICAL INFORMATION: Abdominal distention, pain, status post appendectomy COMPARISON: 11/25/2023 TECHNIQUE: Multidetector volumetric imaging was performed from the superior aspect of the liver through the pubic symphysis. Sagittal and coronal reformatted images were obtained on the technologist's workstation. This CT examination was performed using dose optimization techniques as appropriate, variously including the following: *Automated exposure control *Adjustment of mA and/or kV according to patient size (this includes techniques or standardized protocols for targeted exams where dose is matched to indication/reason for exam; i.e. extremities or head) *Use of iterative reconstruction technique DLP: 604 mGy-cm FINDINGS: LUNG BASES: There is small pericardial effusion. LIVER, GALLBLADDER, AND BILIARY TREE: Liver is of low attenuation surrounded by ascites, new since previous study gland is surgically absent. PANCREAS: Unremarkable. SPLEEN: Unremarkable. ADRENAL GLANDS: Unremarkable. KIDNEYS AND URETERS: There is an exophytic simple 3.2 cm cyst in the right kidney. BLADDER: Urinary bladder well distended without masses or stones. GASTROINTESTINAL TRACT: Small bowel nondilated with contrast retained and there is fecalization of small bowel loop most likely ileum. Appendix is surgically absent. There is small amount of ascites. Terminal ileum is decompressed. Zone of transition is in the right lower quadrant. There is mild ascites, no lymphadenopathy. Findings consistent with partial There is moderate size hiatal hernia. ABDOMINAL WALL: No significant hernia is appreciated. LYMPH NODES: Normal. VASCULAR: Abdominal aorta is calcified but not dilated PELVIC VISCERA: Unremarkable. OSSEOUS STRUCTURES: Unremarkable. CT/CT abdomen pelvis wo IV con IMPRESSION: 1. Partial small bowel obstruction with transition in the right lower quadrant. 2. Small amount of ascites. 3. Small pericardial effusion. 4. Hiatal hernia. Fleischner guidelines were followed.
--- NOTE | 2023-11-30 10:40 | ED_ITS ---
HPI - General Adult General Chief complaint: Dyspnea Stated complaint: ABD PAIN SOB SURGERY 3 DAYS AGO Time Seen by Provider: 11/30/23 10:20 Source: patient, family, EMS, RN notes reviewed and old records reviewed Mode of arrival: EMS Limitations: no limitations History of Present Illness HPI narrative: 83-year-old male with history of HTN, HLD, CVA, symptomatic bradycardia s/p cardiac pacemaker, CAD, mild aortic stenosis who presents to the ER from home via EMS for evaluation of abdominal pain and distention along with shortness of breath that has been worsening for the last couple of days. Patient was seen here on 11/24, found to have acute appendicitis and had an appendectomy with Dr. Otto. He was discharged from the hospital yesterday. He has been passing gas and having bowel movements. He still feels very distended and is having abdominal pain in the right lower quadrant. It is very sharp pain when he touches the area and coughs. He denies any fevers, vomiting, diarrhea. He is passing gas more now and having bowel movements. He reports shortness of breath with exertion and when bending down. He feels like his abdomen gets in the way. His reports new onset wheezing when he lays down. He is coughing when he lays down. Patient also reports improving hematuria since he had the catheter while admitted. No dysuria. MD complaint: Abdominal pain and distention, shortness of breath Onset (ago): day(s) Location: chest and abdomen Radiation: non-radiation Severity: moderate Quality: stabbing and aching Pain Consistency: intermittent Relieving factors: none Exacerbating factors: movement Associated symptoms: cough, loss of appetite, malaise and shortness of breath Treatments prior to arrival: none Related Data Previous Rx's Medication Instructions Recorded aspirin 81 mg tablet,delayed 81 mg PO DAILY #90 tabs 11/21/21 release (Adult Low Dose Aspirin) lisinopril 20 mg tablet 20 mg PO BID #180 tabs 12/08/22 clopidogrel 75 mg tablet (Plavix) 75 mg PO DAILY #90 tabs 11/19/23 coenzyme Q10 100 mg capsule (Co 100 mg PO DAILY #90 caps 11/19/23 Q-10) rosuvastatin 40 mg tablet (Crestor) 40 mg PO DAILY #90 tabs 11/19/23 amlodipine 2.5 mg tablet 2.5 mg PO DAILY #30 tabs 11/27/23 docusate sodium 100 mg capsule 100 mg PO BID PRN constipation #30 11/27/23 (Colace) caps ondansetron HCl 8 mg tablet 8 mg PO BEDTIME 3 days #3 tabs 11/27/23 oxycodone 5 mg tablet 5 mg PO Q4H PRN pain (scale score 11/27/23 7-10) #20 tabs Allergies Allergy/AdvReac Type Severity Reaction Status Date / Time No Known Allergies Allergy Verified 11/19/23 08:36 [No Known Allergies*] Review of Systems 2 Review of Systems: Yes all other systems are reviewed and are negative [facility] Past Medical History Medical History Aortic stenosis HTN (hypertension) Renal cyst, right Hyperlipidemia Coronary artery disease Surgical History S/P cardiac pacemaker procedure History of colonoscopy History of left knee replacement History of cholecystectomy History of rectal fissure History of right inguinal hernia History of left inguinal hernia History of shoulder surgery Family History Family History Father No problems noted. Mother No problems noted. Social History Social History Household Members: Spouse Housing: House Are you a primary care navigator to a significant other at home: No Do you presently have visiting nurse or other home services: No Alcohol intake: current Alcohol intake frequency: does not drink Patient Tobacco Use Status: Former Tobacco user Quit Date: 35 years ago Tobacco use type: Cigarette e-Cigarette/Vaping Use: Never Used Second Hand Smoke Exposure: No Advance Directives: No Advance Directives Information Provided: No service: No Current occupational status: retired Current occupational exposures/hazards: No Cognitive needs: No Hearing needs: No Vision needs: Yes Physical Exam ED Vital Signs: Vital Signs - 24 hr 11/30/23 10:20 11/30/23 13:07 11/30/23 14:32 Temperature 98.4 F 99.0 F Pulse Rate 89 67 73 Respiratory Rate 22 H 16 16 Blood Pressure 128/78 133/80 170/96 H Pulse Oximetry 95 95 96 Oxygen Delivery Method Room Air Room Air Room Air BMI result Body Mass Index 28.1 Appearance: Alert. Oriented X3. No acute distress. Head: normocephalic, atraumatic. Eyes: Pupils equal, round and reactive to light. ENT: Pharynx normal. No tonsillar swelling or exudate. Neck: Normal inspection. Neck supple. CVS: Normal heart rate and rhythm. Pulses normal. Respiratory: No respiratory distress. Breath sounds with mild expiratory wheeze and left upper lobe. Abdomen: Rotund, softly distended with periumbilical ecchymosis and right lower quadrant tenderness and guarding. Steri-Strips in place in the periumbilical surgical incision. normoactive +BS x4 but diminished Skin: Skin warm and dry. Normal skin color. Normal skin turgor. No rashes. Extremities: No lower extremity edema. No joint swelling. Neuro/psych: Oriented X 3. No motor deficit. No sensory deficit. CN II-XII intact. Normal speech and cognition. Course Consultations Consultation #1: Fam General Surgery Medications Administered Discontinued Medications Generic Name Dose Route Start Last Admin Trade Name Freq PRN Reason Stop Dose Admin Barium Sulfate 900 ml 11/30/23 13:40 11/30/23 13:41 Barium Sulfate Oral (Vanilla) 450 Ml Oral.Susp PO 11/30/23 13:41 900 ml ONCE ONE Administration Ondansetron HCl 4 mg 11/30/23 11:46 11/30/23 11:57 Ondansetron Hcl 4 Mg/2 Ml Vial IVPUSH 11/30/23 11:47 4 mg ONCE ONE Administration Medical Decision Making Medical Decision Making MDM Narrative: 83-year-old male with history of HTN, HLD, CVA, symptomatic bradycardia s/p cardiac pacemaker, CAD, mild aortic stenosis who presents to the ER from home via EMS for evaluation of abdominal pain and distention along with shortness of breath that has been worsening for the last couple of days. VSS on arrival. Slight wheeze in MOJGAN on exam. CXR is normal. Lab showing mild anemia consistent with recent surgery, doubt acute blood loss. BNP is normal. Doubt PE without tachycardia or hypoxia. Patient found to have influenza a which explains his shortness of breath. Dr. Otto was at the bedside to evaluate the patient's abdomen. CT scan with oral contrast was performed. Dr. Otto reviewed - most likely ileus. plan for clears and KUB in the morning. recommend admission to medicine. Differential Diagnosis Differential Diagnoses: The differential diagnosis associated with the presentation includes post-op pain, gaseous distention, perforation, SBO, ileus, intra-abdominal fluid collection, PNA, atelectasis, CHF, viral syndrome Admission/Observation Consideration of admission/observation: Escalation of care including admission/observation considered Consult Healthcare Provider Management of the patient was discussed with: Hospitalist and Embosser Apprentice Fam recommending CT scan with PO contrast - he came to evaluate the patient in the ER. CT reviewed by Dr. Otto - thinks ileus post-op, ok for clears and repeat KUB in AM Lab Data MDM Lab Attestation statement: I reviewed the patient's lab results. no leukocytosis H/H down slightly from a few days ago 11/30/23 11:12 11/30/23 11:12 Labs: Lab Results 11/30/23 11/30/23 Range/Units 11:12 12:30 WBC 5.1 (4.8-10.8) X10*3/uL RBC 4.20 L (4.60-5.80) X10*6/uL Hgb 12.5 L (14.0-18.0) g/dl Hct 36.3 L (42.0-52.0) % MCV 86.4 (80.0-98.0) fL MCH 29.8 (27.0-33.0) pg MCHC 34.4 (31.0-36.0) g/dl RDW 13.7 (11.0-16.0) % Plt Count 152 L (160-400) X10*3/uL MPV 9.6 (9.4-12.4) fL Immature Gran % (Auto) 0.6 H (0.0-0.4) % Neut % (Auto) 74.8 H (45-73) % Lymph % (Auto) 9.2 L (20-40) % [place] % (Auto) 13.2 H (2-11) % Eos % (Auto) 1.8 (0-4) % Baso % (Auto) 0.4 (0-2) % Lymph # (Auto) 0.5 L (1.2-4.9) X10*3/uL [place] # (Auto) 0.7 (0.1-1.2) X10*3/uL Eos # (Auto) 0.1 (0.0-0.4) X10*3/uL Baso # (Auto) 0.0 (0.0-0.2) X10*3/uL Abs Immat Gran (auto) 0.03 (0.00-0.03) X10*3/uL Absolute Neuts (auto) 3.8 (2.0-8.3) x10*3/uL Absolute Nucleated RBC 0.000 (0.0-0.012) X10*3/uL Nucleated RBC % (auto) 0.0 (0.0-0.2) /100WBC Sodium 136 (135-145) mmol/L Potassium 3.8 (3.3-5.1) mmol/L Chloride 102 (96-108) mmol/L Carbon Dioxide 25 (22-29) mmol/L Anion Gap 13 (12-20) BUN 15 (9-16) mg/dL Creatinine 1.19 (0.5-1.4) mg/dL Estim Creat Clear Calc 44.8 Estimated GFR 58 Random Glucose 99 (60-115) mg/dL Calcium 9.8 (8.4-10.2) mg/dL Magnesium 1.7 (1.6-2.6) mg/dL Total Bilirubin 0.6 (0.0-1.0) mg/dL Direct Bilirubin 0.2 (0.0-0.5) mg/dL AST 23 (5-37) U/L ALT 21 (0-40) U/L Alkaline Phosphatase 44 (39-117) U/L B-Natriuretic Peptide 77 (<100) pg/mL Total Protein 6.9 (6.5-8.0) g/dL Albumin 3.5 (3.5-5.0) g/dL Urine Color Dark Yellow Urine Appearance Clear Urine pH 5.5 (5.0-9.0) Ur Specific [place] 1.020 (1.005-1.025) Urine Protein 30 (1+) H (Neg-Trace) mg/dL Urine Glucose (UA) Negative (Negative) mg/dL Urine Ketones Trace (Negative) mg/dL Urine Blood Large (3+) H (Negative) Urine Nitrite Negative (Negative) Ur Leukocyte Esterase Trace H (Negative) Urine RBC 11-20 H (0-2) /HPF Urine WBC 0-5 (0-5) /HPF Ur Squamous Epith Cells 0-2 (0-2) /HPF Urine Bacteria None Seen (None Seen) Hyaline Casts 3-5 (0-2) /LPF Influenza Type A (PCR) POSITIVE A (Negative) Influenza Type B (PCR) NEGATIVE (Negative) RSV RNA Qual (PCR) NEGATIVE (Negative) SARS-CoV-2 RNA (RT-PCR) NEGATIVE (Negative) Independent Interpretation I performed an independent interpretation of an: EKG and CT Scan Interpretation: ekg w/ normal sinus rhythm, ventricular rate 78 beats per minute, normal MD interval, normal QRS, no ST segment elevation or depression. CT scan reviewed, no evidence of perforation or free air. air fluid levels in the small bowel Radiology Impression Discussion of test interpretation with radiology: I have reviewed the radiologist's reading. Radiologist Impression: CT/CT abdomen pelvis wo IV con IMPRESSION: 1. Partial small bowel obstruction with transition in the right lower quadrant. 2. Small amount of ascites. 3. Small pericardial effusion. 4. Hiatal hernia. Independent Historian Clinical information obtained from an independent historian. History obtained from or confirmed by: Spouse and EMS External Record Review External record reviewed: Outpatient record, Prior outpatient labs and Prior outpatient radiology Prescription Management I considered prescription management with: Pain Medication and Antibiotic Chronic Conditions Patient?s care impacted by: Hypertension and Other (CAD) Critical Care Time Critical Care Time Critical Care Time: Yes Total Critical Care Time: 38 Attestation: I have personally provided critical care time exclusive of time spent on separately billable procedures. Time includes review of lab data, radiology results, discussion with consultants, and monitoring for potential decompensation. Intervention performed as documented. Discharge Plan Discharge Clinical Impression: Influenza A, Ileus Hematuria Qualifiers: Hematuria type: unspecified type Qualified Code(s): R31.9 - Hematuria, unspecified Patient Disposition: Admitted As Inpatient
--- NOTE | 2023-11-30 10:48 | ECG_ITS ---
Test Reason : SOB Blood Pressure : / mmHG Vent. Rate : 078 BPM Atrial Rate : 078 BPM P-R Int : 164 ms QRS Dur : 098 ms QT Int : 382 ms P-R-T Axes : 059 -20 062 degrees QTc Int : 435 ms Normal sinus rhythm Cannot rule out Anterior infarct , age undetermined Abnormal ECG When compared with ECG of 25-NOV-2023 22:26, Minimal criteria for Anterior infarct are now Present - could be from lead placement Referred By: Kelsie Ramirez Electronically Signed By:RANDA BRANCH
--- NOTE | 2023-11-30 10:57 | PC.NURSE ---
Pt to Xray.
[2023-11-30 11:32] LABS: MANUAL DIFF FLAG NO
[2023-11-30 11:42] LABS: Basophils Percent Auto 0.4 % (0-2); Eosinophils Absolute Auto 0.1 X10*3/uL (0.0-0.4); Eosinophils Percent Auto 1.8 % (0-4); Hematocrit 36.3 % (42.0-52.0); Hemoglobin 12.5 g/dl (14.0-18.0); Imm Gran Abs Auto 0.03 X10*3/uL (0.00-0.03); Imm Gran Pct Auto 0.6 % (0.0-0.4); Lymphocytes Absolute Auto 0.5 X10*3/uL (1.2-4.9); Lymphocytes Percent Auto 9.2 % (20-40); Mean Corpuscular HGB Conc 34.4 g/dl (31.0-36.0); Mean Corpuscular Hemoglobin 29.8 pg (27.0-33.0); Mean Corpuscular Volume 86.4 fL (80.0-98.0); Mean Platelet Volume 9.6 fL (9.4-12.4); Monocytes Absolute Auto 0.7 X10*3/uL (0.1-1.2); Monocytes Percent Auto 13.2 % (2-11); Neutrophils Absolute Auto 3.8 x10*3/uL (2.0-8.3); Neutrophils Percent Auto 74.8 % (45-73); Platelet Count 152 X10*3/uL (160-400); Red Cell Distribution Width 13.7 % (11.0-16.0); White Blood Count 5.1 X10*3/uL (4.8-10.8)
[2023-11-30 11:54] LABS: Alanine Aminotransferase 21 U/L (0-40); Albumin Level 3.5 g/dL (3.5-5.0); Alkaline Phosphatase 44 U/L (39-117); Anion Gap 13 (12-20); Aspartate Amino Transferase 23 U/L (5-37); Bilirubin Direct 0.2 mg/dL (0.0-0.5); Bilirubin Total 0.6 mg/dL (0.0-1.0); Blood Urea Nitrogen 15 mg/dL (9-16); Calcium 9.8 mg/dL (8.4-10.2); Carbon Dioxide 25 mmol/L (22-29); Chloride 102 mmol/L (96-108); Creatinine Clr Calc Pharmacy 44.8; Estimated Glomerular Filt Rate 58; Glucose Random 99 mg/dL (60-115); Magnesium 1.7 mg/dL (1.6-2.6); Potassium 3.8 mmol/L (3.3-5.1); Sodium 136 mmol/L (135-145); Total Protein 6.9 g/dL (6.5-8.0)
[2023-11-30] MEDS: ondansetron HCL 4 MG/2 ML VIAL IVPUSH (11:57)
[2023-11-30 12:17] LABS: B Type Natriuretic Peptide 77 pg/mL (<100)
--- NOTE | 2023-11-30 12:25 | PC.NURSE ---
Pt ambulatory to the BR with a steady gait.
[2023-11-30 12:44] LABS: Appearance Urine Clear; Color Urine Dark Yellow; Glucose Urine UA Negative (Negative); Leukocyte Esterase Urine Trace (Negative); Nitrite Urine Negative (Negative); PH 5.5 (5.0-9.0); UMIC TRIGGER UACC YES; Urine Blood Large (3+) (Negative); Urine Ketones Trace mg/dL (Negative); Urine Protein 30 (1+) mg/dL (Neg-Trace)
[2023-11-30 12:49] LABS: Bacteria Urine None Seen (None Seen); Squamous Epithelial Cell Urine 0-2 /HPF (0-2); WBC Urine 0-5 /HPF (0-5)
[2023-11-30 12:52] LABS: Influenza A PCR POSITIVE (Negative); Influenza B PCR NEGATIVE (Negative); Resp Syncy Virus RNA Qual PCR NEGATIVE (Negative); SARS COV2 PCR INHOUSE NEGATIVE (Negative)
[2023-11-30] MEDS: Barium Sulfate Oral (Vanilla) 450 ML ORAL.SUSP 900 ML PO (13:41)
--- NOTE | 2023-11-30 15:14 | P.CONGS_ITS ---
History of Present Illness Consult details Consult date: 11/30/23 Narrative: 83-year-old male with history of HTN, HLD, CVA, symptomatic bradycardia s/p cardiac pacemaker, CAD, mild aortic stenosis who presents to the ED with complaints of shortness of breath. He is s/p laparoscopic appendectomy on 11/26/[address] Otto. Procedure and his recovery course were uncomplicated. He went home the following day tolerating a solid diet and passing flatus. He reports that he developed some mild shortness of breath at home that has progressively worsened. He also had some abdominal distention and has been tolerating solid food but has not had much of an appetite. He has been passing flatus and had a BM. He has mild incisional pain. He denies any fevers, chills, vomiting, diarrhea. His reports new onset wheezing and coughing. Work up in the ED included CBC, BMP, LFTs which were WNL with the exception of a mildly drifted H/H. He tested positive for influenza A. CXR showed no acute process. CT abd/pelvis shows dilated small bowel with question of transition point. Review of Systems 2 Constitutional: Constitutional: Denies chills and Denies fever(s) ENT: Denies dizziness Cardiovascular: Cardiovascular: Denies chest pain Respiratory: Respiratory: Reports as per HPI Gastrointestinal: Gastrointestinal: Reports as per HPI Genitourinary: Genitourinary: Denies hematuria and Denies dysuria Integumentary/Breasts: Skin/Breast: Denies rash and Denies jaundice Neurologic: Denies dizziness [facility] Past Medical History Medical History Aortic stenosis HTN (hypertension) Renal cyst, right Hyperlipidemia Coronary artery disease Family History Family History Father No problems noted. Mother No problems noted. Surgical History Surgical History S/P cardiac pacemaker procedure History of colonoscopy History of left knee replacement History of cholecystectomy History of rectal fissure History of right inguinal hernia History of left inguinal hernia History of shoulder surgery Social History Social History Household Members: Spouse Housing: House Are you a primary emergency care attendant to a significant other at home: No Do you presently have visiting nurse or other home services: No Alcohol intake: current Alcohol intake frequency: does not drink Patient Tobacco Use Status: Former Tobacco user Quit Date: 35 years ago Tobacco use type: Cigarette e-Cigarette/Vaping Use: Never Used Second Hand Smoke Exposure: No Advance Directives: No Advance Directives Information Provided: No service: No Current occupational status: retired Current occupational exposures/hazards: No Cognitive needs: No Hearing needs: No Vision needs: Yes Meds Allergies Allergy/AdvReac Type Severity Reaction Status Date / Time No Known Allergies Allergy Verified 11/19/23 08:36 [No Known Allergies*] Physical Exam 2 Vital Signs: Vital Signs: Last Vital Signs Temp 99.0 F 11/30/23 14:32 Pulse 73 11/30/23 14:32 Resp 16 11/30/23 14:32 BP 170/96 H 11/30/23 14:32 Pulse Ox 96 11/30/23 14:32 O2 Del Method Room Air 11/30/23 14:32 BMI result Body Mass Index 28.1 Const: General: comfortable, no acute distress and alert O rientation/consciousness: patient oriented x3 Neck: Neck: Yes no JVD Resp: Effort & Inspection: normal respiratory effort and no respiratory distress Cardio: Rate: regular rate GI: Inspection: Yes distended Palpation (GI): Soft to palpation, Tenderness to palpation present (GI) (mild incisional), no guarding and not rigid P ercussion: Yes tympanic to percussion Skin: General skin exam: no rashes or lesions noted and no jaundice Neuro: General: patient oriented x3 and moves all extremities Results Labs 11/30/23 11:12 11/30/23 11:12 Labs: Abnormal lab results 11/30/23 11/30/23 Range/Units 11:12 12:30 RBC 4.20 L (4.60-5.80) X10*6/uL Hgb 12.5 L (14.0-18.0) g/dl Hct 36.3 L (42.0-52.0) % Plt Count 152 L (160-400) X10*3/uL Immature Gran % (Auto) 0.6 H (0.0-0.4) % Neut % (Auto) 74.8 H (45-73) % Lymph % (Auto) 9.2 L (20-40) % [place] % (Auto) 13.2 H (2-11) % Lymph # (Auto) 0.5 L (1.2-4.9) X10*3/uL Urine Protein 30 (1+) H (Neg-Trace) mg/dL Urine Blood Large (3+) H (Negative) Ur Leukocyte Esterase Trace H (Negative) Urine RBC 11-20 H (0-2) /HPF Influenza Type A (PCR) POSITIVE A (Negative) Short CBC 11/30/23 Range/Units 11:12 WBC 5.1 (4.8-10.8) X10*3/uL Hgb 12.5 L (14.0-18.0) g/dl Hct 36.3 L (42.0-52.0) % Plt Count 152 L (160-400) X10*3/uL BMP 11/30/23 11:12 Sodium 136 Potassium 3.8 Chloride 102 Carbon Dioxide 25 BUN 15 Creatinine 1.19 Calcium 9.8 Liver Function 11/30/23 Range/Units 11:12 Total Bilirubin 0.6 (0.0-1.0) mg/dL Direct Bilirubin 0.2 (0.0-0.5) mg/dL AST 23 (5-37) U/L ALT 21 (0-40) U/L Alkaline Phosphatase 44 (39-117) U/L Albumin 3.5 (3.5-5.0) g/dL Urine 11/30/23 Range/Units 12:30 Urine Color Dark Yellow Urine Appearance Clear Urine pH 5.5 (5.0-9.0) Ur Specific [place] 1.020 (1.005-1.025) Urine Protein 30 (1+) H (Neg-Trace) mg/dL Urine Glucose (UA) Negative (Negative) mg/dL All other labs normal. Imaging Abdomen CT scan report/results: report reviewed and image reviewed Assessment and Plan (1) Influenza A: Status: Acute (2) S/P laparoscopic appendectomy: Status: Acute Plan 83-year-old male with history of HTN, HLD, CVA, symptomatic bradycardia s/p cardiac pacemaker, CAD, mild aortic stenosis who is 4 days s/p uncomplicated laparoscopic appendectomy presenting with shortness of breath and abdominal distention positive for influenza A and CT scan showing dilated small bowel loops. He does not appear in acute distress. His abdomen is distended and tympanitic. Likely with delayed return of GI function versus PSBO. He however has air in his rectum and is passing some flatus. Encouraged OOB/ambulation as tolerated to promote GI function. Can hold on NGT insertion as he is not vomiting. Can continue clear liquids for now and advance as GI function returns. Will continue to follow. Procedures Date of Service Date of Service: 11/30/23
--- NOTE | 2023-11-30 16:08 | PHA.MEDREC ---
Addendum entered by Akila Diego jaya 11/30/23 16:18: Per discharge summary, lisisnopril and plavix were under to be discuss with primary care. Patient report still taking Plavix but is no longer taking lisinopril 20 mg BID. Zofran was only a 3 day supply so he has no more. Original Note: Pharmacy Consult ? Medication Reconciliation Pharmacy has completed the medication reconciliation. Patient was discharged 11/26 from this hospital. Used discharge summary to confirm medications.
--- NOTE | 2023-11-30 16:30 | PC.NURSE ---
Per TAMEKA Ramirez pt okay for PO medications and clear liquids.
[2023-11-30] MEDS: Acetaminophen 325 MG TABLET 975 MG PO ×2 (16:33→21:38)
[2023-11-30] MEDS: Simethicone 80 MG TAB.CHEW 160 MG PO (16:33)
[2023-11-30] MEDS: Docusate Sodium 100 MG CAPSULE PO ×2 (16:33→21:33)
[2023-11-30] MEDS: Ondansetron ODT 4 MG TAB.RAPDIS TRANSLINGU (16:34)
--- NOTE | 2023-11-30 17:27 | PC.NURSE ---
Pt given janet vizcaino.
--- NOTE | 2023-11-30 18:16 | PM.IMHP ---
History of Present Illness Date of Service: 11/30/23 Attending physician on admission: Андрей Aden Chief Complaint: Psbo vs Ielus 83-year-old male with history of mild aortic stenosis, coronary artery disease (remote history [place] 1997 with STEFANIE x1), hx CVA on DAPT (last taken yesterday morning), hld, htn , had laparoscopic appendectomy (on 11/25/23) and subsequently went home-patient says that since then he has having abdominal pain and nauseated unable to tolerate diet. He has been passing gas and having bowel movements. He still feels distended and is having abdominal pain in the right lower quadrant. It is very sharp pain when he touches the area and coughs. He feels nauseated, passed bowel movement yesterday, in addition patient says that he is still passing flatus. In addition patient was feeling somewhat wheezy and has cough. Found to have flu positive. Patient also reports improving hematuria since he had the catheter while admitted(last admission). Lab imaging reviewed: CBC seems fine, BMP also fine except BUN is 15 and creatinine is 1.19(which seems to be improving since the last admission) CT/CT abdomen pelvis wo IV con:Partial small bowel obstruction with transition in the right lower quadrant. serology : influenza A. In ED: Patient received Zofran, simethicone, acetaminophen, barium sulfate oral: Patient says his abdominal pain somewhat improving. ED physician discussed the case with Dr. Otto: Impression is possible ileus versus partial small-bowel obstruction-recommended to use clear liquid diet and and recommended admission for medicine . Review of Systems Review of Systems: Yes all other systems are reviewed and are negative [facility] Medical History Aortic stenosis HTN (hypertension) Renal cyst, right Hyperlipidemia Coronary artery disease Family History Father No problems noted. Mother No problems noted. Surgical History S/P cardiac pacemaker procedure History of colonoscopy History of left knee replacement History of cholecystectomy History of rectal fissure History of right inguinal hernia History of left inguinal hernia History of shoulder surgery Social History Household Members: Spouse Housing: House Are you a primary health care legal assistant to a significant other at home: No Do you presently have visiting nurse or other home services: No Alcohol intake: current Alcohol intake frequency: does not drink Patient Tobacco Use Status: Former Tobacco user Quit Date: 35 years ago Tobacco use type: Cigarette e-Cigarette/Vaping Use: Never Used Second Hand Smoke Exposure: No Advance Directives: No Advance Directives Information Provided: No service: No Current occupational status: retired Current occupational exposures/hazards: No Cognitive needs: No Hearing needs: No Vision needs: Yes Meds Allergies Allergy/AdvReac Type Severity Reaction Status Date / Time No Known Allergies Allergy Verified 11/19/23 08:36 [No Known Allergies*] Active Medications: Current Medications Acetaminophen (Acetaminophen 325 Mg Tablet) 975 mg PO TID PRN PRN Reason: Pain, Mild (Pain Scale 1-3) Albuterol/Ipratropium (Albuterol/Iprat 2.5/0.5mg 3 Ml Ampul.Neb) 3 ml INHALE Q4H [facility] Amlodipine Besylate (Amlodipine Besylate 2.5 Mg Tablet) 2.5 mg PO DAILY [facility]; Protocol Aspirin (Aspirin Enteric Coated 81 Mg Tablet.Dr) 81 mg PO DAILY [facility] Clopidogrel Bisulfate (Clopidogrel Bisulfate 75 Mg Tablet) 75 mg PO DAILY [facility] Docusate Sodium (Docusate Sodium 100 Mg Capsule) 100 mg PO BID [facility] Non-Formulary Medication (Coenzyme Q10 [Co Q-10]) 100 mg PO DAILY [facility] Non-Formulary Medication (Rosuvastatin [Crestor]) 40 mg PO DAILY [facility] Oseltamivir Phosphate (Oseltamivir Phosphate 75 Mg Capsule) 75 mg PO BID [facility] Sodium Chloride (0.9 % Sodium Chloride Flush 3 Ml Syringe) 3 ml IVFLUSH QSHIFT [facility] Physical Exam Vital Signs and Narrative: Vital Signs: Last Vital Signs Temp 99.0 F 11/30/23 14:32 Pulse 73 11/30/23 14:32 Resp 16 11/30/23 14:32 BP 170/96 H 11/30/23 14:32 Pulse Ox 96 11/30/23 14:32 O2 Del Method Room Air 11/30/23 14:32 BMI result Body Mass Index 28.1 Appearance: Alert.? Oriented X3. cvs: rrr, [id number] , no murmur res:air entry fair ,has mild wheezing ,cough abd: no rebound or guarding ,somewhat distended , bs present but slightly diminshed . had mild brusing near below navel (lap [place] area) and soarness and some pain . ext pulses present , no cyanosis . neuro: axo3 , nonfocal. Results Labs 11/30/23 11:12 11/30/23 11:12 Labs: Laboratory Results - last 24 hr 11/30/23 11/30/23 11:12 12:30 MCV 86.4 MCH 29.8 MCHC 34.4 RDW 13.7 Plt Count 152 L MPV 9.6 Immature Gran % (Auto) 0.6 H Neut % (Auto) 74.8 H Lymph % (Auto) 9.2 L [place] % (Auto) 13.2 H Eos % (Auto) 1.8 Baso % (Auto) 0.4 Lymph # (Auto) 0.5 L [place] # (Auto) 0.7 Eos # (Auto) 0.1 Baso # (Auto) 0.0 Abs Immat Gran (auto) 0.03 Absolute Neuts (auto) 3.8 Absolute Nucleated RBC 0.000 Nucleated RBC % (auto) 0.0 Anion Gap 13 Estim Creat Clear Calc 44.8 Estimated GFR 58 Random Glucose 99 Calcium 9.8 Magnesium 1.7 Total Bilirubin 0.6 Direct Bilirubin 0.2 AST 23 ALT 21 Alkaline Phosphatase 44 B-Natriuretic Peptide 77 Total Protein 6.9 Albumin 3.5 Urine Color Dark Yellow Urine Appearance Clear Urine pH 5.5 Ur Specific [place] 1.020 Urine Protein 30 (1+) H Urine Glucose (UA) Negative Urine Ketones Trace Urine Blood Large (3+) H Urine Nitrite Negative Ur Leukocyte Esterase Trace H Urine RBC 11-20 H Urine WBC 0-5 Ur Squamous Epith Cells 0-2 Urine Bacteria None Seen Hyaline Casts 3-5 Influenza Type A (PCR) POSITIVE A Influenza Type B (PCR) NEGATIVE RSV RNA Qual (PCR) NEGATIVE SARS-CoV-2 RNA (RT-PCR) NEGATIVE Imaging Radiologist's Impressions: Impressions Chest X-Ray 11/30/23 11:00 IMPRESSION: Hyperinflated lungs without acute process. Abdomen/Pelvis CT 11/30/23 13:47 IMPRESSION: 1. Partial small bowel obstruction with transition in the right lower quadrant. 2. Small amount of ascites. 3. Small pericardial effusion. 4. Hiatal hernia. Fleischner guidelines were followed. Assessment and Plan (1) Ileus: Status: Acute (2) Influenza A: Status: Acute (3) Hematuria: Qualifiers: Hematuria type: unspecified type Qualified Code(s): R31.9 - Hematuria, unspecified Status: Acute Plan 83-year-old male with history of mild aortic stenosis, coronary artery disease (remote history [place] 1997 with STEFANIE x1), hx CVA on DAPT (last taken yesterday morning), hld, htn , had laparoscopic appendectomy (on 11/25/23)-came with possible Ielus vs Psbo. Ielus vs Psbo: Passing gases, also had bowel movement yesterday Supportive care clear liquid diet, Tylenol, Zofran Surgery evaluation Influenza a with some wheezing: Check x-ray-seems fine Will add Tamiflu, also added nebs probably wheezing secondary to viral URI. History CVA-continue DAPT . KENDRA improved significantly since last admission : clearliquid diet Mild microscopic hematuria: Patient had it since a urinary catheter placed last admission. Hematuria improving significantly as per patient. UA shows RBCs, no pyuria or bacteriuria Patient denies any urinary complaints Further management for hematuria outpatient HTN:on amlodipine. HLD: continue statin. dvt porphylax:scd ,ambulation. Patient will benefit from 48 hour stay considering patient has ileus versus partial bowel obstruction-unable to tolerate diet yet, also need to wait for return of bowel function, as well as need renal function electrolyte monitoring and possible IV hydration if needed, and surgical expert evaluation. Above management discussed with the patient and his at bedside in detail length they both understand and in agreement with the above plan, time spent 70 minute. Patient is full code. Quality Stroke Does the patient have a stroke diagnosis?: No VTE Prior VTE?: No VTE Risk Level:: Medical - moderate - high VTE Device Contraindication: N/A - Device Ordered VTE Drug Contraindication: N/A - Med Ordered
--- NOTE | 2023-11-30 18:30 | PC.NURSE ---
Pt tolerated 2 cups of jello without any N/V.
[2023-11-30] MEDS: Oseltamivir Phosphate 75 MG CAPSULE PO (18:32)
[2023-11-30] MEDS: Albuterol/Iprat 2.5/0.5MG 3 ML AMPUL.NEB INHALE (20:49)
[2023-12-01] VITALS (14 sets, daily range): BP systolic 118–148; BP diastolic 60–78; PULSE 64–101; RESP 16–18; TEMP 36.2–36.6; O2SAT 92–96
[2023-12-01] MEDS: Albuterol/Iprat 2.5/0.5MG 3 ML AMPUL.NEB INHALE ×5 (00:08→20:08)
[2023-12-01] MEDS: 0.9 % Sodium Chloride Flush 3 ML SYRINGE IVFLUSH ×3 (00:43→16:05)
[2023-12-01] MEDS: Clopidogrel Bisulfate 75 MG TABLET PO (08:48)
[2023-12-01] MEDS: Atorvastatin Calcium 80 MG TABLET PO (08:48)
[2023-12-01] MEDS: Oseltamivir Phosphate 30 MG CAPSULE PO ×2 (08:48→20:22)
[2023-12-01] MEDS: Aspirin Enteric Coated 81 MG TABLET.DR PO (08:49)
[2023-12-01] MEDS: amLODIPine Besylate 2.5 MG TABLET PO (08:49)
[2023-12-01] MEDS: Docusate Sodium 100 MG CAPSULE PO ×2 (08:49→20:22)
[2023-12-01] MEDS: guaiFENesin 200 MG/10 ML 10 ML LIQUID PO ×3 (10:29→20:22)
--- NOTE | 2023-12-01 11:38 | HO.PM.IMPN ---
Subjective Subjective Date of Service: 12/01/23 Interval History: Psbo,influenza A Review of Systems ABD Pain improving passing gases , last bm's yesterday has cough Physical Exam Vital Signs: Vital Signs: Last Vital Signs Temp 97.5 F 12/01/23 07:51 Pulse 64 12/01/23 08:37 Resp 18 12/01/23 08:37 BP 120/63 12/01/23 07:51 Pulse Ox 93 12/01/23 07:51 O2 Del Method Room Air 12/01/23 07:51 BMI result Body Mass Index 28.1 Appearance: Alert.? Oriented X3. cvs: rrr, [id number] , no murmur res:air entry fair ,has mild wheezing ,cough abd: no rebound or guarding,mild distended , bs present but slightly diminshed . had mild brusing near below navel (lap [place] area) and soarness and some pain . ext pulses present , no cyanosis . neuro: axo3 , nonfocal. Objective Data Active Medications Acetaminophen (Acetaminophen 325 Mg Tablet) 975 mg PO TID PRN PRN Reason: Pain, Mild (Pain Scale 1-3) Last Admin: 11/30/23 21:38 Dose: 975 mg Documented By: ANTOINE Albuterol/Ipratropium (Albuterol/Iprat 2.5/0.5mg 3 Ml Ampul.Neb) 3 ml INHALE RQ4H [facility] Last Admin: 12/01/23 08:37 Dose: 3 ml Documented By: JAXSON Amlodipine Besylate (Amlodipine Besylate 2.5 Mg Tablet) 2.5 mg PO DAILY [facility]; Protocol Last Admin: 12/01/23 08:49 Dose: 2.5 mg Documented By: MARCO ANTONIO Aspirin (Aspirin Enteric Coated 81 Mg Tablet.) 81 mg PO DAILY [facility] Last Admin: 12/01/23 08:49 Dose: 81 mg Documented By: MARCO ANTONIO Atorvastatin Calcium (Atorvastatin Calcium 80 Mg Tablet) 80 mg PO DAILY [facility] Last Admin: 12/01/23 08:48 Dose: 80 mg Documented By: MARCO ANTONIO Clopidogrel Bisulfate (Clopidogrel Bisulfate 75 Mg Tablet) 75 mg PO DAILY [facility] Last Admin: 12/01/23 08:48 Dose: 75 mg Documented By: MARCO ANTONIO Docusate Sodium (Docusate Sodium 100 Mg Capsule) 100 mg PO BID [facility] Last Admin: 12/01/23 08:49 Dose: 100 mg Documented By: MARCO ANTONIO Guaifenesin (Guaifenesin 200 Mg/10 Ml 10 Ml Liquid) 10 ml PO Q4H [facility] Last Admin: 12/01/23 10:29 Dose: 10 ml Documented By: MARCO ANTONIO Oseltamivir Phosphate (Oseltamivir Phosphate 30 Mg Capsule) 30 mg PO BID [facility] Stop: 12/05/23 09:01 Last Admin: 12/01/23 08:48 Dose: 30 mg Documented By: MARCO ANTONIO Sodium Chloride (0.9 % Sodium Chloride Flush 3 Ml Syringe) 3 ml IVFLUSH QSHIFT [facility] Last Admin: 12/01/23 08:49 Dose: 3 ml Documented By: MARCO ANTONIO Labs 11/30/23 11:12 11/30/23 11:12 Labs: Laboratory Results - last 24 hr 11/30/23 11/30/23 11:12 12:30 MCV 86.4 MCH 29.8 MCHC 34.4 RDW 13.7 Plt Count 152 L MPV 9.6 Immature Gran % (Auto) 0.6 H Neut % (Auto) 74.8 H Lymph % (Auto) 9.2 L [place] % (Auto) 13.2 H Eos % (Auto) 1.8 Baso % (Auto) 0.4 Lymph # (Auto) 0.5 L [place] # (Auto) 0.7 Eos # (Auto) 0.1 Baso # (Auto) 0.0 Abs Immat Gran (auto) 0.03 Absolute Neuts (auto) 3.8 Absolute Nucleated RBC 0.000 Nucleated RBC % (auto) 0.0 Anion Gap 13 Estim Creat Clear Calc 44.8 Estimated GFR 58 Random Glucose 99 Calcium 9.8 Magnesium 1.7 Total Bilirubin 0.6 Direct Bilirubin 0.2 AST 23 ALT 21 Alkaline Phosphatase 44 B-Natriuretic Peptide 77 Total Protein 6.9 Albumin 3.5 Urine Color Dark Yellow Urine Appearance Clear Urine pH 5.5 Ur Specific [place] 1.020 Urine Protein 30 (1+) H Urine Glucose (UA) Negative Urine Ketones Trace Urine Blood Large (3+) H Urine Nitrite Negative Ur Leukocyte Esterase Trace H Urine RBC 11-20 H Urine WBC 0-5 Ur Squamous Epith Cells 0-2 Urine Bacteria None Seen Hyaline Casts 3-5 Influenza Type A (PCR) POSITIVE A Influenza Type B (PCR) NEGATIVE RSV RNA Qual (PCR) NEGATIVE SARS-CoV-2 RNA (RT-PCR) NEGATIVE Assessment and Plan (1) Hematuria: Status: Acute (2) Ileus: Status: Acute (3) Influenza A: Status: Acute Assessment and Plan: 83-year-old male with history of mild aortic stenosis, coronary artery disease (remote history [place] 1997 with STEFANIE x1), hx CVA on DAPT (last taken yesterday morning), hld, htn , had laparoscopic appendectomy (on 11/25/23)-came with possible Ielus vs Psbo. Ielus vs Psbo: kub pending Passing gases, also had bowel movement yesterday Supportive care clear liquid diet, Tylenol, Zofran Surgery evaluation Influenza a with some wheezing: Check x-ray-seems fine continue Tamiflu, also added nebs probably wheezing secondary to viral URI. History CVA-continue DAPT . KENDRA improved significantly since last admission : clearliquid diet Mild microscopic hematuria: Patient had it since a urinary catheter placed last admission. Hematuria improving significantly as per patient. UA shows RBCs, no pyuria or bacteriuria Patient denies any urinary complaints Further management for hematuria outpatient HTN:on amlodipine. HLD: continue statin. dvt porphylax:scd ,ambulation. Patient will benefit from 48 hour stay considering patient has ileus versus partial bowel obstruction-unable to tolerate diet yet, also need to wait for return of bowel function, as well as need renal function electrolyte monitoring and possible IV hydration if needed, and surgical expert evaluation. Quality Stroke Does the patient have a stroke diagnosis?: No VTE Prior VTE?: No VTE Risk Level:: Medical - moderate - high VTE Device Contraindication: N/A - Device Ordered VTE Drug Contraindication: N/A - Med Ordered
--- NOTE | 2023-12-01 11:39 | PM.PNGS ---
Subjective Subjective Date of Service: 12/01/23 Interval history: feeling well had a bowel movement and passed some gas Physical Exam Vital Signs: Vital Signs: Last Vital Signs Temp 97.5 F 12/01/23 07:51 Pulse 64 12/01/23 08:37 Resp 18 12/01/23 08:37 BP 120/63 12/01/23 07:51 Pulse Ox 93 12/01/23 07:51 O2 Del Method Room Air 12/01/23 07:51 BMI result Body Mass Index 28.1 Const: General: cooperative, healthy appearing, comfortable and no acute distress GI: Other: abdomen is distended but soft and nontender active bowel sounds and incisions look great Objective Data Active Medications Acetaminophen (Acetaminophen 325 Mg Tablet) 975 mg PO TID PRN PRN Reason: Pain, Mild (Pain Scale 1-3) Last Admin: 11/30/23 21:38 Dose: 975 mg Documented By: ANTOINE Albuterol/Ipratropium (Albuterol/Iprat 2.5/0.5mg 3 Ml Ampul.Neb) 3 ml INHALE RQ4H [facility] Last Admin: 12/01/23 08:37 Dose: 3 ml Documented By: JAXSON Amlodipine Besylate (Amlodipine Besylate 2.5 Mg Tablet) 2.5 mg PO DAILY [facility]; Protocol Last Admin: 12/01/23 08:49 Dose: 2.5 mg Documented By: MARCO ANTONIO Aspirin (Aspirin Enteric Coated 81 Mg Tablet.) 81 mg PO DAILY [facility] Last Admin: 12/01/23 08:49 Dose: 81 mg Documented By: MARCO ANTONIO Atorvastatin Calcium (Atorvastatin Calcium 80 Mg Tablet) 80 mg PO DAILY [facility] Last Admin: 12/01/23 08:48 Dose: 80 mg Documented By: MARCO ANTONIO Clopidogrel Bisulfate (Clopidogrel Bisulfate 75 Mg Tablet) 75 mg PO DAILY [facility] Last Admin: 12/01/23 08:48 Dose: 75 mg Documented By: MARCO ANTONIO Docusate Sodium (Docusate Sodium 100 Mg Capsule) 100 mg PO BID [facility] Last Admin: 12/01/23 08:49 Dose: 100 mg Documented By: MARCO ANTONIO Guaifenesin (Guaifenesin 200 Mg/10 Ml 10 Ml Liquid) 10 ml PO Q4H [facility] Last Admin: 12/01/23 10:29 Dose: 10 ml Documented By: MARCO ANTONIO Oseltamivir Phosphate (Oseltamivir Phosphate 30 Mg Capsule) 30 mg PO BID [facility] Stop: 12/05/23 09:01 Last Admin: 12/01/23 08:48 Dose: 30 mg Documented By: MARCO ANTONIO Sodium Chloride (0.9 % Sodium Chloride Flush 3 Ml Syringe) 3 ml IVFLUSH QSHIFT [facility] Last Admin: 12/01/23 08:49 Dose: 3 ml Documented By: MARCO ANTONIO Labs 11/30/23 11:12 11/30/23 11:12 Labs: Laboratory Results - last 24 hr 11/30/23 11/30/23 11:12 12:30 MCV 86.4 MCH 29.8 MCHC 34.4 RDW 13.7 Plt Count 152 L MPV 9.6 Immature Gran % (Auto) 0.6 H Neut % (Auto) 74.8 H Lymph % (Auto) 9.2 L [place] % (Auto) 13.2 H Eos % (Auto) 1.8 Baso % (Auto) 0.4 Lymph # (Auto) 0.5 L [place] # (Auto) 0.7 Eos # (Auto) 0.1 Baso # (Auto) 0.0 Abs Immat Gran (auto) 0.03 Absolute Neuts (auto) 3.8 Absolute Nucleated RBC 0.000 Nucleated RBC % (auto) 0.0 Anion Gap 13 Estim Creat Clear Calc 44.8 Estimated GFR 58 Random Glucose 99 Calcium 9.8 Magnesium 1.7 Total Bilirubin 0.6 Direct Bilirubin 0.2 AST 23 ALT 21 Alkaline Phosphatase 44 B-Natriuretic Peptide 77 Total Protein 6.9 Albumin 3.5 Urine Color Dark Yellow Urine Appearance Clear Urine pH 5.5 Ur Specific [place] 1.020 Urine Protein 30 (1+) H Urine Glucose (UA) Negative Urine Ketones Trace Urine Blood Large (3+) H Urine Nitrite Negative Ur Leukocyte Esterase Trace H Urine RBC 11-20 H Urine WBC 0-5 Ur Squamous Epith Cells 0-2 Urine Bacteria None Seen Hyaline Casts 3-5 Influenza Type A (PCR) POSITIVE A Influenza Type B (PCR) NEGATIVE RSV RNA Qual (PCR) NEGATIVE SARS-CoV-2 RNA (RT-PCR) NEGATIVE ABG Interpretation: kub showing contrast all in the colon Procedures Date of Service Date of Service: 12/01/23 Progress Note: A&P Assessment and plan (1) Ileus: Status: Acute Assessment and Plan: pt is about POD#5 s/p lap appy and return to hospital with ileus -improving - would keep on liquid diet until better flatus and bowel movements but with no obstruction would be agressive with po laxative eg mag citrate. pt to ambulate. He understands and agrees with the plan Time Spent With Patient Time: Total time managing care of this patient today ____ minutes. Quality Stroke Does the patient have a stroke diagnosis?: No VTE Prior VTE?: No VTE Risk Level:: Medical - moderate - high VTE Device Contraindication: N/A - Device Ordered VTE Drug Contraindication: N/A - Med Ordered
--- NOTE | 2023-12-01 13:32 | MHC.CM.PN ---
IMM 12/01/23 Male 83 DX PBO FLU A He lives with his . He is independent with ADLs and no AD. Patient dc 11/26 s/p APPY. He returns with the FLU and PSBO. He states that he does not have a HCP. Education re HCP was provided. He declined the offer to document a HCP today. DP home self care. He will arrange for a family member to provide transportation home.
[2023-12-01] MEDS: Acetaminophen 325 MG TABLET 975 MG PO (16:31)
[2023-12-01] MEDS: ondansetron HCL 4 MG/2 ML VIAL IVPUSH (16:32)
--- NOTE | 2023-12-01 21:17 | PC.NURSE ---
Addendum entered by Reba Pruitt RN 12/01/23 22:22: Patient had 4 beat PVC run,asymptomatic,Dr. Jorge notified Addendum entered by Reba Pruitt RN 12/01/23 21:19: Dr. Jorge notified of the 3beat PVC run occurence Original Note: patient had a 3 PVC run,patient has no complaints at present,BP 128/60 pulse 96 at present
[2023-12-02] VITALS (12 sets, daily range): BP systolic 112–162; BP diastolic 72–87; PULSE 72–88; RESP 16–20; TEMP 36–36.2; O2SAT 91–98
[2023-12-02] MEDS: 0.9 % Sodium Chloride Flush 3 ML SYRINGE IVFLUSH ×3 (00:32→16:14)
[2023-12-02] MEDS: Albuterol/Iprat 2.5/0.5MG 3 ML AMPUL.NEB INHALE ×4 (04:29→19:34)
[2023-12-02] MEDS: guaiFENesin 200 MG/10 ML 10 ML LIQUID PO ×5 (06:02→20:44)
--- NOTE | 2023-12-02 06:08 | PC.NURSE ---
Addendum entered by Sandy Chaudhry RN 12/02/23 06:16: patient rhythm at 0000, and [address] was reported by [facility] monitor reader as NSR with occasional PVC's. pt a/oX3, lung aggarwal diminished, abdomen round and tender all as previous. Original Note: 0545- Alerted by [facility] clinical research monitor that patient showed a 5 beat run V Tach. Patient resting in bed, at bedside, awakened and denied any chest pain or heaviness, no dizziness, pain, nausea, or changes. No jaw pain, or arm pain. Color good, skin warm and dry, vitals 146/81-83-18, 93% room air. Patient does have a pacemaker, inserted in July 2023 for low HR per patient. He stated it is monitored 02/04 and has 2 leads to adjust rate. Hospitalist on duty was alerted and forwarded a rhythm strip photo. nursing wireline supervisor also made aware. Will continue to monitor pt closely.
--- NOTE | 2023-12-02 06:44 | PC.NURSE ---
noted that hospitalist read cardiac event note, responded, no new orders posted and will continue to watch if any cross over. no status changes to patient thru 0645.
--- NOTE | 2023-12-02 07:07 | PC.NURSE ---
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
[2023-12-02] MEDS: Docusate Sodium 100 MG CAPSULE PO ×2 (07:56→20:44)
[2023-12-02] MEDS: Aspirin Enteric Coated 81 MG TABLET.DR PO (07:56)
[2023-12-02] MEDS: Oseltamivir Phosphate 30 MG CAPSULE PO ×2 (07:56→20:44)
[2023-12-02] MEDS: Clopidogrel Bisulfate 75 MG TABLET PO (07:56)
[2023-12-02] MEDS: amLODIPine Besylate 2.5 MG TABLET PO (07:56)
[2023-12-02] MEDS: Atorvastatin Calcium 80 MG TABLET PO (07:57)
--- NOTE | 2023-12-02 10:35 | HO.PM.IMPN ---
Subjective Subjective Date of Service: 12/02/23 Interval History: Psbo,influenza A Review of Systems says abd pain imrpoving passed 1bm yesterday sob also improving Physical Exam Vital Signs: Vital Signs: Last Vital Signs Temp 96.8 F 12/02/23 07:40 Pulse 74 12/02/23 07:40 Resp 16 12/02/23 07:40 BP 140/75 H 12/02/23 07:40 Pulse Ox 91 L 12/02/23 07:40 O2 Del Method Room Air 12/02/23 07:40 BMI result Body Mass Index 28.1 Appearance: Alert.? Oriented X3. cvs: rrr, [id number] , no murmur res:air entry fair ,few rhonchii abd: no rebound or guarding,mild distended , bs present but slightly diminshed ,abd pain improving ext pulses present , no cyanosis . neuro: axo3 , nonfocal. Objective Data Active Medications Acetaminophen (Acetaminophen 325 Mg Tablet) 975 mg PO TID PRN PRN Reason: Pain, Mild (Pain Scale 1-3) Last Admin: 12/01/23 16:31 Dose: 975 mg Documented By: KRISTIE Albuterol/Ipratropium (Albuterol/Iprat 2.5/0.5mg 3 Ml Ampul.Neb) 3 ml INHALE RQ4H [facility] Last Admin: 12/02/23 07:28 Dose: Not Given Documented By: JAXOSN Non-Admin Reason: Patient Asleep Amlodipine Besylate (Amlodipine Besylate 2.5 Mg Tablet) 2.5 mg PO DAILY [facility]; Protocol Last Admin: 12/02/23 07:56 Dose: 2.5 mg Documented By: MARCO ANTONIO Aspirin (Aspirin Enteric Coated 81 Mg Tablet.) 81 mg PO DAILY [facility] Last Admin: 12/02/23 07:56 Dose: 81 mg Documented By: MARCO ANTONIO Atorvastatin Calcium (Atorvastatin Calcium 80 Mg Tablet) 80 mg PO DAILY [facility] Last Admin: 12/02/23 07:57 Dose: 80 mg Documented By: MARCO ANTONIO Clopidogrel Bisulfate (Clopidogrel Bisulfate 75 Mg Tablet) 75 mg PO DAILY [facility] Last Admin: 12/02/23 07:56 Dose: 75 mg Documented By: MARCO ANTONIO Docusate Sodium (Docusate Sodium 100 Mg Capsule) 100 mg PO BID [facility] Last Admin: 12/02/23 07:56 Dose: 100 mg Documented By: MARCO ANTONIO Guaifenesin (Guaifenesin 200 Mg/10 Ml 10 Ml Liquid) 10 ml PO Q4H [facility] Last Admin: 12/02/23 10:17 Dose: 10 ml Documented By: MARCO ANTONIO Ondansetron HCl (Ondansetron Hcl 4 Mg/2 Ml Vial) 4 mg IVPUSH Q8H PRN PRN Reason: Nausea and Vomiting Last Admin: 12/01/23 16:32 Dose: 4 mg Documented By: KRISTIE Oseltamivir Phosphate (Oseltamivir Phosphate 30 Mg Capsule) 30 mg PO BID [facility] Stop: 12/05/23 09:01 Last Admin: 12/02/23 07:56 Dose: 30 mg Documented By: MARCO ANTONIO Sodium Chloride (0.9 % Sodium Chloride Flush 3 Ml Syringe) 3 ml IVFLUSH QSHIFT [facility] Last Admin: 12/02/23 07:57 Dose: 3 ml Documented By: MARCO ANTONIO Labs 11/30/23 11:12 11/30/23 11:12 Assessment and Plan (1) Ileus: Status: Acute (2) Influenza A: Status: Acute Plan 83-year-old male with history of mild aortic stenosis, coronary artery disease (remote history [place] 1997 with STEFANIE x1), hx CVA on DAPT (last taken yesterday morning), hld, htn , had laparoscopic appendectomy (on 11/25/23)-came with possible Ielus vs Psbo. Ielus vs Psbo: kub pending Passing gases, also had bowel movement yesterday Supportive care clear liquid diet, Tylenol, Zofran Surgery evaluation noted -kub pending ,on clear liquids Influenza a with some wheezing: Check x-ray-seems fine continue Tamiflu, also added nebs probably wheezing secondary to viral URI. History CVA-continue DAPT . KENDRA improved significantly since last admission : clearliquid diet Mild microscopic hematuria: Patient had it since a urinary catheter placed last admission. Hematuria improving significantly as per patient. UA shows RBCs, no pyuria or bacteriuria Patient denies any urinary complaints Further management for hematuria outpatient HTN:on amlodipine. HLD: continue statin. dvt porphylax:scd ,ambulation. Patient will benefit from 48-72hour stay considering patient has ileus versus partial bowel obstruction-unable to tolerate diet yet, also need to wait for return of bowel function, as well as need renal function electrolyte monitoring and possible IV hydration if needed, and surgical expert evaluation. Quality Stroke Does the patient have a stroke diagnosis?: No VTE Prior VTE?: No VTE Risk Level:: Medical - moderate - high VTE Device Contraindication: N/A - Device Ordered VTE Drug Contraindication: N/A - Med Ordered
--- NOTE | 2023-12-02 13:41 | PM.PNGS ---
Subjective Subjective Date of Service: 12/02/23 Interval history: Patient is feeling well he says he is feeling better still some chest congestion but passing some more gas and has had some stool. KUB was done this morning which unfortunately does not show much improvement. There is still contrast in the colon and small bowel distention. Physical Exam Vital Signs: Vital Signs: Last Vital Signs Temp 96.8 F 12/02/23 07:40 Pulse 75 12/02/23 11:58 Resp 16 12/02/23 11:58 BP 140/75 H 12/02/23 07:40 Pulse Ox 91 L 12/02/23 07:40 O2 Del Method Room Air 12/02/23 07:40 BMI result Body Mass Index 28.1 Const: General: cooperative, healthy appearing, comfortable and no acute distress GI: Other: Abdomen is softer less distended less firm and has better bowel sounds. Nontender but still distended Objective Data Active Medications Acetaminophen (Acetaminophen 325 Mg Tablet) 975 mg PO TID PRN PRN Reason: Pain, Mild (Pain Scale 1-3) Last Admin: 12/01/23 16:31 Dose: 975 mg Documented By: KRISTIE Albuterol/Ipratropium (Albuterol/Iprat 2.5/0.5mg 3 Ml Ampul.Neb) 3 ml INHALE RQ4H [facility] Last Admin: 12/02/23 11:57 Dose: 3 ml Documented By: JAXSON Amlodipine Besylate (Amlodipine Besylate 2.5 Mg Tablet) 2.5 mg PO DAILY [facility]; Protocol Last Admin: 12/02/23 07:56 Dose: 2.5 mg Documented By: MARCO ANTONIO Aspirin (Aspirin Enteric Coated 81 Mg Tablet.) 81 mg PO DAILY [facility] Last Admin: 12/02/23 07:56 Dose: 81 mg Documented By: MARCO ANTONIO Atorvastatin Calcium (Atorvastatin Calcium 80 Mg Tablet) 80 mg PO DAILY [facility] Last Admin: 12/02/23 07:57 Dose: 80 mg Documented By: MARCO ANTONIO Clopidogrel Bisulfate (Clopidogrel Bisulfate 75 Mg Tablet) 75 mg PO DAILY [facility] Last Admin: 12/02/23 07:56 Dose: 75 mg Documented By: MARCO ANTONIO Docusate Sodium (Docusate Sodium 100 Mg Capsule) 100 mg PO BID [facility] Last Admin: 12/02/23 07:56 Dose: 100 mg Documented By: MARCO ANTONIO Guaifenesin (Guaifenesin 200 Mg/10 Ml 10 Ml Liquid) 10 ml PO Q4H [facility] Last Admin: 12/02/23 10:17 Dose: 10 ml Documented By: MARCO ANTONIO Ondansetron HCl (Ondansetron Hcl 4 Mg/2 Ml Vial) 4 mg IVPUSH Q8H PRN PRN Reason: Nausea and Vomiting Last Admin: 12/01/23 16:32 Dose: 4 mg Documented By: KRISTIE Oseltamivir Phosphate (Oseltamivir Phosphate 30 Mg Capsule) 30 mg PO BID [facility] Stop: 12/05/23 09:01 Last Admin: 12/02/23 07:56 Dose: 30 mg Documented By: MARCO ANTONIO Sodium Chloride (0.9 % Sodium Chloride Flush 3 Ml Syringe) 3 ml IVFLUSH QSHIFT [facility] Last Admin: 12/02/23 07:57 Dose: 3 ml Documented By: MARCO ANTONIO Labs 11/30/23 11:12 11/30/23 11:12 Imaging Abdominal x-ray: Radiologist's impression: Impressions KUB X-Ray 12/02/23 08:15 IMPRESSION: There is gaseous distention of small bowel loops are slightly more prominent than 12/01/2023. Oral contrast in the colon is stable and unchanged. Procedures Date of Service Date of Service: 12/02/23 Progress Note: A&P Assessment and plan (1) Ileus: Status: Acute Assessment and Plan: The patient is status post laparoscopic appendectomy and has a bit of a postop ileus. He is passing gas there is still moving through however the contrast that was in his colon is still and his colon without much movements through the colon. I think at this point with his benign abdominal exam other than some distension but improving would continue with chest axillary diet and encourage enemas from below to get things moving and walking around and ambulation. He is also being treated for influenza a with Tamiflu. If he were to develop nausea etc. was then packed along his p.o. intake consider IV fluid as well as needed. Patient understands and agrees with the above plan met and the medical team notified Time Spent With Patient Time: Total time managing care of this patient today ____ minutes. Quality Stroke Does the patient have a stroke diagnosis?: No VTE Prior VTE?: No VTE Risk Level:: Medical - moderate - high VTE Device Contraindication: N/A - Device Ordered VTE Drug Contraindication: N/A - Med Ordered
[2023-12-02] MEDS: Acetaminophen 325 MG TABLET 975 MG PO (16:15)
[2023-12-02] MEDS: Sodium Phosphate,Mono-Dibasic 133 ML ENEMA PR (17:09)
--- NOTE | 2023-12-02 19:06 | PC.NURSE ---
Fleet enema administered,patient tolerated it well,pt reported small liquid stool stated it was like orange juice with pulp
[2023-12-03] MEDS: 0.9 % Sodium Chloride Flush 3 ML SYRINGE IVFLUSH ×2 (00:27→07:58)
[2023-12-03] MEDS: guaiFENesin 200 MG/10 ML 10 ML LIQUID PO (00:28)
[2023-12-03] MEDS: Calcium Carbonate 750 MG TAB.CHEW PO (01:10)
[2023-12-03] MEDS: ondansetron HCL 4 MG/2 ML VIAL IVPUSH (01:13)
[2023-12-03 03:31] VITALS: BP 166/76; PULSE 78; RESP 18; TEMP 36.4; O2SAT 94
[2023-12-03 07:10] VITALS: BP 139/83; PULSE 82; RESP 20; TEMP 36.2; O2SAT 94
[2023-12-03] MEDS: Albuterol/Iprat 2.5/0.5MG 3 ML AMPUL.NEB INHALE (07:28)
[2023-12-03 07:29] VITALS: PULSE 81; RESP 20; O2SAT 93
[2023-12-03] MEDS: Docusate Sodium 100 MG CAPSULE PO (07:58)
[2023-12-03] MEDS: Aspirin Enteric Coated 81 MG TABLET.DR PO (07:58)
[2023-12-03] MEDS: Oseltamivir Phosphate 30 MG CAPSULE PO (07:58)
[2023-12-03] MEDS: amLODIPine Besylate 2.5 MG TABLET PO (07:58)
[2023-12-03] MEDS: Clopidogrel Bisulfate 75 MG TABLET PO (07:58)
[2023-12-03] MEDS: Atorvastatin Calcium 80 MG TABLET PO (07:58)
--- NOTE | 2023-12-03 09:48 | P.DS_ITS ---
DS: Providers Provider Date of Service: 12/03/23 Date of admission: 11/30/23 18:04 Date of discharge: 12/03/23 Primary care physician: Cade Perez MD Consults: 11/30/23 15:43 Consult to General Surgery Stat Consulting Provider: [facility] [place] General Surgeons Reason for consultation: pSBO vs ileus s/p appy 11/24 Dr. Otto Has provider been notified: Yes 11/30/23 18:09 Consult to General Surgery Routine Consulting Provider: [facility] [place] General Surgeons Reason for consultation: P sbo Attending physician on discharge: Андрей Aden Discharging clinician: Андрей Aden DS: Diagnosis Discharge Diagnosis (1) Ileus: Status: Acute DS: Summary Hospital Course Hospital Course: 83-year-old male with history of mild aortic stenosis, coronary artery disease (remote history [place] 1997 with STEFANIE x1), hx CVA on DAPT (last taken yesterday morning), hld, htn , had laparoscopic appendectomy (on 11/25/23) and subsequently went home-patient says that since then he has having abdominal pain and nauseated unable to tolerate diet. He has been passing gas and having bowel movements. He still feels distended and is having abdominal pain in the right lower quadrant. It is very sharp pain when he touches the area and coughs. He feels nauseated, passed bowel movement yesterday, in addition patient says that he is still passing flatus. In addition patient was feeling somewhat wheezy and has cough. Found to have flu positive. Patient also reports improving hematuria since he had the catheter while admitted(last admission). Lab imaging reviewed: CBC seems fine, BMP also fine except BUN is 15 and creatinine is 1.19(which seems to be improving since the last admission) CT/CT abdomen pelvis wo IV con:Partial small bowel obstruction with transition in the right lower quadrant. serology : influenza A. In ED: Patient received Zofran, simethicone, acetaminophen, barium sulfate oral: Patient says his abdominal pain somewhat improving. ED physician discussed the case with Dr. Otto: Impression is possible ileus versus partial small-bowel obstruction-recommended to use clear liquid diet and and recommended admission for medicine . Hospital course: Patient was admitted for abdominal pain and nausea, flu-like symptoms: Further workup-abdominal CT scan showed possible partial bowel obstruction versus ileus, also patient serology came back influenza A positive: Patient was started on bowel rest, IV hydration, nebs, Tamiflu: With above supportive treatment patient seems to be improved significantly, passing bowels, tolerating diet, repeated KUB seems to be improving: Patient was seen by surgery and since patient bowel function is coming back-passed 3 bm's last night and patient is improving significantly , tolerating diet. Patient will be going home. Patient will go home with Tamiflu 30mg p.o. b.i.d. 4 more doses. Follow-up with PCP outpatient. plan: home with Tamiflu 30mg p.o. b.i.d. 4 more doses. encouraged for hydration and po intake ,moniter bmp in 1 week outpatient. Above management discussed the patient detail length he understand in agreement with the above plan, time spent 40 minute. Time Attestation Total time managing care of this patient today: 40 mintues. Discharge Coordination Time (in mins): 40 min Quality: Safe Use of Opioids Does Pt have an Active Cancer Diagnosis on the Problem List?: No Quality: Stroke Does the patient have a stroke diagnosis?: No Physical Exam Vital Signs: Vital Signs: Last Vital Signs Temp 97.2 F 12/03/23 07:10 Pulse 81 12/03/23 07:29 Resp 20 12/03/23 07:29 BP 139/83 12/03/23 07:10 Pulse Ox 94 12/03/23 07:10 O2 Del Method Room Air 12/03/23 07:10 BMI result Body Mass Index 28.1 Appearance: Alert.? Oriented X3. cvs: rrr, [id number] , no murmur res:air entry fair ,few rhonchii abd: no rebound or guarding,nd,nt ,bs present. ext pulses present , no cyanosis . neuro: axo3 , nonfocal. DS: Data Data Completed and Pending Completed studies during hospitalization [Text1]: Procedures Resection of Appendix, Percutaneous Endoscopic Approach (11/25/23) Transfusion of Nonautologous Platelets into Peripheral Vein, Percutaneous Approach (11/25/23) Imaging Chest x-ray: Radiologist's impression: ITS Impressions Chest X-Ray 11/30/23 11:00 IMPRESSION: Hyperinflated lungs without acute process. Abdomen/Pelvis CT 11/30/23 13:47 IMPRESSION: 1. Partial small bowel obstruction with transition in the right lower quadrant. 2. Small amount of ascites. 3. Small pericardial effusion. 4. Hiatal hernia. Fleischner guidelines were followed. KUB X-Ray 12/01/23 07:02 IMPRESSION: 1. Contrast identified throughout the visualized colon. 2. Multiple loops of dilated small bowel redemonstrated measuring up to 4.1 cm. KUB X-Ray 12/02/23 08:15 IMPRESSION: There is gaseous distention of small bowel loops are slightly more prominent than 12/01/2023. Oral contrast in the colon is stable and unchanged. KUB X-Ray 12/03/23 08:18 IMPRESSION: Improving small bowel distention since 11/30/2023. Discharge Plan Discharge Anticipated Discharge Date/Time: 12/03/23 09:40 Patient Disposition: Home, Self-Care Discharge Diagnosis: possible Ielus vs psbo, influenz A Referrals: Cade Perez MD [Primary Care Provider] - 1 Week Discharge Medications: New oseltamivir 30 mg Capsule 30 mg PO BID Qty: 4 0RF albuterol sulfate 90 mcg/actuation aerosol powdr breath activated 2 inh inhalation Q4-6H PRN (Reason: shortness of breath or wheezing) Qty: 1 0RF benzonatate 100 mg capsule 100 mg PO BID PRN (Reason: cough) Qty: 14 0RF Continued aspirin [Adult Low Dose Aspirin] 81 mg tablet,delayed release (DR/EC) 81 mg PO DAILY Qty: 90 8RF clopidogrel [Plavix] 75 mg tablet 75 mg PO DAILY Qty: 90 0RF coenzyme Q10 [Co Q-10] 100 mg capsule 100 mg PO DAILY Qty: 90 3RF rosuvastatin [Crestor] 40 mg tablet 40 mg PO DAILY Qty: 90 0RF docusate sodium [Colace] 100 mg capsule 100 mg PO BID PRN (Reason: constipation) Qty: 30 0RF oxycodone 5 mg tablet 5 mg PO Q4H PRN (Reason: pain (scale score 7-10)) Qty: 20 0RF Rx Instructions: Partial Fill upon patient request. amlodipine 2.5 mg tablet 2.5 mg PO DAILY Qty: 30 0RF Discharge Orders: Discharge Order (Routine); Ordered 12/03/23 Ordered By: Андрей Aden Diet: Advance to usual diet Activity on Discharge: As tolerated Stand Alone Forms: Patient Portal Discharge page Care Plan Goals: Patient was admitted for abdominal pain and nausea, flu-like symptoms: Further workup-abdominal CT scan showed possible partial bowel obstruction versus ileus, also patient serology came back influenza A positive: Patient was started on bowel rest, IV hydration, nebs, Tamiflu: With above supportive treatment patient seems to be improved significantly, passing bowels, tolerating diet, repeated KUB seems to be improving: Patient was seen by surgery and since patient bowel function is coming back and patient is improving significantly , tolerating diet. Patient will be going home. Patient will go home with Tamiflu 30mg p.o. b.i.d. 4 more doses. Follow-up with PCP outpatient. Health Concerns: As above. Plan of Treatment: If any new symptom of abdominal pain or nausea vomiting go to nearest emergency room for evaluation. Complete Tamiflu Encouraged for hydration and p.o. intake, monitor BMP out patiently in 1 week with PCP. Also follow-up with surgery outpatient. Assessment: As above.
--- NOTE | 2023-12-03 10:58 | MHC.CM.PN ---
Per MD rounds patient is medically cleared for dc home self care. Family as at bedside to transport. RN aware.
--- NOTE | 2023-12-03 11:37 | PC.RT ---
at beside, PT stated he wanted to skip this breathing tx, MD Markie garcia.
[2023-12-03 11:44] VITALS: BP 164/85; PULSE 80; RESP 20; TEMP 36.3; O2SAT 95
--- NOTE | 2023-12-03 11:56 | P.PNGS_ITS ---
Subjective Subjective Date of Service: 12/03/23 Interval history: Feels well this morning. Denies abd pain. Tolerating clear liquids and is passing flatus and had multiple stools. Wants to eat and go home. Physical Exam 2 Vital Signs: Vital Signs: Last Vital Signs Temp 97.3 F 12/03/23 11:44 Pulse 80 12/03/23 11:44 Resp 20 12/03/23 11:44 BP 164/85 H 12/03/23 11:44 Pulse Ox 95 12/03/23 11:44 O2 Del Method Room Air 12/03/23 11:44 BMI result Body Mass Index 28.1 Const: General: comfortable, no acute distress and alert O rientation/consciousness: patient oriented x3 Resp: Effort & Inspection: normal respiratory effort and no respiratory distress GI: Other: protuberant abdomen, at baseline Inspection: No distended and Yes incision (clean) Palpation (GI): Soft to palpation, nontender and no guarding Percussion: Yes normal to percussion Skin: General skin exam: no rashes or lesions noted Neuro: General: patient oriented x3 and moves all extremities Objective Data Active Medications Acetaminophen (Acetaminophen 325 Mg Tablet) 975 mg PO TID PRN PRN Reason: Pain, Mild (Pain Scale 1-3) Last Admin: 12/02/23 16:15 Dose: 975 mg Documented By: KRISTIE Albuterol/Ipratropium (Albuterol/Iprat 2.5/0.5mg 3 Ml Ampul.Neb) 3 ml INHALE RQ4H [facility] Last Admin: 12/03/23 11:37 Dose: Not Given Documented By: MAULIK Non-Admin Reason: Patient Refused Amlodipine Besylate (Amlodipine Besylate 2.5 Mg Tablet) 2.5 mg PO DAILY [facility]; Protocol Last Admin: 12/03/23 07:58 Dose: 2.5 mg Documented By: MARCO ANTONIO Aspirin (Aspirin Enteric Coated 81 Mg Tablet.) 81 mg PO DAILY [facility] Last Admin: 12/03/23 07:58 Dose: 81 mg Documented By: MARCO ANTONIO Atorvastatin Calcium (Atorvastatin Calcium 80 Mg Tablet) 80 mg PO DAILY [facility] Last Admin: 12/03/23 07:58 Dose: 80 mg Documented By: MARCO ANTONIO Calcium Carbonate (Calcium Carbonate 750 Mg Tab.Chew) 750 mg PO Q6H PRN PRN Reason: Heartburn Last Admin: 12/03/23 01:10 Dose: 750 mg Documented By: DAYAN Clopidogrel Bisulfate (Clopidogrel Bisulfate 75 Mg Tablet) 75 mg PO DAILY [facility] Last Admin: 12/03/23 07:58 Dose: 75 mg Documented By: MARCO ANTONIO Docusate Sodium (Docusate Sodium 100 Mg Capsule) 100 mg PO BID [facility] Last Admin: 12/03/23 07:58 Dose: 100 mg Documented By: MARCO ANTONIO Ondansetron HCl (Ondansetron Hcl 4 Mg/2 Ml Vial) 4 mg IVPUSH Q8H PRN PRN Reason: Nausea and Vomiting Last Admin: 12/03/23 01:13 Dose: 4 mg Documented By: DAYAN Oseltamivir Phosphate (Oseltamivir Phosphate 30 Mg Capsule) 30 mg PO BID [facility] Stop: 12/05/23 09:01 Last Admin: 12/03/23 07:58 Dose: 30 mg Documented By: MARCO ANTONIO Sodium Chloride (0.9 % Sodium Chloride Flush 3 Ml Syringe) 3 ml IVFLUSH QSHIFT [facility] Last Admin: 12/03/23 07:58 Dose: 3 ml Documented By: MARCO ANTONIO Labs 11/30/23 11:12 11/30/23 11:12 Procedures Date of Service Date of Service: 12/03/23 Progress Note: A&P Assessment and plan (1) S/P laparoscopic appendectomy: Status: Acute Plan Doing well now with return of GI function. Abd is protuberant and this is his baseline. If tolerating solid diet, stable for dc to home. Patient has f/u appt on December [address] Otto. Time Spent With Patient Time: Total time managing care of this patient today ____ minutes. Quality Stroke Does the patient have a stroke diagnosis?: No VTE Prior VTE?: No VTE Risk Level:: Medical - moderate - high VTE Device Contraindication: N/A - Device Ordered VTE Drug Contraindication: N/A - Med Ordered
== END 2023-12-03 13:33 | disposition home or self-care (01) | DRG 394 ==
LOC: HO.ED 15:40 → HO.EDOVER 18:12 → HO.S3 20:03
PROVIDERS: Physician Assistant; Admitting Provider Internal Medicine; Emergency Provider Emergency Medicine; PCP Internal Medicine; Visit Provider Internal Medicine
DX: K91.89 Other postprocedural complications and disorders of digestive system (principal); K56.7 Ileus, unspecified; N17.9 Acute kidney failure, unspecified; I25.10 Atherosclerotic heart disease of native coronary artery without angina pectoris; R31.29 Other microscopic hematuria; J10.1 Influenza due to other identified influenza virus with other respiratory manifestations; Z95.0 Presence of cardiac pacemaker; I35.0 Nonrheumatic aortic (valve) stenosis; E78.5 Hyperlipidemia, unspecified; Z95.5 Presence of coronary angioplasty implant and graft; Z86.73 Personal history of transient ischemic attack (TIA), and cerebral infarction without residual deficits; Z79.02 Long term (current) use of antithrombotics/antiplatelets; Z79.82 Long term (current) use of aspirin; Z79.899 Other long term (current) drug therapy
CPT/HCPCS: 0241U; 36415; 71046; 74018; 74176; 80048; 80076; 81001; 83735; 83880; 85025; 93005; 94640; 99285; J2405

== ENCOUNTER → 2023-11-30 10:48 | Outpatient (BNV) | payer MEDICARE, SELFPAY | PROVIDERS: Admitting Provider Internal Medicine; Emergency Provider Emergency Medicine; PCP Internal Medicine; Visit Provider Internal Medicine | DX: R06.02 Shortness of breath (principal); R94.31 Abnormal electrocardiogram [ECG] [EKG] | CPT/HCPCS: 93010 ==

== ENCOUNTER → 2023-11-30 18:04 | Outpatient (BNV) | payer MEDICARE, SELFPAY | PROVIDERS: Admitting Provider Internal Medicine; Emergency Provider Emergency Medicine; PCP Internal Medicine; Visit Provider Surgery | DX: J10.1 Influenza due to other identified influenza virus with other respiratory manifestations (principal); R14.0 Abdominal distension (gaseous) | CPT/HCPCS: 99222; 99232 ==

== ENCOUNTER → 2023-11-30 18:04 | Outpatient (BNV) | payer MEDICARE, SELFPAY | PROVIDERS: Admitting Provider Internal Medicine; Emergency Provider Emergency Medicine; PCP Internal Medicine; Visit Provider Internal Medicine | DX: K56.7 Ileus, unspecified (principal); R31.9 Hematuria, unspecified; J10.1 Influenza due to other identified influenza virus with other respiratory manifestations | CPT/HCPCS: 99222; 99231; 99232; 99239 ==

== ENCOUNTER 2023-12-11 09:32 | Outpatient (AMB) | payer MEDICARE, SELFPAY ==
[2023-12-11 10:01] VITALS: BP 148/76; PULSE 88
--- NOTE | 2023-12-11 10:01 | MHC.OFFVIS ---
Intake Vital Signs 12/11/23 10:01 BP 148/76 H Blood Pressure Location Lt brachial Position Sitting Pulse 88 Intake Visit Reasons: S/p appendectomy Intake Note: Patient here s/p appendectomy. Reports incisions healing well. Reports never took rx pain meds. SX: 11-26-23. Applications Sales Consultant Required: No Accompanied by: Self / Same As Patient Allergies No Known Allergies [No Known Allergies*] Allergy (Verified 12/11/23 10:02) HPI HPI Comments History of Present Illness Details Patient presents with his for follow-up. He is doing quite well. He tolerating diet. Having regular bowel habits. He has no incisional issues or complaints Pathology consistent with acute appendicitis [facility] Medical History Aortic stenosis HTN (hypertension) Renal cyst, right Hyperlipidemia Coronary artery disease Surgical History History of appendectomy (11/26/23) S/P cardiac pacemaker procedure History of colonoscopy History of left knee replacement History of cholecystectomy History of rectal fissure History of right inguinal hernia History of left inguinal hernia History of shoulder surgery Family History Father No problems noted. Mother No problems noted. Social History Household Members: Spouse Housing: House Are you a primary patient care representative to a significant other at home: No Do you presently have visiting nurse or other home services: No Alcohol intake: former Patient Tobacco Use Status: Former Tobacco user Quit Date: 35 years ago Tobacco use type: Cigarette e-Cigarette/Vaping Use: Former Use Second Hand Smoke Exposure: No service: No Current occupational status: retired Current occupational exposures/hazards: No Cognitive needs: No Hearing needs: No Vision needs: Yes Physical Exam Vital Signs: Last Vital Signs Pulse 88 12/11/23 10:01 BP 148/76 H 12/11/23 10:01 GI Other: Abdomen is soft. All wounds clean dry and intact healing well Assessment & Plan Assessment & Plan (1) S/P laparoscopic appendectomy: Code(s): Z90.49 - Acquired absence of other specified parts of digestive tract Plan Patient and have been given local instructions including avoiding strenuous activities for next few weeks time, and otherwise follow-up p.r.n.. All questions answered. Coding Level of Care Code Global (79209) Diagnoses S/P laparoscopic appendectomy Z90.49
== END 2023-12-11 10:03 | disposition home or self-care (01) ==
PROVIDERS: PCP Internal Medicine; Visit Provider Surgery
DX: Z90.49 Acquired absence of other specified parts of digestive tract (principal)
CPT/HCPCS: 99024

== ENCOUNTER → 2023-12-11 09:32 | Outpatient (BNVA) | payer MEDICARE, SELFPAY | PROVIDERS: PCP Internal Medicine; Visit Provider Surgery | DX: Z48.815 Encounter for surgical aftercare following surgery on the digestive system (principal); Z90.49 Acquired absence of other specified parts of digestive tract | CPT/HCPCS: 99212 ==

== ENCOUNTER 2023-12-11 10:55 | Outpatient (AMB) | payer MEDICARE, SELFPAY ==
[2023-12-11 10:58] VITALS: BP 130/82; PULSE 82; O2SAT 98; BMI 29.7
--- NOTE | 2023-12-11 10:58 | A.OFFPC_ITS ---
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 Long Term: Not Required per policy Accompanied by: Self / Same As Patient Allergies No Known Allergies [No Known Allergies*] Allergy (Verified 12/11/23 10:58) Medication List - Last Reconciled 12/11/23 by Cade Perez MD albuterol sulfate 90 mcg/actuation 2 inhalations inhalation Q4-6H PRN amlodipine 2.5 mg PO DAILY aspirin (Adult Low Dose Aspirin) 81 mg PO DAILY benzonatate 100 mg PO BID PRN clopidogrel (Plavix) 75 mg PO DAILY coenzyme Q10 (Co Q-10) 100 mg PO DAILY docusate sodium (Colace) 100 mg PO BID PRN rosuvastatin (Crestor) 40 mg PO DAILY Tobacco use date assessed: 11/19/23 Fall risk assessment: No Falls in past year Last assessed Fall Risk: 12/11/23 Dental Screening Dental Screen Date: 11/19/23 HPI appendectomy F/U HPI Details had an appendectomy; has recoved and back to normal [facility] Medical History Aortic stenosis HTN (hypertension) Renal cyst, right Hyperlipidemia Coronary artery disease Surgical History History of appendectomy (11/26/23) S/P cardiac pacemaker procedure History of colonoscopy History of left knee replacement History of cholecystectomy History of rectal fissure History of right inguinal hernia History of left inguinal hernia History of shoulder surgery Family History Father No problems noted. Mother No problems noted. Social History Household Members: Spouse Housing: House Are you a primary care technician to a significant other at home: No Do you presently have visiting nurse or other home services: No Alcohol intake: former Patient Tobacco Use Status: Former Tobacco user Quit Date: 35 years ago Tobacco use type: Cigarette e-Cigarette/Vaping Use: Former Use Second Hand Smoke Exposure: No service: No Current occupational status: retired Current occupational exposures/hazards: No Cognitive needs: No Hearing needs: No Vision needs: Yes Questionnaire Thrive Questionnaire Date Thrive assessed: 12/01/23 CRISELDA-7 AMB Questionnaire CRISELDA-7 Date CRISELDA - 7 assessed: 11/19/23 Source: Developed by Drs. Tristin Osborne, Ina Dorsey, Tito José and colleagues, with an educational gordon from [employer]. Review of Systems Const Denies chills, Denies headache(s) and Denies weight loss ENT Denies headache(s) Card Denies chest pain, Denies syncope, Denies irregular heart rhythm and Denies dyspnea Resp Denies chest congestion, Denies cough and Denies dyspnea GI Denies abdominal pain, Denies change in stool character, Denies nausea and Denies vomiting Musc Denies deformity and Denies joint swelling Neuro Denies syncope and Denies headache(s) Physical exam (Primary Care) Vital Signs: Last Vital Signs Pulse 82 12/11/23 10:58 BP 130/82 12/11/23 10:58 Pulse Ox 98 12/11/23 10:58 Oxygen Delivery Method Room Air 12/11/23 10:58 BMI result Body Mass Index 29.7 Tobacco/Smoking Status: Tobacco use Status Tobacco use date assessed 11/19/23 12/11/23 10:59 Patient Tobacco Use Status Former Tobacco user 12/11/23 10:59 Tobacco use type Cigarette 12/11/23 10:59 e-Cigarette/Vaping Use Former Use 12/11/23 10:59 Thrive Assessment: Date of Thrive Assessment Date Thrive assessed 12/01/23 12/11/23 10:59 Const General: cooperative, comfortable, no acute distress and alert Neck Neck: Yes no lymphadenopathy Thyroid: Thyroid normal Resp Effort & Inspection: normal respiratory effort Auscultation: clear to auscultation bilaterally Percussion: percussion normal Cardio Jugular venous distension: no JVD Palpation: normal PMI Rate: regular rate Rhythm: regular rhythm Heart sounds: S1 normal heart sound present and S2 normal heart sound present GI Inspection: Yes normal to inspection Palpation (GI): No hepatosplenomegaly present Skin General skin exam: no rashes or lesions noted Extrem General: Yes no clubbing, cyanosis or edema Assessment and Plan Assessment & Plan (1) S/P appendectomy: Code(s): Z90.49 - Acquired absence of other specified parts of digestive tract Plan: doing well Medications: Refilled amlodipine 2.5 mg PO DAILY 90 tabs 3RF Coding Level of Care Code Est Pt Level 3 (18764) Diagnoses S/P appendectomy Z90.49
== END 2023-12-11 11:56 | disposition home or self-care (01) ==
PROVIDERS: PCP Internal Medicine; Visit Provider Internal Medicine
DX: Z90.49 Acquired absence of other specified parts of digestive tract (principal)
CPT/HCPCS: 99213

== ENCOUNTER 2024-03-18 12:15 | Emergency (ER) | payer MEDICARE, SELFPAY ==
--- NOTE | ~2024-03-18 | XR_ITS ---
EXAMINATION: XR CHEST CLINICAL INFORMATION: Chest pain with pacemaker COMPARISON: Chest radiograph 11/30/2023, CT chest 11/25/2023 TECHNIQUE: 2 views of the chest were obtained. FINDINGS: Heart size is normal. The aorta is mildly ectatic. No infiltrates, effusions or lung masses are seen. Left chest wall dual-lead pacemaker is present with one lead in the right atria the other in the right ventricle, unchanged in position when compared to prior. XR/XR chest 2V IMPRESSION: No acute intrathoracic disease.
[2024-03-18 13:43] VITALS: BP 185/106; PULSE 76; RESP 16; TEMP 37; O2SAT 96; BMI 27.8
--- NOTE | 2024-03-18 13:47 | ECG_ITS ---
Test Reason : chest pain Blood Pressure : / mmHG Vent. Rate : 071 BPM Atrial Rate : 071 BPM P-R Int : 210 ms QRS Dur : 100 ms QT Int : 384 ms P-R-T Axes : -12 -26 045 degrees QTc Int : 417 ms Atrial-paced rhythm with prolonged AV conduction Minimal voltage criteria for LVH, may be normal variant ( R in aVL ) Cannot rule out Anterior infarct (cited on or before 30-NOV-2023) Abnormal ECG When compared with ECG of 30-NOV-2023 11:19, Electronic atrial pacemaker has replaced Sinus rhythm Referred By: Generic ED Physician Electronically Signed By:Caleb Cruz
--- NOTE | 2024-03-18 13:48 | ED.CHESTPAIN ---
HPI - Chest Pain General Chief Complaint: Chest Pain Stated Complaint: issues with pace maker Time Seen by Provider: 03/18/24 18:01 History of Present Illness ED Provider: Kerri FERREIRA narrative: The patient is an 83-year-old male who had a pacemaker placed in 07/30/2023. Over the last 2 weeks he has had intermittent episodes of very brief sharp chest pain on left chest near the pacemaker. He came to the emergency room today because he was concerned that possibly one of the wires might be out of place or causing these episodes of pain. There has been no fever, sweats, chills. No cough or sputum. His says that he has been vacuuming the pool during this summer. This is more upper body exertional activity than he has done recently. She wondered if this exertional activity might have provoked these pains. The patient currently is asymptomatic. The episodes of pain last only 3 or 4 seconds. He says he can have 10 episodes per day, possibly 15 at the most. He cannot reliably reproduce the pains with certain movements of his left arm. He has had no shortness of breath. No pain or swelling in his legs. Related Data Previous Rx's ?Medication ?Instructions ?Recorded aspirin 81 mg tablet,delayed 81 mg PO DAILY #90 tabs 11/21/21 release (Adult Low Dose Aspirin) coenzyme Q10 100 mg capsule (Co 100 mg PO DAILY #90 caps 11/19/23 Q-10) docusate sodium 100 mg capsule 100 mg PO BID PRN constipation #30 11/27/23 (Colace) caps albuterol sulfate 90 mcg/actuation 2 inh inhalation Q4-6H PRN 12/03/23 breath activated powder inhaler shortness of breath or wheezing #1 ea benzonatate 100 mg capsule 100 mg PO BID PRN cough #14 caps 12/03/23 amlodipine 2.5 mg tablet 2.5 mg PO DAILY #90 tabs 12/11/23 clopidogrel 75 mg tablet (Plavix) 75 mg PO DAILY #90 tabs 01/28/24 rosuvastatin 40 mg tablet (Crestor) 40 mg PO DAILY #90 tabs 01/28/24 Allergies Allergy/AdvReac Type Severity Reaction Status Date / Time No Known Allergies Allergy Verified 03/18/24 13:47 [No Known Allergies*] Review of Systems Review of Systems: Yes all other systems are reviewed and are negative PMFSH Past Medical History Medical History Aortic stenosis HTN (hypertension) Renal cyst, right Hyperlipidemia Coronary artery disease Surgical History History of appendectomy (11/26/23) S/P cardiac pacemaker procedure History of colonoscopy History of left knee replacement History of cholecystectomy History of rectal fissure History of right inguinal hernia History of left inguinal hernia History of shoulder surgery Family History Family History Father No problems noted. Mother No problems noted. Social History Social History Household Members: Spouse Housing: House Are you a primary rn patient care to a significant other at home: No Do you presently have visiting nurse or other home services: No Alcohol intake: former Patient Tobacco Use Status: Former Tobacco user Tobacco use type: Cigarette Smoked in Last 30 Days: No e-Cigarette/Vaping Use: Former Use Second Hand Smoke Exposure: No Use of substances other than those prescribed or required for medical reasons: No Advance Directives: No Advance Directives Information Provided: No service: No Current occupational status: retired Current occupational exposures/hazards: No Cognitive needs: No Hearing needs: No Vision needs: Yes Physical Exam Vital Signs: Vital Signs: Last Vital Signs Temp 97.7 F 03/18/24 18:25 Pulse 71 03/18/24 18:25 Resp 16 03/18/24 18:25 BP 171/98 H 03/18/24 18:25 Pulse Ox 96 03/18/24 18:25 O2 Del Method Room Air 03/18/24 18:25 BMI result Body Mass Index 27.8 Const: Other: The patient is a pleasant 83-year-old man who was awake and alert and does not seem in any distress. HEENT: Other: Face is symmetrical. Mucous membranes moist. Eyes: Other: Pupils are round equal, conjunctivae are clear Neck: Neck: Yes no JVD Chest: Other: There is a pacemaker present in the left upper chest. No significant tenderness. No bruising. Resp: Effort & Inspection: normal respiratory effort Auscultation: clear to auscultation bilaterally Cardio: Rate: regular rate Rhythm: regular rhythm Heart sounds: S1 normal heart sound present and S2 normal heart sound present GI: Other: Abdomen is soft and nontender Skin: Other: Skin is dry and unremarkable Neuro: Other: The patient is awake and alert with a normal mental status. Cranial nerves are grossly intact. He moves his extremities normally and seems grossly neurologically intact. Extrem: Other: No calf swelling or tenderness, no peripheral edema Course Course Course Narrative: RME, this is a rapid medical exam performed by Darryl Lorenzana please refer to primary provider for complete H&P- 83-year-old male presents for evaluation of left-sided chest pain that has been going approximately 15 times per day intermittently. He had a pacemaker placed 8 months ago at [facility]. His pain seems to be positional in nature. Plan for labs chest x-ray, EKG Medical Decision Making Medical Decision Making MDM Narrative: The patient is a very pleasant 83-year-old male who has had frequent episodes of very brief pains in his left chest near his pacemaker over the last couple of weeks. The episodes last only 3 or 4 seconds. The episodes are not associated with any shortness of breath or diaphoresis or other concerning symptoms. The patient looks entirely well. He was concerned that perhaps there was something wrong with his pacemaker placement or the pacemaker wires and so he came to the emergency room for evaluation. His chest x-ray shows no change in the position of his pacemaker or the pacemaker wires. Other labs are unremarkable. The patient was reassured that this pain is unlikely to represent anything dangerous because of the episodes are so brief and there are no associated symptoms. He has an appointment with his associate professor of medicine in 3 weeks. He should keep this appointment for follow up. Lab Data 03/18/24 14:00 03/18/24 14:00 Labs: Lab Results 03/18/24 Range/Units 14:00 WBC 5.6 (4.8-10.8) X10*3/uL RBC 4.99 (4.60-5.80) X10*6/uL Hgb 15.1 D (14.0-18.0) g/dl Hct 43.5 (42.0-52.0) % MCV 87.2 (80.0-98.0) fL MCH 30.3 (27.0-33.0) pg MCHC 34.7 (31.0-36.0) g/dl RDW 14.0 (11.0-16.0) % Plt Count 133 L (160-400) X10*3/uL MPV 9.1 L (9.4-12.4) fL Immature Gran % (Auto) 0.4 (0.0-0.4) % Neut % (Auto) 67.5 (45-73) % Lymph % (Auto) 21.4 (20-40) % [place] % (Auto) 8.4 (2-11) % Eos % (Auto) 1.6 (0-4) % Baso % (Auto) 0.7 (0-2) % Lymph # (Auto) 1.2 (1.2-4.9) X10*3/uL [place] # (Auto) 0.5 (0.1-1.2) X10*3/uL Eos # (Auto) 0.1 (0.0-0.4) X10*3/uL Baso # (Auto) 0.0 (0.0-0.2) X10*3/uL Abs Immat Gran (auto) 0.02 (0.00-0.03) X10*3/uL Absolute Neuts (auto) 3.8 (2.0-8.3) x10*3/uL Absolute Nucleated RBC 0.000 (0.0-0.012) X10*3/uL Nucleated RBC % (auto) 0.0 (0.0-0.2) /100WBC PT 11.4 (11.1-13.3) SEC INR 0.9 (0.9-1.1) Sodium 141 (135-145) mmol/L Potassium 4.1 (3.3-5.1) mmol/L Chloride 106 (96-108) mmol/L Carbon Dioxide 27 (22-29) mmol/L Anion Gap 12 (12-20) BUN 14 (9-16) mg/dL Creatinine 1.12 (0.5-1.4) mg/dL Estim Creat Clear Calc 50.5 Estimated GFR > 60 Random Glucose 100 (60-115) mg/dL Calcium 9.5 (8.4-10.2) mg/dL Troponin I High Sens 7.9 (<3.5-35.0) ng/L B-Natriuretic Peptide 63 (<100) pg/mL Discharge Plan Discharge Clinical Impression: Left-sided chest pain Patient Disposition: Home, Self-Care Additional Instructions: Your x-ray today does not show any change in the wires or physician of your pacemaker. Additionally all of your blood tests are unremarkable as is your EKG. Your pacemaker seems to be functioning appropriately. Please plan on keeping your appointment with your associate professor of medicine in 3 weeks. I think it would be reasonable to avoid activities that require a lot of upper body movements until you see your associate professor of medicine. Return to the emergency room at any time if significantly worse. Prescriptions: No Action aspirin [Adult Low Dose Aspirin] 81 mg tablet,delayed release (DR/EC) 81 mg PO DAILY Qty: 90 8RF coenzyme Q10 [Co Q-10] 100 mg capsule 100 mg PO DAILY Qty: 90 3RF clopidogrel [Plavix] 75 mg tablet 75 mg PO DAILY Qty: 90 3RF rosuvastatin [Crestor] 40 mg tablet 40 mg PO DAILY Qty: 90 3RF albuterol sulfate 90 mcg/actuation aerosol powdr breath activated 2 inh inhalation Q4-6H PRN (Reason: shortness of breath or wheezing) Qty: 1 0RF benzonatate 100 mg capsule 100 mg PO BID PRN (Reason: cough) Qty: 14 0RF docusate sodium [Colace] 100 mg capsule 100 mg PO BID PRN (Reason: constipation) Qty: 30 0RF amlodipine 2.5 mg tablet 2.5 mg PO DAILY Qty: 90 3RF Interventions: ED Discharge Assessment Last Done: 03/18/24 18:25 Discharge Date/Time: 03/18/24 18:28 Print Language: [place] Verdean
[2024-03-18 14:06] LABS: MANUAL DIFF FLAG NO
[2024-03-18 14:09] LABS: Basophils Percent Auto 0.7 % (0-2); Eosinophils Absolute Auto 0.1 X10*3/uL (0.0-0.4); Eosinophils Percent Auto 1.6 % (0-4); Hematocrit 43.5 % (42.0-52.0); Hemoglobin 15.1 g/dl (14.0-18.0); Imm Gran Abs Auto 0.02 X10*3/uL (0.00-0.03); Imm Gran Pct Auto 0.4 % (0.0-0.4); Lymphocytes Absolute Auto 1.2 X10*3/uL (1.2-4.9); Lymphocytes Percent Auto 21.4 % (20-40); Mean Corpuscular HGB Conc 34.7 g/dl (31.0-36.0); Mean Corpuscular Hemoglobin 30.3 pg (27.0-33.0); Mean Corpuscular Volume 87.2 fL (80.0-98.0); Mean Platelet Volume 9.1 fL (9.4-12.4); Monocytes Absolute Auto 0.5 X10*3/uL (0.1-1.2); Monocytes Percent Auto 8.4 % (2-11); Neutrophils Absolute Auto 3.8 x10*3/uL (2.0-8.3); Neutrophils Percent Auto 67.5 % (45-73); Platelet Count 133 X10*3/uL (160-400); Red Blood Count 4.99 X10*6/uL (4.60-5.80); White Blood Count 5.6 X10*3/uL (4.8-10.8)
[2024-03-18 14:15] LABS: INTERNATIONAL NORM RATIO 0.9 (0.9-1.1); Prothrombin Time 11.4 SEC (11.1-13.3)
[2024-03-18 14:22] LABS: Anion Gap 12 (12-20); Blood Urea Nitrogen 14 mg/dL (9-16); Calcium 9.5 mg/dL (8.4-10.2); Carbon Dioxide 27 mmol/L (22-29); Chloride 106 mmol/L (96-108); Creatinine Clr Calc Pharmacy 50.5; Estimated Glomerular Filt Rate > 60; Glucose Random 100 mg/dL (60-115); Potassium 4.1 mmol/L (3.3-5.1); Sodium 141 mmol/L (135-145)
[2024-03-18 14:29] LABS: B Type Natriuretic Peptide 63 pg/mL (<100)
[2024-03-18 14:30] LABS: Troponin-I High Sensitivity 7.9 ng/L (<3.5-35.0)
[2024-03-18 17:45] VITALS: BP 193/97; PULSE 60; RESP 16; TEMP 36.7; O2SAT 97
[2024-03-18 18:25] VITALS: BP 171/98; PULSE 71; RESP 16; TEMP 36.5; O2SAT 96
== END 2024-03-18 18:28 | disposition home or self-care (01) ==
PROVIDERS: Physician Assistant; Emergency Provider Emergency Medicine; PCP Internal Medicine
DX: R07.9 Chest pain, unspecified (principal); Z95.0 Presence of cardiac pacemaker; I10 Essential (primary) hypertension; E78.5 Hyperlipidemia, unspecified; I25.10 Atherosclerotic heart disease of native coronary artery without angina pectoris
CPT/HCPCS: 36415; 71046; 80048; 83880; 84484; 85025; 85610; 93005; 99283; 99285

== ENCOUNTER → 2024-03-18 13:47 | Outpatient (BNV) | payer MEDICARE, SELFPAY | PROVIDERS: PCP Internal Medicine; Visit Provider Internal Medicine Cardiovascular Disease | DX: I45.9 Conduction disorder, unspecified (principal) | CPT/HCPCS: 93010 ==

== ENCOUNTER 2024-06-03 10:52 | Outpatient (REF) | payer MEDICARE, SELFPAY | END 2024-06-03 10:53 | disposition home or self-care (01) | LOC: HO.WFDLDS 10:52 | PROVIDERS: Visit Provider Physician Assistant Surgical | DX: Z13.89 Encounter for screening for other disorder (principal) ==

== ENCOUNTER 2024-06-04 09:14 | Outpatient (REF) | payer MEDICARE, SELFPAY ==
[2024-06-04 11:10] LABS: MANUAL DIFF FLAG NO
[2024-06-04 11:22] LABS: Basophils Percent Auto 0.8 % (0-2); Eosinophils Absolute Auto 0.2 X10*3/uL (0.0-0.4); Eosinophils Percent Auto 4.2 % (0-4); Imm Gran Abs Auto 0.01 X10*3/uL (0.00-0.03); Imm Gran Pct Auto 0.2 % (0.0-0.4); Lymphocytes Absolute Auto 1.4 X10*3/uL (1.2-4.9); Lymphocytes Percent Auto 26.3 % (20-40); Mean Corpuscular HGB Conc 34.9 g/dl (31.0-36.0); Mean Corpuscular Hemoglobin 30.7 pg (27.0-33.0); Mean Corpuscular Volume 88.1 fL (80.0-98.0); Mean Platelet Volume 9.4 fL (9.4-12.4); Monocytes Absolute Auto 0.5 X10*3/uL (0.1-1.2); Monocytes Percent Auto 9.8 % (2-11); Neutrophils Absolute Auto 3.1 x10*3/uL (2.0-8.3); Neutrophils Percent Auto 58.7 % (45-73); Platelet Count 133 X10*3/uL (160-400); Red Blood Count 4.88 X10*6/uL (4.60-5.80); White Blood Count 5.2 X10*3/uL (4.8-10.8)
[2024-06-04 11:23] LABS: INTERNATIONAL NORM RATIO 0.9 (0.9-1.1)
[2024-06-04 11:31] LABS: Anion Gap 10 (12-20); Blood Urea Nitrogen 15 mg/dL (9-16); Calcium 10.1 mg/dL (8.4-10.2); Carbon Dioxide 27 mmol/L (22-29); Chloride 107 mmol/L (96-108); Estimated Glomerular Filt Rate > 60; Glucose Random 100 mg/dL (60-115); Sodium 140 mmol/L (135-145)
[2024-06-04 11:32] LABS: Cholesterol 145 mg/dL (<200); HDL Cholesterol 48 mg/dL (>40); LDL Cholesterol Calculated 72 mg/dL (<100); Triglycerides 126 mg/dL (<150)
== END 2024-06-04 09:15 | disposition home or self-care (01) ==
LOC: HO.WFDLDS 09:14
PROVIDERS: Internal Medicine Cardiovascular Disease; Visit Provider Internal Medicine
DX: I20.9 Angina pectoris, unspecified (principal); Z01.818 Encounter for other preprocedural examination; Z13.220 Encounter for screening for lipoid disorders
CPT/HCPCS: 36415; 80048; 80061; 85025; 85610

== ENCOUNTER 2024-06-10 09:38 | Outpatient (AMB) | payer MEDICARE, SELFPAY ==
[2024-06-10 09:41] VITALS: BP 140/76; PULSE 65; O2SAT 92; BMI 28.0
--- NOTE | 2024-06-10 09:41 | A.OFFPC_ITS ---
Vital Signs 06/10/24 09:41 Height 5 ft 8 in Weight 184 lb BMI 28.0 BP 140/76 H Blood Pressure Location Lt brachial Position Sitting Pulse 65 Pulse Source Pulse Oximeter Pulse Oximetry (%) 92 Oxygen Delivery Method Room Air Intake Visit Reasons: Annual Physical Intake Note: Pt reports his BP in the 120s when he takes it at home. 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 Accompanied by: Spouse Allergies No Known Allergies [No Known Allergies*] Allergy (Verified 06/10/24 09:48) Medication List - Last Reconciled 06/10/24 by Cade Perez MD albuterol sulfate 90 mcg/actuation 2 inhalations inhalation Q4-6H PRN amlodipine 5 mg PO DAILY amlodipine 5 mg PO DAILY aspirin (Adult Low Dose Aspirin) 81 mg PO DAILY benzonatate 100 mg PO BID PRN clopidogrel (Plavix) 75 mg PO DAILY coenzyme Q10 (Co Q-10) 100 mg PO DAILY docusate sodium (Colace) 100 mg PO BID PRN rosuvastatin (Crestor) 40 mg PO DAILY Tobacco use date assessed: 11/19/23 Fall risk assessment: No Falls in past year Last assessed Fall Risk: 06/10/24 Dental Screening Dental Screen Date: 11/19/23 HPI Annual Physical HPI Details hypertension hyperlipidemia and CAD s/p PA; sees cardiology and having an angiogram because of [facility] Medical History Aortic stenosis HTN (hypertension) Renal cyst, right Hyperlipidemia Coronary artery disease Surgical History History of appendectomy (11/26/23) S/P cardiac pacemaker procedure History of colonoscopy History of left knee replacement History of cholecystectomy History of rectal fissure History of right inguinal hernia History of left inguinal hernia History of shoulder surgery Family History Father No problems noted. Mother No problems noted. Social History Household Members: Spouse Housing: House Are you a primary rehab care assistant to a significant other at home: No Do you presently have visiting nurse or other home services: No Alcohol intake: former Patient Tobacco Use Status: Former Tobacco user Tobacco use type: Cigarette e-Cigarette/Vaping Use: Former Use Second Hand Smoke Exposure: No service: No Current occupational status: retired Current occupational exposures/hazards: No Cognitive needs: No Hearing needs: No Vision needs: Yes Questionnaire PHQ-9 Over the last 2 weeks, how often have you been bothered by any of the following problems? 1. Little interest or pleasure in doing things: several days 2. Feeling down, depressed, or hopeless: not at all 3. Trouble falling or staying asleep, or sleeping too much: more than half the days 4. Feeling tired or having little energy: several days 5. Poor appetite or overeating: not at all 6. Feeling bad about yourself - or that you are a failure or have let yourself or your family down: not at all 7. Trouble concentrating on things, such as reading the newspaper or watching television: not at all 8. Moving or speaking so slowly that other people could have noticed. Or the opposite - being so fidgety or restless that you have been moving around a lot more than usual: several days 9. Thoughts that you would be better off or of hurting yourself in some way: not at all Total score: 5 Depression Screening Interpretation: Negative Depression Screening Done: Yes 81602 - PHQ-9 Billing: Yes Source: Developed by Drs. Tristin Osborne, Ina Dorsey, Tito José and colleagues, with an educational gordon from [employer]. Thrive Questionnaire Date Thrive assessed: 12/01/23 I am a: Patient What is your living situation today?: I have a steady place to live Within the past 12 months, did the food you bought not last and you didn't have the money to get more?: Never true Within the past 12 months, did you worry whether your food would run out before you got money to buy more?: Never true Do you have trouble paying for medicines?: No Do you have trouble getting transportation to medical appointments?: No Do you have trouble paying your heating and electricity bill?: No Do you have trouble taking care of your child, family member or friend?: No Do you have trouble with day-to-day activities such as bathing, preparing meals, shopping, managing finances, etc.?: No Are you currently unemployed and looking for a job?: Yes Are you interested in more education?: No Please select the resources that you would like help with: None Currently or been in a relationship where the following occur: No concerns reported THRIVE Score: 0 AUDIT C Alcohol Use Questionnaire (AUDIT-C) 1. How often do you have a drink containing alcohol?: Never 2. How many drinks containing alcohol do you have on a typical day when you are drinking?: 1 or 2 3. How often do you have six or more drinks on one occasion?: Never Total Score: 0 CRISELDA-7 AMB Questionnaire CRISELDA-7 Date CRISELDA - 7 assessed: 11/19/23 Feeling nervous, anxious, or on edge: 1 = Several days Not being able to stop or control worryin = Several days Worrying too much about different things: 1 = Several days Trouble relaxin = Several days Being so restless that it is hard to sit still: 0 = Not at all Becoming easily annoyed or irritable: 2 = More than half the days Feeling afraid as if something awful might happen: 2 = More than half the days Total CRISELDA-7 score (0-4 normal; 5-9 mild; 10-14 moderate; 15-21 severe): 8 Source: Developed by Drs. Tristin Osborne, Ina Dorsey, Tito José and colleagues, with an educational gordon from [employer]. CRISELDA-7 Assessment Billing CRISELDA-7 Assessment Tool: CRISELDA-7 Assessment 70502 Review of Systems Const Denies chills, Denies fatigue, Denies headache(s) and Denies weight loss Eyes Denies change in vision, Denies diplopia and Denies eye pain ENT Denies vertigo, Denies dizziness, Denies headache(s) and Denies nasal discharge Card Denies chest pain, Denies rapid heart rate and Denies dyspnea on exertion Resp Denies chest congestion, Denies cough, Denies pain with cough and Denies dyspnea on exertion GI Denies abdominal pain, Denies hematochezia and Denies change in bowel habits Musc Denies myalgias, Denies arthralgias and Denies joint swelling Skin/Breast Denies lesions and Denies unusual bruising Neuro Denies vertigo, Denies dizziness, Denies headache(s) and Denies focal weakness Endo Denies fatigue Physical exam (Primary Care) Vital Signs: Last Vital Signs Pulse 65 06/10/24 09:41 BP 140/76 H 06/10/24 09:41 Pulse Ox 92 06/10/24 09:41 Oxygen Delivery Method Room Air 06/10/24 09:41 BMI result Body Mass Index 28.0 Tobacco/Smoking Status: Tobacco use Status Tobacco use date assessed 11/19/23 06/10/24 09:41 Patient Tobacco Use Status Former Tobacco user 06/10/24 09:41 Tobacco use type Cigarette 06/10/24 09:41 e-Cigarette/Vaping Use Former Use 06/10/24 09:41 PHQ-9: PHQ-9 Score PHQ-9: Total score 5 06/10/24 09:41 Depression Screening Interpretation: Negative Thrive Assessment: Date of Thrive Assessment Date Thrive assessed 12/01/23 06/10/24 09:41 Currently or been in a relationship where the following occur: No concerns reported Const General: cooperative, healthy appearing and no acute distress Orientation/consciousness: oriented to person, oriented to place and oriented to time HENMT Head: Yes normal to inspection, Yes normocephalic and Yes atraumatic Mouth: Normal oral and palatal mucosa present and tongue normal Throat: Yes posterior oropharynx normal and Yes uvula midline Eyes General: appearance normal, both eyes and all related structures Neck Neck: Yes normal visual inspection, Yes full ROM and Yes no lymphadenopathy Thyroid: Thyroid normal Carotids: normal carotid upstroke Chest Chest palpation & inspection: normal inspection of the chest Resp Effort & Inspection: normal respiratory effort and able to speak in complete sentences Auscultation: clear to auscultation bilaterally Cardio Jugular venous distension: no JVD Palpation: normal PMI Rate: regular rate Rhythm: regular rhythm Heart sounds: S1 normal heart sound present and S2 normal heart sound present GI Inspection: Yes normal to inspection Palpation (GI): Soft to palpation and No hepatosplenomegaly present Auscultation: normal bowel sounds General: Yes no CVA tenderness Back/Spine/Pelvis Back: no CVA tenderness Skin General skin exam: no rashes or lesions noted Neuro General: oriented to person, oriented to place and oriented to time Extrem General: Yes normal to inspection and Yes full ROM Coding Level of Care Code Est Pt Prev Care >65y(69702) Diagnoses Physical exam Z00.00 Primary hypertension I10 Hypertension type: primary hypertension Hyperlipidemia E78.5 Murmur, cardiac R01.1 Additional Codes CRISELDA-7 Assessment Billing - CRISELDA-7 Assessment Tool: CRISELDA-7 Assessment 80390 ([id number]) Assessment & Plan Assessment & Plan (1) Physical exam: Code(s): Z00.00 - Encounter for general adult medical examination without abnormal findings Category: Medical Plan: stable; do labs (2) Hypertension: Code(s): I10 - Essential (primary) hypertension Category: Medical Qualifiers: Hypertension type: primary hypertension Qualified Code(s): I10 - Essential (primary) hypertension Plan: stable; same rx (3) Hyperlipidemia: Code(s): E78.5 - Hyperlipidemia, unspecified Category: Medical Plan: stable; same rx (4) Murmur, cardiac: Code(s): R01.1 - Cardiac murmur, unspecified Category: Medical Plan: as per cardiology Medications: New amlodipine 5 mg PO DAILY 90 tabs 1RF Changed From amlodipine 2.5 mg PO DAILY 90 tabs 3RF To amlodipine 5 mg PO DAILY
== END 2024-06-10 10:07 | disposition home or self-care (01) ==
PROVIDERS: PCP Internal Medicine; Visit Provider Internal Medicine
DX: Z00.00 Encounter for general adult medical examination without abnormal findings (principal); I10 Essential (primary) hypertension; E78.5 Hyperlipidemia, unspecified; R01.1 Cardiac murmur, unspecified

== ENCOUNTER → 2024-06-10 09:38 | Outpatient (BNVA) | payer MEDICARE, SELFPAY | PROVIDERS: PCP Internal Medicine; Visit Provider Internal Medicine | DX: Z00.00 Encounter for general adult medical examination without abnormal findings (principal); I10 Essential (primary) hypertension; E78.5 Hyperlipidemia, unspecified; R01.1 Cardiac murmur, unspecified | CPT/HCPCS: 96127; 99397 ==

== ENCOUNTER 2024-08-06 07:59 | Outpatient (REF) | payer MEDICARE, SELFPAY ==
[2024-08-06 11:56] LABS: Cholesterol 149 mg/dL (<200); HDL Cholesterol 48 mg/dL (>40); LDL Cholesterol Calculated 80 mg/dL (<100); Triglycerides 109 mg/dL (<150)
== END 2024-08-06 08:00 | disposition home or self-care (01) ==
LOC: HO.WFDLDS 07:59
PROVIDERS: Visit Provider Internal Medicine Cardiovascular Disease
DX: E78.00 Pure hypercholesterolemia, unspecified (principal)
CPT/HCPCS: 36415; 80061

== ENCOUNTER 2024-11-20 11:05 | Observation (INO) | payer MEDICARE, SELFPAY ==
[2024-11-20] VITALS (9 sets, daily range): BP systolic 132–178; BP diastolic 72–101; PULSE 63–87; RESP 16–24; TEMP 36.4–37.1; O2SAT 93–98; BMI 27.7; BMI 26.5
--- NOTE | ~2024-11-20 | XR_ITS ---
EXAMINATION: XR CHEST 2 VIEWS HISTORY: SOB COMPARISON: Comparison is made with the prior examination dated 03/18/2024. FINDINGS: PA and lateral views of the chest are submitted. A left subclavian dual-chamber pacemaker is unchanged in position. The lungs are expanded and clear. There is no pleural effusion, pneumothorax, or pulmonary vascular congestion. The heart is normal in size. The bones are intact. XR/XR chest 2V IMPRESSION: No acute cardiopulmonary abnormality. Electronically signed by: Tristin Baker MD 11/20/2024 11:30 AM EDT
--- NOTE | 2024-11-20 11:08 | ED_ITS ---
HPI - URI/Sore Throat General Chief Complaint: Dyspnea Stated Complaint: Congestion, wheezing Time Seen by Provider: 11/20/24 14:21 Source: patient Mode of arrival: ambulatory Limitations: no limitations History of Present Illness ED Provider: DR. Otero HPI Narrative: 84-year-old male with history of mild , CAD, [place] 1997, CVA, HLD, HTN sent from his cardiothoracic surgeon's office for evaluation of shortness of breath for the past few days, with dry cough unable to bring up sputum despite using Mucinex, no recent sickness, no sick contacts, nonsmoker for over 30 years. No fever, no chills. Related Data Home Medications ?Medication ?Instructions ?Recorded ?Confirmed amlodipine 2.5 mg tablet 5 mg PO DAILY 06/10/24 06/10/24 Previous Rx's ?Medication ?Instructions ?Recorded aspirin 81 mg tablet,delayed 81 mg PO DAILY #90 tabs 11/21/21 release (Adult Low Dose Aspirin) coenzyme Q10 100 mg capsule (Co 100 mg PO DAILY #90 caps 11/19/23 Q-10) docusate sodium 100 mg capsule 100 mg PO BID PRN constipation #30 11/27/23 (Colace) caps albuterol sulfate 90 mcg/actuation 2 inh inhalation Q4-6H PRN 12/03/23 breath activated powder inhaler shortness of breath or wheezing #1 ea clopidogrel 75 mg tablet (Plavix) 75 mg PO DAILY #90 tabs 01/28/24 rosuvastatin 40 mg tablet (Crestor) 40 mg PO DAILY #90 tabs 01/28/24 lorazepam 1 mg tablet 1 mg PO TID PRN anxiety #30 tabs 07/23/24 amlodipine 5 mg tablet 5 mg PO DAILY #90 tabs 08/15/24 benzonatate 100 mg capsule 100 mg PO BID PRN cough #14 caps 10/29/24 Allergies Allergy/AdvReac Type Severity Reaction Status Date / Time No Known Allergies Allergy Verified 11/20/24 11:09 [No Known Allergies*] Review of Systems 2 Review of Systems: all other systems are reviewed and are negative Constitutional: Reports as per HPI and Reports no additional constitutional complaints Eyes: Reports as per HPI and Reports no additional eye complaints Reports system reviewed and no additional complaints, except as documented Cardiovascular: Reports as per HPI and Reports no additional cardiovascular complaints Respiratory: Reports as per HPI and Reports no additional respiratory complaints Gastrointestinal: Reports as per HPI and Reports no additional gastrointestinal complaints Genitourinary: Reports no additional female genitourinary complaints Musculoskeletal: Reports no additional musculoskeletal complaints Skin/Breast: Reports system reviewed and no additional complaints, except as docu Psychiatric: Reports no additional psychiatric complaints Endocrine: Reports no additional endocrine complaints Hematologic/Lymphatic: Reports no additional hematologic/lymphatic complaints Allergic/Immunologic: Reports no additional allergic/immunologic complaints Reports system reviewed and no additional complaints, except as documented and Reports Abnormal speech present [facility] Past Medical History Medical History Aortic stenosis HTN (hypertension) Renal cyst, right Hyperlipidemia Coronary artery disease Surgical History History of appendectomy (11/26/23) S/P cardiac pacemaker procedure History of colonoscopy History of left knee replacement History of cholecystectomy History of rectal fissure History of right inguinal hernia History of left inguinal hernia History of shoulder surgery Family History Family History Father No problems noted. Mother No problems noted. Social History Social History Household Members: Spouse Housing: House Are you a primary insurance healthcare representative to a significant other at home: No Do you presently have visiting nurse or other home services: No Alcohol intake: former Patient Tobacco Use Status: Former Tobacco user Tobacco use type: Cigarette Smoked in Last 30 Days: No e-Cigarette/Vaping Use: Former Use Second Hand Smoke Exposure: No Use of substances other than those prescribed or required for medical reasons: No Advance Directives: No Advance Directives Information Provided: Yes service: No Current occupational status: retired Current occupational exposures/hazards: No Cognitive needs: No Hearing needs: No Vision needs: Yes Physical Exam 2 Vital Signs: Vital Signs: Last Vital Signs Temp 97.7 F 11/20/24 11:30 Pulse 66 11/20/24 14:50 Resp 22 H 11/20/24 14:50 BP 153/77 H 11/20/24 11:30 Pulse Ox 98 11/20/24 14:05 O2 Del Method Room Air 11/20/24 14:05 BMI result Body Mass Index 27.7 Vital signs have been reviewed and appear to be correct. Blood pressure elevated. Heart rate normal. Respiratory rate normal. Temperature normal. Oxygen saturation normal. Appearance: Alert. Oriented X3. No acute distress. Head: Normal external exam. Normocephalic. Atraumatic. No Noel signs noted. No raccoon eyes noted Eyes: PERRLA. EOMI. Conjunctiva and sclera normal. Eyelids normal. ENT: TM's Normal. Pharynx normal. Uvula midline. Moist mucous membranes. No trismus noted. No drooling noted. No muffled voice noted. Neck: Normal inspection. Neck supple. FROM. No adenopathy. Thyroid Normal. No meningeal signs. No neck mass noted. CVS: Normal heart rate and rhythm. Heart sound normal. No murmurs noted. Pulses normal throughout. Respiratory: Mild respiratory distress. Painless inspiration. Breath sounds normal. prolonged expiration with diffuse expiratory wheezing. Chest nontender. No accessory muscle usage noted or decreased air movement noted. Abdomen: Soft and nontender. Bowel sounds normal in all 4 quadrants. No distention noted. No organomegaly noted. No visible injury noted. Back: No CVA tenderness. Full range of motion noted. Skin: Skin warm and dry. Normal skin color. Normal skin turgor. No rashes/lesions/lacerations noted. Extremities: No lower extremity edema. Extremities exhibit normal range of motion. Extremities nontender. Neuro: Oriented X 3. Cranial nerve exam: II-XII are grossly intact No motor deficit. No sensory deficit. Reflexes normal. Course Course Course Narrative: This is an RME: Additional HPI, ROS, PE not included below will be deferred to primary provider. RME assessment and note performed by: Thelma Charles PA-C 83-year-old male with history of mild aortic stenosis, coronary artery disease (remote history [place] 1997 with STEFANIE x1), hx CVA, hld, htn, on plavix who presents to the ER with complaints of chronic wheeze for several weeks. Pt with auditory wheeze noted. Lungs with inspiratory and expiratory wheezes. No known hx of CHF. nonsmoker > former smoker many years ago. No known hx of asthma or COPD. 4-5 word sentences. No LE swelling. Advised charge nurse to bring pt back soon. Oxygen saturation 93%. Plan: Labs, EKG, CXR, viral swabs, further ER eval needed Reevaluation(s) Reevaluation #1: 84-year-old male with no history of COPD/ asthma presented with 4 days of wheezing and difficulty breathing initially was seen patient was unable to talk in full sentence due to respiratory distress. Patient feel partial improvement with IV steroid, IV magnesium, and bronchodilator in the emergency department. Chest x-ray so showing no acute pulmonary inflammatory or infectious process no indication for antibiotic at this point. Will admit the patient for further bronchodilator therapy. Time: 16:38 Medications Administered Generic Name Dose Route Start Last Admin Trade Name Freq PRN Reason Stop Dose Admin Magnesium Sulfate 2 gm in 50 mls @ 25 mls/hr 11/20/24 14:42 11/20/24 15:15 Magnesium Sulfate/H2o IV 11/20/24 16:41 Infused ONCE ONE Infusion Discontinued Medications Generic Name Dose Route Start Last Admin Trade Name Freq PRN Reason Stop Dose Admin Albuterol Sulfate 2.5 mg/ 0 mg 11/20/24 14:42 11/20/24 14:49 Albuterol/Ipratropium 3 ml INHALE 11/20/24 14:43 1 dose ONCE ONE Administration Methylprednisolone Sodium Succinate 125 mg 11/20/24 14:32 11/20/24 14:52 Methylprednisolone Sod Succ 125 Mg/2 Ml Vial IVPUSH 11/20/24 14:33 125 mg ONCE ONE Administration Medical Decision Making Differential Diagnosis Differential Diagnoses: The differential diagnosis associated with the presentation includes ( Pneumonia, pneumothorax, pleural effusion, CHF, ACS, pulmonary embolism, severe anemia, electrolyte derangement.) Admission/Observation Consideration of admission/observation: Escalation of care including admission/observation considered Consult Healthcare Provider Management of the patient was discussed with: Hospitalist ( Dr. Day) Lab Data MDM Lab Attestation statement: I reviewed the patient's lab results. 11/20/24 11:42 11/20/24 11:42 Labs: Lab Results 11/20/24 Range/Units 11:42 WBC 6.4 (4.8-10.8) X10*3/uL RBC 4.95 (4.60-5.80) X10*6/uL Hgb 15.5 (14.0-18.0) g/dl Hct 42.7 (42.0-52.0) % MCV 86.3 (80.0-98.0) fL MCH 31.3 (27.0-33.0) pg MCHC 36.3 H (31.0-36.0) g/dl RDW 14.2 (11.0-16.0) % Plt Count 143 L (160-400) X10*3/uL MPV 9.3 L (9.4-12.4) fL Immature Gran % (Auto) 0.2 (0.0-0.4) % Neut % (Auto) 59.4 (45-73) % Lymph % (Auto) 20.8 (20-40) % [place] % (Auto) 7.5 (2-11) % Eos % (Auto) 11.3 H (0-4) % Baso % (Auto) 0.8 (0-2) % Lymph # (Auto) 1.3 (1.2-4.9) X10*3/uL [place] # (Auto) 0.5 (0.1-1.2) X10*3/uL Eos # (Auto) 0.7 H (0.0-0.4) X10*3/uL Baso # (Auto) 0.1 (0.0-0.2) X10*3/uL Abs Immat Gran (auto) 0.01 (0.00-0.03) X10*3/uL Absolute Neuts (auto) 3.8 (2.0-8.3) x10*3/uL Absolute Nucleated RBC 0.000 (0.0-0.012) X10*3/uL Nucleated RBC % (auto) 0.0 (0.0-0.2) /100WBC Sodium 140 (135-145) mmol/L Potassium 4.2 (3.3-5.1) mmol/L Chloride 107 (96-108) mmol/L Carbon Dioxide 26 (22-29) mmol/L Anion Gap 11 L (12-20) BUN 15 (9-16) mg/dL Creatinine 1.05 (0.5-1.4) mg/dL Estim Creat Clear Calc 52.9 Estimated GFR > 60 Random Glucose 103 (60-115) mg/dL Calcium 9.7 (8.4-10.2) mg/dL Magnesium 2.0 (1.6-2.6) mg/dL Total Bilirubin 0.9 (0.0-1.0) mg/dL Direct Bilirubin 0.3 (0.0-0.5) mg/dL AST 24 (5-37) U/L ALT 23 (0-40) U/L Alkaline Phosphatase 67 (39-117) U/L Troponin I High Sens 8.0 (<3.5-35.0) ng/L B-Natriuretic Peptide 50 (<100) pg/mL Total Protein 8.5 H (6.5-8.0) g/dL Albumin 4.2 (3.5-5.0) g/dL Influenza Type A (PCR) NEGATIVE (Negative) Influenza Type B (PCR) NEGATIVE (Negative) RSV RNA Qual (PCR) NEGATIVE (Negative) SARS-CoV-2 RNA (RT-PCR) NEGATIVE (Negative) Independent Interpretation I performed an independent interpretation of an: Plain X-Ray ( chest: No acute cardiopulmonary abnormality.) Radiology Impression Discussion of test interpretation with radiology: I have reviewed the radiologist's reading. Discharge Plan Discharge Clinical Impression: Acute respiratory distress, Acute bronchitis Patient Disposition: Admitted As Inpatient Print Language: Bulgarian
--- NOTE | 2024-11-20 11:11 | ECG_ITS ---
Test Reason : DYSPNEA Blood Pressure : */* mmHG Vent. Rate : 69 BPM Atrial Rate : 69 BPM P-R Int : 202 ms QRS Dur : 98 ms QT Int : 392 ms P-R-T Axes : 54 -25 58 degrees QTcB Int : 420 ms Atrial-paced rhythm Cannot rule out Anterior infarct (cited on or before 30-Nov-2023) Abnormal ECG When compared with ECG of 18-Mar-2024 13:50, No significant change was found Referred By: Thelma Charles Electronically Signed By: RANDA BRANCH
--- NOTE | 2024-11-20 11:40 | PC.NURSE ---
pt is alert and oriented, skin pwd, respirations slightly labored ranging from 22-26, auditory wheezing, pt reports feeling sob for about a month but really bad for the last 2-3 days, having a cough, pt reports sob gets worse with exertion and laying flat, very minim edema to the lower extremities like +1, vs stable and sating well
[2024-11-20 11:52] LABS: MANUAL DIFF FLAG NO
[2024-11-20 11:56] LABS: Basophils Absolute Auto 0.1 X10*3/uL (0.0-0.2); Basophils Percent Auto 0.8 % (0-2); Eosinophils Absolute Auto 0.7 X10*3/uL (0.0-0.4); Eosinophils Percent Auto 11.3 % (0-4); Hematocrit 42.7 % (42.0-52.0); Hemoglobin 15.5 g/dl (14.0-18.0); Imm Gran Abs Auto 0.01 X10*3/uL (0.00-0.03); Imm Gran Pct Auto 0.2 % (0.0-0.4); Lymphocytes Absolute Auto 1.3 X10*3/uL (1.2-4.9); Lymphocytes Percent Auto 20.8 % (20-40); Mean Corpuscular HGB Conc 36.3 g/dl (31.0-36.0); Mean Corpuscular Hemoglobin 31.3 pg (27.0-33.0); Mean Corpuscular Volume 86.3 fL (80.0-98.0); Mean Platelet Volume 9.3 fL (9.4-12.4); Monocytes Absolute Auto 0.5 X10*3/uL (0.1-1.2); Monocytes Percent Auto 7.5 % (2-11); Neutrophils Absolute Auto 3.8 x10*3/uL (2.0-8.3); Neutrophils Percent Auto 59.4 % (45-73); Platelet Count 143 X10*3/uL (160-400); Red Blood Count 4.95 X10*6/uL (4.60-5.80); Red Cell Distribution Width 14.2 % (11.0-16.0); White Blood Count 6.4 X10*3/uL (4.8-10.8)
[2024-11-20 12:14] LABS: Alanine Aminotransferase 23 U/L (0-40); Albumin Level 4.2 g/dL (3.5-5.0); Alkaline Phosphatase 67 U/L (39-117); Anion Gap 11 (12-20); Aspartate Amino Transferase 24 U/L (5-37); Bilirubin Direct 0.3 mg/dL (0.0-0.5); Bilirubin Total 0.9 mg/dL (0.0-1.0); Blood Urea Nitrogen 15 mg/dL (9-16); Calcium 9.7 mg/dL (8.4-10.2); Carbon Dioxide 26 mmol/L (22-29); Chloride 107 mmol/L (96-108); Creatinine Clr Calc Pharmacy 52.9; Estimated Glomerular Filt Rate > 60; Glucose Random 103 mg/dL (60-115); Potassium 4.2 mmol/L (3.3-5.1); Sodium 140 mmol/L (135-145); Total Protein 8.5 g/dL (6.5-8.0)
[2024-11-20 12:18] LABS: B Type Natriuretic Peptide 50 pg/mL (<100)
[2024-11-20 12:33] LABS: Influenza A PCR NEGATIVE (Negative); Influenza B PCR NEGATIVE (Negative); Resp Syncy Virus RNA Qual PCR NEGATIVE (Negative); SARS COV2 PCR INHOUSE NEGATIVE (Negative)
[2024-11-20] MEDS: Albuterol Sulfate 2.5 MG, Albuterol/Iprat 2.5/0.5MG 3 ML 3 ML INHALE (14:49)
[2024-11-20] MEDS: Magnesium Sulfate/H2O 2 GM/50 ML PIGGYBACK IV (14:52)
[2024-11-20] MEDS: methylPREDNISolone Sod Succ 125 MG/2 ML VIAL IVPUSH (14:52)
--- NOTE | 2024-11-20 15:20 | PC.NURSE ---
pt reports feeling better, no more audible wheezing heard
--- NOTE | 2024-11-20 16:56 | P.HPHOSP_ITS ---
History of Present Illness Date of Service: 11/20/24 Chief Complaint: shortness of breath The patient is an 84-year-old male with a history of coronary artery disease, hyperlipidemia, hypertension, aortic stenosis, and bradycardia with a pacemaker, who presented to the ED with worsening shortness of breath and wheezing. He has a baseline history of chronic wheezing, but symptoms were more pronounced today. Workup & ED Course: * Chest X-ray: Negative * RSV/Flu/COVID: Negative * BNP: 50 (low likelihood of acute heart failure) * ECG: No acute ischemic findings * Oxygen saturation: Initially 93% on room air, now 98% * Treatment: * Albuterol nebulizer * IV magnesium * IV Solu-Medrol Clinical status now: Significant improvement and patient feels much better. Will observe overnight Review of Systems 2 Review of Systems: Gen: no fever Resp: + sob, no cough CV: no chest, no ZARAGOZA, = leg edema GI: No n/v, no abd pain Neuro: No confusion Yes all other systems are reviewed and are negative [facility] Medical History Aortic stenosis HTN (hypertension) Renal cyst, right Hyperlipidemia Coronary artery disease Family History Father No problems noted. Mother No problems noted. Surgical History History of appendectomy (11/26/23) S/P cardiac pacemaker procedure History of colonoscopy History of left knee replacement History of cholecystectomy History of rectal fissure History of right inguinal hernia History of left inguinal hernia History of shoulder surgery Social History Household Members: Spouse Housing: House Are you a primary palliative care nurse practitioner to a significant other at home: No Do you presently have visiting nurse or other home services: No Alcohol intake: former Patient Tobacco Use Status: Former Tobacco user Tobacco use type: Cigarette Smoked in Last 30 Days: No e-Cigarette/Vaping Use: Former Use Second Hand Smoke Exposure: No Use of substances other than those prescribed or required for medical reasons: No Advance Directives: No Advance Directives Information Provided: Yes service: No Current occupational status: retired Current occupational exposures/hazards: No Cognitive needs: No Hearing needs: No Vision needs: Yes Meds Allergies Allergy/AdvReac Type Severity Reaction Status Date / Time No Known Allergies Allergy Verified 11/20/24 11:09 [No Known Allergies*] Home Medications ?Medication ?Instructions ?Recorded ?Confirmed ?Last Taken ?Type amlodipine 10 mg tablet 10 mg PO DAILY 11/20/24 Unknown History carvedilol 3.125 mg tablet 6.25 mg PO BID 11/20/24 Unknown History Physical Exam 2 Vital Signs and Narrative: Vital Signs: Last Vital Signs Temp 97.7 F 11/20/24 11:30 Pulse 66 11/20/24 14:50 Resp 22 H 11/20/24 14:50 BP 153/77 H 11/20/24 11:30 Pulse Ox 98 11/20/24 14:05 O2 Del Method Room Air 11/20/24 14:05 BMI result Body Mass Index 27.7 Const: Other: General: AO X 3, no acute distress, speaks in full sentences Resp: exp wheezes, no accessory muscle use, CVS: S1,S2,RRR GI: +BS, NT, no distention Skin: No rash Neuro: motor grossly intact Psych: appropriate affect Results Labs 11/20/24 11:42 11/20/24 11:42 Labs: Laboratory Results - last 24 hr 11/20/24 11:42 MCV 86.3 MCH 31.3 MCHC 36.3 H RDW 14.2 Plt Count 143 L MPV 9.3 L Immature Gran % (Auto) 0.2 Neut % (Auto) 59.4 Lymph % (Auto) 20.8 [place] % (Auto) 7.5 Eos % (Auto) 11.3 H Baso % (Auto) 0.8 Lymph # (Auto) 1.3 [place] # (Auto) 0.5 Eos # (Auto) 0.7 H Baso # (Auto) 0.1 Abs Immat Gran (auto) 0.01 Absolute Neuts (auto) 3.8 Absolute Nucleated RBC 0.000 Nucleated RBC % (auto) 0.0 Anion Gap 11 L Estim Creat Clear Calc 52.9 Estimated GFR > 60 Random Glucose 103 Calcium 9.7 Magnesium 2.0 Total Bilirubin 0.9 Direct Bilirubin 0.3 AST 24 ALT 23 Alkaline Phosphatase 67 B-Natriuretic Peptide 50 Total Protein 8.5 H Albumin 4.2 Influenza Type A (PCR) NEGATIVE Influenza Type B (PCR) NEGATIVE RSV RNA Qual (PCR) NEGATIVE SARS-CoV-2 RNA (RT-PCR) NEGATIVE Imaging Radiologist's Impressions: Impressions Chest X-Ray 11/20/24 11:11 IMPRESSION: No acute cardiopulmonary abnormality. Electronically signed by: Tristin Baker MD 11/20/2024 11:30 AM EDT RP Assessment and Plan (1) Reactive airway disease: Status: Acute Plan 84-year-old male with history of coronary artery disease, hyperlipidemia, hypertension, aortic stenosis w, h/o bradycardia, has pace maker here with sob, wheezing Sob/wheezing, Given his improvement with bronchodilator and steroid therapy, his symptoms are likely related to reactive airway disease or COPD/asthma exacerbation rather than acute cardiac etiology. Observe, treat with bronchodilators, steroid (Prednisone 40 daily) and PRN cough medication. No indication for Abx at this time. HTN continue Coreg and amlodipine HLD statin h/o CVA ASA + Plavix Anxiety Ativan PRN DVT prophylaxis--heparin Full code, plan discussed with and patient likely dc in the morning. Quality Stroke Does the patient have a stroke diagnosis?: No VTE Prior VTE?: No VTE Risk Level:: Medical - moderate - high VTE Device Contraindication: Treatment Not Indicated VTE Drug Contraindication: N/A - Med Ordered
--- NOTE | 2024-11-20 17:43 | PHA.MEDREC ---
Addendum entered by Tanya Samayoa RPh 11/20/24 17:54: reviewed by [facility]. Original Note: Pharmacy Consult ? Medication Reconciliation Pharmacy has completed the medication reconciliation. Spoke with patient and patient at bedside and they were able to confirm the patients medications. Patient confirmed he took his medications this morning.
[2024-11-20] MEDS: Albuterol/Iprat 2.5/0.5MG 3 ML AMPUL.NEB INHALE (20:00)
[2024-11-20] MEDS: carvediloL 6.25 MG TABLET PO (20:58)
[2024-11-20] MEDS: Heparin Sodium,Porcine 5,000 UNIT/ML VIAL 5000 UNIT SUBCUT (20:59)
[2024-11-20] MEDS: Atorvastatin Calcium 80 MG TABLET PO (20:59)
[2024-11-20] MEDS: 0.9 % Sodium Chloride Flush 3 ML SYRINGE IVFLUSH (23:41)
[2024-11-21 03:45] VITALS: BP 132/82; PULSE 78; RESP 18; TEMP 36; O2SAT 92
[2024-11-21] MEDS: Albuterol/Iprat 2.5/0.5MG 3 ML AMPUL.NEB INHALE (07:33)
[2024-11-21 07:37] VITALS: PULSE 72; RESP 15; O2SAT 96
[2024-11-21 08:13] VITALS: BP 160/84; PULSE 58; RESP 18; TEMP 36.4; O2SAT 97
--- NOTE | 2024-11-21 09:13 | P.DS_ITS ---
DS: Providers Provider Date of Service: 11/21/24 Date of admission: 11/20/24 17:13 Date of discharge: 11/21/24 Primary care physician: Cade Perez MD DS: Diagnosis Discharge Diagnosis (1) Reactive airway disease: Status: Acute DS: Summary Hospital Course Hospital Course: admission hpi Chief Complaint: shortness of breath The patient is an 84-year-old male with a history of coronary artery disease, hyperlipidemia, hypertension, aortic stenosis, and bradycardia with a pacemaker, who presented to the ED with worsening shortness of breath and wheezing. He has a baseline history of chronic wheezing, but symptoms were more pronounced today. Workup & ED Course: * Chest X-ray: Negative * RSV/Flu/COVID: Negative * BNP: 50 (low likelihood of acute heart failure) * ECG: No acute ischemic findings * Oxygen saturation: Initially 93% on room air, now 98% * Treatment: * Albuterol nebulizer * IV magnesium * IV Solu-MedrolClinical status now: Significant improvement and patient feels much better. Will observe overnight Hospital course: Patient was observed overnight and treated with bronchodilators by Nebs scheduled and PRN, Prendnisone and cough medication and by the next morning was feeling much better with clear lungs. He is being discharged with oral Prednisone 40 mg daily for a total of 5 days of steroid, albuterol inhalers as needed and follow up with PCP Final diagnosis: Acute reactive airway disease likely from a viral bronchitis. Time Attestation Discharge Coordination Time (in mins): 35 Quality: Safe Use of Opioids Does Pt have an Active Cancer Diagnosis on the Problem List?: No Quality: Stroke Does the patient have a stroke diagnosis?: No Physical Exam Vital Signs: Vital Signs: Last Vital Signs Temp 97.6 F 11/21/24 08:13 Pulse 58 11/21/24 08:13 Resp 18 11/21/24 08:13 BP 160/84 H 11/21/24 08:13 Pulse Ox 97 11/21/24 08:13 O2 Del Method Room Air 11/21/24 08:13 BMI result Body Mass Index 26.5 DS: Data Data Completed and Pending Completed studies during hospitalization [Text1]: Procedures Resection of Appendix, Percutaneous Endoscopic Approach (11/25/23) Transfusion of Nonautologous Platelets into Peripheral Vein, Percutaneous Approach (11/25/23) Labs on day of discharge: Laboratory Results - last 24 hr 11/20/24 11:42 WBC 6.4 RBC 4.95 Hgb 15.5 Hct 42.7 MCV 86.3 MCH 31.3 MCHC 36.3 H RDW 14.2 Plt Count 143 L MPV 9.3 L Immature Gran % (Auto) 0.2 Neut % (Auto) 59.4 Lymph % (Auto) 20.8 [place] % (Auto) 7.5 Eos % (Auto) 11.3 H Baso % (Auto) 0.8 Lymph # (Auto) 1.3 [place] # (Auto) 0.5 Eos # (Auto) 0.7 H Baso # (Auto) 0.1 Abs Immat Gran (auto) 0.01 Absolute Neuts (auto) 3.8 Absolute Nucleated RBC 0.000 Nucleated RBC % (auto) 0.0 Sodium 140 Potassium 4.2 Chloride 107 Carbon Dioxide 26 Anion Gap 11 L BUN 15 Creatinine 1.05 Estim Creat Clear Calc 52.9 Estimated GFR > 60 Random Glucose 103 Calcium 9.7 Magnesium 2.0 Total Bilirubin 0.9 Direct Bilirubin 0.3 AST 24 ALT 23 Alkaline Phosphatase 67 Troponin I High Sens 8.0 B-Natriuretic Peptide 50 Total Protein 8.5 H Albumin 4.2 Influenza Type A (PCR) NEGATIVE Influenza Type B (PCR) NEGATIVE RSV RNA Qual (PCR) NEGATIVE SARS-CoV-2 RNA (RT-PCR) NEGATIVE Discharge Plan Discharge Anticipated Discharge Date/Time: 11/21/24 09:19 Patient Disposition: Home, Self-Care Discharge Diagnosis: acute bronchitis and reactive airway disease, Referrals: Cade Perez MD [Primary Care Provider] - 1 Week Discharge Medications: New albuterol sulfate [Ventolin HFA] 90 mcg/actuation Hfa Aerosol Inhaler 2 puff inhalation RQ4H PRN (Reason: shortness of breath and wheezing) Qty: 1 0RF prednisone 20 mg tablet 40 mg PO DAILY Qty: 6 0RF Continued aspirin [Adult Low Dose Aspirin] 81 mg tablet,delayed release (DR/EC) 81 mg PO DAILY Qty: 90 8RF coenzyme Q10 [Co Q-10] 100 mg capsule 100 mg PO DAILY Qty: 90 3RF clopidogrel [Plavix] 75 mg tablet 75 mg PO DAILY Qty: 90 3RF docusate sodium [Colace] 100 mg capsule 100 mg PO BID PRN (Reason: constipation) Qty: 30 0RF carvedilol 3.125 mg tablet 6.25 mg PO BID amlodipine 10 mg tablet 10 mg PO DAILY Systane (PF) 0.4-0.3 % Dropperette 1 drp OPHTHALMIC (EYE) QID rosuvastatin [Crestor] 40 mg tablet 40 mg PO BEDTIME Discharge Orders: Discharge Order (Routine); Ordered 11/21/24 Ordered By: Mason Day Diet: Advance to usual diet Activity on Discharge: As tolerated Stand Alone Forms: Patient Portal Discharge page Print Language: Ukrainian Care Plan Goals: recovery from viral bronchitis and reactive airway disease Health Concerns: viral bronchitis, reactive airway disease Plan of Treatment: Use albuterol inhalers as needed for shortness of breath and wheezing take Prednisone for 3 more days, next dose tomorrow Assessment: see above
--- NOTE | 2024-11-21 09:38 | MHC.CM.PN ---
IMELDA 11/21/24 DX Viral Bronchitis Patient lives with his . He is independent with all functional mobility. No DME No services. A new HCP has been documented and scanned into his EMR. DP home self care transport. DIscharge order received, home today.
[2024-11-21 10:12] VITALS: BP 160/84; PULSE 58
[2024-11-21] MEDS: Clopidogrel Bisulfate 75 MG TABLET PO (10:12)
[2024-11-21] MEDS: amLODIPine Besylate 10 MG TABLET PO (10:12)
[2024-11-21] MEDS: carvediloL 6.25 MG TABLET PO (10:12)
[2024-11-21] MEDS: Aspirin Enteric Coated 81 MG TABLET.DR PO (10:12)
[2024-11-21] MEDS: predniSONE 20 MG TABLET 40 MG PO (10:12)
== END 2024-11-21 12:07 | disposition home or self-care (01) ==
LOC: HO.ED 16:37 → HO.EDOVER 17:25 → HO.S3 19:23
PROVIDERS: Physician Assistant Medical; Admitting Provider Internal Medicine; Emergency Provider Emergency Medicine; PCP Internal Medicine; Visit Provider Internal Medicine
DX: J40 Bronchitis, not specified as acute or chronic (principal); R06.03 Acute respiratory distress; R05.9 Cough, unspecified; I25.10 Atherosclerotic heart disease of native coronary artery without angina pectoris; I25.2 Old myocardial infarction; I10 Essential (primary) hypertension; E78.5 Hyperlipidemia, unspecified; I35.0 Nonrheumatic aortic (valve) stenosis; R00.1 Bradycardia, unspecified; Z95.0 Presence of cardiac pacemaker; Z79.899 Other long term (current) drug therapy; Z86.73 Personal history of transient ischemic attack (TIA), and cerebral infarction without residual deficits; Z03.818 Encounter for observation for suspected exposure to other biological agents ruled out
CPT/HCPCS: 0241U; 36415; 71046; 80048; 80076; 83735; 83880; 84484; 85025; 93005; 94640; 96365; 96372; 96375; 99221; 99285; J1644; J2919; J3475

== ENCOUNTER → 2024-11-20 11:11 | Outpatient (BNV) | payer MEDICARE, SELFPAY | PROVIDERS: Admitting Provider Internal Medicine; Emergency Provider Emergency Medicine; PCP Internal Medicine; Visit Provider Internal Medicine | DX: R94.31 Abnormal electrocardiogram [ECG] [EKG] (principal); Z95.0 Presence of cardiac pacemaker | CPT/HCPCS: 93010 ==

== ENCOUNTER → 2024-11-20 11:11 | Outpatient (BNV) | payer MEDICARE, SELFPAY | PROVIDERS: PCP Internal Medicine; Visit Provider Radiology Diagnostic Radiology | DX: R06.02 Shortness of breath (principal); R06.2 Wheezing | CPT/HCPCS: 71046 ==

== ENCOUNTER → 2024-11-20 11:14 | Outpatient (BNV) | payer MEDICARE, SELFPAY | PROVIDERS: Emergency Provider Emergency Medicine; PCP Internal Medicine; Visit Provider Internal Medicine | DX: J45.909 Unspecified asthma, uncomplicated (principal) | CPT/HCPCS: 99222 ==

== ENCOUNTER 2024-11-28 08:36 | Outpatient (AMB) | payer MEDICARE, SELFPAY ==
[2024-11-28 08:51] VITALS: BP 126/70; PULSE 64; TEMP 36.6; O2SAT 95; BMI 28.2
--- NOTE | 2024-11-28 08:51 | A.OFFPC_ITS ---
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 Pmhx significant for coronary artery disease, hyperlipidemia, hypertension, aortic stenosis, and bradycardia with a pacemaker. Pt was admitted at [facility] on 11/20-11/21 due to Acute Bronchitis. Patient was observed overnight at the hospital and treated with bronchodilators by Nebs scheduled, Prendnisone and cough medication. Was discharged home on oral Prednisone 40 mg daily for a total of 5 days and, albuterol inhalers as needed. [facility] Medical History Aortic stenosis HTN (hypertension) Renal cyst, right Hyperlipidemia Coronary artery disease Surgical History History of appendectomy (11/26/23) S/P cardiac pacemaker procedure History of colonoscopy History of left knee replacement History of cholecystectomy History of rectal fissure History of right inguinal hernia History of left inguinal hernia History of shoulder surgery Family History Father No problems noted. Mother No problems noted. Social History Household Members: Spouse Housing: House Are you a primary critical care paramedic to a significant other at home: No Do you presently have visiting nurse or other home services: No Alcohol intake: former Patient Tobacco Use Status: Former Tobacco user Tobacco use type: Cigarette e-Cigarette/Vaping Use: Former Use Second Hand Smoke Exposure: No service: No Current occupational status: retired Current occupational exposures/hazards: No Cognitive needs: No Hearing needs: No Vision needs: Yes Questionnaire PHQ-9 Over the last 2 weeks, how often have you been bothered by any of the following problems? 1. Little interest or pleasure in doing things: not at all 2. Feeling down, depressed, or hopeless: not at all 3. Trouble falling or staying asleep, or sleeping too much: not at all 4. Feeling tired or having little energy: not at all 5. Poor appetite or overeating: not at all 6. Feeling bad about yourself - or that you are a failure or have let yourself or your family down: not at all 7. Trouble concentrating on things, such as reading the newspaper or watching television: not at all 8. Moving or speaking so slowly that other people could have noticed. Or the opposite - being so fidgety or restless that you have been moving around a lot more than usual: not at all 9. Thoughts that you would be better off or of hurting yourself in some way: not at all Total score: 0 Depression Screening Interpretation: Negative Depression Screening Done: Yes 86074 - PHQ-9 Billing: Yes Source: Developed by Drs. Tristin Osborne, Ina Dorsey, Tito José and colleagues, with an educational gordon from [employer]. Thrive Questionnaire Date Thrive assessed: 11/28/24 I am a: Patient What is your living situation today?: I have a steady place to live Within the past 12 months, did the food you bought not last and you didn't have the money to get more?: Never true Within the past 12 months, did you worry whether your food would run out before you got money to buy more?: Never true Do you have trouble paying for medicines?: No Do you have trouble getting transportation to medical appointments?: No Do you have trouble paying your heating and electricity bill?: No Do you have trouble taking care of your child, family member or friend?: No Do you have trouble with day-to-day activities such as bathing, preparing meals, shopping, managing finances, etc.?: No Are you currently unemployed and looking for a job?: Yes Are you interested in more education?: No Please select the resources that you would like help with: None Currently or been in a relationship where the following occur: No concerns reported THRIVE Score: 0 AUDIT C Alcohol Use Questionnaire (AUDIT-C) 2. How many drinks containing alcohol do you have on a typical day when you are drinking?: 1 or 2 3. How often do you have six or more drinks on one occasion?: Never Total Score: 0 CRISELDA-7 AMB Questionnaire CRISELDA-7 Date CRISELDA - 7 assessed: 11/28/24 Feeling nervous, anxious, or on edge: 0 = Not at all Not being able to stop or control worryin = Not at all Worrying too much about different things: 0 = Not at all Trouble relaxin = Not at all Being so restless that it is hard to sit still: 0 = Not at all Becoming easily annoyed or irritable: 0 = Not at all Feeling afraid as if something awful might happen: 0 = Not at all Total CRISELDA-7 score (0-4 normal; 5-9 mild; 10-14 moderate; 15-21 severe): 0 Source: Developed by Drs. Tristin Osborne, Ina Dorsey, Tito José and colleagues, with an educational gordon from [employer]. CRISELDA-7 Assessment Billing CRISELDA-7 Assessment Tool: CRISELDA-7 Assessment 76306 Review of Systems Const All systems reviewed & are unremarkable except as noted in HPI and below Physical exam (Primary Care) Vital Signs: Last Vital Signs Temp 97.8 F 11/28/24 08:51 Pulse 64 11/28/24 08:51 BP 126/70 11/28/24 08:51 Pulse Ox 95 11/28/24 08:51 Oxygen Delivery Method Room Air 11/28/24 08:51 BMI result Body Mass Index 28.2 Tobacco/Smoking Status: Tobacco use Status Tobacco use date assessed 11/28/24 11/28/24 08:59 Patient Tobacco Use Status Former Tobacco user 11/28/24 08:59 Tobacco use type Cigarette 11/28/24 08:59 e-Cigarette/Vaping Use Former Use 11/28/24 08:59 PHQ-9: PHQ-9 Score PHQ-9: Total score 0 11/28/24 08:59 Depression Screening Interpretation: Negative Thrive Assessment: Date of Thrive Assessment Date Thrive assessed 11/28/24 11/28/24 08:59 Currently or been in a relationship where the following occur: No concerns reported Const General: cooperative Nutritional Appearance: well nourished Orientation/consciousness: patient oriented x3 Resp Effort & Inspection: normal respiratory effort and able to speak in complete sentences Auscultation: clear to auscultation bilaterally, no crackles, no rales, no rhonchi and no wheezes Cardio Heart sounds: S1 normal heart sound present and S2 normal heart sound present Neuro General: patient oriented x3, gait normal and moves all extremities Psych Speech and movement: Normal speech and movement present Coding Level of Care Code TCM Mod MDM <= 7 Days Diagnoses Moderate persistent reactive airway disease with acute exacerbation J45.41 Asthma severity: moderate Asthma persistence: persistent Asthma complication type: with acute exacerbation Acute bronchitis, unspecified organism J20.9 Bronchitis organism: unspecified organism Additional Codes CRISELDA-7 Assessment Billing - CRISELDA-7 Assessment Tool: CRISELDA-7 Assessment 67252 ([id number]) PHQ-9 - 17924 - PHQ-9 Billing: Yes ([id number]) Time Spent (min) 20 Assessment & Plan Assessment & Plan (1) Reactive airway disease: Code(s): J45.909 - Unspecified asthma, uncomplicated Category: Medical Qualifiers: Asthma severity: moderate Asthma persistence: persistent Asthma complication type: with acute exacerbation Qualified Code(s): J45.41 - Moderate persistent asthma with (acute) exacerbation Plan: Resolved. Will continue to monitor. (2) Acute bronchitis: Code(s): J20.9 - Acute bronchitis, unspecified Category: Medical Qualifiers: Bronchitis organism: unspecified organism Qualified Code(s): J20.9 - Acute bronchitis, unspecified Plan: Resolved. Will continue to monitor
== END 2024-11-28 09:44 | disposition home or self-care (01) ==
LOC: HO.HMCH 08:36
PROVIDERS: PCP Internal Medicine; Visit Provider Nurse Practitioner Family
DX: J45.41 Moderate persistent asthma with (acute) exacerbation (principal); J20.9 Acute bronchitis, unspecified

== ENCOUNTER → 2024-11-28 08:36 | Outpatient (BNVA) | payer MEDICARE, SELFPAY | PROVIDERS: PCP Internal Medicine; Visit Provider Nurse Practitioner Family | DX: J45.41 Moderate persistent asthma with (acute) exacerbation (principal); J20.9 Acute bronchitis, unspecified | CPT/HCPCS: 96127; 99212 ==

== ENCOUNTER 2024-12-10 13:33 | Outpatient (AMB) | payer MEDICARE, SELFPAY ==
--- NOTE | 2024-12-10 13:50 | A.OFFPC_ITS ---
Vital Signs 12/10/24 13:51 Height 5 ft 8 in Weight 185 lb BMI 28.1 BP 140/82 H Blood Pressure Location Lt brachial Position Sitting Pulse 89 Pulse Source Pulse Oximeter Temp 97.1 F Temp Source Temporal Artery Scan Pulse Oximetry (%) 95 Oxygen Delivery Method Room Air Intake Visit Reasons: shortness of breath Electrical Accessories Assembler Required: No Accompanied by: Spouse Allergies No Known Allergies [No Known Allergies*] Allergy (Verified 12/10/24 14:09) Medication List - Last Reconciled 12/10/24 by Jaycob Rader PA-C albuterol sulfate 90 mcg/actuation (Ventolin HFA) 2 puffs inhalation RQ4H PRN amlodipine 10 mg PO DAILY aspirin (Adult Low Dose Aspirin) 81 mg PO DAILY carvedilol 6.25 mg PO BID clopidogrel (Plavix) 75 mg PO DAILY coenzyme Q10 (Co Q-10) 100 mg PO DAILY docusate sodium (Colace) 100 mg PO BID PRN peg 400-propylene glycol (PF) 0.4-0.3 % (Systane (PF)) 1 drp ophthalmic (eye) QID rosuvastatin (Crestor) 40 mg PO BEDTIME Tobacco use date assessed: 11/28/24 Fall risk assessment: No Falls in past year Last assessed Fall Risk: 12/10/24 Dental Screening Dental Screen Date: 11/28/24 HPI shortness of breath HPI Details Patient is an 84-year-old male here today for problem visit. This is my 1st time meeting this 84-year-old male with a past medical history significant for CVA, aortic stenosis, PACEMAKER, hypertension, reactive airway disease. Patient was seen at [facility] for acute shortness of breath wheeze. Chest x- ray was normal, EKGs stable atrial paced. Despite an initial improvement with prednisone, he reports ongoing wheezing, particularly during exertion and in the mornings. A recent chest x-ray showed no concerning lung findings. The patient uses an albuterol inhaler, which recently ran out, and initially responded well to prednisone. No swelling in the legs or new medication changes have been noted. [facility] Medical History Aortic stenosis HTN (hypertension) Renal cyst, right Hyperlipidemia Coronary artery disease Surgical History History of appendectomy (11/26/23) S/P cardiac pacemaker procedure History of colonoscopy History of left knee replacement History of cholecystectomy History of rectal fissure History of right inguinal hernia History of left inguinal hernia History of shoulder surgery Family History Father No problems noted. Mother No problems noted. Social History Household Members: Spouse Housing: House Are you a primary child care nurse to a significant other at home: No Do you presently have visiting nurse or other home services: No Alcohol intake: former Patient Tobacco Use Status: Former Tobacco user Tobacco use type: Cigarette e-Cigarette/Vaping Use: Former Use Second Hand Smoke Exposure: No service: No Current occupational status: retired Current occupational exposures/hazards: No Cognitive needs: No Hearing needs: No Vision needs: Yes Questionnaire Thrive Questionnaire Date Thrive assessed: 11/28/24 CRISELDA-7 AMB Questionnaire CRISELDA-7 Date CRISELDA - 7 assessed: 11/28/24 Source: Developed by Drs. Tristin Osborne, Ina Dorsey, Tito José and colleagues, with an educational gordon from [employer]. Review of Systems Const Denies headache(s) Eyes Denies loss of vision ENT Denies vertigo, Denies dizziness, Denies headache(s) and Denies sore throat Card Denies chest pain, Denies leg edema and Denies lightheadedness Resp Denies cough, Denies hemoptysis and Denies wheezing GI Denies abdominal pain, Denies melena, Denies constipation, Denies diarrhea and Denies vomiting Denies dysuria, Denies urinary frequency and Denies urinary urgency Musc Denies arthralgias, Denies joint swelling, Denies numbness and Denies tingling Neuro Denies Abnormal speech present, Denies behavioral changes, Denies vertigo, Denies dizziness, Denies headache(s), Denies loss of vision, Denies memory loss, Denies numbness and Denies tingling Psych Denies anxiety, Denies behavioral changes, Denies depression, Denies memory loss and Denies panic attacks Manoj/Lymph Denies easy bleeding and Denies easy bruising Aller/Immun Denies wheezing Physical exam (Primary Care) Vital Signs: Last Vital Signs Temp 97.1 F 12/10/24 13:51 Pulse 89 12/10/24 13:51 BP 140/82 H 12/10/24 13:51 Pulse Ox 95 12/10/24 13:51 Oxygen Delivery Method Room Air 12/10/24 13:51 BMI result Body Mass Index 28.1 Tobacco/Smoking Status: Tobacco use Status Tobacco use date assessed 11/28/24 12/10/24 13:54 Patient Tobacco Use Status Former Tobacco user 12/10/24 13:54 Tobacco use type Cigarette 12/10/24 13:54 e-Cigarette/Vaping Use Former Use 12/10/24 13:54 Thrive Assessment: Date of Thrive Assessment Date Thrive assessed 11/28/24 12/10/24 13:54 Const General: healthy appearing, no acute distress, alert and awake Nutritional Appearance: well nourished Orientation/consciousness: oriented to person, oriented to place and oriented to time HENMT Ears: TM's normal bilaterally General nose exam: Normal nasal mucous membranes and turbinates present Eyes Conjunctivae: conjunctivae normal Sclerae: sclerae normal Pupils: Equal, round and reactive pupils present Neck Neck: Yes no lymphadenopathy and Yes no JVD Thyroid: Thyroid normal Carotids: no bruits Resp Other: NOTABLE WHEEZE OVER THE UPPER AIRWAYS Effort & Inspection: normal respiratory effort and not tachypneic Auscultation: no crackles, no rales, no rhonchi and wheezes Cardio Rate: regular rate Rhythm: regular rhythm Heart sounds: no murmurs and normal S1 and S2 GI Palpation (GI): Soft to palpation, nontender, no hepatomegaly and no splenomegaly Auscultation: normal bowel sounds Skin General skin exam: no rashes or lesions noted and dry skin Neuro General: oriented to person, oriented to place and oriented to time Cranial nerves: Yes Equal, round and reactive pupils present Speech: No Abnormal speech present Gait exam (Neuro): Normal gait present Motor exam (neuro): no tremor noted Extrem Right upper extremity: full ROM Left upper extremity: full ROM Right lower extremity: full ROM; no edema Left lower extremity: full ROM; no edema Psych Mental Status: mental status grossly normal Speech and movement: Normal speech and movement present Affect: normal affect Attitude: cooperative Thought process: Normal thought process present Coding Level of Care Code Est Pt Level 3 (33748) Diagnoses Acute bronchitis, unspecified organism J20.9 Bronchitis organism: unspecified organism Assessment & Plan Assessment & Plan (1) Acute bronchitis: Code(s): J20.9 - Acute bronchitis, unspecified Category: Medical Qualifiers: Bronchitis organism: unspecified organism Qualified Code(s): J20.9 - Acute bronchitis, unspecified Plan: I have prescribed a tapering course of prednisone to address inflammation and ease breathing difficulties. This approach follows a previous favorable response to steroid treatment. Benefits include reduced inflammation, while risks such as potential side effects were discussed. Continuation of the albuterol inhaler was advised, with a new prescription sent to his pharmacy. Albuterol offers quick relief and aids in lung expansion, crucial for symptomatic wheezing control. Medications: New prednisone Take 3 tablets x4 days, 2 tablets x4 days, 1 tablet x4 days 10 mg PO DIRECTED 12 days 24 tabs 0RF J20.9 - Acute bronchitis, unspecified Changed From albuterol sulfate 90 mcg/actuation (Ventolin HFA) 2 puffs inhalation RQ4H PRN 1 g 0RF shortness of breath and wheezing J20.9 - Acute bronchitis, unspecified To albuterol sulfate 90 mcg/actuation (Ventolin HFA) 2 puffs inhalation RQ4H 30 days PRN 8.5 grams 0RF shortness of breath and wheezing J20.9 - Acute bronchitis, unspecified
[2024-12-10 13:51] VITALS: BP 140/82; PULSE 89; TEMP 36.2; O2SAT 95; BMI 28.1
== END 2024-12-10 14:22 | disposition home or self-care (01) ==
LOC: HO.HMCH 13:34
PROVIDERS: PCP Internal Medicine; Visit Provider Physician Assistant
DX: J20.9 Acute bronchitis, unspecified (principal)

== ENCOUNTER → 2024-12-10 13:33 | Outpatient (BNVA) | payer MEDICARE, SELFPAY | PROVIDERS: PCP Internal Medicine; Visit Provider Physician Assistant | DX: J20.9 Acute bronchitis, unspecified (principal) | CPT/HCPCS: 99212 ==

== ENCOUNTER 2025-01-04 09:44 | Emergency (ER) | payer MEDICARE, SELFPAY ==
--- NOTE | ~2025-01-04 | XR_ITS ---
CLINICAL HISTORY: sob, wheezing 2 view chest Comparison: CR/SR - XR CHEST 2V - 11/20/24 11:19 EDT CR/DE/SR - XR CHEST 2V - 03/18/24 14:07 EDT Findings: No consolidation or pneumothorax/pleural effusion. Mild peribronchial wall thickening. Cardiomediastinal silhouette is normal. Dual-chamber pacemaker. No mediastinal shift or tracheal deviation. Osseous structures intact. Impression: 1. Mild central bronchial wall thickening. 2. No airspace disease. This document has been electronically signed by: Darien Vasquez MD on 01/04/2025 11:52:41
[2025-01-04 09:46] VITALS: BP 158/85; PULSE 99; RESP 18; TEMP 36.6; O2SAT 89; BMI 24.9
--- NOTE | 2025-01-04 09:55 | ECG_ITS ---
Test Reason : SOB Blood Pressure : */* mmHG Vent. Rate : 67 BPM Atrial Rate : 67 BPM P-R Int : 214 ms QRS Dur : 74 ms QT Int : 366 ms P-R-T Axes : -37 -28 -22 degrees QTcB Int : 386 ms Atrial-paced rhythm with prolonged AV conduction Inferior infarct , age undetermined Anterior infarct (cited on or before 30-Nov-2023) T wave abnormality, consider lateral ischemia Abnormal ECG When compared with ECG of 20-Nov-2024 11:29, Lateral leads with T inversion Referred By: Emilee Merida Electronically Signed By: RANDA BRANCH
--- NOTE | 2025-01-04 09:57 | ED_ITS ---
HPI - URI/Sore Throat General Chief Complaint: Upper Respiratory Symptoms Stated Complaint: bronchitis Time Seen by Provider: 01/04/25 09:50 Source: patient and family () Mode of arrival: ambulatory Limitations: no limitations History of Present Illness ED Provider: EMILEE MERIDA PA-C HPI Narrative: 84-year-old male with pmhx significant for CAD, DC s/p STEFANIE in 1997, hyperlipidemia, hypertension, aortic stenosis, bradycardia status post pacemaker presents to the ED today for evaluation of worsening shortness of breath and cough x2-3 days. Patient was evaluated at our facility on 11/20/2024, diagnosed with acute bronchitis and was admitted to the hospital for treatment with IV steroids with improvement. He was not treated with any antibiotics at that time. He was then re-evaluated by his PCP on 12/10/2024, diagnosed with a viral bronchitis again and discharged home on a 10 day course of steroids which he has completed. He was not treated with any antibiotics at that time. Over the last few days reports worsening shortness of breath. Admits to dry cough with chest congestion. States that he feels like he needs to cough something up. Denies any chest pain, palpitations. Denies fever, chills. No recent travel or long car rides. He has been using his inhaler at home with some relief. No known sick contacts. No history of asthma/COPD. He does not require supplemental oxygen at baseline. He has an appointment with pulmonology (Dr. Nichols) on January 14 to establish care. Related Data Home Medications ?Medication ?Instructions ?Recorded ?Confirmed amlodipine 10 mg tablet 10 mg PO DAILY 11/20/24 12/10/24 carvedilol 3.125 mg tablet 6.25 mg PO BID 11/20/24 12/10/24 peg 400-propylene glycol (PF) 0.4 1 drp ophthalmic (eye) QID 11/20/24 12/10/24 %-0.3 % eye drops in a dropperette (Systane (PF)) Previous Rx's ?Medication ?Instructions ?Recorded aspirin 81 mg tablet,delayed 81 mg PO DAILY #90 tabs 11/21/21 release (Adult Low Dose Aspirin) coenzyme Q10 100 mg capsule (Co 100 mg PO DAILY #90 caps 11/19/23 Q-10) docusate sodium 100 mg capsule 100 mg PO BID PRN constipation #30 11/27/23 (Colace) caps clopidogrel 75 mg tablet (Plavix) 75 mg PO DAILY #90 tabs 12/03/24 rosuvastatin 40 mg tablet (Crestor) 40 mg PO BEDTIME #90 tabs 12/03/24 albuterol sulfate 90 mcg/actuation 2 puff inhalation RQ4H PRN 12/10/24 aerosol inhaler (Ventolin HFA) shortness of breath and wheezing 30 days #8.5 grams prednisone 10 mg tablet 10 mg PO DIRECTED 12 days #24 12/10/24 tabs azithromycin 250 mg tablet See Rx Instructions PO .COMPLEX #6 01/04/25 tabs prednisone 20 mg tablet 40 mg (2 x 20 mg) PO DAILY 5 days 01/04/25 #10 tabs Allergies Allergy/AdvReac Type Severity Reaction Status Date / Time No Known Allergies Allergy Verified 01/04/25 09:48 [No Known Allergies*] Review of Systems 2 Review of Systems: Yes all other systems are reviewed and are negative PMFSH Past Medical History Attestation statement: The following information was validated with the patient. Source: old records reviewed and nursing notes reviewed Medical History Aortic stenosis HTN (hypertension) Renal cyst, right Hyperlipidemia Coronary artery disease Surgical History History of appendectomy (11/26/23) S/P cardiac pacemaker procedure History of colonoscopy History of left knee replacement History of cholecystectomy History of rectal fissure History of right inguinal hernia History of left inguinal hernia History of shoulder surgery Family History Family History Father No problems noted. Mother No problems noted. Social History Social History Household Members: Spouse Housing: House Are you a primary geriatric care manager to a significant other at home: No Do you presently have visiting nurse or other home services: No Alcohol intake: former Patient Tobacco Use Status: Former Tobacco user Tobacco use type: Cigarette e-Cigarette/Vaping Use: Former Use Second Hand Smoke Exposure: No Advance Directives: Yes Advance Directives on File: Yes Advance Directives Date on File: 11/24/24 Do you have a plan to hurt others: No Plan service: No Current occupational status: retired Current occupational exposures/hazards: No Cognitive needs: No Hearing needs: No Vision needs: Yes Physical Exam 2 Vital Signs: Vital Signs: Last Vital Signs Temp 97.7 F 01/04/25 11:22 Pulse 61 01/04/25 11:22 Resp 18 01/04/25 11:22 BP 138/82 01/04/25 11:22 Pulse Ox 92 01/04/25 12:29 O2 Del Method Room Air 01/04/25 11:22 BMI result Body Mass Index 24.9 hypertensive, hypoxic to 89% on RA General: Well appearing, in no acute distress. Skin: Warm, dry, intact. No rashes or lesions. Head: Normocephalic, atraumatic. EENT: Hearing is intact b/l. conjunctival injection and chemosis noted to right eye with ectropion. PERRLA. EOM intact. Moist mucous membranes.? Neck: Supple without LAD. FROM. Trachea midline.? Cardiac: Chest wall symmetric. RRR. Lungs: No increased effort of breathing. Speaking complete sentences. Lungs with faint scattered expiratory wheezes, noted expiratory and inspiratory rhonchi to left mid and lower lobe. Ext: No pitting edema. No calf tenderness. Neuro: AOx3. Normal speech. Ambulating with steady gait. Psych: Appropriate mood and affect. Responds appropriately to questions. Course Course Course Narrative: 1407 -- CBC without leukocytosis or left shift. No anemia. H&H stable. vbg shows metabolic alkalosis. chemistry without acute electrolyte abnormality requiring intervention. no paulino. normal liver function. bnp wnl. CHF unlikely. trop wnl. Given onset of symptoms to ED presentation, delta not warranted as ACS unlikely. Negative COVID, flu, RSV. Chest x-ray shows mild bronchial wall thickening. No evidence of pneumonia, no pleural effusion. > patient reports significant improvement in breathing after receiving bronch treatment, IV Solu-Medrol and IV Mag. He is up ambulating with ease. On ambulatory O2, patient sustained above 92%, did not endorse any difficulty breathing. He states he feels well. Faint expiratory wheezes to left lung, otherwise clear. Satting 95-98% on room air while seated in room. No noted respiratory distress. > chest x-ray shows bronchitis. Will treat with 5 day course of prednisone and azithromycin. He does have an appointment with electronic equipment set up operator, Dr. Nichols on January 14. advised him to keep this appointment. Patient has remained stable throughout ED visit today. Discussed worrisome signs and symptoms and when to return to the ED. All questions answered at this time. Patient is agreeable with disposition and stable for discharge. Medications Administered Discontinued Medications Generic Name Dose Route Start Last Admin Trade Name Joseline PRN Reason Stop Dose Admin Albuterol Sulfate 2.5 mg/ 0 mg 01/04/25 10:08 01/04/25 10:16 Albuterol/Ipratropium 3 ml INHALE 01/04/25 10:09 5 dose ONCE ONE Administration Magnesium Sulfate 2 gm in 50 mls @ 150 mls/hr 01/04/25 12:33 01/04/25 12:47 Magnesium Sulfate/H2o IV 01/04/25 12:52 150 mls/hr ONCE ONE Administration Methylprednisolone Sodium Succinate 125 mg 01/04/25 09:56 01/04/25 10:17 Methylprednisolone Sod Succ 125 Mg/2 Ml Vial IVPUSH 01/04/25 09:57 125 mg ONCE ONE Administration Medical Decision Making Medical Decision Making [facility] Narrative: 84-year-old male with pmhx significant for CAD, DC s/p STEFANIE in 1997, hyperlipidemia, hypertension, aortic stenosis, bradycardia status post pacemaker presents to the ED today for evaluation of worsening shortness of breath and cough x2-3 days. Patient initially 89% on room air. Vitals otherwise WNL. Not tachycardic. There is no noted respiratory distress, no increased effort of breathing, no tripoding. Lungs with faint scattered expiratory wheezes and inspiratory rhonchi to left lung. No pitting edema. No calf tenderness. Diagnosis includes viral syndrome, bronchitis, pneumonia, anemia, electrolyte abnormality, pleural effusion ACS, arrhythmia. unlikely PE. Plan for labs, viral swabs, ekg, cxr, breathing tx, IV steroids, re-eval. Differential Diagnosis Differential Diagnoses: The differential diagnosis associated with the presentation includes as above Admission/Observation Consideration of admission/observation: Escalation of care including admission/observation considered I considered observation/admission however patient's symptoms improved with treatment, stable to be discharged home. Lab Data [facility] Lab Attestation statement: I reviewed the patient's lab results. As above 01/04/25 10:10 01/04/25 10:10 Labs: Lab Results 01/04/25 01/04/25 Range/Units 10:10 10:19 WBC 5.8 (4.8-10.8) X10*3/uL RBC 4.61 (4.60-5.80) X10*6/uL Hgb 14.2 (14.0-18.0) g/dl Hct 41.4 L (42.0-52.0) % MCV 89.8 (80.0-98.0) fL MCH 30.8 (27.0-33.0) pg MCHC 34.3 (31.0-36.0) g/dl RDW 14.0 (11.0-16.0) % Plt Count 140 L (160-400) X10*3/uL MPV 8.9 L (9.4-12.4) fL Immature Gran % (Auto) 0.2 (0.0-0.4) % Neut % (Auto) 55.4 (45-73) % Lymph % (Auto) 15.6 L (20-40) % [place] % (Auto) 9.1 (2-11) % Eos % (Auto) 18.8 H (0-4) % Baso % (Auto) 0.9 (0-2) % Lymph # (Auto) 0.9 L (1.2-4.9) X10*3/uL [place] # (Auto) 0.5 (0.1-1.2) X10*3/uL Eos # (Auto) 1.1 H (0.0-0.4) X10*3/uL Baso # (Auto) 0.1 (0.0-0.2) X10*3/uL Abs Immat Gran (auto) 0.01 (0.00-0.03) X10*3/uL Absolute Neuts (auto) 3.2 (2.0-8.3) x10*3/uL Absolute Nucleated RBC 0.000 (0.0-0.012) X10*3/uL Nucleated RBC % (auto) 0.0 (0.0-0.2) /100WBC Hold Blue Top SEE NOTE VBG pH 7.41 (7.32-7.43) VBG pCO2 44 mmHg VBG pO2 81 mmHg VBG HCO3 28 H (22-26) mmol/L VBG O2 Saturation 96.0 % VBG Base Excess 3.7 mmol/L Sodium 141 (135-145) mmol/L Potassium 4.3 (3.3-5.1) mmol/L Chloride 107 (96-108) mmol/L Carbon Dioxide 23 (22-29) mmol/L Anion Gap 15 (12-20) BUN 13 (9-16) mg/dL Creatinine 1.02 (0.5-1.4) mg/dL Estim Creat Clear Calc 50.2 Estimated GFR > 60 Random Glucose 113 (60-115) mg/dL Calcium 9.5 (8.4-10.2) mg/dL Magnesium 2.1 (1.6-2.6) mg/dL Total Bilirubin 0.9 (0.0-1.0) mg/dL AST 26 (5-37) U/L ALT 19 (0-40) U/L Alkaline Phosphatase 62 (39-117) U/L Troponin I High Sens 7.6 (<3.5-35.0) ng/L B-Natriuretic Peptide 62 (<100) pg/mL Total Protein 7.5 (6.5-8.0) g/dL Albumin 3.8 (3.5-5.0) g/dL Influenza Type A (PCR) NEGATIVE (Negative) Influenza Type B (PCR) NEGATIVE (Negative) RSV RNA Qual (PCR) NEGATIVE (Negative) SARS-CoV-2 RNA (RT-PCR) NEGATIVE (Negative) Independent Interpretation I performed an independent interpretation of an: EKG and Plain X-Ray Interpretation: cxr without noted pleural effusion Radiology Impression Discussion of test interpretation with radiology: I have reviewed the radiologist's reading. Radiologist Impression: Procedure(s): XR chest 2V Accession Number(s): [id number] cc: Aaron Jerez MD; Emilee Merida~ CLINICAL HISTORY: sob, wheezing 2 view chest Comparison: CR/SR - XR CHEST 2V - 11/20/24 11:19 EDT CR/AR/SR - XR CHEST 2V - 03/18/24 14:07 EDT Findings: No consolidation or pneumothorax/pleural effusion. Mild peribronchial wall thickening. Cardiomediastinal silhouette is normal. Dual-chamber pacemaker. No mediastinal shift or tracheal deviation. Osseous structures intact. Impression: 1. Mild central bronchial wall thickening. 2. No airspace disease. Independent Historian Clinical information obtained from an independent historian. History obtained from or confirmed by: Spouse External Record Review External record reviewed: Inpatient record, Office record and Outpatient record Prescription Management I considered prescription management with: Antibiotic (azithromycin) and Other (prednisone) Social Determinants Patient?s care significantly limited by Social Determinants of Health including: Other Social Determinant of Health Critical Care Time Critical Care Time Critical Care Time: No Discharge Plan Discharge Clinical Impression: Bronchitis Patient Disposition: Home, Self-Care Instructions: Acute Bronchitis (ED) Additional Instructions: Your workup today is reassuring. You tested negative for COVID, flu, RSV. Your chest x-ray shows bronchial wall thickening, consistent with bronchitis. see home instructions. I am starting you in an antibiotic called azithromycin. Take this as prescribed. Take 2 tabs today (500 mg) and then 1 tab daily for the next 4 days. Prednisone is a steroid that has been sent to your pharmacy. Take this as prescribed for 5 days. Use your albuterol inhaler as needed for any shortness of breath. If you find yourself using this more often without any improvement in symptoms, please return to the ED as you may require further treatment. Please keep your appointment with your Immunologist on January 14. As discussed, return to the ED with any new or worsening symptoms. In the case of an emergency call 911. Prescriptions: New azithromycin 250 mg tablet See Rx Instructions PO .COMPLEX Qty: 6 0RF Rx Instructions: For 250 mg dose pack: take 500 mg today (day 1), then 250 mg for 4 days (days 2-5) prednisone 20 mg tablet 40 mg PO DAILY 5 Days Qty: 10 0RF No Action aspirin [Adult Low Dose Aspirin] 81 mg tablet,delayed release (DR/EC) 81 mg PO DAILY Qty: 90 8RF coenzyme Q10 [Co Q-10] 100 mg capsule 100 mg PO DAILY Qty: 90 3RF rosuvastatin [Crestor] 40 mg tablet 40 mg PO BEDTIME Qty: 90 2RF clopidogrel [Plavix] 75 mg tablet 75 mg PO DAILY Qty: 90 2RF docusate sodium [Colace] 100 mg capsule 100 mg PO BID PRN (Reason: constipation) Qty: 30 0RF carvedilol 3.125 mg tablet 6.25 mg PO BID amlodipine 10 mg tablet 10 mg PO DAILY Systane (PF) 0.4-0.3 % Dropperette 1 drp OPHTHALMIC (EYE) QID albuterol sulfate [Ventolin HFA] 90 mcg/actuation HFA aerosol inhaler 2 puff inhalation RQ4H PRN (Reason: shortness of breath and wheezing) 30 Days Qty: 8.5 0RF prednisone 10 mg tablet 10 mg PO DIRECTED 12 Days Qty: 24 0RF Rx Instructions: Take 3 tablets x4 days, 2 tablets x4 days, 1 tablet x4 days Referrals: [facility] – [place], [place] Pulmonology Services [Provider Group] Aaron Jerez MD [Primary Care Provider] - Interventions: ED Discharge Assessment Last Done: 01/04/25 14:06 Discharge Date/Time: 01/04/25 14:07 Print Language: Azerbaijani
[2025-01-04 10:09] VITALS: PULSE 67; RESP 24; O2SAT 95
[2025-01-04] MEDS: Albuterol Sulfate 2.5 MG, Albuterol/Iprat 2.5/0.5MG 3 ML 3 ML INHALE (10:16)
[2025-01-04] MEDS: methylPREDNISolone Sod Succ 125 MG/2 ML VIAL IVPUSH (10:17)
[2025-01-04 10:20] LABS: MANUAL DIFF FLAG NO
[2025-01-04 10:24] LABS: VBG Base Excess 3.7 mmol/L; VBG HCO3 28 mmol/L (22-26); VBG pCO2 44 mmHg; VBG pH 7.41 (7.32-7.43); VBG pO2 81 mmHg
[2025-01-04 10:26] LABS: Venous Blood Gas Refer to POC result
[2025-01-04 10:37] LABS: Basophils Absolute Auto 0.1 X10*3/uL (0.0-0.2); Basophils Percent Auto 0.9 % (0-2); Eosinophils Absolute Auto 1.1 X10*3/uL (0.0-0.4); Eosinophils Percent Auto 18.8 % (0-4); Hematocrit 41.4 % (42.0-52.0); Hemoglobin 14.2 g/dl (14.0-18.0); Imm Gran Abs Auto 0.01 X10*3/uL (0.00-0.03); Imm Gran Pct Auto 0.2 % (0.0-0.4); Lymphocytes Absolute Auto 0.9 X10*3/uL (1.2-4.9); Lymphocytes Percent Auto 15.6 % (20-40); Mean Corpuscular HGB Conc 34.3 g/dl (31.0-36.0); Mean Corpuscular Hemoglobin 30.8 pg (27.0-33.0); Mean Corpuscular Volume 89.8 fL (80.0-98.0); Mean Platelet Volume 8.9 fL (9.4-12.4); Monocytes Absolute Auto 0.5 X10*3/uL (0.1-1.2); Monocytes Percent Auto 9.1 % (2-11); Neutrophils Absolute Auto 3.2 x10*3/uL (2.0-8.3); Neutrophils Percent Auto 55.4 % (45-73); Platelet Count 140 X10*3/uL (160-400); Red Blood Count 4.61 X10*6/uL (4.60-5.80); White Blood Count 5.8 X10*3/uL (4.8-10.8)
[2025-01-04 10:42] LABS: Troponin-I High Sensitivity 7.6 ng/L (<3.5-35.0)
[2025-01-04 10:46] LABS: B Type Natriuretic Peptide 62 pg/mL (<100)
[2025-01-04 10:49] LABS: Alanine Aminotransferase 19 U/L (0-40); Albumin Level 3.8 g/dL (3.5-5.0); Alkaline Phosphatase 62 U/L (39-117); Anion Gap 15 (12-20); Aspartate Amino Transferase 26 U/L (5-37); Bilirubin Total 0.9 mg/dL (0.0-1.0); Blood Urea Nitrogen 13 mg/dL (9-16); Calcium 9.5 mg/dL (8.4-10.2); Carbon Dioxide 23 mmol/L (22-29); Chloride 107 mmol/L (96-108); Creatinine Clr Calc Pharmacy 50.2; Estimated Glomerular Filt Rate > 60; Glucose Random 113 mg/dL (60-115); Magnesium 2.1 mg/dL (1.6-2.6); Potassium 4.3 mmol/L (3.3-5.1); Sodium 141 mmol/L (135-145); Total Protein 7.5 g/dL (6.5-8.0)
[2025-01-04 11:19] LABS: Influenza A PCR NEGATIVE (Negative); Influenza B PCR NEGATIVE (Negative); Resp Syncy Virus RNA Qual PCR NEGATIVE (Negative); SARS COV2 PCR INHOUSE NEGATIVE (Negative)
[2025-01-04 11:22] VITALS: BP 138/82; PULSE 61; RESP 18; TEMP 36.5; O2SAT 92
[2025-01-04 12:29] VITALS: O2SAT 92
[2025-01-04] MEDS: Magnesium Sulfate/H2O 2 GM/50 ML PIGGYBACK IV (12:47)
[2025-01-04 14:06] VITALS: BP 138/82; PULSE 61; RESP 18; TEMP 36.5; O2SAT 92
== END 2025-01-04 14:07 | disposition home or self-care (01) ==
PROVIDERS: Physician Assistant Medical; Emergency Provider Emergency Medicine; PCP Emergency Medicine
DX: J40 Bronchitis, not specified as acute or chronic (principal); R06.2 Wheezing; R06.02 Shortness of breath; R05.9 Cough, unspecified; I25.2 Old myocardial infarction; I10 Essential (primary) hypertension; I35.0 Nonrheumatic aortic (valve) stenosis; I25.10 Atherosclerotic heart disease of native coronary artery without angina pectoris
CPT/HCPCS: 0241U; 36415; 71046; 80053; 82803; 83735; 83880; 84484; 85025; 93005; 94640; 96374; 96375; 99284; 99285; J2919; J3475

== ENCOUNTER → 2025-01-04 09:55 | Outpatient (BNV) | payer MEDICARE, SELFPAY | PROVIDERS: Emergency Provider Emergency Medicine; PCP Emergency Medicine; Visit Provider Internal Medicine | DX: I45.89 Other specified conduction disorders (principal); I25.2 Old myocardial infarction | CPT/HCPCS: 93010 ==

== ENCOUNTER → 2025-01-04 09:55 | Outpatient (BNV) | payer MEDICARE, SELFPAY | PROVIDERS: Emergency Provider Emergency Medicine; PCP Emergency Medicine; Visit Provider Radiology Diagnostic Radiology | DX: R06.02 Shortness of breath (principal); R06.2 Wheezing | CPT/HCPCS: 71046 ==

== ENCOUNTER 2025-01-14 13:03 | Outpatient (AMB) | payer MEDICARE, SELFPAY ==
--- NOTE | 2025-01-14 13:16 | MHC.OFFVIS ---
Vital Signs 01/14/25 13:17 Height 5 ft 8 in Weight 182 lb 15.739 oz BMI 27.8 BP 150/82 H Blood Pressure Location Lt brachial Position Sitting Pulse 84 Pulse Source Pulse Oximeter Pulse Oximetry (%) 97 Oxygen Delivery Method Room Air Intake Visit Reasons: Wheezing Intake Note: pt is here as a new patient and was told he has viral bronchitis. He is better since last visit 01/04/25 ER visit. Allergies No Known Allergies [No Known Allergies*] Allergy (Verified 01/14/25 13:44) Do you need a note to return to daycare/school/sports/work: No HPI HPI Wheezing: Details: THIS GENTLEMAN IS 84 YEARS OLD, WITH RECENT HISTORY OF COUGH AND SHORTNESS OF BREATH,. HE WAS ADMITTED TO [facility] IN NOVEMBER OF THIS YEAR WITH THE ACUTE BRONCHITIS LIKE SYMPTOMS. HE RESPONDED WELL TO TREATMENT WHICH INCLUDED IV SOLU-MEDROL AND A COURSE OF ANTIBIOTICS, 11/20 - 11/21 THEN HE WAS SEEN IN THE EMERGENCY ROOM ON 01/04, WITH RELATIVELY ACUTE ONSET OF COUGH AND SHORTNESS OF BREATH. AGAIN HE WAS TREATED WITH A SHORT COURSE OF PREDNISONE AND GOT MUCH BETTER. AFTERWARDS HE DENIES ANY WHEEZING OR SHORTNESS OF BREATH. ALSO PREVIOUSLY HE HAS HAD NO HISTORY OF BRONCHIAL ASTHMA OR COPD. HE QUIT SMOKING MORE THAN 25 YEARS AGO. HE HAS HAD MYOCARDIAL INFARCTION WITH CARDIAC BLOCK AND HAS BEEN TREATED WITH A PACEMAKER. A FEW YEARS AGO HE HAD CATARACT SURGERY ON THE RIGHT EYE AND SINCE THEN HE HAS BEEN LEFT WITH EXTROPION OF THE LOWER EYELID. WE CHECKED TO THE LAP TEST AND 1 INTERESTING FINDING IS THAT ON HIS VISIT TO THE EMERGENCY ROOM ON 11/20 CBC SHOWED EOSINOPHIL COUNT OF 11.3. ON 01/04 EOSINOPHIL COUNT WAS 18.8. PREVIOUSLY ON 06/04/2024 EOSINOPHIL COUNT 4.2. AND PRIOR TO THESE DATES HIS EOSINOPHIL COUNT HAS ALWAYS BEEN NORMAL. PATIENT WAS INTERROGATED AND HE DOES NOT KNOW OF ANY SPECIFIC ENVIRONMENTAL AGENT TO WHICH HE COULD BE ALLERGIC TO. [facility] Medical History (Updated 01/14/25 @ 14:38 by Erwin Nichols MD) Eosinophilia Asthma COPD (chronic obstructive pulmonary disease) Aortic stenosis HTN (hypertension) Renal cyst, right Hyperlipidemia Coronary artery disease Surgical History History of appendectomy (03/18/24) S/P cardiac pacemaker procedure History of colonoscopy History of left knee replacement History of cholecystectomy History of rectal fissure History of right inguinal hernia History of left inguinal hernia History of shoulder surgery Family History Father No problems noted. Mother No problems noted. Social History Household Members: Spouse Housing: House Are you a primary customer care coordinator to a significant other at home: No Do you presently have visiting nurse or other home services: No Alcohol intake: former Patient Tobacco Use Status: Former Tobacco user Tobacco use type: Cigarette e-Cigarette/Vaping Use: Former Use Second Hand Smoke Exposure: No Advance Directives Date on File: 11/24/24 service: No Current occupational status: retired Current occupational exposures/hazards: No Cognitive needs: No Hearing needs: No Vision needs: Yes Review of Systems Const All systems reviewed & are unremarkable except as noted in HPI and below Eyes Reports no additional complaints and Reports other (RIGHT EYE STATUS POST CATARACT SURGERY 2 YEARS AGO WITH RESIDUAL EXTROPIAN) ENT Reports no additional complaints Card Denies chest pain, Denies syncope, Denies irregular heart rhythm, Denies leg edema and Reports other ( 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) Resp Reports as per HPI GI Reports no additional complaints Reports no additional complaints Musc Reports no additional complaints Skin/Breast Reports system reviewed and no additional complaints, except as documented Neuro Details: HISTORY OF STROKE A FEW YEARS AGO WITH COMPLETE RESOLUTION Denies syncope Endo Reports no additional complaints Manoj/Lymph Reports no additional complaints Physical Exam Vital Signs: Last Vital Signs Pulse 84 01/14/25 13:17 BP 150/82 H 01/14/25 13:17 Pulse Ox 97 01/14/25 13:17 Oxygen Delivery Method Room Air 01/14/25 13:17 BMI result Body Mass Index 27.8 Const General: healthy appearing, comfortable, no acute distress, alert and awake Orientation/consciousness: patient oriented x3 HEENT Head: Yes normal to inspection General nose exam: No nasal polyps present and No nasal discharge present Face and sinus: Yes sinuses nontender Mouth: oropharynx normal Throat: Yes posterior oropharynx normal Eyes General: appearance normal, both eyes and all related structures Alignment and Position: other (RIGHT EYE STATUS POST CATARACT SURGERY AND PERMANENT EXTROPIAN OF THE LOWER) Neck Neck: Yes normal visual inspection, Yes no lymphadenopathy, Yes trachea midline and Yes no JVD Thyroid: Thyroid normal Chest Chest palpation & inspection: normal inspection of the chest, normal palpation of entire chest wall and no tenderness Resp Other: PERCUSSION NOTE RESONANT, BREATH SOUNDS ARE EQUAL ON BOTH SIDES NO WHEEZES OR RHONCHI ARE HEARD Cardio Palpation: normal PMI Rate: regular rate Rhythm: regular rhythm Heart sounds: no gallops, no murmurs and Other heart sounds present (PACEMAKER IN THE LEFT PECTORAL AREA) Peripheral pulses: Peripheral pulses 2+ throughout GI Palpation (GI): Soft to palpation, nontender, No hepatosplenomegaly present and no masses Auscultation: normal bowel sounds Back/Spine/Pelvis Thoracic/Lumbar Spine: thoracic and lumbar spine normal to inspection Skin General skin exam: no rashes or lesions noted Neuro General: patient oriented x3 and no focal motor deficits Cranial nerves: Yes CN's II-XII intact bilaterally Extrem General: Yes normal to inspection, Yes no clubbing, cyanosis or edema and Yes no calf tenderness Psych Speech and movement: Normal speech and movement present Results Reviewed Results Reviewed: SPIUROMETRY FVC=86 % FEV1=56 % FEV1/FVC= 48 FEF 25-75 = 32 % Assessment & Plan Assessment & Plan (1) COPD (chronic obstructive pulmonary disease): Comment: THIS GENTLEMAN BEING SEEN FOR THE 1ST TIME, WITH RECENT TO ENCOUNTERS TO THE EMERGENCY ROOM, PRESENTS WITH A PATTERN OF BRONCHIAL ASTHMA. HOWEVER SPIROMETRY IS CONSISTENT WITH CHRONIC OBSTRUCTIVE PULMONARY DISORDER, MODERATELY SEVERE. THIS MAY BE DUE TO HIS PAST HISTORY OF SMOKING. Code(s): J44.9 - Chronic obstructive pulmonary disease, unspecified Category: Medical Plan: I WILL SCHEDULE HIM FOR A COMPLETE PULMONARY FUNCTION TEST. IN THE MEANTIME USE ALBUTEROL 2 PUFFS Q 6 HOURS P.R.N.. I HAVE ALSO PRESCRIBED A SHORT SUPPLY OF PREDNISONE, TO USE 40 MG TWICE A DAY FOR 3-4 DAYS IN CASE OF AN ACUTE ATTACK OF ASTHMA (2) Asthma: Comment: LAST 2 VISITS TO THE EMERGENCY ROOM WERE CONSISTENT WITH ASTHMA LIKE ATTACK AND HE RESPONDED TO THE STEROIDS VERY QUICKLY. Code(s): J45.909 - Unspecified asthma, uncomplicated Category: Medical Plan: NOTED ABOVE UNDER COPD HE WILL HAVE A COMPLETE PULMONARY FUNCTION TEST. TREATMENT FOR THE TIME BEING WOULD INCLUDE ALBUTEROL HFA 2 PUFFS Q 4-6 HOURS P.R.N.. AFTER COMPLETE PULMONARY FUNCTION TEST I THINK HE IS GOING TO NEED A ONGOING CONTROLLER AGENT. (3) Eosinophilia: Comment: 03/18/2024 EOSINOPHIL COUNT 1.6,, NORMAL 06/04/2024 EOSINOPHIL COUNT 4.2, 11/20/2024 EOSINOPHIL COUNT 11.3 AND 01/04/2025 WAS 18.8% THESE ELEVATED NUMBERS ARE CONSISTENT WITH, ACUTE ALLERGIC TYPE ATTACKS OF BRONCHIAL ASTHMA. Code(s): D72.10 - Eosinophilia, unspecified Category: Medical Plan: DISCUSSED DO VARIOUS HOUSEHOLD ITEM THAT HE COULD BE ALLERGIC TO, INCLUDING ACUTE VIRAL INFECTION, SPRAYS, FUMES ETC., AND HE IS ADVISED TO REFRAIN FROM EXPOSING HIMSELF TO ANY CHEMICALS. USE ALBUTEROL HFA 2 PUFFS Q 6 HOURS P.R.N. NOTED ABOVE HE WILL UNDERGO COMPLETE PULMONARY FUNCTION TEST, AND AFTER THAT MOST LIKELY WOULD END UP ON A CONTROLLER AGENT TO USE IT ON A DAILY BASIS. I HAVE PRESCRIBED A SHORT COURSE OF PREDNISONE TO KEEP ON HAND IN CASE HE STARTS HAVING INCREASED SYMPTOMS. Medications: New prednisone 20 mg PO BID 5 days 10 tabs 0RF Coding Level of Care Code New Pt Level 3 (74776) Diagnoses COPD (chronic obstructive pulmonary disease) J44.9 Asthma J45.909 Eosinophilia D72.10
[2025-01-14 13:17] VITALS: BP 150/82; PULSE 84; O2SAT 97; BMI 27.8
== END 2025-01-14 14:05 | disposition home or self-care (01) ==
LOC: HO.HPS 13:04
PROVIDERS: Referring Provider Internal Medicine; Visit Provider Internal Medicine
DX: J44.9 Chronic obstructive pulmonary disease, unspecified (principal); J45.909 Unspecified asthma, uncomplicated; D72.10 Eosinophilia, unspecified
CPT/HCPCS: 94010; 99203

== ENCOUNTER → 2025-01-14 13:03 | Outpatient (BNVA) | payer MEDICARE, SELFPAY | PROVIDERS: Referring Provider Internal Medicine; Visit Provider Internal Medicine | DX: J44.9 Chronic obstructive pulmonary disease, unspecified (principal); D72.10 Eosinophilia, unspecified | CPT/HCPCS: 94010; 99202 ==

== ENCOUNTER 2025-02-11 09:39 | Outpatient (REF) | payer MEDICARE, SELFPAY ==
[2025-02-11 11:29] LABS: MANUAL DIFF FLAG NO
[2025-02-11 11:38] LABS: Basophils Absolute Auto 0.1 X10*3/uL (0.0-0.2); Basophils Percent Auto 0.9 % (0-2); Eosinophils Absolute Auto 0.2 X10*3/uL (0.0-0.4); Eosinophils Percent Auto 3.5 % (0-4); Hemoglobin 15.3 g/dl (14.0-18.0); Imm Gran Abs Auto 0.01 X10*3/uL (0.00-0.03); Imm Gran Pct Auto 0.2 % (0.0-0.4); Lymphocytes Absolute Auto 1.3 X10*3/uL (1.2-4.9); Lymphocytes Percent Auto 20.6 % (20-40); Mean Corpuscular HGB Conc 34.8 g/dl (31.0-36.0); Mean Corpuscular Hemoglobin 30.7 pg (27.0-33.0); Mean Corpuscular Volume 88.4 fL (80.0-98.0); Mean Platelet Volume 9.5 fL (9.4-12.4); Monocytes Absolute Auto 0.7 X10*3/uL (0.1-1.2); Neutrophils Absolute Auto 4.2 x10*3/uL (2.0-8.3); Neutrophils Percent Auto 64.8 % (45-73); Platelet Count 146 X10*3/uL (160-400); Red Blood Count 4.98 X10*6/uL (4.60-5.80); Red Cell Distribution Width 13.9 % (11.0-16.0); White Blood Count 6.5 X10*3/uL (4.8-10.8)
[2025-02-11 12:18] LABS: Creatinine Urine 116.92 mg/dL; Microalbum/Creatinine Ratio Ur 259.1 ug/mg cr (<30); Prostate Specific Antigen Scr 1.58 ng/mL (<0.05-4.0)
[2025-02-11 14:21] LABS: Alanine Aminotransferase 22 U/L (0-40); Albumin Level 4.3 g/dL (3.5-5.0); Alkaline Phosphatase 56 U/L (39-117); Anion Gap 10 (12-20); Aspartate Amino Transferase 28 U/L (5-37); Bilirubin Total 1.1 mg/dL (0.0-1.0); Blood Urea Nitrogen 14 mg/dL (9-16); Calcium 9.9 mg/dL (8.4-10.2); Carbon Dioxide 27 mmol/L (22-29); Chloride 106 mmol/L (96-108); Cholesterol 152 mg/dL (<200); Estimated Glomerular Filt Rate 59; Glucose Random 104 mg/dL (60-115); HDL Cholesterol 51 mg/dL (>40); LDL Cholesterol Calculated 76 mg/dL (<100); Potassium 4.1 mmol/L (3.3-5.1); Sodium 139 mmol/L (135-145); Total Protein 7.9 g/dL (6.5-8.0); Triglycerides 127 mg/dL (<150)
== END 2025-02-11 09:40 | disposition home or self-care (01) ==
LOC: HO.HHCL 09:39
PROVIDERS: Visit Provider Pediatrics
DX: Z87.898 Personal history of other specified conditions (principal); I25.10 Atherosclerotic heart disease of native coronary artery without angina pectoris; E78.00 Pure hypercholesterolemia, unspecified; D72.19 Other eosinophilia; J45.21 Mild intermittent asthma with (acute) exacerbation; J44.9 Chronic obstructive pulmonary disease, unspecified; I10 Essential (primary) hypertension; Z12.5 Encounter for screening for malignant neoplasm of prostate
CPT/HCPCS: 36415; 80053; 80061; 82043; 82570; 84153; 85025

== ENCOUNTER 2025-02-25 12:28 | Outpatient (REF) | payer MEDICARE, SELFPAY ==
--- NOTE | 2025-02-25 12:47 | PFT_ITS ---
Indication: Dyspnea Spirometry FEV1 to FVC 41%; FEV1 1.35 L; FVC 3.32 L. No significant response to bronchodilators noted. Lung Volumes Total lung capacity 89% predicted; residual volume 108% predicted Diffusion Capacity DLCO 56% predicted Comparisons None Interpretation There is an obstructive ventilatory defect consistent with moderate to severe COPD. No significant response to bronchodilators noted. Lung volumes are normal. The patient does have a moderate to severe diffusion impairment. Clinical correlation warranted. MTDD
[2025-02-25 13:36] VITALS: PULSE 68; O2SAT 96
== END 2025-02-25 12:29 | disposition home or self-care (01) ==
LOC: HO.RESP 12:28
PROVIDERS: Visit Provider Internal Medicine
DX: J44.9 Chronic obstructive pulmonary disease, unspecified (principal); J45.909 Unspecified asthma, uncomplicated
CPT/HCPCS: 94010; 94640; 94727; 94729; 99212

== ENCOUNTER 2025-02-25 12:33 | Outpatient (AMB) | payer MEDICARE, SELFPAY ==
[2025-02-25 13:42] VITALS: BP 130/78; PULSE 65; O2SAT 93; BMI 27.7
--- NOTE | 2025-02-25 13:42 | A.OFFVIS_ITS ---
Vital Signs 02/25/25 13:42 Height 5 ft 8 in Weight 182 lb BMI 27.7 BP 130/78 Blood Pressure Location Lt brachial Position Sitting Pulse 65 Pulse Source Pulse Oximeter Pulse Oximetry (%) 93 Oxygen Delivery Method Room Air Intake Visit Reasons: Wheezing/Same Day PFT Intake Note: pt is here for follow up of pft , very little wheeze is there. Compressor Service Technician Required: No Allergies No Known Allergies (No Known Allergies*) Allergy (Verified 02/25/25 14:06) Medication List - Last Reconciled 02/25/25 by Erwin Nichols MD albuterol sulfate 90 mcg/actuation (Ventolin HFA) 2 puffs inhalation RQ4H PRN 30 days amlodipine 10 mg PO DAILY aspirin (Adult Low Dose Aspirin) 81 mg PO DAILY carvedilol 6.25 mg PO BID clopidogrel (Plavix) 75 mg PO DAILY coenzyme Q10 (Co Q-10) 100 mg PO DAILY docusate sodium (Colace) 100 mg PO BID PRN peg 400-propylene glycol (PF) 0.4-0.3 % (Systane (PF)) 1 drp ophthalmic (eye) QID prednisone 20 mg PO BID PRN rosuvastatin (Crestor) 40 mg PO BEDTIME Do you need a note to return to daycare/school/sports/work: No HPI HPI Wheezing/Same Day PFT: Details: This 84 years old gentleman is very pleasant, comes for his follow-up after pulmonary function test. He has past history of smoking but quit more than 8 years ago. He does have mild cough off and on and mild shortness of breath on heavy exertion. During day-to-day work he is not having any problem. He has not needed to use albuterol for a few weeks now. Denies any attacks of wheezing. [facility] Medical History (Updated 02/25/25 @ 14:12 by Erwin Nichols MD) History of smoking at least 1 pack per day for at least 30 years Eosinophilia Asthma COPD (chronic obstructive pulmonary disease) Aortic stenosis HTN (hypertension) Renal cyst, right Hyperlipidemia Coronary artery disease Surgical History History of appendectomy (11/26/23) S/P cardiac pacemaker procedure History of colonoscopy History of left knee replacement History of cholecystectomy History of rectal fissure History of right inguinal hernia History of left inguinal hernia History of shoulder surgery Family History Father No problems noted. Mother No problems noted. Social History Household Members: Spouse Housing: House Are you a primary health care attorney to a significant other at home: No Do you presently have visiting nurse or other home services: No Alcohol intake: former Patient Tobacco Use Status: Former Tobacco user Tobacco use type: Cigarette e-Cigarette/Vaping Use: Former Use Second Hand Smoke Exposure: No Advance Directives Date on File: 11/24/24 service: No Current occupational status: retired Current occupational exposures/hazards: No Cognitive needs: No Hearing needs: No Vision needs: Yes Review of Systems Const All systems reviewed & are unremarkable except as noted in HPI and below Eyes Reports no additional complaints and Reports other (RIGHT EYE STATUS POST CATARACT SURGERY 2 YEARS AGO WITH RESIDUAL EXTROPIAN) ENT Reports no additional complaints Card Denies chest pain, Denies syncope, Denies irregular heart rhythm, Denies leg edema and Reports other ( 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) Resp Reports as per HPI GI Reports no additional complaints Reports no additional complaints Musc Reports no additional complaints Skin/Breast Reports system reviewed and no additional complaints, except as documented Neuro Details: HISTORY OF STROKE A FEW YEARS AGO WITH COMPLETE RESOLUTION Denies syncope Endo Reports no additional complaints Manoj/Lymph Reports no additional complaints Physical Exam Vital Signs: Last Vital Signs Pulse 65 02/25/25 13:42 BP 130/78 02/25/25 13:42 Pulse Ox 93 02/25/25 13:42 Oxygen Delivery Method Room Air 02/25/25 13:42 BMI result Body Mass Index 27.7 Const General: healthy appearing, comfortable, no acute distress, alert and awake Orientation/consciousness: patient oriented x3 HEENT Head: Yes normal to inspection General nose exam: No nasal polyps present and No nasal discharge present Face and sinus: Yes sinuses nontender Mouth: oropharynx normal Throat: Yes posterior oropharynx normal Eyes General: appearance normal, both eyes and all related structures Alignment and Position: other (RIGHT EYE STATUS POST CATARACT SURGERY AND PERMANENT EXTROPIAN OF THE LOWER) Neck Neck: Yes normal visual inspection, Yes no lymphadenopathy, Yes trachea midline and Yes no JVD Thyroid: Thyroid normal Chest Chest palpation & inspection: normal inspection of the chest, normal palpation of entire chest wall and no tenderness Resp Other: PERCUSSION NOTE RESONANT, BREATH SOUNDS ARE EQUAL ON BOTH SIDES NO WHEEZES OR RHONCHI ARE HEARD Cardio Palpation: normal PMI Rate: regular rate Rhythm: regular rhythm Heart sounds: no gallops, no murmurs and Other heart sounds present (PACEMAKER IN THE LEFT PECTORAL AREA) Peripheral pulses: Peripheral pulses 2+ throughout GI Palpation (GI): Soft to palpation, nontender, No hepatosplenomegaly present and no masses Auscultation: normal bowel sounds Back/Spine/Pelvis Thoracic/Lumbar Spine: thoracic and lumbar spine normal to inspection Skin General skin exam: no rashes or lesions noted Neuro General: patient oriented x3 and no focal motor deficits Cranial nerves: Yes CN's II-XII intact bilaterally Extrem General: Yes normal to inspection, Yes no clubbing, cyanosis or edema and Yes no calf tenderness Psych Speech and movement: Normal speech and movement present Results Reviewed Results Reviewed: Pulmonary function test. FVC 89%. FEV1 57%. FEV1/FVC 63%. fef 25-75 = 23% There was no response to bronchodilator therapy. 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 Advised to use albuterol HFA only p.r.n. if he gets frequent cough or wheezing, that may happen if he ever gets respiratory infection, or if he is exposed to chemical sprays fumes are smoking. (2) History of smoking at least 1 pack per day for at least 30 years: Comment: He does have history of smoking 1 pack a day for many years and quit about 8 years ago Code(s): Z87.891 - Personal history of nicotine dependence Category: Social Hx Plan: Commended for not smoking. At age 84 and not smoking for 8 years he does not need to have annual Lung Cancer screening Medications: Changed From prednisone 20 mg PO BID 10 tabs 0RF 5 days To prednisone 20 mg PO BID PRN Coding Level of Care Code Est Pt Level 3 (21534) Diagnoses COPD (chronic obstructive pulmonary disease) J44.9 History of smoking at least 1 pack per day for at least 30 years Z87.891
== END 2025-02-25 14:06 | disposition home or self-care (01) ==
PROVIDERS: Visit Provider Internal Medicine
DX: J44.9 Chronic obstructive pulmonary disease, unspecified (principal); Z87.891 Personal history of nicotine dependence
CPT/HCPCS: 94060; 94727; 94729; 99213

== ENCOUNTER 2025-05-12 09:38 | Outpatient (REF) | payer MEDICARE, SELFPAY ==
--- OUTSIDE RECORDS SUMMARY | 2025-05-12 10:43 | XMS_ITS | Clinical Summary ---
Author Organization [employer] Address [address] [place] [address] [address] [place] [address] Care Team Providers Care Salesperson Women'S Dresses Name Role Phone Gavino Llanos CNP Primary Care Provider [phone] Allergies No known active allergies Medications albuterol 108 (90 Base) MCG/ACT inhaler Inhale 2 puffs every 6 (six) hours if needed. 5 Active Albuterol-Budeso nide 90-80 MCG/ACT aerosol Acti ve amLODIPine (Norvasc) 10 MG tablet Take 10 mg by mouth Once per day. Active aspirin 81 MG EC tablet Take 81 mg by mouth Once per day. Active carvedilol (Coreg) 6.25 MG tablet Take 6.25 mg by mouth with breakfast and with evening meal. Active coenzyme Q-10 100 MG capsule Activ e Docusate Sodium (DSS) 100 MG capsule Active erythromycin (Romycin) 5 MG/GM ophthalmic ointment APPLY 1 A SMALL AMOUNT INTO RIGHT EYE FOUR TIMES A DAY 4 Active Polyethyl Glycol-Propyl Glycol (Systane) 0.4-0.3 % solution Active predniSONE (Deltasone) 20 MG tablet Take 1 tablet by mouth 2 times daily. 5 Active rosuvastatin (Crestor) 40 MG tabletIndication s:Chronic obstructive pulmonary disease, unspecified COPD type (CMS/HCC),Other eosinophilia,Pur e hypercholesterol emia,Atheroscler osis [place] coronary artery of [place] heart without angina pectoris Take 1 tablet (40 mg) by mouth in the morning. 90 tablet 1 5 Active clopidogrel (Plavix) 75 MG tabletIndication s:Chronic obstructive pulmonary disease, unspecified COPD type (CMS/HCC),Other eosinophilia,Pur e hypercholesterol emia,Atheroscler osis [place] coronary artery of [place] heart without angina pectoris Take 1 tablet (75 mg) by mouth Once per day. 90 tablet 1 Active Active Problems Problem Noted Date Diagnosed Date COPD (chronic obstructive pulmonary disease) 11/2024 Mild intermittent asthma with acute exacerbation 02/10/2025 Other eosinophilia 02/10/2025 Ischemic cardiomyopathy 07/09/2024 Angina pectoris 05/26/2024 Lymphadenopathy 04/21/2024 Atherosclerosis of [place] coronary artery 2023 Nonsustained paroxysmal ventricular tachycardia 04/15/2024 Pure hypercholesterolemia 04/15/2024 Shortness of breath 04/15/2024 Encounters Date Type Department Care Team Description 04/03/2025 9:15 AM EDT Office Visit [facility] [address] [place] [phone] Gavino Llanos CNP Chronic obstructive pulmonary disease, unspecified COPD type (CMS/HCC) (Primary Dx); Pure hypercholesterolemia; History of nocturia; Atherosclerosis of [place] coronary artery of [place] heart without angina pectoris 04/03/2025 Telephone [facility] [address] [place] [phone] Gavino Llanos CNP Pre-op Exam 04/03/2025 Travel 04/02/2025 Telephone [facility] [address] [place] [phone] Roman Escalona [place] CHARTPREP 03/27/2025 Patient Outreach [facility] [address] [place] [address] Gavino Llanos CNP Pre-visit Planning (SDOH was already completed) 03/27/2025 Travel 03/16/2025 Telephone [facility] [address] [place] [phone] Gavino Llanos CNP March02/11/2025 9:15 AM EDT Office Visit [facility] [address] [place] [phone] Marizol Lemus MD Chronic obstructive pulmonary disease, unspecified COPD type (CMS/HCC) (Primary Dx); Other eosinophilia; Pure hypercholesterolemia; Atherosclerosis of [place] coronary artery of [place] heart without angina pectoris; History of nocturia; Dietary counseling; Exercise counseling 02/11/2025 Results Follow-Up [facility] [address] [place] [address] Marizol Lemus MD Lipid Panel, Standard, Comprehensive Metabolic Panel, CBC auto differential, Additional followed-up results: 2 02/11/2025 Travel 02/10/2025 Telephone [facility] [address] [place] [address] Naida Roque MA Chart Prep from Last 3 Months Immunizations Immunization Administration Dates Next Due Influenza High-dose Quadrivalent Preservative Fr ee 05/22/2022 Influenza Quadrivalent Adjuvanted 06/05/2023,12/2020 Influenza, High Dose Seasonal, Preservative Free 05/07/2024 Pneumococcal Conjugate PCV 20 05/07/2024 RSV Adjuvant 06/05/2023 Tdap 05/07/2024 Social History Tobacco Use Types Packs/Day Years Used Date Smoking Tobacco: Former Cigarettes Passive Smoke Exposure: Past Smokeless Tobacco: Former Tobacco Cessation:Counseling Given: Not Answered Depression Answer Date Recorded Patient Health Questionnaire-9 Score 1 02/11/2025 Patient Health Questionnaire-9 Score 1 02/11/2025 Last PHQ-9: Questionnaire Data Not on file 0 02/11/2025 Housing Stability Answer Date Recorded What is your housing situation today? I have [employer] 02/11/[address] you li ve. Do you have problems with any of the following? None of the above 02/11/2025 Food Insecurity Answer Date Recorded Within the past 12 months, y ou worried that your food would run out before you got money to buy more: Never True 02/11/2025 Within the past 12 months,th e food you bought just didn't last and you didn't have enough money to get more: Never True 12/2024 Transportation Answer Date Recorded In the past 12 months, has l ack of transportation kept you from medical appts, meetings, work or from getting things needed for daily living? No 02/11/2025 Utilities Answer Date Recorded In the past 12 months, has t he electric, gas, oil or water company threatened to shut off services in your home? No 02/11/2025 Depression Answer Date Recorded Patient Health Questionnaire-2 Score 0 02/11/2025 Internet Access Answer Date Recorded Internet Access Q1 Yes 02/11/2025 Internet Access Q2 Not on file 02/11/2025 Sex and Gender Information Value Date Recorded Sex Assigned at Male 12/16/2024 1:40 PM EDT Legal Sex Male 1:39 PM EDT Gender Identity Male 12/16/2024 1:40 PM EDT Sexual Orientation Straight 02/11/2025 8: 47 AM EDT Last Filed Vital Signs Vital Sign Reading Time Taken Comments Blood Pressure 132/82 04/03/2025 9:11 AM EDT Pulse 87 04/03/2025 9:11 AM EDT Temperature 36.9 C (98.5 F) 04/03/2025 9:11 AM EDT Respiratory Rate 12 04/03/2025 9:11 AM EDT Oxygen Saturation 96% 04/03/2025 9:11 AM EDT Inhaled Oxygen Concentration - - Weight 84.6 kg (186 lb 6.4 oz) 04/03/2025 9:11 A M EDT Height 172.7 cm (5' 8 ) 04/03/2025 9:11 AM EDT Body Mass Index 28.34 04/03/2025 9:11 AM EDT Plan of Treatment Upcoming Encounters Date Type Department Care Team (Late st Contact Info) Description 05/20/2025 9:45 AM EDT Office Visit [facility] [address] [place] [address] Marizol Lemus MD [address] [place] [address] Health Maintenance Due Date Last Done Comments Zoster Vaccines (1 of 2) 1988 COVID-19 Vaccine ( season) 2025 06/05/2023, 12/28/2022, 05/22/2022, Additional history exists Influenza Vaccine (#1) 2025 , 06/05/2023, 05/22/2022, Additional history exists Alcohol/Substance Use Screening 02/11/2026 02/11/2025 Depression Screening 02/11/2026 02/11/2025, 02/12/20 SDOH Screening 02/11/2026 02/11/2025 Tobacco Screening 04/03/2026 04/03/2025 Lipid Panel 02/11/2030 02/11/2025 DTaP/Tdap/Td Vaccines (2 - Td or Tdap) 05/07/2034 05/07/2024 RSV Patients and Patients Aged 60 years or older Completed 06/05/2023 Pneumococcal Vaccine: 50+ Years Completed 05/07/2024 HIB Vaccines Aged Out No longer eligi ble based on patient's age to complete this topic HPV Vaccines Aged Out No longer eligi ble based on patient's age to complete this topic Hepatitis A Vaccines Aged Out No long er eligible based on patient's age to complete this topic Hepatitis B Vaccines Aged Out No long er eligible based on patient's age to complete this topic IPV Vaccines Aged Out No longer eligi ble based on patient's age to complete this topic Meningococcal B Vaccine Aged Out No l onger eligible based on patient's age to complete this topic Meningococcal Vaccine Aged Out No margie jesusita eligible based on patient's age to complete this topic RSV under 20 months Aged Out No longe r eligible based on patient's age to complete this topic Rotavirus Vaccines Aged Out No longer eligible based on patient's age to complete this topic Procedures Procedure Name Priority Date/Time Associated Diagnosis Comments ALBUMIN, RANDOM URINE W/CREATININE Routine 02/11/2025 9:44 AM EDT History of nocturia PSA, SCREEN Routine 02/11/2025 9:44 AM EDT History of nocturia CBC WITH AUTO DIFFERENTIAL Routine 02/11/2025 9:44 AM EDT Chronic obstructive pulmonary disease, unspecified COPD type (CMS/HCC) Other eosinophilia Pure hypercholesterolemi a Atherosclerosis of [place] coronary artery of [place] heart without angina pectoris COMPREHENSIVE METABOLIC PANEL Routine 02/11/2025 9:44 AM EDT Chronic obstructive pulmonary disease, unspecified COPD type (CMS/HCC) Other eosinophilia Pure hypercholesterolemi a Atherosclerosis of [place] coronary artery of [place] heart without angina pectoris LIPID PANEL, STANDARD Routine 02/11/2025 9:44 AM EDT Chronic obstructive pulmonary disease, unspecified COPD type (CMS/HCC) Other eosinophilia Pure hypercholesterolemi a Atherosclerosis of [place] coronary artery of [place] heart without angina pectoris from Last 3 Months Results * PSA, Screen (02/11/2025 9:44 AM EDT) Pathologist [facility] PSA, Total 1.58 <0.05 - 4.0 ng/mL [facility] Comment:PSA methodology: Jose Koroma i ChemiluminescentMicroparticle Immunoassay (CMIA) Blood Venous blood specimen / Unknown 02/11/2025 9:44 AM EDT 02/11/2025 11:23 AM EDT Marizol Lemus MD LAB BLOOD ORDERABLES Final Re sult Performing Organization Address [facility] Co de Phone Number [facility] [address] [place] [address] [phone] * (ABNORMAL) Albumin, Random Urine W/Creatinine (02/11/2025 9:44 AM EDT) [facility] Creatinine, Urine 116.92 mg/dL [facility] Microalbumin Urine 303.0 mg/L H [facility] Microalbum Creatinine Ratio Ur 259.1(H) <30 ug/mg cr [facility] Comment:Albumin/Creatinine R atio Reference Ranges: Normal: < 30 ug/mg creatinine Microalbuminuria: 30 - 300 ug/mg creatinineClinical Albuminuria: > 300 ug/mg creatinine Urine (Urine, Random) 02/11/2025 9:44 AM EDT 02/11/2025 11:04 AM EDT Marizol Lemus MD LAB URINE ORDERABLES Final Re sult Performing Organization Address [facility] Co de Phone Number [facility] [address] [place] [address] [phone] * (ABNORMAL) CBC auto differential (02/11/2025 9:44 AM EDT) White Blood Count 6.5 4.8 - 10.8 X10*3/uL [facility] Red Blood Count 4.98 4.60 - 5.80 X10*6/uL [facility] Hemoglobin 15.3 14.0 - 18.0 g/dl [facility] Hematocrit 44.0 42.0 - 52.0 % [facility] Mean Corpuscular Volume 88.4 80.0 - 98.0 fL [facility] Mean Corpuscular Hemoglobin 30.7 27.0 - 33.0 pg [facility] Mean Corpuscular HGB Conc 34.8 31.0 - 36.0 g/dl [facility] Red Cell Distribution Width 13.9 11.0 - 16.0 % [facility] Platelet Count 146(L) 160 - 400 X10*3/uL [facility] Mean Platelet Volume 9.5 9.4 - 12.4 fL [facility] Neutrophils Percent Auto 64.8 45 - 73 % [facility] Imm Gran Pct Auto 0.2 0.0 - 0.4 % [facility] Lymphocytes Percent Auto 20.6 20 - 40 % [facility] Monocytes Percent Auto 10.0 2 - 11 % [facility] Eosinophils Percent Auto 3.5 0 - 4 % [facility] Basophils Percent Auto 0.9 0 - 2 % [facility] NRBC Pct Auto 0.0 0.0 - 0.2 /100WBC [facility] Neutrophils Absolute Auto 4.2 2.0 - 8.3 x10*3/uL [facility] Imm Gran Abs Auto 0.01 0.00 - 0.03 X10*3/uL [facility] Lymphocytes Absolute Auto 1.3 1.2 - 4.9 X10*3/uL [facility] Monocytes Absolute Auto 0.7 0.1 - 1.2 X10*3/uL [facility] Eosinophils Absolute Auto 0.2 0.0 - 0.4 X10*3/uL [facility] Basophils Absolute Auto 0.1 0.0 - 0.2 X10*3/uL [facility] NRBC Abs Auto 0.000 0.0 - 0.012 X10*3/uL [facility] Blood Venous blood specimen / Unknown 02/11/2025 9:44 AM EDT 02/11/2025 11:23 AM EDT Marizol Lemus MD LAB BLOOD ORDERABLES Final Re sult Performing Organization Address [facility] Co de Phone Number [facility] [address] [place] [phone] * Lipid Panel, Standard (02/11/2025 9:44 AM EDT) Triglycerides 127 <150 mg/dL [facility] Comment:Desirable Triglyceri de: less than 150 mg/dLBorderline High Triglyceride 150-199 mg/dLHigh Triglyceride: 200-499 mg/dLVery High Triglyceride: greater than or equal to 5OO mg/dL Cholesterol 152 <200 mg/dL [facility] Comment:Desirable Cholestero l: less than 200 mg/dLBorderline High Cholesterol: 200-239 mg/dLHigh Cholesterol: greater than 239 mg/dL LDL Cholesterol Calculated 76 <100 mg/dL [facility] Comment:Desirable LDL: less than 100 mg/dLNear Optimal/Above Optimal LDL: 110- 129 mg/dLBorderline High LDL: 130-159 mg/dLHigh LDL: 160-189 mg/dLVery High LDL: greater than or equal to 190 mg/dL HDL Cholesterol 51 >40 mg/dL [facility] Comment:Desirable HDL: great er than 40 mg/dL Note: This HDL assay may give artificially low results in patients with liver disease. Blood Venous blood specimen / Unknown 02/11/2025 9:44 AM EDT 02/11/2025 11:23 AM EDT Marizol Lemus MD LAB BLOOD ORDERABLES Final Re sult Performing Organization Address [facility]/ZIP Co de Phone Number [facility] [address] [place] [phone] * (ABNORMAL) Comprehensive Metabolic Panel (02/11/2025 9:44 AM EDT) Sodium 139 135 - 145 mmol/L [facility] Potassium 4.1 3.3 - 5.1 mmol/L [facility] Chloride 106 96 - 108 mmol/L [facility] Carbon Dioxide 27 22 - 29 mmol/L [facility] Anion Gap 10(L) 12 - 20 [facility] Urea Nitrogen (BUN) 14 9 - 16 mg/dL [facility] Creatinine, Serum 1.17 0.5 - 1.4 mg/dL [facility] Estimated Glomerular Filt Rate 59 [facility] Comment:Chronic Kidney Disea se: Estimated GFR < 60 mL/min/[id number] Kidney Disease: Estimated GFR < 15 mL/min/1.73m2 Glucose 104 60 - 115 mg/dL [facility] Calcium 9.9 8.4 - 10.2 mg/dL [facility] Bilirubin, Total 1.1(H) 0.0 - 1.0 mg/dL [facility] Aspartate Amino Transferase 28 5 - 37 U/L [facility] Alanine Aminotransferase 22 0 - 40 U/L [facility] Total Protein 7.9 6.5 - 8.0 g/dL [facility] Albumin Level 4.3 3.5 - 5.0 g/dL [facility] Alkaline Phosphatase 56 39 - 117 U/L [facility] Blood Venous blood specimen / Unknown 02/11/2025 9:44 AM EDT 02/11/2025 11:23 AM EDT us Marizol Lemus MD LAB BLOOD ORDERABLES Final Re sult [facility] [address] [place] [address] [phone] from Last 3 Months Insurance [facility] Care Teams Salesperson Women'S Dresses Relationship Specialty Start Date End Date Gavino Llanos CNP [address] [place] [phone] PCP - General Family Medicine 02/11/25
[2025-05-12 11:07] LABS: MANUAL DIFF FLAG NO
[2025-05-12 11:13] LABS: Hematocrit 42.7 % (42.0-52.0); Hemoglobin 14.8 g/dl (14.0-18.0); Imm Gran Abs Auto 0.01 X10*3/uL (0.00-0.03); Imm Gran Pct Auto 0.2 % (0.0-0.4); Lymphocytes Absolute Auto 1.8 X10*3/uL (1.2-4.9); Mean Corpuscular HGB Conc 34.7 g/dl (31.0-36.0); Mean Corpuscular Hemoglobin 30.6 pg (27.0-33.0); Mean Corpuscular Volume 88.4 fL (80.0-98.0); NRBC Abs Auto 0.000 X10*3/uL (0.0-0.012); NRBC Pct Auto 0.0 /100WBC (0.0-0.2); Platelet Count 134 X10*3/uL (160-400); Red Blood Count 4.83 X10*6/uL (4.60-5.80); White Blood Count 6.0 X10*3/uL (4.8-10.8)
[2025-05-12 15:09] LABS: Cholesterol 161 mg/dL (<200); HDL Cholesterol 48 mg/dL (>40); Triglycerides 162 mg/dL (<150)
== END 2025-05-12 09:39 | disposition home or self-care (01) ==
LOC: HO.WFDLDS 09:38
PROVIDERS: Visit Provider Nurse Practitioner
DX: I25.10 Atherosclerotic heart disease of native coronary artery without angina pectoris (principal); E78.00 Pure hypercholesterolemia, unspecified
CPT/HCPCS: 36415; 80061; 85025

== ENCOUNTER 2025-07-14 15:05 | Outpatient (AMB) | payer MEDICARE, SELFPAY ==
--- OUTSIDE RECORDS SUMMARY | 2024-10-13 11:48 | XMS_ITS | Encounter Summary ---
Author Organization [facility] Address [address] [place] [address] [place] [id number] Phone Care Team Providers Care Pain Management Specialist Name Role Phone Cade Perez MD Primary Care Provider [phone] Encounter Details Date Type Department Care Team (Late st Contact Info) Description 10/13/2024 11:48 AM EST Hospital Encounter [facility] [address] [place] [id number] Bredna Blue, MAIL OPENER [address] [place] [address] [email or web address] Social History Tobacco Use Types Packs/Day Years Used Date Smoking Tobacco: Former Cigarettes Q uit: 1987 Smokeless Tobacco: Never Alcohol Use Standard Drinks/Week Comments Not Currently 0 (1 standard drink = 0.6 oz pur e alcohol) Education Answer Date Recorded Are you interested in more education? Not on raheel e 06/18/2023 Are you concerned about learning? Not on file 06/18/2023 No 06/18/2023 No 06/18/2023 Digital Access Answer Date Recorded No 06/18/2023 No 06/18/2023 Reliable internet access at home? Not on file 06/18/2023 Device with a working camera? Not on file Intimate Partner Violence Answer Date R ecorded Are you denied basic needs s uch as food, clothing, or medical care? No 06/16/2024 In the past 12 months have y ou been in a relationship with a person who hurts, threatens, or tries to control you? No 06/16/2024 Are you denied basic needs s uch as food, clothing, or medical care? No 06/16/2024 In the past 12 months have y ou been in a relationship with a person who hurts, threatens, or tries to control you? No 06/16/2024 Sex and Gender Information Value Date Recorded Sex Assigned at Male 07/19/2023 5:33 PM EST Legal Sex Male 10:43 AM EDT Gender Identity Male 07/19/2023 5:33 PM EST Sexual Orientation Straight 07/19/2023 5: 33 PM EST documented as of this encounter Plan of Treatment Upcoming Encounters Date Type Department Care Team (Late st Contact Info) Description 11/09/2025 8:30 AM EST Office Visit [facility] [address] [place] [address] [address] Floor, [address] [place] [address] Cassie Magana, [place]. [facility] [address] [facility], [address] [place] [address] [email or web address] documented as of this encounter Procedures Procedure Name Priority Date/Time Associated Diagnosis Comments XR CHEST PA AND LATERAL 2 VIEWS Urgent/patient waiting 10/13/2024 11:52 AM EST Dyspnea, unspecified type documented in this encounter Results * XR CHEST PA AND LATERAL 2 VIEWS (10/13/2024 11:52 AM EST) Anatomical Region Laterality Modality Chest Computed Radiogr aphy 10/13/2024 12:0 4 PM EST Impressions 10/13/2024 12:07 PM EST No acute abnormality. Rounded fullness of the right hilum, could be a superposition of vascular structures, consider nonemergent CT scan to exclude underlying mass or lymphadenopathy. RECOMMENDATION: Nonemergent chest CT. A clinically significant result was initiated on 10/13/2024 12:06 PM, Message ID [id number]. Narrative 10/13/2024 12:07 PM EST XR CHEST PA AND LATERAL 2 VIEWS Referring clinician's provided indication for this examination in Epic: Dyspnea (Shortness of Breath) COMPARISON: None FINDINGS: Devices/Tubes/Lines: Pacemaker leads project over the right atrium and right ventricle. Lungs: No consolidation or pulmonary edema. Pleura: No pleural effusion or pneumothorax. Heart/Mediastinum: Normal heart size. Rounded fullness of the right hilum. Bones/Soft Tissues: No significant skeletal abnormality. Procedure Note Hal Cordero MD - 10/13/2024 XR CHEST PA AND LATERAL 2 VIEWS Referring clinician's provided indication for this examination in [facility]:Dyspnea (Shortness of Breath) COMPARISON: None FINDINGS: Devices/Tubes/Lines: Pacemaker leads project over the right atrium andright ventricle. Lungs: No consolidation or pulmonary edema. Pleura: No pleural effusion or pneumothorax. Heart/Mediastinum: Normal heart size. Rounded fullness of the righthilum. Bones/Soft Tissues: No significant skeletal abnormality. IMPRESSION: No acute abnormality. Rounded fullness of the right hilum, could be a superposition of vascularstructures, consider nonemergent CT scan to exclude underlying mass orlymphadenopathy. RECOMMENDATION: Nonemergent chest CT. A clinically significant result was initiated on 10/13/2024 12:06 PM,Message ID [id number]. Brenda Blue MAIL OPENER IMG XR CHEST Final R esult documented in this encounter Visit Diagnoses Not on filedocumented in this encounter Additional Health Concerns Infection Onset Date Last Indicated Resolved Time CoV-Risk 10/13/2024 10/13/2024 10/24/2024 1:24 AM EST documented as of this encounter Care Teams Pain Management Specialist Relationship Specialty Start Date End Date Caed Perez MD [address] [place] [address] [place] [id number] PCP - General Internal Medicine 06/18/23 02/11/25 documented as of this encounter Additional Source Comments The information contained in this document represents components of the legal health record. It is not the complete legal health record.[facility]
--- NOTE | 2025-07-14 15:13 | A.OFFVIS_ITS ---
Vital Signs 07/14/25 15:14 Height 5 ft 8 in Weight 185 lb 3.013 oz BMI 28.2 BP 130/72 Blood Pressure Location Lt brachial Position Sitting Pulse 84 Pulse Source Pulse Oximeter Pulse Oximetry (%) 95 Oxygen Delivery Method Room Air Intake Visit Reasons: sob, chest tightness,wheezing Intake Note: pt is here for a sick visit for a cough and wheeze for 4-5 days. Middle School Guidance Counselor Required: No Information Security Analyst: Information Security Analyst offered & declined Allergies No Known Allergies (No Known Allergies*) Allergy (Verified 07/14/25 15:51) Medication List - Last Reconciled 07/14/25 by Erwin Nichols MD albuterol sulfate 90 mcg/actuation (Ventolin HFA) 2 puffs inhalation RQ4H PRN 30 days amlodipine 10 mg PO DAILY aspirin (Adult Low Dose Aspirin) 81 mg PO DAILY carvedilol 6.25 mg PO BID clopidogrel (Plavix) 75 mg PO DAILY coenzyme Q10 (Co Q-10) 100 mg PO DAILY docusate sodium (Colace) 100 mg PO BID PRN guaifenesin ER (Mucinex) 600 mg PO BID 10 days peg 400-propylene glycol (PF) 0.4-0.3 % (Systane (PF)) 1 drp ophthalmic (eye) QID prednisone 20 mg PO BID PRN prednisone 20 mg PO BID 5 days rosuvastatin (Crestor) 40 mg PO BEDTIME Do you need a note to return to daycare/school/sports/work: No HPI HPI sob, chest tightness,wheezing: Details: THIS 84-YEAR-OLD VERY PLEASANT GENTLEMAN IS HERE FOR AN URGENT VISIT. HE IS HAVING COUGH, UPPER CHEST CONGESTION, SHORTNESS OF BREATH AND WHEEZING, FOR THE LAST 4 DAYS AND IS GRADUALLY WORSENING. HE DENIES FEVER OR CHILLS. HE IS A KNOWN CASE OF ASTHMA/COPD AND IS PRONE TO GET ACUTE EXACERBATION AT LEAST 3 TO 4 TIMES A YEAR. EACH TIME HE STARTS HAVING CHEST CONGESTION AND A LOT OF WHEEZING. HE IS USUALLY TREATED WITH SHORT COURSE OF PREDNISONE AND Z-SUMIT. WE HAD DISCUSSED ABOUT KEEPING HIM ON A LONG-ACTING BRONCHODILATOR WITH INHALED STEROIDS BUT HE DID NOT WANT TO BE ON ANYTHING ON A DAILY BASIS. CURRENTLY HE IS NONSMOKER. [facility] Medical History (Updated 07/14/25 @ 15:57 by Erwin Nichols MD) COPD exacerbation History of smoking at least 1 pack per day for at least 30 years Eosinophilia Asthma COPD (chronic obstructive pulmonary disease) Aortic stenosis HTN (hypertension) Renal cyst, right Hyperlipidemia Coronary artery disease Surgical History History of appendectomy (11/26/23) S/P cardiac pacemaker procedure History of colonoscopy History of left knee replacement History of cholecystectomy History of rectal fissure History of right inguinal hernia History of left inguinal hernia History of shoulder surgery Family History Father No problems noted. Mother No problems noted. Social History Household Members: Spouse Housing: House Are you a primary care management specialist to a significant other at home: No Do you presently have visiting nurse or other home services: No Alcohol intake: former Patient Tobacco Use Status: Former Tobacco user Tobacco use type: Cigarette e-Cigarette/Vaping Use: Former Use Second Hand Smoke Exposure: No Advance Directives Date on File: 11/24/24 service: No Current occupational status: retired Current occupational exposures/hazards: No Cognitive needs: No Hearing needs: No Vision needs: Yes Review of Systems Const All systems reviewed & are unremarkable except as noted in HPI and below Eyes Reports no additional complaints and Reports other (RIGHT EYE STATUS POST CATARACT SURGERY 2 YEARS AGO WITH RESIDUAL EXTROPIAN) ENT Reports no additional complaints Card Denies chest pain, Denies syncope, Denies irregular heart rhythm, Denies leg edema and Reports other ( 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) Resp Reports as per HPI GI Reports no additional complaints Reports no additional complaints Musc Reports no additional complaints Skin/Breast Reports system reviewed and no additional complaints, except as documented Neuro Details: HISTORY OF STROKE A FEW YEARS AGO WITH COMPLETE RESOLUTION Denies syncope Endo Reports no additional complaints Manoj/Lymph Reports no additional complaints Physical Exam Vital Signs: Last Vital Signs Pulse 84 07/14/25 15:14 BP 130/72 07/14/25 15:14 Pulse Ox 95 07/14/25 15:14 Oxygen Delivery Method Room Air 07/14/25 15:14 BMI result Body Mass Index 28.2 Const General: healthy appearing, comfortable, no acute distress, alert and awake Orientation/consciousness: patient oriented x3 HEENT Head: Yes normal to inspection General nose exam: No nasal polyps present and No nasal discharge present Face and sinus: Yes sinuses nontender Mouth: oropharynx normal Throat: Yes posterior oropharynx normal Eyes General: appearance normal, both eyes and all related structures Alignment and Position: other (RIGHT EYE STATUS POST CATARACT SURGERY AND PERMANENT EXTROPIAN OF THE LOWER) Neck Neck: Yes normal visual inspection, Yes no lymphadenopathy, Yes trachea midline and Yes no JVD Thyroid: Thyroid normal Chest Chest palpation & inspection: normal inspection of the chest, normal palpation of entire chest wall and no tenderness Resp Other: PERCUSSION NOTE RESONANT, BREATH SOUNDS ARE EQUAL ON BOTH SIDES HE HAS LOUD EXPIRATORY WHEEZES THROUGHOUT THE CHEST BOTH POSTERIORLY AND ANTERIORLY. Cardio Palpation: normal PMI Rate: regular rate Rhythm: regular rhythm Heart sounds: no gallops, no murmurs and Other heart sounds present (PACEMAKER IN THE LEFT PECTORAL AREA) Peripheral pulses: Peripheral pulses 2+ throughout GI Palpation (GI): Soft to palpation, nontender, No hepatosplenomegaly present and no masses Auscultation: normal bowel sounds Back/Spine/Pelvis Thoracic/Lumbar Spine: thoracic and lumbar spine normal to inspection Skin General skin exam: no rashes or lesions noted Neuro General: patient oriented x3 and no focal motor deficits Cranial nerves: Yes CN's II-XII intact bilaterally Extrem General: Yes normal to inspection, Yes no clubbing, cyanosis or edema and Yes no calf tenderness Psych Speech and movement: Normal speech and movement present Assessment & Plan Assessment & Plan (1) COPD exacerbation: Comment: THIS GENTLEMAN WHO IS KNOWN TO HAVE ASTHMA/COPD, AT PRESENT HE IS SUFFERING FROM AN ACUTE EXACERBATION OF COPD WHICH SEEMS TO BE DUE TO DIFFUSE BRONCHITIS. Code(s): J44.1 - Chronic obstructive pulmonary disease with (acute) exacerbation Category: Medical Plan: PREDNISONE 20 MG B.I.D. FOR 5 DAYS COURSE OF Z-SUMIT. BREO 200-25 1 INHALATION DAILY AND I ADVISED HIM THAT HE SHOULD STAY ON THIS MAINTENANCE REGIMEN ON AN ONGOING BASIS. Medications: New prednisone 20 mg PO BID 10 tabs 1RF ASTHMA EXCERBATION 5 days azithromycin For 250 mg dose pack: take 500 mg today (day 1), then 250 mg for 4 days (days 2-5) PO 6 tabs 0RF fluticasone furoate-vilanterol 200-25 mcg/dose (Breo Ellipta) 1 inh inhalation DAILY 60 ea 2RF COPD 30 days Coding Level of Care Code Est Pt Level 3 (92309) Diagnoses COPD exacerbation J44.1
[2025-07-14 15:14] VITALS: BP 130/72; PULSE 84; O2SAT 95; BMI 28.2
--- OUTSIDE RECORDS SUMMARY | 2025-07-14 18:02 | XMS_ITS | Clinical Summary ---
Author Organization [employer] Address [address] [place] [address] [address] [place] [address] Care Team Providers Care Business Management Analyst Name Role Phone Gavino Llanos CNP Primary Care Provider [phone] Allergies No known active allergies Medications albuterol 108 (90 Base) MCG/ACT inhaler Inhale 2 puffs every 6 (six) hours if needed. 5 Active Albuterol-Budesonid e 90-80 MCG/ACT aerosol Active amLODIPine (Norvasc) 10 MG tablet Take 10 mg by mouth Once per day. Active aspirin 81 MG EC tablet Take 81 mg by mouth Once per day. Active carvedilol (Coreg) 6.25 MG tablet Take 6.25 mg by mouth with breakfast and with evening meal. Active coenzyme Q-10 100 MG capsule Active Docusate Sodium (DSS) 100 MG capsule Active erythromycin (Romycin) 5 MG/GM ophthalmic ointment APPLY 1 A SMALL AMOUNT INTO RIGHT EYE FOUR TIMES A DAY 4 Active Polyethyl Glycol-Propyl Glycol (Systane) 0.4-0.3 % solution A ctive predniSONE (Deltasone) 20 MG tablet Take 1 tablet by mouth 2 times daily. 5 Active rosuvastatin (Crestor) 40 MG tabletIndications:C hronic obstructive pulmonary disease, unspecified COPD type (CMS/HCC) (HCC),Other eosinophilia,Pure hypercholesterolemi a,Atherosclerosis of [place] coronary artery of [place] heart without angina pectoris Take 1 tablet (40 mg) by mouth in the morning. 90 tablet 1 5 Active clopidogrel (Plavix) 75 MG tabletIndications:C hronic obstructive pulmonary disease, unspecified COPD type (CMS/HCC) (HCC),Other eosinophilia,Pure hypercholesterolemi a,Atherosclerosis of [place] coronary artery of [place] heart without angina pectoris Take 1 tablet (75 mg) by mouth Once per day. 90 tablet 1 Active Active Problems Problem Noted Date Diagnosed Date COPD (chronic obstructive pulmonary disease) 11/2024 Mild intermittent asthma with acute exacerbation 02/10/2025 Other eosinophilia 02/10/2025 Ischemic cardiomyopathy 07/09/2024 Angina pectoris 05/26/2024 Lymphadenopathy 04/21/2024 Atherosclerosis of [place] coronary artery 2023 Nonsustained paroxysmal ventricular tachycardia (CMS/HCC) 04/15/2024 Pure hypercholesterolemia 04/15/2024 Shortness of breath 04/15/2024 Encounters Date Type Department Care Team Description 07/07/[address] [facility] [address] [place] [address] Marizol Lemus MD Chronic obstructive pulmonary disease, unspecified COPD type (CMS/HCC) (HCC); Other eosinophilia; Pure hypercholesterolemia; Atherosclerosis of [place] coronary artery of [place] heart without angina pectoris 05/20/2025 9:45 AM EDT Office Visit [facility] [address] [place], [place] [id number] Marizol Lemus MD Pure hypercholesterolemia (Primary Dx); Nonsustained paroxysmal ventricular tachycardia (CMS/HCC); Atherosclerosis of [place] coronary artery of [place] heart without angina pectoris; Preop examination 05/20/2025 Travel 05/13/2025 Travel from Last 3 Months Immunizations Immunization Administration [...] Sign Reading Time Taken Comments Blood Pressure 142/84 05/20/2025 9:59 AM EDT Pulse 81 05/20/2025 9:47 AM EDT Temperature 36.2 C (97.1 F) 05/20/2025 9:47 AM EDT Respiratory Rate 20 05/20/2025 9:47 AM EDT Oxygen Saturation 95% 05/20/2025 9:47 AM EDT Inhaled Oxygen Concentration - - Weight 84.4 kg (186 lb) 05/20/2025 9:47 AM EDT Height 172.7 cm (5' 8 ) 04/03/2025 9:11 AM EDT Body Mass Index 28.28 04/03/2025 9:11 AM EDT Plan of Treatment Health Maintenance Due Date Last Done Comments Zoster Vaccines (1 of 2) 1990 COVID-19 Vaccine ( season) 2025 06/05/2023, 12/28/2022, 05/22/2022, Additional history exists Influenza Vaccine (#1) 2025 , 06/05/2023, 05/22/2022, Additional history exists Alcohol/Substance Use Screening 02/11/2026 02/11/2025 Depression Screening 02/11/2026 02/11/2025, 02/12/20 SDOH Screening 02/11/2026 02/11/2025 Tobacco Screening 05/20/2026 05/20/2025 Lipid Panel 02/11/2030 02/11/2025 DTaP/Tdap/Td Vaccines (2 [...] Procedure Name Priority Date/Time Associated Diagnosis Comments LIPID PANEL, STANDARD Routine 02/11/2025 9:44 AM EDT Chronic obstructive pulmonary disease, unspecified COPD type (CMS/HCC) Other eosinophilia Pure hypercholesterolemia Atherosclerosis of [place] coronary artery of [place] heart without angina pectoris from Last 3 Months or Most Recently Relevant to Health Maintenance Results * Lipid Panel, Standard (02/11/2025 9:44 AM EDT) Triglycerides 127 <150 mg/dL [facility] Comment:Desirable Triglyceri de: less than 150 mg/dLBorderline High Triglyceride 150-199 mg/dLHigh Triglyceride: 200-499 mg/dLVery High Triglyceride: greater than or equal to 5OO mg/dL Cholesterol 152 <200 mg/dL [facility] Comment:Desirable Cholestero l: less than 200 mg/dLBorderline High Cholesterol: 200-239 mg/dLHigh Cholesterol: greater than 239 mg/dL LDL Cholesterol Calculated 76 <100 mg/dL [facility] Comment:Desirable LDL: less than 100 mg/dLNear Optimal/Above Optimal LDL: 110- 129 mg/dLBorderline High LDL: 130-159 mg/dLHigh LDL: 160-189 mg/dLVery High LDL: greater than or equal to 190 mg/dL HDL Cholesterol 51 >40 mg/dL [facility] Comment:Desirable HDL: great er than 40 mg/dL Note: This HDL assay may give artificially low results in patients with liver disease. Blood Venous blood specimen / Unknown 02/11/2025 9:44 AM EDT 02/11/2025 11:23 AM EDT us Marizol Lemus MD LAB BLOOD ORDERABLES Final Re sult [facility] [address] [place] [address] [phone] from Last 3 Months or Most Recently Relevant to Health Maintenance Insurance [facility] Care Teams Business Management Analyst Relationship Specialty Start Date End Date Gavino Llanos CNP PCP - General Family Medicine 02/11/25
--- OUTSIDE RECORDS SUMMARY | 2025-07-14 18:02 | XMS_ITS | Encounter Summary ---
Author Organization [facility] Address [address] [place] [address] Phone Care Team Providers Care Toll Bridge Attendant Name Role Phone Cade Perez MD Primary Care Provider [phone] Gavino Llanos NP Primary Care Provider [phone] Encounter Details Date Type Department Care Team (Late st Contact Info) Description 06/18/2023 Transcribe Orders [facility] [address] [place] [address] [address], [address] [place] [address] Alton Arevalo MD [address] [place] [id number] Social History Tobacco Use Types Packs/Day Years Used Date Smoking Tobacco: Never Assessed Education Answer Date Recorded Are you interested in more education? Not on raheel e 06/18/2023 Are you concerned about learning? Not on file 06/18/2023 No 06/18/2023 No 06/18/2023 Digital Access Answer Date Recorded No 06/18/2023 No 06/18/2023 Reliable internet access at home? Not on file 06/18/2023 Device with a working camera? Not on file Sex and Gender Information Value Date Recorded Sex Assigned at Male 07/19/2023 5:33 PM EST Legal Sex Male 10:43 AM EDT Gender Identity Male 07/19/2023 5:33 PM EST Sexual Orientation Straight 07/19/2023 5: 33 PM EST documented as of this encounter Plan of Treatment Upcoming Encounters Date Type Department Care Team (Late st Contact Info) Description 11/09/2025 8:30 AM EST Office Visit [facility] [address], [address] [place] [address] Cassie Magana, AKIRA [address] [facility], [address] [place] [address] [email or web address] documented as of this encounter Visit Diagnoses Not on filedocumented in this encounter Additional Health Concerns Infection Onset Date Last Indicated Resolved Time CoV-Risk 10/13/2024 10/13/2024 10/24/2024 1:24 AM EST documented as of this encounter Care Teams Toll Bridge Attendant Relationship Specialty Start Date End Date Cade Perez MD [address] [place] [phone] PCP - General Internal Medicine 06/18/23 02/11/25 Gavino Llanos NP [address] [place] [phone] PCP - General Nurse Practitioner 02/12/25 documented as of this encounter Additional Source Comments The information contained in this document represents components of the legal health record. It is not the complete legal health record.[facility]
--- OUTSIDE RECORDS SUMMARY | 2025-07-14 18:02 | XMS_ITS | Clinical Summary ---
Author Organization Located Within [facility] Address [address] [facility] [address] [place] [address] Phone Care Team Providers Care Mine Boss Name Role Phone Gavino Llanos NP Primary Care Provider [phone] Allergies No known active allergies Medications clopidogrel (PLAVIX) 75 mg tablet Take 75 mg by mouth daily. 3 Active rosuvastatin (CRESTOR) 40 MG tablet Take 1 tablet by mouth every morning. 3 Active aspirin 81 MG EC tablet Take 81 mg by mouth daily. Active coenzyme Q10 100 mg capsule Take 100 mg by mouth daily. Active erythromycin (ROMYCIN) ophthalmic ointment APPLY 1 A SMALL AMOUNT INTO RIGHT EYE FOUR TIMES A DAY 4 Active docusate sodium (COLACE) 100 MG capsule Active LORazepam (ATIVAN) 1 MG tablet TAKE 1 TABLET 3 TIMES A DAY NEEDED FOR ANXIETY 4 Active vit C-E-zinc vg-qstv-csd-bryant x (ICAPS AREDS2) 250 mg-200 unit -12.5 mg-1 mg Cap Active amLODIPine (NORVASC) 10 MG tabletIndicatio ns:Medication refill Take 1 tablet (10 mg total) by mouth daily. 90 tablet 3 5 Active albuterol 90 mcg/actuation inhaler INHALE 2 PUFFS BY MOUTH EVERY 4 HOURS NEEDED FOR SHORTNESS OF BREATH AND WHEEZING FOR 30 DAYS Active carvedilol (COREG) 6.25 MG tablet Take 1 tablet (6.25 mg total) by mouth 2 (two) times a day with meals. 180 tablet 3 5 Active Active Problems Problem Noted Date Diagnosed Date Ischemic cardiomyopathy 07/09/2024 Assessment & Plan (05/07/2025 8:50 AM EDT): He has a nonischemic cardiomyopathy. His most recent echocardiogram shows a recovered ejection fraction 60 to 65%. He is asymptomatic and displays no symptoms of heart failure. Assessment & Plan (11/20/2024 9:37 AM EDT): He has an ischemic cardiomyopathy for which she has an ICD. Last interrogation was done remotely which showed normal device function. He does not display any heart failure symptoms at this time. He does have increased congestion and wheezing but this does not appear to be heart failure. His weight has been stable with no weight gain. Assessment & Plan (08/05/2024 12:19 PM EST): At this time he is completely asymptomatic he has at least moderate LV dysfunction but I would like to get an echo since being on different medications. Assessment & Plan (07/10/2024 11:19 AM EDT): Recent ejection fraction noted 35 to 40%, notably lower than recent nuke and echo report. Patient has no signs or symptoms of heart failure at this time. Discussed this finding. Patient is on amlodipine 10 mg daily. We are going to add carvedilol 3.125 mg twice a day. Patient has follow-up in place with his financial underwriter in approximately 1 month. Goal would be to optimize his medical therapy. Patient should call the office with the onset of any dyspnea/PND/orthopnea/peripheral edema or weight gain or any ADRs after starting on beta-carlene. Angina pectoris 05/26/2024 Assessment & Plan (05/26/2024 9:12 AM EDT): As mentioned I am going to perform diagnostic catheterization at [facility] to investigate Lymphadenopathy 04/21/2024 Shortness of breath 04/15/2024 Assessment & Plan (11/20/2024 9:37 AM EDT): He recently has been having significant congestion where he is now wheezing inspiratory and expiratory throughout bilateral lung aggarwal. He has having some difficulty with sleeping at night due to his chronic cough. This been going on for approximately 7 to 8 weeks. He did had a chest x-ray in early October which did not reveal any heart failure but rather had a shadowing on his imaging that it was suggested he undergo a CT chest for. The due to fear he has not had this worked up. I did call his primary care's office Dr. Tolbert today while he was here in the office to see if we can get him a same-day appointment to be seen. His O2 sats are also down to 94%. There were no appointments available so I recommended that he either go to urgent care or the emergency room for further assistance with managing his congestion and wheezing. He is opted to go to urgent care at this point. Assessment & Plan (08/05/2024 12:19 PM EST): He is currently not complaining of chest pain or shortness of breath Assessment & Plan (07/09/2024 12:26 PM EDT): Not currently endorsing. Atherosclerosis of tuscarora coronary artery 2023 Assessment & Plan (05/07/2025 8:50 AM EDT): Continues to do well from a cardiovascular standpoint. He is on aspirin 81 mg daily, clopidogrel 75 mg daily, carvedilol 6.25 mg twice daily, amlodipine 10 mg daily and rosuvastatin 40 mg daily. He will continue his medication without change. He is encouraged follow heart healthy mangling low-sodium and exercise. SBP goal less than 130/80. LDL goal less than 50 mg deciliter. PCP is monitoring lipid panel. He will need to withhold his aspirin and clopidogrel for 14 days prior to his eye surgery as requested by the surgeon. Okay from a cardiovascular standpoint. Okay to resume as soon as possible at surgeon's request. Assessment & Plan (11/20/2024 9:35 AM EDT): He is asymptomatic from a cardiovascular standpoint but will continue to optimize his cardiac risk factors. He is on amlodipine 10 mg daily, aspirin milligrams daily, clopidogrel 75 mg daily and rosuvastatin 40 mg daily.. Will continue to optimize his cardiac risk factors. He is encouraged follow her healthy diet going low-sodium with exercise Assessment & Plan (07/09/2024 12:24 PM EDT): Hx CAD and had PCI in the remote past, in the . Nuclear stress test 04/2024 was abnormal, he was recommended a cardiac catheterization which was completed 06/16/[address] Vargas at [facility]. This showed LAD and circumflex disease, but no evidence of ischemia. No intervention was recommended. As patient does not have any current angina or dyspnea and has no exertional symptoms, will defer viability study as discussed at this time. If symptoms change, patient is to advise the office. Continue medical therapy. Continue to optimize cardiovascular risk factors. Patient will continue on aspirin lifelong. Assessment & Plan (04/15/2024 8:30 AM EDT): He does not have chest pain hopefully a stress test will show no evidence of ischemia Nonsustained paroxysmal ventricular tachycardia 04/15/2024 Assessment & Plan (05/07/2025 8:50 AM EDT): Continues to have infrequent episodes of NSVT. He is pretty much rate controlled most of the time on carvedilol 6.25 mg twice daily. He does have a pacemaker which was interrogated today. Assessment & Plan (05/26/2024 9:12 AM EDT): No recurrences he does have a device in place followed in our device clinic Assessment & Plan (04/15/2024 8:30 AM EDT): As mentioned he does have a diagnosis of coronary disease we are going to get a nuclear stress test on this patient and see him thereafter in follow-up Pure hypercholesterolemia 04/15/2024 Assessment & Plan (05/07/2025 8:50 AM EDT): Continue rosuvastatin 40 mg daily. Assessment & Plan (11/20/2024 9:37 AM EDT): Continue rosuvastatin 40 mg daily. Assessment & Plan (08/05/2024 12:19 PM EST): I have also ordered another set of labs including an A1c and a lipid panel he is on Crestor 40 mg daily Assessment & Plan (07/09/2024 12:26 PM EDT): LDL goal <70. Will continue on rosuvastatin 40 mg daily. Labs have been requested from [facility] which patient has had recently drawn. Assessment & Plan (05/26/2024 9:12 AM EDT): LDL should be less than 70 mg/dL Assessment & Plan (04/15/2024 8:30 AM EDT): LDL should be less than 70 Encounters Date Type Department Care Team Description 05/16/2025 Refill [facility] [address], [address] [place] [address] Cassie Magana DNP Medication Refill 05/07/2025 8:30 AM EDT Office Visit [facility] [address], [address] [place] [address] Cassie Magana DNP Pure hypercholesterolemia (Primary Dx); Atherosclerosis of tuscarora coronary artery of tuscarora heart without angina pectoris; Nonsustained paroxysmal ventricular tachycardia; Ischemic cardiomyopathy 05/07/2025 8:20 AM EDT - 05/07/2025 11:59 PM EDT Hospital Encounter Non-Invasive Cardiology [address] [place] [address] David Mae MD Discharge Disposition: Home or Self Care 04/15/2024 Procedure Pass Non-Invasive Cardiology [address] [place] [address] from Last 3 Months Social History Tobacco Use Types Packs/Day Years Used Date Smoking Tobacco: Former Cigarettes Q uit: 1986 Smokeless Tobacco: Never Tobacco Cessation:Counseling Given: Not Answered Alcohol Use Standard Drinks/Week Comments Not Currently [...] Orientation Straight 07/19/2023 5: 33 PM EST Last Filed Vital Signs Vital Sign Reading Time Taken Comments Blood Pressure 130/80 05/07/2025 8:23 AM EDT Pulse 84 05/07/2025 8:23 AM EDT Temperature 36.7 C (98.1 F) 04/21/2024 11:46 AM EDT Respiratory Rate 16 10/13/2024 11:37 AM EST Oxygen Saturation 96% 05/07/2025 8:23 AM EDT Inhaled Oxygen Concentration - - Weight 84.5 kg (186 lb 3.2 oz) 05/07/2025 8:23 A M EDT Height 172.7 cm (5' 7.99 ) 05/07/2025 8:23 AM ED T Body Mass Index 28.32 05/07/2025 8:23 AM EDT Plan of Treatment Upcoming Encounters Date Type Department Care Team (Late st Contact Info) Description 11/09/2025 8:30 AM EST Office Visit [facility] [address] [place] [address] [address]rd Floor, [address] [place] [address] Cassie Magana, AKIRA [address] [place] [address], [address] [place] [address] [email or web address] Due Date Last Done Comments DEPRESSION SCREENING 1952 ZOSTER VACCINES (1 of 2) 1988 INFLUENZA VACCINE (#1) 2025 , 06/05/2023, 05/22/2022, Additional history exists COVID-19 VACCINE ( season) 2025 06/05/2023, 12/28/2022, 05/22/2022, Additional history exists Adult Td,Tdap Booster 05/07/2034 05/07/2024 RSV VACCINE Completed 06/05/2023 PNEUMOCOCCAL VACCINES (50+ years) Completed 05/07/2024 HEPATITIS A VACCINES Aged Out No long er eligible based on patient's age to complete this topic HIB VACCINES Aged Out No longer eligi ble based on patient's age to complete this topic MENINGOCOCCAL VACCINES (ACWY) Aged Out No longer eligible based on patient's age to complete this topic MENINGOCOCCAL VACCINES (B) Aged Out N o longer eligible based on patient's age to complete this topic Medical Devices Implanted Type Area Music Producer Device Identifier Shelf Expiration Date Model / Serial / Lot Pacemaker Pacemaker Left: Heart Procedures Procedure Name Priority Date/Time Associated Diagnosis Comments DEVICE CHECK: PPM IN-PERSON PROGRAMMING DUAL LEAD Routine 05/07/2025 8:47 AM EDT Sick sinus syndrome from Last 3 Months Results * DEVICE CHECK: PPM IN-PERSON PROGRAMMING DUAL LEAD (05/07/2025 8:47 AM EDT) Narrative Dickson Vargas DO - 05/19/2025 4:42 PM EDT Table formatting from the original result was not included. Reason for appointment: In-office pacemaker interrogation HPI: Routine in-office pacemaker interrogation during appt w/Cassie, using iterative adjustment to test the function of the device and select optimal permanent programmed values. No device related complaints. Indication for device: SSS Examination: Device type: Pacemaker Music Producer: Medtronic Mode: AAIR-DDDR LRL/URL: 60/130 bpm Thresholds, impedances, and sensing stable. High V rates: 14 episodes since 04/2024 - most recent, 1 brief AT, 2 NSVT, longest 5 sec, asx Mode switches: 0 Atrial pacin.7% Ventricular pacin.1% Battery: 12 yrs RA RV LV Sensing 1.5mV 20mV Threshold .5V@.4ms .75V@.4ms Impedance 513 ohms 570 ohms Additional comments or changes: normal pacemaker function and stable pacing and sensing thresholds Patient will return for in-office device check in: 12 months, or sooner prn Report prepared by Daljit Teixeira RN David Mae MD [facility] ORDERABL ES Final Result from Last 3 Months Insurance Member Subscriber Plan / Payer (Ef fective 2022-Present) Name:Devon Auguste Relation to Subscriber:Self Name:Devon Auguste Payer ID:[id number] (NAIC) Type:Medicare Address: [place] [id number] [facility] MEDICARE REPLACEMENT [facility] MEDICARE REPLACEMENT [facility] MEDICARE REPLACEMENT Member Subscriber Plan / Payer (Ef fective 2022-Present) Name:Devon Auguste Relation to Subscriber:Self Name:Devon Auguste Payer ID:[id number] (NAIC) Type:Medicare Address: [place] [id number] [place] [id number] [facility] MEDICARE REPLACEMENT [facility] AARP MEDICARE REPLACEMENT Advance Directives For more information, please contact: [phone] (9AM - 5PM [facility], Sunday-Sunday) * Full Code (Latest Code Status on File) Date Activated Date Inactivated Comments 06/16/2024 10:57 AM Question Answer Comments Code Status Confirmed With: Patient Care Teams Mine Boss Relationship Specialty Start Date End Date Gavino Llanos NP [address] [place] [address] PCP - General Nurse Practitioner 02/12/25 Additional Source Comments The information contained in this document represents components of the legal health record. It is not the complete legal health record.Loc[facility]
--- OUTSIDE RECORDS SUMMARY | 2025-07-14 18:02 | XMS_ITS | Encounter Summary ---
Author Organization [facility] Address [address] [place] [address] [place] [address] Phone Care Team Providers Care Shoe Planner Name Role Phone Cade Perez MD Primary Care Provider [phone] Gavino Llanos NP Primary Care Provider [phone] Encounter Details Date Type Department Care Team (Late st Contact Info) Description 04/15/2024 Procedure Pass [facility] [place] [address] [place], [place] [id number] Social History Tobacco Use Types Packs/Day Years Used Date Smoking Tobacco: Former Cigarettes Q uit: 1987 Smokeless Tobacco: Never Education Answer Date Recorded Are you interested [...] Description 11/09/2025 8:30 AM EST Office Visit [facility] [address], [address] [place] [address] Cassie Magana, DNP [address] [facility], [address] [place] [address] [email or web address] documented as of this encounter Visit Diagnoses Not on filedocumented in this encounter Additional Health Concerns Infection Onset Date Last Indicated Resolved Time CoV-Risk 10/13/2024 10/13/2024 10/24/2024 1:24 AM EST documented as of this encounter Care Teams Shoe Planner Relationship Specialty Start Date End Date Cade Perez MD [address] [place] [address] PCP - General Internal Medicine 06/18/23 02/11/25 Gavino Llanos NP [address] [place] [address] PCP - General Nurse Practitioner 02/12/25 documented as of this encounter Additional Source Comments The information contained in this document represents components of the legal health record. It is not the complete legal health record.[facility]
--- OUTSIDE RECORDS SUMMARY | 2025-07-14 18:02 | XMS_ITS | Encounter Summary ---
Author Organization [facility] Address [address] [place] [address] [place] [address] Phone Care Team Providers Care Explosives Detonator Name Role Phone Cade Perez MD Primary Care Provider [phone] Gavino Llanos NP Primary Care Provider [phone] Encounter Details Date Type Department Care Team (Late st Contact Info) Description 07/04/2023 Procedure Pass Non-Invasive Cardiology [address] [place], [place] [id number] Social History Tobacco Use Types Packs/Day Years [...] 5:33 PM EST Sexual Orientation Straight 07/19/2023 5 :33 PM EST documented as of this encounter Plan of Treatment Upcoming Encounters Date Type Department Care Team (Late st Contact Info) Description 11/09/2025 8:30 AM EST Office Visit [facility] [address], [address] [place] [address] Cassie Magana, DNP [address] [facility], [address] [place] [address] [email or web address] documented as of this encounter Visit Diagnoses Not on filedocumented in this encounter Additional Health Concerns Infection Onset Date Last Indicated Resolved Time CoV-Risk 10/13/2024 10/13/2024 10/24/2024 1:24 AM EST documented as of this encounter Care Teams Explosives Detonator Relationship Specialty Start Date End Date Cade Perez MD [address] [place] [address] PCP - General Internal Medicine 06/18/23 02/11/25 Gavino Llanos NP [address] [place] [address] PCP - General Nurse Practitioner 02/12/25 documented as of this encounter Additional Source Comments The information contained in this document represents components of the legal health record. It is not the complete legal health record.[facility]
--- OUTSIDE RECORDS SUMMARY | 2025-07-14 18:02 | XMS_ITS | Encounter Summary ---
Author Organization [facility] Address [address] [place] [address] [place] [address] Phone Care Team Providers Care Manager Gaming Name Role Phone Cade Perez MD Primary Care Provider [phone] Gavino Llanos NP Primary Care Provider [phone] Encounter Details Date Type Department Care Team (Late st Contact Info) Description 09/11/2023 Procedure Pass Non-Invasive Cardiology [address] [place], [place] [id number] Social History Tobacco Use Types Packs/Day Years [...] Description 11/09/2025 8:30 AM EST Office Visit [facility] [address], [address] [place] [address] Cassie Magana, DNP [address] [facility], [address] [place] [address] [email or web address] documented as of this encounter Visit Diagnoses Not on filedocumented in this encounter Additional Health Concerns Infection Onset Date Last Indicated Resolved Time CoV-Risk 10/13/2024 10/13/2024 10/24/2024 1:24 AM EST documented as of this encounter Care Teams Manager Gaming Relationship Specialty Start Date End Date Cade Perez MD [address] [place] [address] PCP - General Internal Medicine 06/18/23 02/11/25 Gavino Llanos NP [address] [place] [address] PCP - General Nurse Practitioner 02/12/25 documented as of this encounter Additional Source Comments The information contained in this document represents components of the legal health record. It is not the complete legal health record.[facility]
--- OUTSIDE RECORDS SUMMARY | 2025-07-14 18:02 | XMS_ITS | Encounter Summary ---
Author Organization [facility] Address [address] [place] [address] [place] [address] Phone Care Team Providers Care Traffic Rate Computer Name Role Phone Cade Perez MD Primary Care Provider [phone] Gavino Llanos NP Primary Care Provider [phone] Encounter Details Date Type Department Care Team (Late st Contact Info) Description 08/05/2024 Procedure Pass Echo Lab [place] [place] [address] Social History Tobacco Use Types Packs/Day Years [...] Description 11/09/2025 8:30 AM EST Office Visit [facility] [address] [place] [address] 3rd Floor, [address] [place] [address] Cassie Magana, AKIRA [address] [facility], [address] [place] [address] [email or web address] documented as of this encounter Visit Diagnoses Not on filedocumented in this encounter Additional Health Concerns Infection Onset Date Last Indicated Resolved Time CoV-Risk 10/13/2024 10/13/2024 10/24/2024 1:24 AM EST documented as of this encounter Care Teams Traffic Rate Computer Relationship Specialty Start Date End Date Cade Perez MD [address] [place] [address] PCP - General Internal Medicine 06/18/23 02/11/25 Gavino Llanos NP [address] [place] [address] PCP - General Nurse Practitioner 02/12/25 documented as of this encounter Additional Source Comments The information contained in this document represents components of the legal health record. It is not the complete legal health record.[facility]
--- OUTSIDE RECORDS SUMMARY | 2025-07-14 18:02 | XMS_ITS | Encounter Summary ---
Author Organization [facility] Address [address] [place] [address] [place] [address] Phone Care Team Providers Care Drill Bit Sharpener Name Role Phone Cade Perez MD Primary Care Provider [phone] Gavino Llanos NP Primary Care Provider [phone] Encounter Details Date Type Department Care Team ([facility] st Contact Info) Description 06/16/2024 Procedure Pass [facility] [address] [place] [address] Social History Tobacco Use Types Packs/Day Years [...] Description 11/09/2025 8:30 AM EST Office Visit [facility] [address] [place] [address] [address]rd Floor, [address] [place] [address] Cassie Magana, AKIRA [address] [facility], [address] [place] [address] [email or web address] documented as of this encounter Visit Diagnoses Not on filedocumented in this encounter Additional Health Concerns Infection Onset Date Last Indicated Resolved Time CoV-Risk 10/13/2024 10/13/2024 10/24/2024 1:2 4 AM EST documented as of this encounter Care Teams Drill Bit Sharpener Relationship Specialty Start Date End Date Cade Perez MD [address] [place] [address] PCP - General Internal Medicine 06/18/23 02/11/25 Gavino Llanos NP [address] [place] [address] PCP - General Nurse Practitioner 02/12/25 documented as of this encounter Additional Source Comments The information contained in this document represents components of the legal health record. It is not the complete legal health record.[facility]
--- OUTSIDE RECORDS SUMMARY | 2025-07-14 18:02 | XMS_ITS | Encounter Summary ---
Author Organization [facility] Address [address] [place] [address] [place] [address] Phone Care Team Providers Care Mannequin Mounter Name Role Phone Cade Perez MD Primary Care Provider [phone] Gavino Llanos NP Primary Care Provider [phone] Encounter Details Date Type Department Care Team (Late st Contact Info) Description 04/15/2024 Procedure Pass Non-Invasive Cardiology [address] [place], [place] [id number] Social History Tobacco Use Types Packs/Day Years [...] Description 11/09/2025 8:30 AM EST Office Visit [facility] [address], [address] [place] [address] Cassie Magana, AKIRA [address] [facility], [address] [place] [address] [email or web address] documented as of this encounter Visit Diagnoses Not on filedocumented in this encounter Additional Health Concerns Infection Onset Date Last Indicated Resolved Time CoV-Risk 10/13/2024 10/13/2024 10/24/2024 1:24 AM EST documented as of this encounter Care Teams Mannequin Mounter Relationship Specialty Start Date End Date Cade Perez MD [address] [place] [address] PCP - General Internal Medicine 06/18/23 02/11/25 Gavino Llanos NP [address] [place] [address] PCP - General Nurse Practitioner 02/12/25 documented as of this encounter Additional Source Comments The information contained in this document represents components of the legal health record. It is not the complete legal health record.[facility]
--- OUTSIDE RECORDS SUMMARY | 2025-07-14 18:02 | XMS_ITS | Encounter Summary ---
Author Organization [employer] Address [address] [facility] 7 [place] [address] Care Team Providers Care Contact Lens Cutter Name Role Phone Gavino Llanos CNP Primary Care Provider [phone] Reason for Visit * Reason Comments Med Refill Encounter Details Date Type Department Care Team ([facility] st Contact Info) Description 07/07/2025 Refill [facility] [address] [place] [address] Marizol Lemus MD [address] [place] [address] Chronic obstructive pulmonary disease, unspecified COPD type (CMS/HCC) (HCC); Other eosinophilia; Pure hypercholesterolemia; Atherosclerosis of [place] coronary artery of [place] heart without angina pectoris Social History Tobacco Use Types Packs/Day Years Used Date Smoking Tobacco: Former Cigarettes Passive Smoke Exposure: Past Smokeless Tobacco: Former Depression Answer Date Recorded Patient Health Questionnaire-9 [...] Orientation Straight 02/11/2025 8: 47 AM EDT documented as of this encounter Plan of Treatment Not on file documented as of this encounter Visit Diagnoses Diagnosis Chronic obstructive pulmonary disease, unspecified COPD type (CMS/HCC) (HCC) Other eosinophilia Pure hypercholesterolemia Atherosclerosis of [place] coronary artery of [place] heart without angina pectoris documented in this encounter Additional Health Concerns Assessment Noted Time PHQ-9 Depression Total Score: 1 02/12/20 9:33 AM EDT documented as of this encounter Care Teams Contact Lens Cutter Relationship Specialty Start Date End Date Gavino Llanos CNP PCP - General Family Medicine 02/11/25 documented as of this encounter
== END 2025-07-14 15:42 | disposition home or self-care (01) ==
LOC: HO.HPS 15:05
PROVIDERS: Visit Provider Internal Medicine
DX: J44.1 Chronic obstructive pulmonary disease with (acute) exacerbation (principal)
CPT/HCPCS: 99213

== ENCOUNTER → 2025-07-14 15:05 | Outpatient (BNVA) | payer MEDICARE, SELFPAY | PROVIDERS: Visit Provider Internal Medicine | DX: J44.1 Chronic obstructive pulmonary disease with (acute) exacerbation (principal) | CPT/HCPCS: 99212 ==

== ENCOUNTER 2025-08-18 11:08 | Outpatient (AMB) | payer MEDICARE, SELFPAY ==
[2025-08-18 11:14] VITALS: BP 110/74; PULSE 84; O2SAT 96; BMI 29.0
--- NOTE | 2025-08-18 11:14 | MHC.OFFVIS ---
Vital Signs 08/18/25 11:14 Height 5 ft 8 in Weight 190 lb 11.198 oz BMI 29.0 BP 110/74 Blood Pressure Location Lt brachial Position Sitting Pulse 84 Pulse Source Pulse Oximeter Pulse Oximetry (%) 96 Oxygen Delivery Method Room Air Intake Visit Reasons: Wheezing Intake Note: pt is here for follow up and states little wheeze this am, will be starting a new deductible in September to try to get Breo. Security Patrol Officer Required: No Steaming Cabinet Tender: Steaming Cabinet Tender offered & declined Allergies No Known Allergies (No Known Allergies*) Allergy (Verified 08/18/25 11:32) Medication List - Last Reconciled 08/18/25 by Erwin Nichols MD albuterol sulfate 90 mcg/actuation 2 puffs PO Q4H PRN amlodipine 10 mg PO DAILY aspirin (Adult Low Dose Aspirin) 81 mg PO DAILY carvedilol 6.25 mg PO BID clopidogrel (Plavix) 75 mg PO DAILY coenzyme Q10 (Co Q-10) 100 mg PO DAILY docusate sodium (Colace) 100 mg PO BID PRN guaifenesin ER (Mucinex) 600 mg PO BID 10 days peg 400-propylene glycol (PF) 0.4-0.3 % (Systane (PF)) 1 drp ophthalmic (eye) QID prednisone 20 mg PO BID PRN rosuvastatin (Crestor) 40 mg PO BEDTIME Do you need a note to return to daycare/school/sports/work: No HPI HPI Wheezing: Details: THIS 84 YEARS OLD VERY PLEASANT GENTLEMAN IS HERE FOR FOLLOW-UP. RECENTLY TREATED FOR ANOTHER ACUTE EXACERBATION WITH A COURSE OF PREDNISONE AND Z-SUMIT. HE WAS PRESCRIBED BREO 200-25 TO USE ONCE A DAY, BUT BECAUSE IT IS THE END OF THE YEAR HE COULD NOT AFFORD IT. HE WILL BE STARTING WITH A NEW DEDUCTIBLE PLAN FROM THE September AND THEN HE HOPES HE CAN BY BREO. ANYWAY AT THIS TIME HE HAS MILD INTERMITTENT COUGH AND SOME WHEEZING ON WALKING UP HILL OR OUTDOORS. OVERALL HE IS RELATIVELY STABLE. [facility] Medical History COPD exacerbation History of smoking at least 1 pack per day for at least 30 years Eosinophilia Asthma COPD (chronic obstructive pulmonary disease) Aortic stenosis HTN (hypertension) Renal cyst, right Hyperlipidemia Coronary artery disease Surgical History History of appendectomy (11/26/23) S/P cardiac pacemaker procedure History of colonoscopy History of left knee replacement History of cholecystectomy History of rectal fissure History of right inguinal hernia History of left inguinal hernia History of shoulder surgery Family History Father No problems noted. Mother No problems noted. Social History Household Members: Spouse Housing: House Are you a primary adult caregiver to a significant other at home: No Do you presently have visiting nurse or other home services: No Alcohol intake: former Patient Tobacco Use Status: Former Tobacco user Tobacco use type: Cigarette e-Cigarette/Vaping Use: Former Use Second Hand Smoke Exposure: No Advance Directives Date on File: 11/24/24 service: No Current occupational status: retired Current occupational exposures/hazards: No Cognitive needs: No Hearing needs: No Vision needs: Yes Review of Systems Const All systems reviewed & are unremarkable except as noted in HPI and below Eyes Reports no additional complaints and Reports other (RIGHT EYE STATUS POST CATARACT SURGERY 2 YEARS AGO WITH RESIDUAL EXTROPIAN) ENT Reports no additional complaints Card Denies chest pain, Denies syncope, Denies irregular heart rhythm, Denies leg edema and Reports other ( 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) Resp Reports as per HPI GI Reports no additional complaints Reports no additional complaints Musc Reports no additional complaints Skin/Breast Reports system reviewed and no additional complaints, except as documented Neuro Details: HISTORY OF STROKE A FEW YEARS AGO WITH COMPLETE RESOLUTION Denies syncope Endo Reports no additional complaints Manoj/Lymph Reports no additional complaints Physical Exam Const General: healthy appearing, comfortable, no acute distress, alert and awake Orientation/consciousness: patient oriented x3 HEENT Head: Yes normal to inspection General nose exam: No nasal polyps present and No nasal discharge present Face and sinus: Yes sinuses nontender Mouth: oropharynx normal Throat: Yes posterior oropharynx normal Eyes General: appearance normal, both eyes and all related structures Alignment and Position: other (RIGHT EYE STATUS POST CATARACT SURGERY AND PERMANENT EXTROPIAN OF THE LOWER) Neck Neck: Yes normal visual inspection, Yes no lymphadenopathy, Yes trachea midline and Yes no JVD Thyroid: Thyroid normal Chest Chest palpation & inspection: normal inspection of the chest, normal palpation of entire chest wall and no tenderness Resp Other: PERCUSSION NOTE IS RESONANT BREATH SOUNDS EQUAL ON BOTH SIDES BUT DISTANT WITH PROLONGED EXPIRATORY PHASE. TODAY THERE ARE NO EXPIRATORY WHEEZES OR CREPITATIONS. Cardio Palpation: normal PMI Rate: regular rate Rhythm: regular rhythm Heart sounds: no gallops, no murmurs and Other heart sounds present (PACEMAKER IN THE LEFT PECTORAL AREA) Peripheral pulses: Peripheral pulses 2+ throughout GI Palpation (GI): Soft to palpation, nontender, No hepatosplenomegaly present and no masses Auscultation: normal bowel sounds Back/Spine/Pelvis Thoracic/Lumbar Spine: thoracic and lumbar spine normal to inspection Skin General skin exam: no rashes or lesions noted Neuro General: patient oriented x3 and no focal motor deficits Cranial nerves: Yes CN's II-XII intact bilaterally Extrem General: Yes normal to inspection, Yes no clubbing, cyanosis or edema and Yes no calf tenderness Psych Speech and movement: Normal speech and movement present Results Reviewed Results Reviewed: ONCE AGAIN I REVIEWED THE RESULTS OF PFT IN FEBRUARY 2025 WITH HIM, SHOWING THAT HE DOES HAVE MODERATELY SEVERE OBSTRUCTIVE AIRWAY DISORDER. 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 Patient is not able to afford the Breo, which was ordered for maintenance regimen. Code(s): J44.9 - Chronic obstructive pulmonary disease, unspecified Category: Medical Plan: Advised him that he should get Breo 200-25 and start using 1 inhalation daily, from the 10 of September, as he will start with a new deductible plan. If it does not work then I will have to order meds by the nebulizer , including nebulized steroid solution. Such as budesonide (2) Asthma: Comment: LAST 2 VISITS TO THE EMERGENCY ROOM WERE CONSISTENT WITH ASTHMA LIKE ATTACK AND HE RESPONDED TO THE STEROIDS VERY QUICKLY. Code(s): J45.909 - Unspecified asthma, uncomplicated Category: Medical Plan: At present lungs are clear and he does not need to be on ongoing steroids Coding Level of Care Code Est Pt Level 3 (63431) Diagnoses COPD (chronic obstructive pulmonary disease) J44.9 Asthma J45.909
== END 2025-08-18 11:33 | disposition home or self-care (01) ==
LOC: HO.HPS 11:09
PROVIDERS: Visit Provider Internal Medicine
DX: J44.9 Chronic obstructive pulmonary disease, unspecified (principal); J45.909 Unspecified asthma, uncomplicated
CPT/HCPCS: 99213

== ENCOUNTER → 2025-08-18 11:08 | Outpatient (BNVA) | payer MEDICARE, SELFPAY | PROVIDERS: Visit Provider Internal Medicine | DX: J44.9 Chronic obstructive pulmonary disease, unspecified (principal); J45.909 Unspecified asthma, uncomplicated | CPT/HCPCS: 99212 ==